=== PATIENT | female | born 1965 | race Caucasian/White ===

== ENCOUNTER → 2017-01-20 | Outpatient (CLI) | payer BC ==
--- NOTE | 2017-01-20 14:10 | CT ---
EXAMINATION TYPE: CT abdomen wo con DATE OF EXAM: 01/20/2017 1:51 PM COMPARISON: Prior CT abdomen pelvis 25 July 2015 HISTORY: Upper Abd pain with decreased appetite CT DLP: 198.5 mGycm Automated exposure control for dose reduction was used. TECHNIQUE: Helical acquisition of images was performed from the lung bases through the top of iliac crest to include entire abdomen. CONTRAST: Performed without Oral Contrast and without IV contrast. FINDINGS: LUNG BASES: No significant abnormality is appreciated. LIVER/GB: Liver shows low attenuation likely due to fatty infiltration as on prior exam, patient is p ost cholecystectomy PANCREAS: No significant abnormality is seen. SPLEEN: No significant abnormality is seen. ADRENALS: No significant abnormality is seen. KIDNEYS: Suspect findings of medullary sponge kidney bilaterally. No hydronephrosis or ureteral calcu jose j. BOWEL: Postop change, suspect patient is post appendectomy. Diverticular change seen in the colon. LYMPH NODES: No adenopathy evident OSSEOUS STRUCTURES: Degenerative disc changes are again noted at the lumbosacral junction FREE AIR: No Free Air visible ASCITES: None visible. RETROPERITONEAL ADENOPATHY: No Retroperitoneal Adenopathy visible. OTHER: Surgical clip present just deep to the umbilicus within the mesenteric fat. IMPRESSION: DIVERTICULOSIS. FATTY INFILTRATION OF THE LIVER. POSTOP CHANGES DESCRIBED. EXAM MAY BE LIMITED BY LACK OF CONTRAST. Additional findings above.
[2017-01-20 14:30] LABS: CH 28.3; CHCM 34.1; HCT 48.8 % (34.0-46.0); HGB 15.9 gm/dL (11.4-16.0); MCH 27.2 pg (25.0-35.0); MCHC 32.6 g/dL (31.0-37.0); MCV 83.5 fL (80.0-100.0); Mean Platelet Volume 7.2; RBC 5.84 m/uL (3.80-5.40); RDW 13.3 % (11.5-15.5); WBC 5.3 k/uL (3.8-10.6)
[2017-01-20 14:32] LABS: ALT 46 U/L (9-52); AST 34 U/L (14-36); Alkaline Phosphatase 104 U/L (38-126); Anion Gap 17 mmol/L; Blood Urea Nitrogen 18 mg/dL (7-17); Calcium 9.2 mg/dL (8.4-10.2); Carbon Dioxide 23 mmol/L (22-30); Chloride 102 mmol/L (98-107); Cholesterol 252 mg/dL (<200); Glucose 110 mg/dL (74-99); HDL Cholesterol 47 mg/dL (40-60); Non-African American GFR(MDRD) >60 (>60 ml/min/1.73 sqM); Potassium 4.3 mmol/L (3.5-5.1); Sodium 142 mmol/L (137-145); Total Bilirubin 0.8 mg/dL (0.2-1.3); Triglycerides 134 mg/dL (<150)
[2017-01-20 14:41] LABS: Appearance,Urine Clear (Clear); Bilirubin,Urine Negative (Negative); Glucose,Urine (UA) 4+ (Negative); Leukocyte Esterase,Urine Negative (Negative); Nitrite,Urine Negative (Negative); Protein,Urine Trace (Negative); Specific Gravity,Urine 1.037 (1.001-1.035); UA Billing (MACRO vs. MICRO) CHEM; Urobilinogen,Urine <2.0 mg/dL (<2.0)
[2017-01-20 14:43] LABS: Ketones,Urine 4+ (Negative)
[2017-01-20 18:25] LABS: Hemoglobin A1C 11.7 % (4.2-6.1)
== END | disposition home or self-care (01) ==
LOC: RADCTMAIN 11:58
PROVIDERS: ATTEND Family Medicine
DX: K57.30 Diverticulosis of large intestine without perforation or abscess without bleeding (principal); K76.0 Fatty (change of) liver, not elsewhere classified; Z98.890 Other specified postprocedural states
CPT/HCPCS: 74150; 80053; 80061; 81003; 83036; 83690; 84443; 85027

== ENCOUNTER 2017-01-23 09:41 | Observation (INO) | payer BC ==
[2017-01-23] MEDS ORDERED: LIDOCAINE 4% CREAM 5 GM TUBE TOPICAL ONE (11:10)
[2017-01-23 12:23] LABS: Basophils % (A) 0 %; CH 27.9; CHCM 33.3; Eosinophils # (A) 0.1 k/uL (0-0.7); Eosinophils % (A) 1 %; HCT 47.1 % (34.0-46.0); HDW 2.57; HGB 15.5 gm/dL (11.4-16.0); Luc # (Auto) 0.11; Luc % (Auto) 2; Lymphocytes % (A) 39 %; MCH 27.6 pg (25.0-35.0); MCHC 32.9 g/dL (31.0-37.0); MCV 83.9 fL (80.0-100.0); Mean Platelet Volume 6.4; Monocytes # (A) 0.3 k/uL (0-1.0); Monocytes % (A) 5 %; Neutrophils # (A) 2.7 k/uL (1.3-7.7); Neutrophils % (A) 53 %; RBC 5.61 m/uL (3.80-5.40); RDW 12.9 % (11.5-15.5); WBC 5.1 k/uL (3.8-10.6); WBC (Perox) 5.31
[2017-01-23] MEDS ORDERED: SODIUM CHLORIDE 0.9% 1,000 ML IV SCH (12:30)
[2017-01-23 12:31] LABS: ALT 40 U/L (9-52); AST 28 U/L (14-36); Alkaline Phosphatase 99 U/L (38-126); Anion Gap 15 mmol/L; Blood Urea Nitrogen 13 mg/dL (7-17); Calcium 9.4 mg/dL (8.4-10.2); Carbon Dioxide 22 mmol/L (22-30); Chloride 105 mmol/L (98-107); Cholesterol 254 mg/dL (<200); Glucose 179 mg/dL (74-99); HDL Cholesterol 40 mg/dL (40-60); Non-African American GFR(MDRD) >60 (>60 ml/min/1.73 sqM); Potassium 4.1 mmol/L (3.5-5.1); Sodium 142 mmol/L (137-145); Total Bilirubin 0.8 mg/dL (0.2-1.3); Total Protein 7.8 g/dL (6.3-8.2); Triglycerides 295 mg/dL (<150)
--- NOTE | 2017-01-23 12:48 | XR ---
EXAMINATION TYPE: XR abdomen 2V DATE OF EXAM: 01/23/2017 12:43 PM COMPARISON: 01/20/2017 HISTORY: Abdominal pain TECHNIQUE: One view abdominal series FINDINGS: The osseous structures are intact. The bowel gas pattern is nonspecific. Surgical clip in the right upper quadrant. Retained fecal debris throughout the colon. Arthropathy of the joints. IMPRESSION: 1. Nonspecific abdomen. Correlate for constipation
[2017-01-23] MEDS: SODIUM CHLORIDE 0.9% 1,000 ML IV SCH ×2 (12:54→22:24)
[2017-01-23 17:17] LABS: Glucose,Whole Blood 176 mg/dL (75-99)
--- NOTE | 2017-01-23 17:39 | P.GSCN ---
History of Present Illness Consult date: 01/23/17 Reason for Consult: Abdominal pain Requesting physician: Dallas Thompson History of present illness: Patient is a 51-year-old white female, referred from Dr. Thompson, with medical history significant for diabetes mellitus. Surgical history significant for appendectomy and cholecystectomy. Patient states that approximately 2 weeks ago she started experiencing abdominal bloating associated with nausea. Patient states that whenever she tried to eat something more than liquids and felt like the food wasn't getting digested but was stuck. Patient states she tried to eat some more solid foods but had a few episodes of vomiting. Patient states that she normally has 2-4 bowel movements a day after her cholecystectomy but hasn't had a bowel movement for 2 days. Patient states that when she does have a bowel movement she has to strain and stool is hard which is unusual for her. No history of fevers, chills, shortness of breath, or chest pain. Patient states that her blood sugars have been running in the 200s. Patient is concerned of possible gastroparesis. Abdominal x-ray with evidence of retained fecal debris throughout colon suggestive of constipation. CT of abdomen and pelvis from 01/20/2017 with evidence of diverticulosis. No evidence of leukocytosis. Hematocrit 47.1. Past Medical History Past Medical History: Diabetes Mellitus History of Any Multi-Drug Resistant Organisms: None Reported Past Surgical History: Appendectomy, Cholecystectomy Additional Past Surgical History / Comment(s): cyst removal Past Anesthesia/Blood Transfusion Reactions: Postoperative Nausea & Vomiting ( PONV) Past Psychological History: No Psychological Hx Reported Smoking Status: Former smoker Past Alcohol Use History: None Reported Past Drug Use History: None Reported - Past Family History Mother Family Medical History: Diabetes Mellitus, Hypertension Medications and Allergies Home Medications Medication Instructions Recorded Confirmed Type Empagliflozin/Metformin HCl 1 tab PO DAILY 01/23/17 01/23/17 History [Synjardy 12.5-1,000 mg Tablet] Allergies Allergy/AdvReac Type Severity Reaction Status Date / Time erythromycin base Allergy Rash/Hives Verified 01/23/17 11:15 Penicillins Allergy Rash/Hives Verified 01/23/17 11:15 prednisone Allergy Rash/Hives Verified 01/23/17 11:15 Sulfa (Sulfonamide Allergy Rash/Hives Verified 01/23/17 11:15 Antibiotics) Surgical - Exam Vital Signs Temp Pulse Resp BP Pulse Ox 97.1 F L 75 16 161/90 97 01/23/17 10:30 01/23/17 10:30 01/23/17 10:30 01/23/17 10:30 01/23/17 10:30 GENERAL: Pt awake and alert, well-appearing, well-nourished, and in no acute distress. EYES: Pupils equal, round, and reactive to light, sclera anicteric, conjunctiva are normal. ENT: Moist mucous membranes. LUNGS: Breath sounds clear to auscultation bilaterally. No wheezes, rales, or rhonchi. HEART: Heart S1, S2, no S3 or S4. Regular rate and rhythm. No murmurs, rubs or gallops. ABDOMEN: Soft, nontender, nondistended, normoactive bowel sounds. No guarding, no rebound. No masses or organomegaly appreciated. EXTREMITIES: Palpable peripheral pulses. No edema. No calf tenderness. NEUROLOGICAL: Pt oriented x 3. No focal deficits noted. Strength and sensation grossly intact. PSYCH: Normal mood, normal affect. Results - Labs 01/23/17 12:07 01/23/17 12:07 Abnormal Lab Results - Last 24 Hours (Table) 01/23/17 01/23/17 Range/Units 12:07 12:07 RBC 5.61 H (3.80-5.40) m/uL Hct 47.1 H (34.0-46.0) % Creatinine 0.42 L (0.52-1.04) mg/dL Glucose 179 H (74-99) mg/dL Triglycerides 295 H (<150) mg/dL Cholesterol 254 H (<200) mg/dL LDL Cholesterol, Calc 155 H (0-99) mg/dL Diabetes panel 01/23/17 Range/Units 12:07 Sodium 142 (137-145) mmol/L Potassium 4.1 (3.5-5.1) mmol/L Chloride 105 (98-107) mmol/L Carbon Dioxide 22 (22-30) mmol/L BUN 13 (7-17) mg/dL Creatinine 0.42 L (0.52-1.04) mg/dL Glucose 179 H (74-99) mg/dL Calcium 9.4 (8.4-10.2) mg/dL AST 28 (14-36) U/L ALT 40 (9-52) U/L Alkaline Phosphatase 99 (38-126) U/L Total Protein 7.8 (6.3-8.2) g/dL Albumin 4.5 (3.5-5.0) g/dL Triglycerides 295 H (<150) mg/dL HDL Cholesterol 40 (40-60) mg/dL Thyroid panel 01/23/17 Range/Units 12:07 TSH 3.400 (0.465-4.680) mIU/L Calcium panel 01/23/17 Range/Units 12:07 Calcium 9.4 (8.4-10.2) mg/dL Albumin 4.5 (3.5-5.0) g/dL Pituitary panel 01/23/17 01/23/17 Range/Units 12:07 12:07 Sodium 142 (137-145) mmol/L Potassium 4.1 (3.5-5.1) mmol/L Chloride 105 (98-107) mmol/L Carbon Dioxide 22 (22-30) mmol/L BUN 13 (7-17) mg/dL Creatinine 0.42 L (0.52-1.04) mg/dL Glucose 179 H (74-99) mg/dL Calcium 9.4 (8.4-10.2) mg/dL TSH 3.400 (0.465-4.680) mIU/L Adrenal panel 01/23/17 Range/Units 12:07 Sodium 142 (137-145) mmol/L Potassium 4.1 (3.5-5.1) mmol/L Chloride 105 (98-107) mmol/L Carbon Dioxide 22 (22-30) mmol/L BUN 13 (7-17) mg/dL Creatinine 0.42 L (0.52-1.04) mg/dL Glucose 179 H (74-99) mg/dL Calcium 9.4 (8.4-10.2) mg/dL Total Bilirubin 0.8 (0.2-1.3) mg/dL AST 28 (14-36) U/L ALT 40 (9-52) U/L Alkaline Phosphatase 99 (38-126) U/L Total Protein 7.8 (6.3-8.2) g/dL Albumin 4.5 (3.5-5.0) g/dL - Imaging Abdominal x-ray: report reviewed CT scan - abdomen: report reviewed CT scan - pelvis: report reviewed Assessment and Plan Plan: Impression: 1. Abdominal pain associated with decreased appetite and nausea suspect secondary to constipation. 2. Diverticulosis. Plan: Continue clear liquid diet. Continue IV hydration. Continue GI prophylaxis. Continue supportive treatment and pain management. Consider Fleet enema in a.m. if no bowel movement. The above impression and plan have been discussed and directed by Dr. Rivers. Carmine THAO acting as scribe for Dr. Rivers.
--- NOTE | 2017-01-23 17:40 | US ---
EXAMINATION TYPE: US abdomen complete DATE OF EXAM: 01/23/2017 3:03 PM COMPARISON: Previous study dated 12/04/2014. CLINICAL HISTORY: abdominal pain. EXAM MEASUREMENTS: Liver Length: 14.0 cm Gallbladder Wall: Surgically absent cm CBD: 0.5 cm Spleen: 9.7 cm Right Kidney: 10.2 x 4.5 x 4.7 cm Left Kidney: 10.2 x 5.1 x 4.8 cm Pancreas: Tail obscured by overlying bowel gas Liver: wnl Gallbladder: Surgically absent Evidence for sonographic Clinton's sign: No CBD: wnl Spleen: wnl Right Kidney: wnl Left Kidney: wnl Upper IVC: wnl Abd Aorta: wnl Limited views of the pancreas are normal. The liver is unremarkable. The gallbladder is been removed. The distal common hepatic duct measures 5 mm. The spleen is normal in size. Both kidneys are unremar kable. Visualized portions of aorta and IVC are normal. IMPRESSION: NORMAL ABDOMINAL ULTRASOUND.
[2017-01-23] MEDS: FAMOTIDINE 20 MG/2 ML VIAL IV SCH (20:58)
[2017-01-23 21:07] LABS: Glucose,Whole Blood 129 mg/dL (75-99)
--- NOTE | 2017-01-23 21:57 | HP ---
DATE OF ADMISSION: CHIEF COMPLAINT: A 51-year-old white female with acute abdominal pain. HISTORY OF PRESENT ILLNESS: This is a 51-year-old white female with acute abdominal pain worsening over the past few days. She was unable to have a bowel movement over the last 5 days. She has progressive vomiting with any oral intake, unable to keep any food down. She was admitted for acute abdomen to rule out any surgical pathology and to relieve any causes of bowel obstruction. She is diabetic. She has failed outpatient treatment with gastroparesis. She was on Reglan, which made her extremely fatigued. ALLERGIES include: 1. ERYTHROMYCIN. 2. PENICILLIN. 3. PREDNISONE. 4. SULFA. HOME MEDICATIONS: 1. Synjardy 12.02/1000 one daily. 2. Pepcid 20 daily. REVIEW OF SYSTEMS: Fourteen-point review of systems negative except as mentioned in the HPI. PHYSICAL EXAM: Temperature 97.1, pulse 70 to 75, respiratory rate 16 to 18, blood pressure 160s over 90s, oxygen saturation 97% on room air. PSYCHIATRIC: Fair mood and affect. NEUROLOGIC: Alert and oriented x3. CARDIOVASCULAR: S1 and S2 without any murmurs, rubs, gallops. LUNGS: Clear to auscultation. No rales, rhonchi, wheezing. Integument shows some facial rosacea and redness across her cheeks. GI: Distended. Slightly increased bowel sounds x4. Mild guarding. No rebound. : No suprapubic tenderness. No CVA tenderness. HEMATOLOGIC: Negative Homans. VASCULAR: Normal dorsalis pedis, posterior tibial and radial pulse. ASSESSMENT: 1. Acute abdominal pain. Rule out small bowel obstruction versus ileus versus gastroparesis. Surgical consultation planned at this time. 2. Type 2 diabetes mellitus. 3. Gastroesophageal reflux disease. Continue with surgical consult. Ultrasound of the abdomen and x-ray of the abdomen. CONDITION: Stable. Will continue in the next 24 to 48 hours with surgical consult.
[2017-01-24] MEDS ORDERED: HYDROmorphone 1 MG/ML 1 ML SYRINGE IVP PRN (01:27)
[2017-01-24 07:39] LABS: Glucose,Whole Blood 165 mg/dL (75-99)
[2017-01-24] MEDS ORDERED: IBUPROFEN 600 MG TAB PO PRN (07:58)
[2017-01-24] MEDS ORDERED: NA PHOS,M-B/NA PHOS,DI-BA 133 ML ENEMA RECTAL ONE (08:00)
[2017-01-24] MEDS: SODIUM CHLORIDE 0.9% 1,000 ML IV SCH (08:26)
[2017-01-24] MEDS: FAMOTIDINE 20 MG/2 ML VIAL IV SCH (08:33)
[2017-01-24 08:46] VITALS: BP 125/81; PULSE 76; RESP 18; TEMP 97.2
[2017-01-24] MEDS ORDERED: METFORMIN HCL PO SCH (09:00)
[2017-01-24] MEDS ORDERED: EMPAGLIFLOZIN PO SCH (09:00)
--- NOTE | 2017-01-24 11:59 | P.PN ---
Progress Note - Text The patient states she feels better. He has received a Fleet enema this morning. On exam her vital signs are stable. Her abdomen soft. The patient will most likely be discharged home today. She'll follow-up in the office next week. We will plan for outpatient colonoscopy.
[2017-01-24 12:47] LABS: Hemoglobin A1C 11.5 % (4.2-6.1)
[2017-01-24 15:02] VITALS: BMI 24.3
--- NOTE | 2017-04-07 08:46 | DS ---
DATE OF ADMISSION: 01/23/2017 DATE OF DISCHARGE: 01/24/2017 MEDICATION: Synjardy 12.02/1000 one tablet daily. CONDITION: Stable. PROGNOSIS: Guarded. Ambulate as tolerated. DIAGNOSES: 1. Acute gastroparesis. 2. Diabetes mellitus. 3. Chemical exposure at work, possibly causing some abdominal pain. 4. Diverticulosis. 5. Possible constipation. 6. Burning in the throat, suspect she states from chemicals at work. Will need an outpatient EGD. Medically, she was cleared for discharge by Dr. Rivers and she will follow up as an outpatient.
== END 2017-01-24 15:30 | disposition home or self-care (01) ==
LOC: 6PED 10:19
PROVIDERS: ADMIT Family Medicine; ATTEND Family Medicine
DX: E11.43 Type 2 diabetes mellitus with diabetic autonomic (poly)neuropathy (principal); K31.84 Gastroparesis; Z79.84 Long term (current) use of oral hypoglycemic drugs; K21.9 Gastro-esophageal reflux disease without esophagitis; K57.90 Diverticulosis of intestine, part unspecified, without perforation or abscess without bleeding; Z87.891 Personal history of nicotine dependence; Z88.3 Allergy status to other anti-infective agents; Z88.0 Allergy status to penicillin; Z88.2 Allergy status to sulfonamides; Z88.8 Allergy status to other drugs, medicaments and biological substances; Z90.49 Acquired absence of other specified parts of digestive tract
CPT/HCPCS: 80061; 80053; 84443; 82150; 83036; 83690; 85025; 74020; 76700; G0378 ×2; G0379; 96374; 96376

== ENCOUNTER 2017-02-04 08:25 | Day surgery (SDC) | payer BC ==
[2017-01-30 14:28] VITALS: BMI 24.6
[~2017-02-04 08:25] MED LIST: LACTATED RINGERS 1,000 ML IV SCH; LIDOCAINE 1% 20 ML VIAL (10MG/ML) FOR IV START INTRADERMA PRN
[2017-02-04] MEDS ORDERED: fentaNYL (PF) 50 MCG/ML 2 ML AMP ONE (09:00)
[2017-02-04] MEDS ORDERED: PROPOFOL 10 MG/ML 20 ML VIAL IV ONE (09:00)
[2017-02-04] MEDS ORDERED: MIDAZOLAM 2 MG/2 ML VIAL ONE (09:00)
[2017-02-04 09:01] VITALS: RESP 16; TEMP 97.8
[2017-02-04 09:03] LABS: Glucose,Whole Blood 197 mg/dL (75-99)
--- NOTE | 2017-02-04 09:11 | P.GSHP ---
History of Present Illness H&P Date: 02/04/17 Chief Complaint: GERD, screening colonoscopy This a 51-year-old female who's had recent issues with GERD. She presents today for EGD. She's also had complaints of constipation left lower quadrant pain. She presents for screening colonoscopy. - Constitutional Constitutional: Reports as per HPI Past Medical History Past Medical History: Diabetes Mellitus, Hyperlipidemia Additional Past Medical History / Comment(s): vomiting after eating, constipation, History of Any Multi-Drug Resistant Organisms: None Reported Past Surgical History: Appendectomy, Cholecystectomy Additional Past Surgical History / Comment(s): cysts removed from ovaries Past Anesthesia/Blood Transfusion Reactions: Motion Sickness, Postoperative Nausea & Vomiting (PONV) Past Psychological History: No Psychological Hx Reported Smoking Status: Former smoker Past Alcohol Use History: None Reported Additional Past Alcohol Use History / Comment(s): quit smoking 30 yrs ago, smoked for 2-3 yrs Past Drug Use History: None Reported - Past Family History Mother Family Medical History: Diabetes Mellitus, Hypertension Sister(s) Family Medical History: Deep Vein Thrombosis (DVT) Medications and Allergies Home Medications Medication Instructions Recorded Confirmed Type Empagliflozin/Metformin HCl 1 tab PO DAILY 01/23/17 01/30/17 History [Synjardy 12.5-1,000 mg Tablet] Ibuprofen [Motrin] 200 - 400 mg PO Q6HR PRN 01/30/17 01/30/17 History Reglan(Dose Unknown) 1 tab PO QID 01/30/17 01/30/17 History Allergies Allergy/AdvReac Type Severity Reaction Status Date / Time erythromycin base Allergy Rash/Hives Verified 02/04/17 08:51 gemifloxacin [From Factive] Allergy Swelling Verified 02/04/17 08:51 Penicillins Allergy Rash/Hives Verified 02/04/17 08:51 prednisone Allergy Rash/Hives Verified 02/04/17 08:51 Sulfa (Sulfonamide Allergy Rash/Hives Verified 02/04/17 08:51 Antibiotics) Surgical - Exam Vital Signs Temp Pulse Resp BP Pulse Ox 97.8 F 93 16 141/79 97 02/04/17 08:58 02/04/17 08:58 02/04/17 08:58 02/04/17 08:58 02/04/17 08:58 - General well developed, no distress - Eyes PERRL - ENT normal pinna - Respiratory normal expansion - Cardiovascular Rhythm: regular - Abdomen Abdomen: soft, non tender Results - Labs Abnormal Lab Results - Last 24 Hours (Table) 02/04/17 Range/Units 08:56 POC Glucose (mg/dL) 197 H (75-99) mg/dL Assessment and Plan Plan: GERD we'll perform EGD. We'll also perform screening colonoscopy.
--- NOTE | 2017-02-04 09:40 | P.OP ---
Date of Procedure: 02/04/17 Preoperative Diagnosis: GERD Screening colonoscopy Postoperative Diagnosis: Diverticulosis Mild antral gastritis Procedure(s) Performed: EGD Colonoscopy Anesthesia: MAC Surgeon: Brandon Rivers Pathology: other (Antrum, esophagus) Condition: stable Disposition: PACU Description of Procedure: The patient's placed on the endoscopy table in the lateral position. She received IV sedation. The gastroscope some placed oropharynx passed in the esophagus and into the stomach. The scope was then placed through the pylorus. The first and second portion of the duodenum appeared normal. Scope was then brought back the antrum and this appeared mildly inflamed and a biopsies was performed. The scope was retroflexed and the remainder of the stomach appeared normal. There is no significant hiatal hernia. The GE junction was at 40 cm. The distal esophagus appeared mildly inflamed a biopsy was performed. The proximal esophagus appeared normal and scope was then withdrawn. Next digital rectal exam was performed which revealed no abnormalities. The flexible colonoscope was then placed the patient's anus and passed throughout the entire colon. The ileocecal valve was visualized. The cecum, ascending and transverse colon appeared normal. In the descending and; was mild diverticular changes. The scope was then brought back the rectum and this appeared normal. Scope was withdrawn for patient.
[2017-02-04 09:47] LABS: Glucose,Whole Blood 178 mg/dL (75-99)
[2017-02-04 09:56] VITALS: BP 141/85; PULSE 80
== END 2017-02-04 11:07 | disposition home or self-care (01) ==
LOC: ORWHC2ENDO 08:25
PROVIDERS: ATTEND Surgery
DX: K59.00 Constipation, unspecified (principal); K21.0 Gastro-esophageal reflux disease with esophagitis; K29.50 Unspecified chronic gastritis without bleeding; E11.9 Type 2 diabetes mellitus without complications; Z87.891 Personal history of nicotine dependence; Z79.899 Other long term (current) drug therapy; Z79.84 Long term (current) use of oral hypoglycemic drugs; Z88.0 Allergy status to penicillin; Z88.2 Allergy status to sulfonamides; Z88.8 Allergy status to other drugs, medicaments and biological substances; Z83.3 Family history of diabetes mellitus
CPT/HCPCS: 88305; 88342; 45378; 43239; J2250; J3010; J2704

== ENCOUNTER → 2017-02-12 | Outpatient (CLI) | payer BC, OTHER ==
--- NOTE | 2017-02-12 15:06 | FL ---
EXAMINATION TYPE: FL UGI air w small bowel DATE OF EXAM: 02/12/2017 11:05 AM COMPARISON: NONE HISTORY: Gastroparesis TECHNIQUE: A double contrast contrast UGI study is performed with small bowel follow through. FINDINGS: Magistrate image of the abdomen were obtained. There is moderate fecal retention. The esophagus drains normally to the gastroesophageal junction. Gastroesophageal junction opens to no rmal caliber. Some mild reflux to the level of the aortic arch is noted during the examination. A few tertiary contractions are present during the exam Images through the stomach appear normal without intraluminal or extramural defects. Gastric folds ap pear unremarkable. Very minimal emptying into the normally positioned duodenal cap and sweep. Mild fold hypertrophy may be present within the second portion the duodenum. Correlate for mild duodenitis. Small bowel follow-through: Transit time to the colon is 90 minutes. There is normal mucosal fold pat tern throughout the small bowel. There is no evidence of any stricture or filling defect noted. The terminal ileum is unremarkable. Real-time observation demonstrated normal motility with pressure. IMPRESSION: 1. Mild gastroesophageal reflux. 2. Mild presbyesophagus. 3. Normal stomach without fluid retention. 4. Normal small bowel follow-through
== END | disposition home or self-care (01) ==
LOC: RADFLWHC 08:13
PROVIDERS: ATTEND Family Medicine
DX: K21.9 Gastro-esophageal reflux disease without esophagitis (principal); K22.8 Other specified diseases of esophagus
CPT/HCPCS: 74249

== ENCOUNTER 2017-11-25 14:20 | Emergency (ER) | payer BC, OTHER ==
[2017-11-25 14:55] VITALS: BP 149/88; PULSE 119; RESP 18; TEMP 98.2
[2017-11-25] MEDS ORDERED: KETOROLAC 60 MG/2 ML VIAL IM STA (15:44)
--- NOTE | 2017-11-25 15:56 | ED ---
General Adult HPI - General Chief complaint: Extremity Problem,Nontraumatic Stated complaint: Legs/Painful Time Seen by Provider: 11/25/17 15:34 Source: patient, family, RN notes reviewed Mode of arrival: ambulatory Limitations: no limitations - History of Present Illness Initial comments: 52 yo female presents to the ER with cc of pain to bilateral hips that radiates down his bilateral legs. Patient states it started about 34 days ago. Patient states it hurts in the lower buttock and it will radiate down the legs. She takes Motrin and presented for about 6-8 hours and the pain returns. She is able to walk. There's been no loss of bladder or bowel function with it. She states she's never any feeling before. She denies any history of chronic back pain. She was concerned due to the continued discomfort so she thought that she should be evaluated. There is been no nausea or vomiting. She denies any saddle anesthesia. She states the pain just shoots down the legs. No numbness or tingling. Patient denies any recent fever, chills, shortness of breath, chest pain, abdominal pain, nausea vomiting, numbness or tingling, dysuria or hematuria, constipation or diarrhea, headaches or visual changes, or any other current symptoms. - Related Data Home Medications Medication Instructions Recorded Confirmed Ibuprofen [Motrin] 200 - 800 mg PO Q6HR PRN 01/30/17 11/25/17 Previous Rx's Medication Instructions Recorded Ibuprofen [Motrin] 600 mg PO Q6HR PRN #20 tab 11/25/17 Orphenadrine [Norflex] 100 mg PO Q12H #10 tablet.er 11/25/17 Allergies Allergy/AdvReac Type Severity Reaction Status Date / Time erythromycin base Allergy Rash/Hives Verified 11/25/17 16:02 gemifloxacin [From Factive] Allergy Swelling Verified 11/25/17 16:02 Penicillins Allergy Rash/Hives Verified 11/25/17 16:02 prednisone Allergy Rash/Hives Verified 11/25/17 16:02 Sulfa (Sulfonamide Allergy Rash/Hives Verified 11/25/17 16:02 Antibiotics) Review of Systems ROS Statement: Those systems with pertinent positive or pertinent negative responses have been documented in the HPI. ROS Other: All systems not noted in ROS Statement are negative. Past Medical History Past Medical History: Diabetes Mellitus, Hyperlipidemia Additional Past Medical History / Comment(s): vomiting after eating, constipation, History of Any Multi-Drug Resistant Organisms: None Reported Past Surgical History: Appendectomy, Cholecystectomy Additional Past Surgical History / Comment(s): cysts removed from ovaries Past Anesthesia/Blood Transfusion Reactions: Motion Sickness, Postoperative Nausea & Vomiting (PONV) Past Psychological History: No Psychological Hx Reported Smoking Status: Former smoker Past Alcohol Use History: None Reported Past Drug Use History: None Reported - Past Family History Mother Family Medical History: Diabetes Mellitus, Hypertension Sister(s) Family Medical History: Deep Vein Thrombosis (DVT) General Exam Limitations: no limitations General appearance: alert, in no apparent distress ENT exam: Present: normal exam, mucous membranes moist Neck exam: Present: normal inspection. Absent: tenderness, meningismus, lymphadenopathy Respiratory exam: Present: normal lung sounds bilaterally. Absent: respiratory distress, wheezes, rales, rhonchi, stridor Cardiovascular Exam: Present: regular rate, normal rhythm, normal heart sounds. Absent: systolic murmur, diastolic murmur, rubs, gallop, clicks Extremities exam: Present: normal inspection, full ROM, normal capillary refill. Absent: tenderness, pedal edema, joint swelling, calf tenderness Back exam: Present: normal inspection, full ROM, other (Negative straight leg raise. Patient does have bilateral SI joint tenderness to palpation.). Absent : paraspinal tenderness, vertebral tenderness, rash noted Neurological exam: Present: alert, oriented X3 Psychiatric exam: Present: normal affect, normal mood Skin exam: Present: warm, dry, intact, normal color. Absent: rash Course Vital Signs 11/25/17 14:53 Temperature 98.2 F Pulse Rate 119 H Respiratory 18 Rate Blood Pressure 149/88 O2 Sat by Pulse 99 Oximetry Medical Decision Making - Medical Decision Making 51-year-old female presents with what appears to be an anxiety joint inflammation. This time patient is ALLERGIC to steroids. We did discuss that we will put her on muscle relaxers for pain and we gave her prescription for Motrin. We did discuss using exercises that she is prescribed as well and he for follow-up follow-up to orthopedic. We did discuss return parameters all questions. Patient stated that she understood and she is given plan. She'll be discharged. - Radiology Data Radiology results: report reviewed, image reviewed Disposition Clinical Impression: SI (sacroiliac) joint inflammation Disposition: HOME SELF-CARE Condition: Stable Instructions: Low Back Strain (ED), Lower Back Exercises (ED) Additional Instructions: Please use medication as discussed. Please follow up with family doctor if symptoms have not improved over the next two days. Please return to the emergency room if your symptoms increase or worsen or for any other concerns. Prescriptions: Ibuprofen [Motrin] 600 mg PO Q6HR PRN #20 tab PRN Reason: Pain Orphenadrine [Norflex] 100 mg PO Q12H #10 tablet.er Referrals: Dallas Thompson MD [Primary Care Provider] - 1-2 days Socrates Posada MD [STAFF PHYSICIAN] - 1-2 days Time of Disposition: 16:12
--- NOTE | 2017-11-25 16:03 | XR ---
EXAMINATION TYPE: XR lumbar spine 2 or 3V DATE OF EXAM: 11/25/2017 COMPARISON: NONE HISTORY: 52-year-old female with pain TECHNIQUE: 3 views FINDINGS: Mild multilevel degenerative disc disease with mild endplate spondylosis and mild disc interspace courtney rowing. There is more moderate degenerative disc height loss at L5-S1 with endplate sclerosis. Facet arthropathy lower lumbar spine. Vertebral body heights are maintained alignment is preserved. IMPRESSION: No vertebral compression collapse or malalignment. Moderate degenerative disc disease L5-S1 and mild at other levels. Facet arthropathy lower lumbar spine.
== END 2017-11-25 16:20 | disposition home or self-care (01) ==
LOC: EC 14:20
DX: M46.1 Sacroiliitis, not elsewhere classified (principal); Z87.891 Personal history of nicotine dependence; Z88.0 Allergy status to penicillin; Z88.1 Allergy status to other antibiotic agents; Z88.2 Allergy status to sulfonamides; Z88.8 Allergy status to other drugs, medicaments and biological substances
CPT/HCPCS: 72100; 99283; 96372; J1885

== ENCOUNTER 2018-01-21 10:05 | Inpatient (IN) | payer OTHER ==
[2018-01-21] MEDS ORDERED: RX INFO: IV CONTRAST WAS GIVEN 1 EACH MISC MISCELLANE PRN (10:51)
[2018-01-21] MEDS ORDERED: SODIUM CHLORIDE 0.9% 1,000 ML IV STA ×3 (10:51→12:50)
[2018-01-21] MEDS ORDERED: ONDANSETRON 4 MG/2 ML VIAL IVP STA (10:51)
[2018-01-21] MEDS ORDERED: FAMOTIDINE 20 MG/2 ML VIAL IV STA (10:53)
[2018-01-21] MEDS ORDERED: ACETAMINOPHEN IV (For NPO) 1,000 MG in EMPTY BAG 1 BAG IVPB ONE (10:53)
[2018-01-21 11:48] LABS: Basophils % (A) 0 %; Eosinophils # (A) 0.1 k/uL (0-0.7); Eosinophils % (A) 1 %; HCT 50.5 % (34.0-46.0); HGB 16.4 gm/dL (11.4-16.0); Lymphocytes # (A) 0.9 k/uL (1.0-4.8); Lymphocytes % (A) 5 %; MCH 27.5 pg (25.0-35.0); MCHC 32.5 g/dL (31.0-37.0); MCV 84.5 fL (80.0-100.0); Mean Platelet Volume 7.5; Monocytes # (A) 0.7 k/uL (0-1.0); Monocytes % (A) 3 %; Neutrophils # (A) 17.3 k/uL (1.3-7.7); Neutrophils % (A) 91 %; Platelet Count 475 k/uL (150-450); RBC 5.97 m/uL (3.80-5.40); RDW 12.6 % (11.5-15.5)
[2018-01-21 11:54] LABS: ALT 38 U/L (9-52); AST 24 U/L (14-36); Alkaline Phosphatase 163 U/L (38-126); Amylase 76 U/L (30-110); Anion Gap 27 mmol/L; Blood Urea Nitrogen 20 mg/dL (7-17); Calcium 10.9 mg/dL (8.4-10.2); Carbon Dioxide 17 mmol/L (22-30); Chloride 96 mmol/L (98-107); Lipase 264 U/L (23-300); Sodium 140 mmol/L (137-145); Total Bilirubin 0.7 mg/dL (0.2-1.3); Total Protein 8.7 g/dL (6.3-8.2)
[2018-01-21 12:09] LABS: Glucose 567 mg/dL (74-99)
[2018-01-21] MEDS ORDERED: METOCLOPRAMIDE 5 MG/ML 2 ML VIAL IVP STA (12:50)
[2018-01-21] MEDS ORDERED: INSULIN REGULAR 100 UNIT/ML VIAL SQ STA ×2 (12:50→13:17)
[2018-01-21 13:15] LABS: Glucose,Whole Blood 377 mg/dL (75-99)
--- NOTE | 2018-01-21 13:34 | CT ---
EXAMINATION TYPE: CT abdomen pelvis w con DATE OF EXAM: 01/21/2018 COMPARISON: 01/20/2017 HISTORY: 52-year-old female complains of nausea, vomiting, and diarrhea after taking Janumet for the first time. TECHNIQUE: Contiguous axial scanning of the abdomen and pelvis following administration of 100 ml Omn ipaque 300 IV contrast. Delayed images through the kidneys and coronal/sagittal reconstructions perf ormed. CT DLP: 426.6 mGycm Automated exposure control for dose reduction was used. FINDINGS: Heart normal size without pericardial effusion. Lung bases clear without pleural effusion. Very mild circumference of wall thickening of the distal esophagus. Low attenuation of the hepatic parenchyma relative to the spleen on portal venous phase. Portal venou s system is patent. No biliary ductal dilatation. Cholecystectomy clips. Adrenal glands, kidneys, spleen, and pancreas appear within normal limits. No dilated small bowel, free fluid, or free air. Some surgical material along the inferior aspect of the cecum suggest prior appendectomy. Some prominent fluid-filled small bowel loops in the lower abdomen and pelvis and some liquid stool w ithin the colon. Mild left hemicolonic diverticulosis. No pericolonic inflammatory change. Circumaortic left renal vein. Scattered nonenlarged and borderline sized mesenteric lymph nodes are present measuring up to 7 mm, f or example, and coronal image 35. Bladder urine distended. Uterus is visualized. Right ovary questionably seen. Left ovary obscured by adjacent bowel loops. No abnormal fluid collection in the pelvis or pelvic lymphadenopathy. Bones: Mild degenerative spurring at the hips. Degenerative disc disease L5-S1. IMPRESSION: 1. FLUID-FILLED SMALL BOWEL LOOPS IN THE LOWER ABDOMEN AND PELVIS AND SOME LIQUID STOOL THROUGHOUT TH E COLON. CORRELATE FOR ENTERITIS. SOME BORDERLINE SIZED MESENTERIC LYMPH NODES ARE LIKELY REACTIVE. 2. HEPATIC STEATOSIS. CORRELATE WITH LFT's, LIPID PROFILE, AND PATIENT RISK FACTORS. 3. LEFT-SIDED COLONIC DIVERTICULOSIS. NO EVIDENCE FOR ACUTE DIVERTICULITIS. 4. MILD CIRCUMFERENTIAL WALL THICKENING OF THE LOWER ESOPHAGUS. CORRELATE FOR ANY SYMPTOMS OF ESOPHAG ITIS.
--- NOTE | 2018-01-21 14:42 | ED ---
General Adult HPI - General Chief complaint: Nausea/Vomiting/Diarrhea Stated complaint: Reaction to meds/ Vomiting Time Seen by Provider: 01/21/18 10:44 Source: patient Mode of arrival: ambulatory Limitations: no limitations - History of Present Illness Initial comments: This 52-year-old white female presents with a complaint of some nausea vomiting and diarrhea. She also has had some diffuse abdominal pain worse in the lower abdomen bilaterally. She states that she's had multiple episodes of vomiting and diarrhea. Onset of symptoms as yesterday. She states that her symptoms are fairly severe. She seems to think that this is related to taking 2 medications of lisinopril and a new diabetic medication. She denies any fevers or chills. There is no blood in her stool or vomitus. She denies any other complaints or modifying factors. - Related Data Home Medications Medication Instructions Recorded Confirmed Atorvastatin [Lipitor] 40 mg PO HS 01/21/18 01/21/18 Lisinopril [Prinivil] 10 mg PO DAILY 01/21/18 01/21/18 sitaGLIPtin PHOS/metFORMIN HCL 1 tab PO DAILY 01/21/18 01/21/18 [Janumet Xr 50-500 mg Tablet] Allergies Allergy/AdvReac Type Severity Reaction Status Date / Time erythromycin base Allergy Rash/Hives Verified 01/21/18 10:50 gemifloxacin [From Factive] Allergy Swelling Verified 01/21/18 10:50 Penicillins Allergy Rash/Hives Verified 01/21/18 10:50 prednisone Allergy Rash/Hives Verified 01/21/18 10:50 Sulfa (Sulfonamide Allergy Rash/Hives Verified 01/21/18 10:50 Antibiotics) Review of Systems ROS Statement: Those systems with pertinent positive or pertinent negative responses have been documented in the HPI. ROS Other: All systems not noted in ROS Statement are negative. Past Medical History Past Medical History: Diabetes Mellitus, Hyperlipidemia Additional Past Medical History / Comment(s): vomiting after eating, constipation, History of Any Multi-Drug Resistant Organisms: None Reported Past Surgical History: Appendectomy, Cholecystectomy Additional Past Surgical History / Comment(s): cysts removed from ovaries Past Anesthesia/Blood Transfusion Reactions: Motion Sickness, Postoperative Nausea & Vomiting (PONV) Past Psychological History: No Psychological Hx Reported Smoking Status: Former smoker Past Alcohol Use History: None Reported Past Drug Use History: None Reported - Past Family History Mother Family Medical History: Diabetes Mellitus, Hypertension Sister(s) Family Medical History: Deep Vein Thrombosis (DVT) General Exam - General Exam Comments Initial Comments: GENERAL: The patient is well nourished and well hydrated. VITAL SIGNS: Heart rate, blood pressure, respiratory rate reviewed as recorded in nurse's notes. EYES: Pupils are round and reactive. Extraocular movements are intact. No conjunctival / lid redness or swelling. ENT: No external evidence of injury, swelling, or ecchymosis. Airway is patent. Throat is clear. NECK: Nontender. No swelling or evidence of injury. No subcutaneous emphysema. Trachea is midline. No thyroid mass. HEART: Regular rate and rhythm. Good peripheral pulses. LUNGS/CHEST: Breath sounds clear and equal bilaterally. No rales, rhonchi, or wheezes. No ecchymosis, subcutaneous emphysema, or tenderness. ABDOMEN: There is some mild diffuse tenderness to the abdomen worse in the bilateral lower abdomen. No palpable masses or organomegaly. No peritoneal signs. No abdominal wall swelling or ecchymosis. EXTREMITIES: No extremity tenderness. Normal muscle tone and function. No thoracolumbar tenderness. NEUROLOGIC: Sensation is grossly intact. Cranial nerve exam reveals face is symmetrical, tongue is midline, speech is clear. SKIN: No abrasions or ecchymosis is noted. No induration or masses noted. PSYCHIATRIC: Alert and oriented. Appropriate behavior and judgment. Limitations: no limitations Course Vital Signs 01/21/18 01/21/18 01/21/18 10:48 12:35 13:25 Temperature 98.7 F Pulse Rate 112 H 92 105 H Respiratory 20 20 18 Rate Blood Pressure 133/75 134/70 142/85 O2 Sat by Pulse 98 95 98 Oximetry Medical Decision Making - Medical Decision Making The patient was seen and examined. All diagnostics were reviewed. An IV is established and was hydrated. She receives some Zofran as well as some pain medications and is feeling improved on recheck. The EKG shows a sinus tachycardia at a rate of 112. There is no acute ST-T wave changes noted. The TN intervals 136, QRS duration is 74, and QTC intervals 472. The patient also had a computed tomography scan of the abdomen and pelvis which primarily shows some fluid-filled bowel likely consistent with gastroenteritis. It is felt that this would clinically correlate. The laboratory shows a significant elevation of her blood sugar of 578. Stated complaint on significantly with just fluid therapy intravenously. She also later received 12 units of subcutaneous insulin. Fluid hydration is continued. She later receives additional pain medications. The patient likely does have gastroenteritis. This felt as though she would benefit from admission to the hospital for continued treatment and blood sugar control. Case was discussed with Dr. Thompson who is agreeable. - Lab Data Result diagrams: 01/21/18 11:25 01/21/18 11:25 Lab Results 01/21/18 01/21/18 01/21/18 Range/Units 11:25 11:25 13:14 WBC 19.0 H (3.8-10.6) k/uL RBC 5.97 H (3.80-5.40) m/uL Hgb 16.4 H (11.4-16.0) gm/dL Hct 50.5 H (34.0-46.0) % MCV 84.5 (80.0-100.0) fL MCH 27.5 (25.0-35.0) pg MCHC 32.5 (31.0-37.0) g/dL RDW 12.6 (11.5-15.5) % Plt Count 475 H (150-450) k/uL Neutrophils % 91 % Lymphocytes % 5 % Monocytes % 3 % Eosinophils % 1 % Basophils % 0 % Neutrophils # 17.3 H (1.3-7.7) k/uL Lymphocytes # 0.9 L (1.0-4.8) k/uL Monocytes # 0.7 (0-1.0) k/uL Eosinophils # 0.1 (0-0.7) k/uL Basophils # 0.0 (0-0.2) k/uL Sodium 140 (137-145) mmol/L Potassium 5.0 (3.5-5.1) mmol/L Chloride 96 L (98-107) mmol/L Carbon Dioxide 17 L (22-30) mmol/L Anion Gap 27 mmol/L BUN 20 H (7-17) mg/dL Creatinine 0.60 (0.52-1.04) mg/dL Est GFR (CKD-EPI)AfAm >90 (>60 ml/min/1.73 sqM) Est GFR (CKD-EPI)NonAf >90 (>60 ml/min/1.73 sqM) Glucose 567 H* (74-99) mg/dL POC Glucose (mg/dL) 377 H (75-99) mg/dL POC Glu Records Section Supervisor ID Zaria Panda Calcium 10.9 H (8.4-10.2) mg/dL Total Bilirubin 0.7 (0.2-1.3) mg/dL AST 24 (14-36) U/L ALT 38 (9-52) U/L Alkaline Phosphatase 163 H (38-126) U/L Total Protein 8.7 H (6.3-8.2) g/dL Albumin 5.0 (3.5-5.0) g/dL Amylase 76 (30-110) U/L Lipase 264 (23-300) U/L Disposition Clinical Impression: Abdominal pain, Nausea and vomiting, Diarrhea, Dehydration, Hypertension, Leukocytosis, Hyperglycemia, Diabetes Disposition: ADMITTED IP TO THIS [facility] Condition: Fair Time of Disposition: 14:45 Decision Date: 01/21/18 Decision Time: 14:45
[2018-01-21] MEDS ORDERED: ONDANSETRON 4 MG/2 ML VIAL IVP PRN (14:46)
[2018-01-21] MEDS ORDERED: MORPHINE SULFATE/PF 10MG/10ML VL IV PRN (14:46)
[2018-01-21] MEDS ORDERED: NALOXONE 0.4 MG/ML 1 ML VIAL IV PRN (14:46)
[2018-01-21] MEDS ORDERED: HYDROcodone/APAP 5-325MG 1 EACH TAB PO PRN (14:46)
[2018-01-21 15:01] LABS: Glucose,Whole Blood 290 mg/dL (75-99)
[2018-01-21 16:10] VITALS: BMI 24.2
[2018-01-21 17:16] LABS: Glucose,Whole Blood 241 mg/dL (75-99)
[2018-01-21] MEDS: INSULN ASP PRT/INSULIN ASPART 100 UNIT/ML 10 ML VIAL SQ SCH (18:02)
[2018-01-21 18:39] LABS: Appearance,Urine Clear (Clear); Bilirubin,Urine Negative (Negative); Blood,Urine Negative (Negative); Color,Urine Light Yellow; Glucose,Urine (UA) 4+ (Negative); Leukocyte Esterase,Urine Negative (Negative); Nitrite,Urine Negative (Negative); Protein,Urine Negative (Negative); Urobilinogen,Urine <2.0 mg/dL (<2.0)
[2018-01-21 19:03] LABS: Specific Gravity,Urine 1.049 (1.001-1.035)
[2018-01-21 19:05] LABS: Ketones,Urine 2+ (Negative)
[2018-01-21] MEDS: ATENOLOL 25 MG TAB PO SCH (20:52)
[2018-01-21] MEDS: ATORVASTATIN 40 MG TAB PO SCH (20:52)
[2018-01-21 21:16] LABS: Glucose,Whole Blood 215 mg/dL (75-99)
--- NOTE | 2018-01-22 06:49 | HP ---
HISTORY AND PHYSICAL CHIEF COMPLAINT: A 52-year-old white female with nausea, vomiting, and diarrhea. HISTORY OF PRESENT ILLNESS: A 52-year-old white female who came in with nausea, vomiting, diarrhea, increased pain. Episodes of vomiting, diarrhea seems fairly severe. No blood in the stool or vomitus. Janumet is the cause of her abdominal pain and diarrhea. MEDS: 1. Lipitor 40 daily. 2. Prinivil 10 daily. 3. Janumet 5/500 b.i.d. ALLERGIES: ERYTHROMYCIN, GEMFIBROZIL, PENICILLIN, PREDNISONE, SULFA. 14 POINT REVIEW OF SYSTEMS: Negative except for as mentioned in HPI. PAST MEDICAL HISTORY: Hypertension, diabetes mellitus, dyslipidemia. PAST SURGICAL HISTORY: Appendectomy, cholecystectomy, cyst removed from ovary. SOCIAL HISTORY: Former smoker. No alcohol. No illicit drugs. PHYSICAL EXAM: Pulse 92 to 112, temp 98.7, respiratory rate 18 to 20. HEENT: Normocephalic, atraumatic. OPHTHALMOLOGIC: Pupils equal, round, react to light and accommodation. CARDIOVASCULAR: S1, S2. Lungs are clear. GI is decreased bowel sounds x4. No mass or organomegaly. HEMATOLOGY: Negative Homans. PSYCH: Fair mood and affect. Blood pressure 140s/70s. ASSESSMENT: 1. Acute gastroenteritis seen on CAT scan. Clear liquid diet will be advanced. 2. Uncontrolled diabetes mellitus. Glucose 500, some on admission. Will start her on 75/25 insulin 50 units b.i.d. for the next 24 to 48 hours. Continue with advanced diet. MMODL / IJN: [id number] /
[2018-01-22 07:21] LABS: Glucose,Whole Blood 258 mg/dL (75-99)
[2018-01-22] MEDS: ACETAMINOPHEN TAB 325 MG TAB PO PRN (08:21)
[2018-01-22] MEDS: PANTOPRAZOLE 40 MG/10 ML VIAL IV SCH (08:22)
[2018-01-22] MEDS: INSULN ASP PRT/INSULIN ASPART 100 UNIT/ML 10 ML VIAL SQ SCH (08:22)
[2018-01-22] MEDS: ATENOLOL 25 MG TAB PO SCH ×2 (08:22→21:20)
[2018-01-22] MEDS: ENOXAPARIN 40 MG/0.4 ML SYRINGE SQ SCH (08:22)
[2018-01-22] MEDS ORDERED: metFORMIN 500 MG TAB PO SCH (09:00)
[2018-01-22] MEDS ORDERED: SITAGLIPTIN PHOS PO SCH (09:00)
[2018-01-22] MEDS ORDERED: LINAGLIPTIN 5 MG TABLET PO SCH (09:00)
[2018-01-22] MEDS ORDERED: LISINOPRIL 10 MG TAB PO SCH (09:00)
[2018-01-22] MEDS ORDERED: METFORMIN HCL PO SCH (09:00)
--- NOTE | 2018-01-22 10:11 | P.GSCN ---
History of Present Illness Consult date: 01/22/18 Reason for Consult: abdominal pain History of present illness: 52-year-old female being seen for a surgical eval for abdominal pain at the request of the attending patient presented on the day of admission to the emergency room with a chief complaint of developing a sudden onset of nausea vomiting and frequent stooling with diffuse abdominal pain in the lower abdomen. Patient stated that should had several episodes of nausea vomiting. She seemed to think it was related to his to medication and new diabetic medication and lisinopril. Emergency room the blood sugar was elevated to 578. Patient was treated in the emergency room with IV fluid. Was given 12 units of subcutaneous insulin in the emergency room CAT scan of the abdomen pelvis obtained in the emergency room showed some fluid-filled bowel likely consistent with gastroenteritis. Patient states the symptoms have resolved since being admitted to the hospital. Stool was negative for C. diff. Patient was afebrile the lipase was 264 amylase 76 AST and ALT were not elevated total bili 0.7. The blood sugar this morning is down to 258 patient is indicating she feels better. Patient is known to Dr. hernandez service underwent a colonoscopy and an EGD in 2017 it showed diverticulosis, EGD mild antral gastritis no acute findings Review of Systems essentially unremarkable except as mentioned in the present illness Past Medical History Past Medical History: Diabetes Mellitus, Hyperlipidemia Additional Past Medical History / Comment(s): vomiting after eating, constipation, History of Any Multi-Drug Resistant Organisms: None Reported Past Surgical History: Appendectomy, Cholecystectomy Additional Past Surgical History / Comment(s): cysts removed from ovaries Past Anesthesia/Blood Transfusion Reactions: Motion Sickness, Postoperative Nausea & Vomiting (PONV) Past Psychological History: No Psychological Hx Reported Smoking Status: Former smoker Past Alcohol Use History: None Reported Additional Past Alcohol Use History / Comment(s): quit smoking 30 yrs ago, smoked for 2-3 yrs Past Drug Use History: None Reported - Past Family History Mother Family Medical History: Diabetes Mellitus, Hypertension Sister(s) Family Medical History: Deep Vein Thrombosis (DVT) Medications and Allergies Home Medications Medication Instructions Recorded Confirmed Type Atorvastatin [Lipitor] 40 mg PO HS 01/21/18 History Lisinopril [Prinivil] 10 mg PO DAILY 01/21/18 01/21/18 History sitaGLIPtin PHOS/metFORMIN HCL 1 tab PO DAILY 01/21/18 01/21/18 History [Janumet Xr 50-500 mg Tablet] Allergies Allergy/AdvReac Type Severity Reaction Status Date / Time erythromycin base Allergy Rash/Hives Verified 01/21/18 10:50 gemifloxacin [From Factive] Allergy Swelling Verified 01/21/18 10:50 Penicillins Allergy Rash/Hives Verified 01/21/18 10:50 prednisone Allergy Rash/Hives Verified 01/21/18 10:50 Sulfa (Sulfonamide Allergy Rash/Hives Verified 01/21/18 10:50 Antibiotics) Surgical - Exam Vital Signs Temp Pulse Resp BP Pulse Ox 98.7 F 112 H 20 133/75 98 01/21/18 10:48 01/21/18 10:48 01/21/18 10:48 01/21/18 10:48 01/21/18 10:48 GENERAL APPEARANCE: The patient is alert, oriented, in no acute distress. VITAL SIGNS: reviewed HEENT: Head is normocephalic and atraumatic. Pupils are equal and reactive. The nares are patent. Oropharynx is clear without lesions. NECK: Supple without lymphadenopathy. Traches midline. HEART: S1, S2. Regular rate and rhythm. denying chest pain LUNGS: No crackles or wheezes are heard. on room air ABDOMEN: Soft, nontender, nondistended with good bowel sounds. No peritoneal signs. No palpable organomegaly or masses. states the nausea vomiting resolving tolerating diet of clear liquids no stool EXTREMITIES: Normal skin color and turgor. No cyanosis, rash, ulceration, clubbing or edema. Radial pedal pulses are 2/4 bilaterally. NEUROLOGICAL: No focal deficits. Strength and sensation are grossly intact. Results - Labs 01/21/18 11:25 01/21/18 11:25 Abnormal Lab Results - Last 24 Hours (Table) 01/21/18 01/21/18 01/21/18 Range/Units 11:25 11:25 13:14 WBC 19.0 H (3.8-10.6) k/uL RBC 5.97 H (3.80-5.40) m/uL Hgb 16.4 H (11.4-16.0) gm/dL Hct 50.5 H (34.0-46.0) % Plt Count 475 H (150-450) k/uL Neutrophils # 17.3 H (1.3-7.7) k/uL Lymphocytes # 0.9 L (1.0-4.8) k/uL Chloride 96 L (98-107) mmol/L Carbon Dioxide 17 L (22-30) mmol/L BUN 20 H (7-17) mg/dL Glucose 567 H* (74-99) mg/dL POC Glucose (mg/dL) 377 H (75-99) mg/dL Calcium 10.9 H (8.4-10.2) mg/dL Alkaline Phosphatase 163 H (38-126) U/L Total Protein 8.7 H (6.3-8.2) g/dL Ur Specific [place] (1.001-1.035) Urine Glucose (UA) (Negative) Urine Ketones (Negative) 01/21/18 01/21/18 01/21/18 Range/Units 14:58 17:13 17:30 WBC (3.8-10.6) k/uL RBC (3.80-5.40) m/uL Hgb (11.4-16.0) gm/dL Hct (34.0-46.0) % Plt Count (150-450) k/uL Neutrophils # (1.3-7.7) k/uL Lymphocytes # (1.0-4.8) k/uL Chloride (98-107) mmol/L Carbon Dioxide (22-30) mmol/L BUN (7-17) mg/dL Glucose (74-99) mg/dL POC Glucose (mg/dL) 290 H 241 H (75-99) mg/dL Calcium (8.4-10.2) mg/dL Alkaline Phosphatase (38-126) U/L Total Protein (6.3-8.2) g/dL Ur Specific [place] 1.049 H (1.001-1.035) Urine Glucose (UA) 4+ H (Negative) Urine Ketones 2+ H (Negative) 01/21/18 01/22/18 Range/Units 21:11 07:11 WBC (3.8-10.6) k/uL RBC (3.80-5.40) m/uL Hgb (11.4-16.0) gm/dL Hct (34.0-46.0) % Plt Count (150-450) k/uL Neutrophils # (1.3-7.7) k/uL Lymphocytes # (1.0-4.8) k/uL Chloride (98-107) mmol/L Carbon Dioxide (22-30) mmol/L BUN (7-17) mg/dL Glucose (74-99) mg/dL POC Glucose (mg/dL) 215 H 258 H (75-99) mg/dL Calcium (8.4-10.2) mg/dL Alkaline Phosphatase (38-126) U/L Total Protein (6.3-8.2) g/dL Ur Specific [place] (1.001-1.035) Urine Glucose (UA) (Negative) Urine Ketones (Negative) Microbiology - Last 24 Hours (Table) 01/21/18 17:30 Urine Culture - Preliminary Urine,Clean Catch Diabetes panel 01/21/18 Range/Units 11:25 Sodium 140 (137-145) mmol/L Potassium 5.0 (3.5-5.1) mmol/L Chloride 96 L (98-107) mmol/L Carbon Dioxide 17 L (22-30) mmol/L BUN 20 H (7-17) mg/dL Creatinine 0.60 (0.52-1.04) mg/dL Glucose 567 H* (74-99) mg/dL Calcium 10.9 H (8.4-10.2) mg/dL AST 24 (14-36) U/L ALT 38 (9-52) U/L Alkaline Phosphatase 163 H (38-126) U/L Total Protein 8.7 H (6.3-8.2) g/dL Albumin 5.0 (3.5-5.0) g/dL Calcium panel 01/21/18 Range/Units 11:25 Calcium 10.9 H (8.4-10.2) mg/dL Albumin 5.0 (3.5-5.0) g/dL Pituitary panel 01/21/18 Range/Units 11:25 Sodium 140 (137-145) mmol/L Potassium 5.0 (3.5-5.1) mmol/L Chloride 96 L (98-107) mmol/L Carbon Dioxide 17 L (22-30) mmol/L BUN 20 H (7-17) mg/dL Creatinine 0.60 (0.52-1.04) mg/dL Glucose 567 H* (74-99) mg/dL Calcium 10.9 H (8.4-10.2) mg/dL Adrenal panel 01/21/18 Range/Units 11:25 Sodium 140 (137-145) mmol/L Potassium 5.0 (3.5-5.1) mmol/L Chloride 96 L (98-107) mmol/L Carbon Dioxide 17 L (22-30) mmol/L BUN 20 H (7-17) mg/dL Creatinine 0.60 (0.52-1.04) mg/dL Glucose 567 H* (74-99) mg/dL Calcium 10.9 H (8.4-10.2) mg/dL Total Bilirubin 0.7 (0.2-1.3) mg/dL AST 24 (14-36) U/L ALT 38 (9-52) U/L Alkaline Phosphatase 163 H (38-126) U/L Total Protein 8.7 H (6.3-8.2) g/dL Albumin 5.0 (3.5-5.0) g/dL Assessment and Plan Assessment: impression present on admission abdominal pain nausea vomiting suspect due to gastroenteritis present on admission leukocytosis suspect reactive present on admission elevated blood sugar hypoglycemia present on admission nausea vomiting diarrhea suspect due to gastroenteritis Colonoscopy and EGD done January 2017 showed mild atrophic gastritis and diverticulosis no acute findings Type 2 diabetes plan No evidence of an acute surgical abdomen continue with clear liquid diet advance as tolerated continue IV fluid as ordered will follow with you continue supportive treatment DVT and GI prophylaxis surgical consultation note for dr hernandez The above impression and plan of care have been discussed and directed by signing physician. Arelis Rebolledo nurse practitioner acting as scribe for signing physician.
[2018-01-22 10:50] LABS: Basophils % (A) 0 %; Eosinophils # (A) 0.2 k/uL (0-0.7); Eosinophils % (A) 3 %; HCT 38.5 % (34.0-46.0); Lymphocytes # (A) 2.4 k/uL (1.0-4.8); Lymphocytes % (A) 33 %; MCH 27.9 pg (25.0-35.0); MCHC 33.7 g/dL (31.0-37.0); Mean Platelet Volume 6.8; Monocytes # (A) 0.3 k/uL (0-1.0); Monocytes % (A) 4 %; Neutrophils # (A) 4.1 k/uL (1.3-7.7); Neutrophils % (A) 58 %; Platelet Count 384 k/uL (150-450); RBC 4.64 m/uL (3.80-5.40); RDW 12.4 % (11.5-15.5); WBC 7.1 k/uL (3.8-10.6)
[2018-01-22] MEDS: SODIUM CHLORIDE 0.9% 1,000 ML IV SCH ×2 (10:53→20:36)
[2018-01-22 11:18] LABS: Glucose,Whole Blood 273 mg/dL (75-99)
[2018-01-22 11:22] LABS: ALT 30 U/L (9-52); AST 20 U/L (14-36); Albumin 3.4 g/dL (3.5-5.0); Alkaline Phosphatase 93 U/L (38-126); Anion Gap 12 mmol/L; Blood Urea Nitrogen 13 mg/dL (7-17); Calcium 9.1 mg/dL (8.4-10.2); Carbon Dioxide 22 mmol/L (22-30); Chloride 101 mmol/L (98-107); Glucose 315 mg/dL (74-99); Potassium 3.9 mmol/L (3.5-5.1); Sodium 135 mmol/L (137-145); Total Bilirubin 0.4 mg/dL (0.2-1.3); Total Protein 5.9 g/dL (6.3-8.2)
[2018-01-22 17:14] LABS: Glucose,Whole Blood 300 mg/dL (75-99)
[2018-01-22] MEDS ORDERED: INSULN ASP PRT/INSULIN ASPART 100 UNIT/ML 10 ML VIAL SQ SCH (17:30)
[2018-01-22 17:48] LABS: Hemoglobin A1C 14.6 % (4.0-6.0)
[2018-01-22 20:44] LABS: Glucose,Whole Blood 262 mg/dL (75-99)
[2018-01-22] MEDS: ATORVASTATIN 40 MG TAB PO SCH (21:20)
--- NOTE | 2018-01-22 22:37 | PN ---
PROGRESS NOTE SUBJECTIVE: [id number]-old white female with uncontrolled diabetes mellitus, abdominal pain, gastroenteritis, improving. Diet will be advanced. CARDIOVASCULAR: S1, S2. LUNGS: Clear. GI: Soft. HEMATOLOGY: Negative Homans. ASSESSMENT: 1. Gastroenteritis. 2. Dehydration. 3. Prerenal renal failure. 4. Leukocytosis secondary to gastroenteritis. 5. Insulin-dependent diabetes mellitus. Will increase her insulin to 20 units b.i.d. and advance her diet. Possible discharge home in the morning. MMODL / IJN: [id number] /
[2018-01-23] MEDS: SODIUM CHLORIDE 0.9% 1,000 ML IV SCH ×2 (05:39→17:31)
[2018-01-23 07:30] LABS: Glucose,Whole Blood 277 mg/dL (75-99)
[2018-01-23] MEDS: INSULN ASP PRT/INSULIN ASPART 100 UNIT/ML 10 ML VIAL SQ SCH ×2 (08:49→17:31)
[2018-01-23] MEDS: PANTOPRAZOLE 40 MG/10 ML VIAL IV SCH (08:49)
[2018-01-23] MEDS: ENOXAPARIN 40 MG/0.4 ML SYRINGE SQ SCH (08:49)
[2018-01-23] MEDS: ATENOLOL 25 MG TAB PO SCH ×2 (08:49→21:02)
[2018-01-23 09:04] LABS: ALT 51 U/L (9-52); AST 31 U/L (14-36); Albumin 3.3 g/dL (3.5-5.0); Alkaline Phosphatase 100 U/L (38-126); Anion Gap 11 mmol/L; Blood Urea Nitrogen 14 mg/dL (7-17); Calcium 8.8 mg/dL (8.4-10.2); Carbon Dioxide 25 mmol/L (22-30); Chloride 102 mmol/L (98-107); Glucose 311 mg/dL (74-99); Potassium 4.2 mmol/L (3.5-5.1); Sodium 138 mmol/L (137-145); Total Bilirubin 0.3 mg/dL (0.2-1.3); Total Protein 5.8 g/dL (6.3-8.2)
[2018-01-23 12:24] LABS: Glucose,Whole Blood 222 mg/dL (75-99)
--- NOTE | 2018-01-23 14:44 | P.PN ---
Progress Note - Text Progress Note Date: 01/23/18 Patient seen and evaluated. Abdominal pain of the lower abdomen is improved. She is tolerating diet. She had prior diarrhea now resolved. No blood in stools. Blood sugars was over 550 now under 300. Diet as tolerated. No surgical intervention.
[2018-01-23 17:23] LABS: Glucose,Whole Blood 305 mg/dL (75-99)
--- NOTE | 2018-01-23 17:41 | P.PN ---
Subjective Progress Note Date: 01/23/18 The patient's a 51-year-old female initially admitted with nausea vomiting diarrhea including leukocytosis secondary to dehydration. She had abdominal pain of the bilateral lower abdomen. Abdominal pain of the lower abdomen is improved. She is tolerating diet. She had prior diarrhea now resolved. No blood in stools. Blood sugars was over 550 now under 300. Objective - Vital Signs Vital signs: Vital Signs Temp 97.2 F L 01/23/18 06:58 Pulse 68 01/23/18 06:58 Resp 14 01/23/18 06:58 BP 106/63 01/23/18 06:58 Pulse Ox 98 01/23/18 06:58 Intake & Output 01/22/18 01/23/18 01/23/18 18:59 06:59 18:59 Intake Total 390 Balance 390 Weight 54.431 kg 54.431 kg Intake: Oral 390 Other: # Voids 3 2 # Bowel Movements 0 - Exam GENERAL: Well developed and in no acute distress. HEENT: No sclera icterus. Extraocular movements grossly intact. NECK: Supple without lymphadenopathy. No JV distention. CHEST: Non-labored respirations and equal bilateral excursions. CARDIOVASCULAR: Regular rate and rhythm. Palpable 2+ radial pulses. ABDOMEN: Soft. Nondistended. No peritonitis. Mild tenderness bilateral lower abdomen. MUSCULOSKELETAL: No clubbing, cyanosis or edema. NEUROLOGIC: No focal or lateralizing signs. PSYCH: Appropriate affect. Alert and oriented to person, place and time. SKIN: Good skin turgor. Well perfused. - Labs CBC & Chem 7: 01/22/18 10:08 01/23/18 08:04 Labs: Abnormal Lab Results - Last 24 Hours (Table) 01/22/18 01/22/18 01/22/18 Range/Units 10:08 17:10 20:37 Creatinine (0.52-1.04) mg/dL Glucose (74-99) mg/dL POC Glucose (mg/dL) 300 H 262 H (75-99) mg/dL Hemoglobin A1c 14.6 H (4.0-6.0) % Total Protein (6.3-8.2) g/dL Albumin (3.5-5.0) g/dL 01/23/18 01/23/18 01/23/18 Range/Units 07:26 08:04 12:17 Creatinine 0.48 L (0.52-1.04) mg/dL Glucose 311 H (74-99) mg/dL POC Glucose (mg/dL) 277 H 222 H (75-99) mg/dL Hemoglobin A1c (4.0-6.0) % Total Protein 5.8 L (6.3-8.2) g/dL Albumin 3.3 L (3.5-5.0) g/dL Microbiology - Last 24 Hours (Table) 01/21/18 17:30 Urine Culture - Final Urine,Clean Catch Assessment and Plan (1) Poorly controlled diabetes mellitus Current Visit: Yes Status: Acute Code(s): E11.65 - TYPE 2 DIABETES MELLITUS WITH HYPERGLYCEMIA SNOMED Code(s): 665838260 (2) Hyperglycemia Current Visit: Yes Status: Acute Code(s): R73.9 - HYPERGLYCEMIA, UNSPECIFIED SNOMED Code(s): 27860454 (3) Nausea and vomiting Current Visit: Yes Status: Acute Code(s): R11.2 - NAUSEA WITH VOMITING, UNSPECIFIED SNOMED Code(s): 51197036 (4) Abdominal pain Current Visit: Yes Status: Acute Code(s): R10.9 - UNSPECIFIED ABDOMINAL PAIN SNOMED Code(s): 52370806 (5) Dehydration Current Visit: Yes Status: Acute Code(s): E86.0 - DEHYDRATION SNOMED Code( s): 65867034 Plan: 1. Diet as tolerated. 2. No surgical intervention. I'm rounding on behalf of Dr. Rivers
[2018-01-23 20:55] LABS: Glucose,Whole Blood 192 mg/dL (75-99)
[2018-01-23] MEDS: ATORVASTATIN 40 MG TAB PO SCH (21:02)
[2018-01-24] MEDS: SODIUM CHLORIDE 0.9% 1,000 ML IV SCH ×3 (02:00→21:03)
[2018-01-24 06:54] LABS: Glucose,Whole Blood 252 mg/dL (75-99)
[2018-01-24] MEDS ORDERED: MORPHINE SULF 5MG/10ML VL IV PRN (07:43)
[2018-01-24] MEDS: ENOXAPARIN 40 MG/0.4 ML SYRINGE SQ SCH (08:32)
[2018-01-24] MEDS: ATENOLOL 25 MG TAB PO SCH ×2 (08:32→21:02)
[2018-01-24] MEDS: PANTOPRAZOLE 40 MG/10 ML VIAL IV SCH (08:32)
[2018-01-24] MEDS: INSULN ASP PRT/INSULIN ASPART 100 UNIT/ML 10 ML VIAL SQ SCH ×2 (08:34→18:18)
[2018-01-24 11:14] LABS: Glucose,Whole Blood 246 mg/dL (75-99)
--- NOTE | 2018-01-24 14:23 | P.PN ---
Subjective Progress Note Date: 01/24/18 The patient's a 51-year-old female initially admitted with nausea vomiting diarrhea including leukocytosis secondary to dehydration. Her abdominal pain is resolved. She is tolerating diet. Blood sugars are under 200. Objective - Vital Signs Vital signs: Vital Signs Temp 97.0 F L 01/24/18 14:17 Pulse 79 01/24/18 14:17 Resp 16 01/24/18 14:17 BP 105/68 01/24/18 14:17 Pulse Ox 99 01/24/18 14:17 Intake & Output 01/23/18 01/24/18 01/24/18 18:59 06:59 18:59 Weight 54.431 kg Other: # Voids 3 2 3 - Exam GENERAL: Well developed and in no acute distress. HEENT: No sclera icterus. Extraocular movements grossly intact. NECK: Supple without lymphadenopathy. CHEST: Non-labored respirations and equal bilateral excursions. CARDIOVASCULAR: Regular rate and rhythm. Palpable 2+ radial pulses. ABDOMEN: Soft. Nondistended. Nontender MUSCULOSKELETAL: No clubbing, cyanosis or edema. NEUROLOGIC: No focal or lateralizing signs. PSYCH: Appropriate affect. Alert and oriented to person, place and time. SKIN: Good skin turgor. Well perfused. - Labs CBC & Chem 7: 01/22/18 10:08 01/23/18 08:04 Labs: Abnormal Lab Results - Last 24 Hours (Table) 01/23/18 01/23/18 01/24/18 Range/Units 17:19 20:50 06:48 POC Glucose (mg/dL) 305 H 192 H 252 H (75-99) mg/dL 01/24/18 Range/Units 11:12 POC Glucose (mg/dL) 246 H (75-99) mg/dL Assessment and Plan (1) Poorly controlled diabetes mellitus Current Visit: Yes Status: Acute Code(s): E11.65 - TYPE 2 DIABETES MELLITUS WITH HYPERGLYCEMIA SNOMED Code(s): 059165518 (2) Hyperglycemia Current Visit: Yes Status: Acute Code(s): R73.9 - HYPERGLYCEMIA, UNSPECIFIED SNOMED Code(s): 34671782 (3) Nausea and vomiting Current Visit: Yes Status: Acute Code(s): R11.2 - NAUSEA WITH VOMITING, UNSPECIFIED SNOMED Code(s): 87829387 (4) Abdominal pain Current Visit: Yes Status: Acute Code(s): R10.9 - UNSPECIFIED ABDOMINAL PAIN SNOMED Code(s): 21652944 (5) Dehydration Current Visit: Yes Status: Acute Code(s): E86.0 - DEHYDRATION SNOMED Code( s): 01841655 Plan: 1. Her abdominal pain is resolved. 2. Patient is clear from a surgical standpoint. 3. Will sign off and follow up as needed
[2018-01-24 17:20] LABS: Glucose,Whole Blood 229 mg/dL (75-99)
[2018-01-24 20:40] LABS: Glucose,Whole Blood 248 mg/dL (75-99)
[2018-01-24] MEDS: ATORVASTATIN 40 MG TAB PO SCH (21:03)
[2018-01-25 06:42] LABS: Glucose,Whole Blood 242 mg/dL (75-99)
[2018-01-25] MEDS: ATENOLOL 25 MG TAB PO SCH (07:48)
[2018-01-25] MEDS: ENOXAPARIN 40 MG/0.4 ML SYRINGE SQ SCH (07:49)
[2018-01-25] MEDS: INSULN ASP PRT/INSULIN ASPART 100 UNIT/ML 10 ML VIAL SQ SCH (07:49)
[2018-01-25] MEDS: PANTOPRAZOLE 40 MG/10 ML VIAL IV SCH (07:49)
[2018-01-25] MEDS: SODIUM CHLORIDE 0.9% 1,000 ML IV SCH (07:55)
[2018-01-25 08:57] VITALS: BP 118/71; PULSE 72; RESP 16; TEMP 97.8
[2018-01-25 12:00] LABS: Glucose,Whole Blood 217 mg/dL (75-99)
[2018-01-25] MEDS: ACETAMINOPHEN TAB 325 MG TAB PO PRN (14:17)
[2018-01-25] MEDS ORDERED: MORPHINE ORAL SOLN 10 MG/5 ML CUP PO PRN (14:46)
[2018-01-26] MEDS ORDERED: PANTOPRAZOLE 40 MG TABLET PO SCH (09:00)
== END 2018-01-25 16:35 | disposition home or self-care (01) | DRG 641 ==
LOC: EC 10:05 → 4MS4W 14:46
PROVIDERS: ADMIT Family Medicine; ATTEND Family Medicine
DX: E86.0 Dehydration (principal); K52.9 Noninfective gastroenteritis and colitis, unspecified; E11.65 Type 2 diabetes mellitus with hyperglycemia; E78.5 Hyperlipidemia, unspecified; I10 Essential (primary) hypertension; Z87.891 Personal history of nicotine dependence; Z90.49 Acquired absence of other specified parts of digestive tract; Z98.890 Other specified postprocedural states; Z79.899 Other long term (current) drug therapy; Z88.1 Allergy status to other antibiotic agents; Z88.0 Allergy status to penicillin; Z88.2 Allergy status to sulfonamides; Z88.8 Allergy status to other drugs, medicaments and biological substances; Z79.4 Long term (current) use of insulin; Z82.49 Family history of ischemic heart disease and other diseases of the circulatory system; Z83.3 Family history of diabetes mellitus
CPT/HCPCS: 36415; 74177; 80053; 81003; 82150; 83036; 83690; 85025; 87086; 87324; 93005; 96361; 96374; 96375; 99285

== ENCOUNTER 2018-06-02 22:41 | Emergency (ER) | payer OTHER ==
[2018-06-02 22:53] VITALS: BP 136/85; PULSE 100; RESP 18; TEMP 99.1
[2018-06-02] MEDS ORDERED: SODIUM CHLORIDE 0.9% 1,000 ML IV STA (23:07)
[2018-06-02 23:27] LABS: Basophils % (A) 1 %; Eosinophils # (A) 0.2 k/uL (0-0.7); Eosinophils % (A) 2 %; HCT 39.5 % (34.0-46.0); HGB 13.7 gm/dL (11.4-16.0); Lymphocytes # (A) 0.9 k/uL (1.0-4.8); Lymphocytes % (A) 13 %; MCH 28.1 pg (25.0-35.0); MCHC 34.6 g/dL (31.0-37.0); Mean Platelet Volume 6.8; Monocytes # (A) 0.5 k/uL (0-1.0); Monocytes % (A) 7 %; Neutrophils # (A) 4.9 k/uL (1.3-7.7); Neutrophils % (A) 76 %; Platelet Count 305 k/uL (150-450); RBC 4.87 m/uL (3.80-5.40); RDW 12.9 % (11.5-15.5); WBC 6.5 k/uL (3.8-10.6)
--- NOTE | 2018-06-02 23:35 | XR ---
EXAMINATION TYPE: XR chest 2V DATE OF EXAM: 06/02/2018 COMPARISON: 07/28/2016 HISTORY: Weakness TECHNIQUE: Frontal and lateral views of the chest are obtained. FINDINGS: Heart and mediastinum are normal. Lungs are clear. Diaphragm is normal. Bony thorax is int act. Pulmonary vascularity is normal. There are chest leads. IMPRESSION: No active cardiopulmonary disease. Normal heart. No change.
[2018-06-02 23:37] LABS: ALT 42 U/L (9-52); AST 26 U/L (14-36); Albumin 4.5 g/dL (3.5-5.0); Alkaline Phosphatase 82 U/L (38-126); Anion Gap 10 mmol/L; Blood Urea Nitrogen 12 mg/dL (7-17); Calcium 9.8 mg/dL (8.4-10.2); Carbon Dioxide 26 mmol/L (22-30); Chloride 103 mmol/L (98-107); Glucose 143 mg/dL (74-99); Magnesium 1.8 mg/dL (1.6-2.3); Potassium 4.1 mmol/L (3.5-5.1); Sodium 139 mmol/L (137-145); Total Bilirubin 0.4 mg/dL (0.2-1.3); Total Protein 7.1 g/dL (6.3-8.2)
[2018-06-02 23:38] LABS: INR 1.1 (<1.2); Prothrombin Time 10.4 sec (9.0-12.0)
--- NOTE | 2018-06-02 23:38 | ED ---
Arrhythmia/Palpitations HPI - General Chief Complaint: Arrhythmia/Palpitations Stated Complaint: fever,palpitations Time Seen by Provider: 06/02/18 22:58 Source: patient Mode of arrival: ambulatory Limitations: no limitations - History of Present Illness Initial Comments: 33 years old female comes in with a palpitation she said that time she has a twinge of chest pain no chest pain right now she said her heart rate has been belching all over she had a Holter monitor on for about 24 hours she is not short winded and there is no chest pain with deep breaths no fever no chills she is not coughing up any phlegm. Review of system is unremarkable - Related Data Home Medications Medication Instructions Recorded Confirmed Atorvastatin [Lipitor] 40 mg PO HS 01/21/18 06/02/18 Aspirin EC [Ecotrin Low Dose] 81 mg PO HS 06/02/18 06/02/18 Carvedilol [Coreg] 12.5 mg PO BID 06/02/18 06/02/18 Insulin NPH Hum/Reg Insulin Hm 27 unit SQ BID 06/02/18 06/02/18 [NovoLIN 70-30 100 UNIT/ML VIAL] Previous Rx's Medication Instructions Recorded Carvedilol 25 mg PO BID #60 tablet 06/03/18 Allergies Allergy/AdvReac Type Severity Reaction Status Date / Time erythromycin base Allergy Rash/Hives Verified 06/02/18 23:15 gemifloxacin [From Factive] Allergy Swelling Verified 06/02/18 23:15 Penicillins Allergy Rash/Hives Verified 06/02/18 23:15 prednisone Allergy Rash/Hives Verified 06/02/18 23:15 Sulfa (Sulfonamide Allergy Rash/Hives Verified 06/02/18 23:15 Antibiotics) Review of Systems ROS Statement: Those systems with pertinent positive or pertinent negative responses have been documented in the HPI. ROS Other: All systems not noted in ROS Statement are negative. Past Medical History Past Medical History: Diabetes Mellitus, Hyperlipidemia Additional Past Medical History / Comment(s): vomiting after eating, constipation, History of Any Multi-Drug Resistant Organisms: None Reported Past Surgical History: Appendectomy, Cholecystectomy Additional Past Surgical History / Comment(s): cysts removed from ovaries Past Anesthesia/Blood Transfusion Reactions: Motion Sickness, Postoperative Nausea & Vomiting (PONV) Past Psychological History: No Psychological Hx Reported Smoking Status: Former smoker Past Alcohol Use History: None Reported Past Drug Use History: None Reported - Past Family History Mother Family Medical History: Diabetes Mellitus, Hypertension Sister(s) Family Medical History: Deep Vein Thrombosis (DVT) General Exam - General Exam Comments Initial Comments: General: The patient is awake and alert, in no distress, and does not appear acutely ill. Skin: Skin is warm and dry and no rashes or lesions are noted. Eye: Pupils are equal, round and reactive to light, extra-ocular movements are intact; there is normal conjunctiva bilaterally. Ears, nose, mouth and throat: There are moist mucous membranes and no oral lesions. Neck: The neck is supple, there is no tenderness or JVD. Cardiovascular: There is a regular rate and rhythm. No murmur, rub or gallop is appreciated. Respiratory: To auscultation bilateral, no wheezing no rhonchi no distress respiratory larson noticed Gastrointestinal: Soft, non-distended, non-tender abdomen without masses or organomegaly noted. There is no rebound or guarding present. Bowel sounds are unremarkable. Back: There is no tenderness to palpation in the midline. There is no obvious deformity. Musculoskeletal: Normal ROM, no tenderness, There is no pedal edema. There is no calf tenderness or swelling. No cords were appreciated. Neurological: CN II-XII intact, Cranial nerves III through XII are intact. There are no obvious motor or sensory deficits. Coordination appears grossly intact. Speech is normal. Psychiatric: Cooperative, appropriate mood & affect, normal judgment. Limitations: no limitations Course Vital Signs 06/02/18 22:51 Temperature 99.1 F Pulse Rate 100 Respiratory 18 Rate Blood Pressure 136/85 O2 Sat by Pulse 97 Oximetry Upon reassessment noticed CBC, CMP, troponin, EKG are unremarkable during her stay in the ED with monitor her heart rate ranged from 90-100. She is on carvedilol 12.5 mg twice daily I plan to increase the dose to 25 mg twice daily she wants to see Dr. Zarate EKG Findings - EKG Comments: EKG Findings:: EKG is a sinus tachycardia ventricular rate is 1 or 3 NJ interval is 126 QRS duration is 88 QT/QTC 336/440 review of this EKG does not reveal any ST elevation or ST depression Medical Decision Making - Lab Data Result diagrams: 06/02/18 22:58 06/02/18 22:58 Lab Results 06/02/18 06/02/1806/02/18 Range/Units 22:58 22:58 22:58 WBC 6.5 (3.8-10.6) k/uL RBC 4.87 (3.80-5.40) m/uL Hgb 13.7 (11.4-16.0) gm/dL Hct 39.5 (34.0-46.0) % MCV 81.0 (80.0-100.0) fL MCH 28.1 (25.0-35.0) pg MCHC 34.6 (31.0-37.0) g/dL RDW 12.9 (11.5-15.5) % Plt Count 305 (150-450) k/uL Neutrophils % 76 % Lymphocytes % 13 % Monocytes % 7 % Eosinophils % 2 % Basophils % 1 % Neutrophils # 4.9 (1.3-7.7) k/uL Lymphocytes # 0.9 L (1.0-4.8) k/uL Monocytes # 0.5 (0-1.0) k/uL Eosinophils # 0.2 (0-0.7) k/uL Basophils # 0.0 (0-0.2) k/uL PT (9.0-12.0) sec INR (<1.2) APTT (22.0-30.0) sec Sodium 139 (137-145) mmol/L Potassium 4.1 (3.5-5.1) mmol/L Chloride 103 (98-107) mmol/L Carbon Dioxide 26 (22-30) mmol/L Anion Gap 10 mmol/L BUN 12 (7-17) mg/dL Creatinine 0.50 L (0.52-1.04) mg/dL Est GFR (CKD-EPI)AfAm >90 (>60 ml/min/1.73 sqM) Est GFR (CKD-EPI)NonAf >90 (>60 ml/min/1.73 sqM) Glucose 143 H (74-99) mg/dL Calcium 9.8 (8.4-10.2) mg/dL Magnesium 1.8 (1.6-2.3) mg/dL Total Bilirubin 0.4 (0.2-1.3) mg/dL AST 26 (14-36) U/L ALT 42 (9-52) U/L Alkaline Phosphatase 82 (38-126) U/L Total Creatine Kinase 69 (30-135) U/L CK-MB (CK-2) 0.3 (0.0-2.4) ng/mL CK-MB (CK-2) Rel Index 0.4 Troponin I <0.012 (0.000-0.034) ng/mL Total Protein 7.1 (6.3-8.2) g/dL Albumin 4.5 (3.5-5.0) g/dL TSH 2.850 (0.465-4.680) mIU/L 06/02/18 Range/Units 22:58 WBC (3.8-10.6) k/uL RBC (3.80-5.40) m/uL Hgb (11.4-16.0) gm/dL Hct (34.0-46.0) % MCV (80.0-100.0) fL MCH (25.0-35.0) pg MCHC (31.0-37.0) g/dL RDW (11.5-15.5) % Plt Count (150-450) k/uL Neutrophils % % Lymphocytes % % Monocytes % % Eosinophils % % Basophils % % Neutrophils # (1.3-7.7) k/uL Lymphocytes # (1.0-4.8) k/uL Monocytes # (0-1.0) k/uL Eosinophils # (0-0.7) k/uL Basophils # (0-0.2) k/uL PT 10.4 (9.0-12.0) sec INR 1.1 (<1.2) APTT 22.0 (22.0-30.0) sec Sodium (137-145) mmol/L Potassium (3.5-5.1) mmol/L Chloride (98-107) mmol/L Carbon Dioxide (22-30) mmol/L Anion Gap mmol/L BUN (7-17) mg/dL Creatinine (0.52-1.04) mg/dL Est GFR (CKD-EPI)AfAm (>60 ml/min/1.73 sqM) Est GFR (CKD-EPI)NonAf (>60 ml/min/1.73 sqM) Glucose (74-99) mg/dL Calcium (8.4-10.2) mg/dL Magnesium (1.6-2.3) mg/dL Total Bilirubin (0.2-1.3) mg/dL AST (14-36) U/L ALT (9-52) U/L Alkaline Phosphatase (38-126) U/L Total Creatine Kinase (30-135) U/L CK-MB (CK-2) (0.0-2.4) ng/mL CK-MB (CK-2) Rel Index Troponin I (0.000-0.034) ng/mL Total Protein (6.3-8.2) g/dL Albumin (3.5-5.0) g/dL TSH (0.465-4.680) mIU/L Disposition Clinical Impression: Palpitation Disposition: HOME SELF-CARE Condition: Good Instructions: Palpitations (ED) Prescriptions: Carvedilol 25 mg PO BID #60 tablet Is patient prescribed a controlled substance at d/c from ED?: No Referrals: [facility] MD [Primary Care Provider] - 1-2 days Flaco Figueroa MD [STAFF PHYSICIAN] - 1-2 days
[2018-06-02 23:56] LABS: Creatine Kinase 69 U/L (30-135)
[2018-06-03 00:09] LABS: Creatine Kinase MB 0.3 ng/mL (0.0-2.4); Troponin I <0.012 ng/mL (0.000-0.034)
== END 2018-06-03 01:41 | disposition home or self-care (01) ==
LOC: EC 22:41
DX: R00.2 Palpitations (principal); E11.9 Type 2 diabetes mellitus without complications; E78.5 Hyperlipidemia, unspecified; Z90.49 Acquired absence of other specified parts of digestive tract; Z98.890 Other specified postprocedural states; Z87.891 Personal history of nicotine dependence; Z79.4 Long term (current) use of insulin; Z79.82 Long term (current) use of aspirin; Z79.899 Other long term (current) drug therapy; Z88.0 Allergy status to penicillin; Z88.1 Allergy status to other antibiotic agents; Z88.2 Allergy status to sulfonamides; Z88.8 Allergy status to other drugs, medicaments and biological substances
CPT/HCPCS: 36415; 71046; 80053; 82550; 82553; 83735; 84443; 84484; 85025; 85610; 85730; 93005; 96360; 96361; 99285

== ENCOUNTER → 2018-12-10 | Outpatient (CLI) | payer OTHER ==
--- NOTE | 2018-12-10 12:21 | XR ---
EXAMINATION TYPE: XR cervical spine comp DATE OF EXAM: 12/10/2018 TECHNIQUE: Frontal, lateral, oblique, swimmers, and open mouth view of the cervical spine are obtaine d. HISTORY: M54.2 Trauma neck pain COMPARISON: None FINDINGS: The cervical spine is visualized in its entirety from C1 thru the top of T1 level, it is s atisfactory in alignment without evidence of acute fracture or dislocation. There is straightening o f usual cervical lordosis. Mild degenerative disc disease is seen at C5-C6 The pre-vertebral soft tis mg appears within normal limits. The C1-C2 articulation is within normal limits on the open mouth v iew. The oblique images are within normal limits. IMPRESSION: No acute fracture or malalignment is seen in the cervical spine.
== END ==
LOC: RADXRMAIN 11:31
PROVIDERS: ATTEND Family Medicine
DX: M54.2 Cervicalgia (principal); T14.90XA Injury, unspecified, initial encounter
CPT/HCPCS: 72050

== ENCOUNTER 2019-02-05 16:14 | Inpatient (IN) | payer OTHER ==
[2019-02-05] MEDS ORDERED: diphenhydrAMINE 50 MG/ML 1 ML VIAL IVP STA ×2 (16:40→18:51)
[2019-02-05] MEDS ORDERED: FAMOTIDINE 20 MG/2 ML VIAL IV STA (16:40)
[2019-02-05] MEDS ORDERED: EPINEPHrine 1 MG/ML 1 ML AMP SQ STA (16:41)
--- NOTE | 2019-02-05 16:51 | ED ---
Allergic Reaction HPI - General Source: patient, RN notes reviewed, old records reviewed Mode of arrival: ambulatory Limitations: no limitations <Shirley Arora - Last Filed: 02/05/19 19:49> <Juan Loredo - Last Filed: 02/05/19 21:47> - General Chief complaint: Allergic Reaction Stated complaint: Allergic reaction Time Seen by Provider: 02/05/19 16:32 - History of Present Illness Initial Comments: Patient's 53-year-old female presents emergency department today with concerns for ALLERGIC reaction. Patient states that she will like her tongue and lips were swelling. Patient states that she ate pesto fossa today at [employer]. Symptoms started 30 minutes after eating. Patient states she's wasn't feeling well and complains of tingling around her tongue and lips. Poor she had an episode of diarrhea after eating this. Patient denies any difficulty breathing or chest pain. (Shirley Arora) - Related Data Home Medications Medication Instructions Recorded Confirmed Atorvastatin [Lipitor] 40 mg PO HS 01/21/18 06/02/18 Aspirin EC [Ecotrin Low Dose] 81 mg PO HS 06/02/18 06/02/18 Carvedilol [Coreg] 12.5 mg PO BID 06/02/18 06/02/18 Insulin NPH Hum/Reg Insulin Hm 27 unit SQ BID 06/02/18 06/02/18 [NovoLIN 70-30 100 UNIT/ML VIAL] Previous Rx's Medication Instructions Recorded Carvedilol 25 mg PO BID #60 tablet 06/03/18 EPINEPHrine (Auto Inject) [Epipen] 0.3 mg IM ONCE PRN #1 pen 02/05/19 Famotidine [Pepcid] 20 mg PO BID #10 tablet 02/05/19 diphenhydrAMINE [Benadryl] 25 mg PO BID PRN #20 capsule 02/05/19 Allergies Allergy/AdvReac Type Severity Reaction Status Date / Time erythromycin base Allergy Rash/Hives Verified 02/05/19 16:19 gemifloxacin [From Factive] Allergy Swelling Verified 02/05/19 16:19 Penicillins Allergy Rash/Hives Verified 02/05/19 16:19 prednisone Allergy Rash/Hives Verified 02/05/19 16:19 Sulfa (Sulfonamide Allergy Rash/Hives Verified 02/05/19 16:19 Antibiotics) Review of Systems ROS Other: All systems not noted in ROS Statement are negative. <Yaneth Aroraily - Last Filed: 02/05/19 19:49> ROS Other: All systems not noted in ROS Statement are negative. <FacundoJuan - Last Filed: 02/05/19 21:47> ROS Statement: Those systems with pertinent positive or pertinent negative responses have been documented in the HPI. Past Medical History Past Medical History: Diabetes Mellitus, Hyperlipidemia Additional Past Medical History / Comment(s): vomiting after eating, constipation, History of Any Multi-Drug Resistant Organisms: None Reported Past Surgical History: Appendectomy, Cholecystectomy Additional Past Surgical History / Comment(s): cysts removed from ovaries Past Anesthesia/Blood Transfusion Reactions: Motion Sickness, Postoperative Nausea & Vomiting (PONV) Past Psychological History: No Psychological Hx Reported Smoking Status: Former smoker Past Alcohol Use History: None Reported Past Drug Use History: None Reported - Past Family History Mother Family Medical History: Diabetes Mellitus, Hypertension Sister(s) Family Medical History: Deep Vein Thrombosis (DVT) <Shirley Arora - Last Filed: 02/05/19 19:49> General Exam Limitations: no limitations General appearance: alert, in no apparent distress Head exam: Present: atraumatic, normocephalic, normal inspection Eye exam: Present: normal appearance, PERRL, EOMI. Absent: scleral icterus, conjunctival injection, periorbital swelling ENT exam: Present: normal exam, mucous membranes moist, other (lip swelling minimal ) Neck exam: Present: normal inspection. Absent: tenderness, meningismus, lymphadenopathy Respiratory exam: Present: normal lung sounds bilaterally. Absent: respiratory distress, wheezes, rales, rhonchi, stridor Cardiovascular Exam: Present: regular rate, normal rhythm, normal heart sounds. Absent: systolic murmur, diastolic murmur, rubs, gallop, clicks GI/Abdominal exam: Present: soft, normal bowel sounds. Absent: distended, tenderness, guarding, rebound, rigid Extremities exam: Present: normal inspection, full ROM, normal capillary refill. Absent: tenderness, pedal edema, joint swelling, calf tenderness Back exam: Present: normal inspection Neurological exam: Present: alert, oriented X3, CN II-XII intact Psychiatric exam: Present: normal affect, normal mood Skin exam: Present: warm, dry, intact, normal color. Absent: rash <Shirley Arora - Last Filed: 02/05/19 19:49> - General Exam Comments Initial Comments: 53-year-old female. Alert and oriented. No distress. (Shirley Arora) Course <Shirley Arora - Last Filed: 02/05/19 19:49> Vital Signs 02/05/19 02/05/19 02/05/19 16:15 16:44 16:58 Temperature 98.6 F Pulse Rate 108 H 103 H 103 H Respiratory 22 20 18 Rate Blood Pressure 171/78 170/104 141/87 O2 Sat by Pulse 94 L 98 97 Oximetry 02/05/19 02/05/19 02/05/19 17:18 17:52 18:45 Temperature Pulse Rate 90 96 97 Respiratory 18 18 18 Rate Blood Pressure 135/91 121/81 161/99 O2 Sat by Pulse 97 98 99 Oximetry 02/05/19 02/05/19 02/05/19 19:02 19:15 20:30 Temperature Pulse Rate 113 H 109 H 105 H Respiratory 20 20 22 Rate Blood Pressure 142/102 144/88 152/99 O2 Sat by Pulse 99 98 98 Oximetry 02/05/19 21:17 Temperature Pulse Rate 107 H Respiratory 20 Rate Blood Pressure 124/79 O2 Sat by Pulse 96 Oximetry - Reevaluation(s) Reevaluation #1: 02/05/19 19:29 Patient was reevaluated upon discharge after receiving 0.3 mg of epinephrine, Benadryl Pepcid. On reevaluation at discharge she stated that she is now having jaw pain and pain radiating in her back. At this time will do some further workup including cardiac enzymes and EKG at this time for her new chest pain and shoulder and back pain. 02/05/19 19:30 (Shirley Arora) Medical Decision Making - Radiology Data Radiology results: report reviewed <Shirley Arora - Last Filed: 02/05/19 19:49> - Lab Data Result diagrams: 02/05/19 19:54 02/05/19 19:54 <Juan Loredo - Last Filed: 02/05/19 21:47> - Medical Decision Making 53-year-old female presents range from today with complaints of ALLERGIC reaction likely to pass toe sauce. She states she is ALLERGIC to steroids. She did have some minimal lip and tongue swelling. Lungs are clear to auscultation. Shesignificant hives. She also complained of an episode of diarrhea prior to arrival. At this time she is given 0.3 mg of subcu epinephrine. She was given Benadryl and Pepcid. After evaluation for 2 hours she was feeling well. On discharge Patient stated that she started to have some chest pain, continuing complaint of lip tingling and swelling. Patient does appear to be quite anxious. At this time she states that she's also having some jaw and bilateral shoulder pain. We'll start the Patient on 1 mg of Ativan order a GI cocktail. She complains of burning sensation in her throat and chest. Lab work and EKG and chest x-ray ordered. Final disposition will be completed by Dr. Loredo 8 PM. (Shirley Arora) Medical decision making; this is a 53-year-old female who thinks she may have a reaction to past dose sauce from that time restaurant. Patient reports she started having numbness tingling and swelling to her tongue lips and hands. She became anxious tonight have any wheezing or palpitations or shortness of breath. Patient's never had a reaction quite like this before. She has been on the past 4 months been on Coreg. Which is now than beta ann. The patient reports she has ALLERGIES to steroids. While in emergency room the patient received subcu epi, Benadryl and Pepcid. Patient is feeling better she is being prepared for discharge when she started feeling slightly worse. Patient will continue to observe. Patient's labs show white count 12 hemoglobin 14 hematocrit 45 with an INR 1.0. Potassium is 4.3 with a BUN 16 creatinine 0.41 and GFR greater than 90. Glucose 208. The patient give herself an injection 1 emergency room. Food was offered she declined at this time. AST ALT mildly elevated. Troponin less than 0.012 The patient be admitted to observation because of her ALLERGIC reaction to an unknown source. We did discuss angioedema. I discussed the case with Cinthya Amaral rehabilitation counselor for [facility]. Patient be admitted to [facility]. She will be continued on IV Benadryl, Pepcid and subcu epi as needed. Patient reports she hasn't ALLERGY to Solu-Medrol Medrol. Vital signs are stable at this time. Swelling minimal (Juan Loredo) - Lab Data Lab Results 02/05/19 02/05/19 02/05/19 Range/Units 19:54 19:54 19:54 WBC 12.9 H (3.8-10.6) k/uL RBC 5.39 (3.80-5.40) m/uL Hgb 14.7 (11.4-16.0) gm/dL Hct 45.6 (34.0-46.0) % MCV 84.5 (80.0-100.0) fL MCH 27.3 (25.0-35.0) pg MCHC 32.4 (31.0-37.0) g/dL RDW 12.5 (11.5-15.5) % Plt Count 357 (150-450) k/uL Neutrophils % 82 % Lymphocytes % 13 % Monocytes % 2 % Eosinophils % 2 % Basophils % 0 % Neutrophils # 10.6 H (1.3-7.7) k/uL Lymphocytes # 1.7 (1.0-4.8) k/uL Monocytes # 0.3 (0-1.0) k/uL Eosinophils # 0.2 (0-0.7) k/uL Basophils # 0.0 (0-0.2) k/uL PT 10.7 (9.0-12.0) sec INR 1.0 (<1.2) APTT 22.1 (22.0-30.0) sec Sodium 141 (137-145) mmol/L Potassium 4.3 (3.5-5.1) mmol/L Chloride 106 (98-107) mmol/L Carbon Dioxide 23 (22-30) mmol/L Anion Gap 12 mmol/L BUN 16 (7-17) mg/dL Creatinine 0.41 L (0.52-1.04) mg/dL Est GFR (CKD-EPI)AfAm >90 (>60 ml/min/1.73 sqM) Est GFR (CKD-EPI)NonAf >90 (>60 ml/min/1.73 sqM) Glucose 208 H (74-99) mg/dL POC Glucose (mg/dL) (75-99) mg/dL POC Glu Forgeman Helper ID Calcium 9.7 (8.4-10.2) mg/dL Magnesium 1.9 (1.6-2.3) mg/dL Total Bilirubin 0.5 (0.2-1.3) mg/dL AST 40 H (14-36) U/L ALT 70 H (9-52) U/L Alkaline Phosphatase 125 (38-126) U/L Troponin I (0.000-0.034) ng/mL Total Protein 7.2 (6.3-8.2) g/dL Albumin 4.4 (3.5-5.0) g/dL 02/05/19 02/05/19 Range/Units 19:54 20:01 WBC (3.8-10.6) k/uL RBC (3.80-5.40) m/uL Hgb (11.4-16.0) gm/dL Hct (34.0-46.0) % MCV (80.0-100.0) fL MCH (25.0-35.0) pg MCHC (31.0-37.0) g/dL RDW (11.5-15.5) % Plt Count (150-450) k/uL Neutrophils % % Lymphocytes % % Monocytes % % Eosinophils % % Basophils % % Neutrophils # (1.3-7.7) k/uL Lymphocytes # (1.0-4.8) k/uL Monocytes # (0-1.0) k/uL Eosinophils # (0-0.7) k/uL Basophils # (0-0.2) k/uL PT (9.0-12.0) sec INR (<1.2) APTT (22.0-30.0) sec Sodium (137-145) mmol/L Potassium (3.5-5.1) mmol/L Chloride (98-107) mmol/L Carbon Dioxide (22-30) mmol/L Anion Gap mmol/L BUN (7-17) mg/dL Creatinine (0.52-1.04) mg/dL Est GFR (CKD-EPI)AfAm (>60 ml/min/1.73 sqM) Est GFR (CKD-EPI)NonAf (>60 ml/min/1.73 sqM) Glucose (74-99) mg/dL POC Glucose (mg/dL) 198 H (75-99) mg/dL POC Glu Forgeman Helper ID Hans, Aaron Calcium (8.4-10.2) mg/dL Magnesium (1.6-2.3) mg/dL Total Bilirubin (0.2-1.3) mg/dL AST (14-36) U/L ALT (9-52) U/L Alkaline Phosphatase (38-126) U/L Troponin I <0.012 (0.000-0.034) ng/mL Total Protein (6.3-8.2) g/dL Albumin (3.5-5.0) g/dL 02/05/19 19:50 EKG performed at 1944 shows sinus tachycardia, cannot rule out anterior infarct. Ventricular rate of 113 beats were minute. NV interval is 120 ms. QRS duration 72 ms. QT QTc is 336/460 ms. (Shirley Arora) Disposition Is patient prescribed a controlled substance at d/c from ED?: No Time of Disposition: 18:29 <Shirley Arora - Last Filed: 02/05/19 19:49> <Juan Loredo - Last Filed: 02/05/19 21:47> Clinical Impression: Allergic reaction Disposition: ADMITTED IP TO THIS HOSP Condition: Good Instructions (If sedation given, give patient instructions): Food Allergy (ED), Anaphylaxis (ED) Additional Instructions: Patient to take Benadryl every 6 hours. Take the Pepcid as prescribed. Avoid any further foods with pine nuts. Return to emergency department if any alarming signs or symptoms occur. Prescriptions: diphenhydrAMINE [Benadryl] 25 mg PO BID PRN #20 capsule PRN Reason: Itching EPINEPHrine (Auto Inject) [Epipen] 0.3 mg IM ONCE PRN #1 pen PRN Reason: Anaphylaxis Famotidine [Pepcid] 20 mg PO BID #10 tablet Referrals: [facility] MD [Primary Care Provider] - 1-2 days
[2019-02-05] MEDS ORDERED: LORazepam 2 MG/ML INJ IV STA (19:30)
[2019-02-05] MEDS ORDERED: MAG HYDROX/AL HYDROX/SIMETH 30 ML, HYOSCYAMINE ELIXIR 10 ML, CIMETIDINE HCL 300 MG PO STA ×3 (19:31)
[2019-02-05 20:03] LABS: Glucose,Whole Blood 198 mg/dL (75-99)
[2019-02-05 20:10] LABS: Basophils % (A) 0 %; Eosinophils # (A) 0.2 k/uL (0-0.7); Eosinophils % (A) 2 %; HCT 45.6 % (34.0-46.0); HGB 14.7 gm/dL (11.4-16.0); Lymphocytes # (A) 1.7 k/uL (1.0-4.8); Lymphocytes % (A) 13 %; MCH 27.3 pg (25.0-35.0); MCHC 32.4 g/dL (31.0-37.0); MCV 84.5 fL (80.0-100.0); Mean Platelet Volume 6.8; Monocytes # (A) 0.3 k/uL (0-1.0); Monocytes % (A) 2 %; Neutrophils # (A) 10.6 k/uL (1.3-7.7); Neutrophils % (A) 82 %; Platelet Count 357 k/uL (150-450); RBC 5.39 m/uL (3.80-5.40); RDW 12.5 % (11.5-15.5); WBC 12.9 k/uL (3.8-10.6)
[2019-02-05 20:15] LABS: ALT 70 U/L (9-52); AST 40 U/L (14-36); Albumin 4.4 g/dL (3.5-5.0); Alkaline Phosphatase 125 U/L (38-126); Anion Gap 12 mmol/L; Blood Urea Nitrogen 16 mg/dL (7-17); Calcium 9.7 mg/dL (8.4-10.2); Carbon Dioxide 23 mmol/L (22-30); Chloride 106 mmol/L (98-107); Glucose 208 mg/dL (74-99); Magnesium 1.9 mg/dL (1.6-2.3); Potassium 4.3 mmol/L (3.5-5.1); Sodium 141 mmol/L (137-145); Total Bilirubin 0.5 mg/dL (0.2-1.3); Total Protein 7.2 g/dL (6.3-8.2)
[2019-02-05 20:18] LABS: Partial Thromboplastin Time 22.1 sec (22.0-30.0); Prothrombin Time 10.7 sec (9.0-12.0)
--- NOTE | 2019-02-05 21:18 | XR ---
EXAMINATION TYPE: XR chest 2V DATE OF EXAM: 02/05/2019 COMPARISON: 06/02/2018 HISTORY: Chest pain TECHNIQUE: Frontal and lateral views of the chest are obtained. FINDINGS: Heart and mediastinum are normal. Lungs are clear. Diaphragm is normal. Bony thorax appear s normal. IMPRESSION: Normal chest. No change.
[2019-02-05] MEDS ORDERED: NALOXONE 0.4 MG/ML 1 ML VIAL IV PRN (21:47)
[2019-02-05] MEDS ORDERED: ACETAMINOPHEN TAB 325 MG TAB PO PRN (21:47)
[2019-02-05] MEDS ORDERED: diphenhydrAMINE 50 MG CAP PO SCH (22:00)
[2019-02-05] MEDS ORDERED: SODIUM CHLORIDE 0.9% 500 ML 500 ML IV ONE (22:15)
[2019-02-05] MEDS: SODIUM CHLORIDE 0.9% 1,000 ML IV SCH (22:16)
[2019-02-05 23:48] VITALS: BMI 26.6
[2019-02-06] MEDS ORDERED: ONDANSETRON 4 MG/2 ML VIAL IVP PRN (00:45)
[2019-02-06] MEDS ORDERED: diphenhydrAMINE 25 MG CAP PO SCH (00:45)
[2019-02-06] MEDS: diphenhydrAMINE 25 MG CAP PO PRN ×3 (00:53→11:13)
[2019-02-06 06:17] LABS: Glucose,Whole Blood 131 mg/dL (75-99)
[2019-02-06] MEDS: FAMOTIDINE 20 MG TAB PO SCH ×2 (08:38→21:31)
[2019-02-06] MEDS ORDERED: INSULN ASP PRT/INSULIN ASPART 100 UNIT/ML 10 ML VIAL SQ SCH (09:00)
[2019-02-06] MEDS: SODIUM CHLORIDE 0.9% 1,000 ML IV SCH (11:13)
[2019-02-06 11:47] LABS: Glucose,Whole Blood 105 mg/dL (75-99)
[2019-02-06] MEDS: INSULIN ASPART (NovoLOG) 100 UNIT/ML VIAL SQ SCH ×3 (13:07→21:31)
[2019-02-06] MEDS: methylPREDNISolone SOD SUCCI 125 MG/2 ML VIAL IV SCH ×2 (13:08→18:29)
--- NOTE | 2019-02-06 15:45 | HP ---
HISTORY AND PHYSICAL Christin Hunter is a 53-year-old female who presented to the ED at [facility] with swelling in her tongue, difficulty speaking and some swelling of her lips. She had been at [employer], had some pesto. Subsequently started to have some tingling around her tongue and lips. She had an episode of diarrhea after eating that as well. She went to a grocery store, was unable to stay there because of shortness of breath. Came to the ER and was admitted for further evaluation. She is doing somewhat better at this time with less swelling of her tongue. She denied any fever, chills, or rigors. Denied any episodes in the past. She is not on an MIGUEL inhibitor. PAST MEDICAL HISTORY: Negative for asthma or COPD. She is a previous smoker. Her past medical history is positive for diabetes mellitus, insulin requiring. History of obstructive sleep apnea for which she is on CPAP. PAST FAMILY MEDICAL HISTORY: Positive for diabetes mellitus and hypertension in her mother. Sister had a history of deep vein thrombosis. SOCIAL HISTORY: Patient does not drink alcohol excessively. She is an ex smoker. MEDICATIONS: Prior to admission were insulin, Coreg, Lipitor, aspirin, Benadryl, and Pepcid. ALLERGIC: To ERYTHROMYCIN, , PENICILLINS, PREDNISONE, it is not clear whether this is a true allergy and SULFONAMIDE ANTIBIOTICS. REVIEW OF SYSTEMS: Positive for history of itching for approximately 6 months. PHYSICAL EXAMINATION: Respiratory rate is 20, pulse rate of 118, temperature 98.4, blood pressure 100/63, O2 saturation on room air is 95%. HEENT reveals pupils that are equal. No jugular venous distention. There is erythema in her face. Her tongue is normal size at this time. Chest is clear. Cardiovascular system reveals an S1, S2. Abdomen is soft. There is no pedal edema. LABS: Reveal a white count of 12.9, hemoglobin of 14.7 with 10.6 thousand neutrophils and 0.2 thousand eosinophiles. Glucose was 208, AST 40, ALT 70, albumin 4.4, sodium 141, potassium 4.3, chloride 106, bicarb 23, BUN 16, creatinine 0.41. IMPRESSION: At this time: 1. Angioedema. 2. Allergic reaction possibly to food. 3. History of tachycardia. 4. Obstructive sleep apnea. At this point in time, would keep her on Benadryl, Pepcid, EpiPen if needed, and start IV Solu-Medrol. Keep her on DVT prophylaxis. Check an IgE level as well as an allergy profile. Keep her on sliding scale insulin, along with scheduled insulin as well. She was counseled regarding her condition and this approach and has a fair understanding of recommendations. YOSELYN / BERENICE: [id number] /
[2019-02-06 16:57] LABS: Glucose,Whole Blood 216 mg/dL (75-99)
[2019-02-06] MEDS: INSULN ASP PRT/INSULIN ASPART 100 UNIT/ML 10 ML VIAL SQ SCH (17:40)
[2019-02-06 18:53] LABS: Glucose,Whole Blood 282 mg/dL (75-99)
[2019-02-06 20:54] LABS: Glucose,Whole Blood 248 mg/dL (75-99)
[2019-02-06] MEDS: HEPARIN SODIUM,PORCINE 5,000 UNIT/ML 1 ML VIAL SQ SCH (21:31)
[2019-02-07] MEDS: SODIUM CHLORIDE 0.9% 1,000 ML IV SCH ×3 (00:31→21:12)
[2019-02-07] MEDS: methylPREDNISolone SOD SUCCI 125 MG/2 ML VIAL IV SCH ×4 (00:31→17:26)
[2019-02-07] MEDS: diphenhydrAMINE 25 MG CAP PO PRN ×3 (06:16→18:57)
[2019-02-07 06:37] LABS: Glucose,Whole Blood 197 mg/dL (75-99)
[2019-02-07] MEDS: INSULIN ASPART (NovoLOG) 100 UNIT/ML VIAL SQ SCH ×4 (06:47→21:11)
[2019-02-07] MEDS: INSULN ASP PRT/INSULIN ASPART 100 UNIT/ML 10 ML VIAL SQ SCH ×2 (07:12→17:26)
[2019-02-07] MEDS: HEPARIN SODIUM,PORCINE 5,000 UNIT/ML 1 ML VIAL SQ SCH ×2 (08:09→21:03)
[2019-02-07] MEDS: FAMOTIDINE 20 MG TAB PO SCH ×2 (08:09→21:03)
--- NOTE | 2019-02-07 09:53 | PN ---
PROGRESS NOTE DATE OF SERVICE: 02/07/2019. She is doing somewhat better. She has less dyspnea. Her voice is back in the normal range. She continues to have itching and rash. PHYSICAL EXAMINATION: Her blood pressure is 132/63, respiratory rate of 20, pulse rate 82, temperature 98 degrees Fahrenheit, O2 SAT on room air is 95%. HEENT reveals no new changes. Chest is clear. Cardiovascular system with an S1, S2. Abdomen is soft. There is no edema. IMPRESSION: 1. Angioedema. 2. Allergic reaction. 3. Diabetes mellitus. 4. History of tachycardia. Keep her on GI and DVT prophylaxis. Continue IV Solu-Medrol, Pepcid and Benadryl. Increase her activity level. Switch her possibly to Medrol tomorrow, oral. She apparently had an allergic reaction to PREDNISONE PILLS. MMODL / IJN: [id number] /
--- NOTE | 2019-02-07 11:22 | CONS ---
CONSULTATION CHIEF COMPLAINT: To address the beta-ann use. Christin Hunter is a 53-year-old lady with history of insulin-requiring diabetes, hypertension, and dyslipidemia who was admitted to hospital having had an episode of angioedema. It came on suddenly. It was associated with swelling of her tongue, face and throat. She had been treated with Benadryl and at the time of my evaluation, she appears normal. Patient is on Coreg in the outpatient setting and Dr. Jalen Armstrong who admitted her wanted us to address this issue. Patient does not need beta blockers for coronary artery disease, cardiomyopathy, or congestive heart failure. I am going to stop it at this time. PAST MEDICAL HISTORY: Significant for hypertension, diabetes, dyslipidemia. MEDICATIONS: Include insulin, Coreg, Lipitor, aspirin, Benadryl, and Pepcid. SOCIAL HISTORY: Negative for smoking, EtOH abuse, or drug abuse. Past medical history is also significant for obstructive sleep apnea and patient is on CPAP. ALLERGY: ERYTHROMYCIN, PENICILLIN, PREDNISONE, and SULFA ANTIBIOTICS. REVIEW OF SYSTEMS: HEENT is as described above. CARDIAC: As described above. RESPIRATORY: Negative. GI: Negative. : Negative. ALLERGY/IMMUNOLOGY: Negative. SKIN: Negative. MUSCULOSKELETAL: Negative. DERM: Negative. CONSTITUTIONAL: Negative. ONCOLOGICAL: Negative. HEMATOLOGICAL: Significant for allergic reaction. Rest of the system review is not relevant. PHYSICAL EXAM: Patient is comfortable at rest. Vital signs are stable. There is no jugular venous distention. Carotid upstroke is normal. There is no bruit. Chest exam reveals good air entry bilaterally. Heart exam reveals first and second heart sounds. No gallop. No murmur. No rub. Abdomen is soft, nontender. Exam of extremities did not reveal any edema. Peripheral pulses are felt. WOOD HE[employer] FLAP RUBBER exam did not reveal focal neurological deficits. EKG shows sinus tachycardia with nonspecific ST-T wave changes. LABS: Show a hemoglobin of 14.7. ASSESSMENT: 1. Acute allergic reaction. The exact precipitating agent is unclear. 2. History of hypertension. 3. History of dyslipidemia. 4. Insulin-requiring diabetes. PLAN: I am going to stop the beta ann as the beta ann may blunt the clinical manifestation of her anaphylactic reaction, and we are not quite sure what she is reacting to, so we will stop the Coreg at this time. She does not require any cardiac workup. Will see her back in the office once she is discharged home, if necessary. Thank you for allowing us to participate in this pleasant lady. MMODL / IJN: [id number] /
[2019-02-07 11:48] LABS: Glucose,Whole Blood 213 mg/dL (75-99)
[2019-02-07 12:28] LABS: Codfish IgE <0.10 kU/L; Egg White IgE <0.10 kU/L
[2019-02-07 15:05] LABS: Clam IgE <0.10 kU/L; Peanut IgE <0.10 kU/L; Scallop IgE <0.10 kU/L; Shrimp IgE <0.10 kU/L; Soybean IgE <0.10 kU/L; Walnut IgE (Food) <0.10 kU/L
[2019-02-07 17:00] LABS: Glucose,Whole Blood 292 mg/dL (75-99)
[2019-02-07 21:09] LABS: Glucose,Whole Blood 293 mg/dL (75-99)
[2019-02-08] MEDS: methylPREDNISolone SOD SUCCI 125 MG/2 ML VIAL IV SCH ×2 (00:02→07:22)
[2019-02-08] MEDS: diphenhydrAMINE 25 MG CAP PO PRN ×2 (00:07→18:07)
[2019-02-08 06:34] LABS: Glucose,Whole Blood 265 mg/dL (75-99)
[2019-02-08] MEDS: INSULIN ASPART (NovoLOG) 100 UNIT/ML VIAL SQ SCH ×6 (07:23→21:23)
[2019-02-08] MEDS: INSULN ASP PRT/INSULIN ASPART 100 UNIT/ML 10 ML VIAL SQ SCH ×2 (07:23→18:00)
--- NOTE | 2019-02-08 07:50 | ECHOF ---
Referral Reason:sob MEASUREMENTS -------- HEIGHT: 149.9 cm WEIGHT: 60.8 kg BP: 132/3 RVIDd: 2.6 cm (< 3.3) IVSd: 0.8 cm (0.6 - 1.1) LVIDd: 4.4 cm (3.9 - 5.3) LVPWd: 0.9 cm (0.6 - 1.1) IVSs: 1.3 cm LVIDs: 3.1 cm LVPWs: 1.4 cm LA Diam: 3.1 cm (2.7 - 3.8) LAESV Index (A-L): 22.19 ml/m Ao Diam: 2.7 cm (2.0 - 3.7) AV Cusp: 1.8 cm (1.5 - 2.6) MV EXCURSION: 13.970 mm (> 18.000) MV EF SLOPE: 85 mm/s (70 - 150) EPSS: 0.4 cm MV E Preston: 0.94 m/s MV DecT: 234 ms MV A Preston: 1.03 m/s MV E/A Ratio: 0.92 RAP: 5.00 mmHg RVSP: 16.89 mmHg FINDINGS -------- Sinus rhythm. This was a technically good study. The left ventricular size is normal. Left ventricular wall thickness is normal. Overall left vent ricular systolic function is normal with, an EF between 60 - 65 %. The right ventricle is normal in size. Normal LA size by volume 22+/-6 ml/m2. The right atrium is normal in size. The aortic valve is trileaflet and appears structurally normal. The mitral valve leaflets are mildly thickened. Mild mitral annular calcification present. There is trace mitral regurgitation. Mild tricuspid regurgitation present. Right ventricular systolic pressure is normal at < 35 mmHg. Trace/mild (physiologic) pulmonic regurgitation. The aortic root size is normal. Normal inferior vena cava with normal inspiratory collapse consistent with estimated right atrial pre ssure of 5 mmHg. There is no pericardial effusion. CONCLUSIONS -------- 1. Sinus rhythm. 2. This was a technically good study. 3. The left ventricular size is normal. 4. Left ventricular wall thickness is normal. 5. Overall left ventricular systolic function is normal with, an EF between 60 - 65 %. 6. The right ventricle is normal in size. 7. Normal LA size by volume 22+/-6 ml/m2. 8. The right atrium is normal in size. 9. The aortic valve is trileaflet and appears structurally normal. 10. The mitral valve leaflets are mildly thickened. 11. Mild mitral annular calcification present. 12. There is trace mitral regurgitation. 13. Mild tricuspid regurgitation present. 14. Right ventricular systolic pressure is normal at < 35 mmHg. 15. Trace/mild (physiologic) pulmonic regurgitation. 16. The aortic root size is normal. 17. Normal inferior vena cava with normal inspiratory collapse consistent with estimated right atrial pressure of 5 mmHg. 18. There is no pericardial effusion. GLASS INSTALLER TECHNICIAN: Mariposa Mauricio RDCS
[2019-02-08] MEDS: FAMOTIDINE 20 MG TAB PO SCH ×2 (09:54→19:42)
[2019-02-08] MEDS: HEPARIN SODIUM,PORCINE 5,000 UNIT/ML 1 ML VIAL SQ SCH ×2 (09:54→19:42)
--- NOTE | 2019-02-08 11:30 | P.PN ---
Subjective Progress Note Date: 02/08/19 This is a 53-year-old female admitted with anaphylactic reaction, angioedema, swelling of face, tongue, throat, hands-etiology unclear, and multiple other medical issues. Evaluated by cardiology, Coreg discontinued secondary to its potential to blunt the anaphylactic reaction manifestation. No further cardiac workup recommended. Maintained on Benadryl, steroids. Hyperglycemic, blood sugars in the 200s. Reports last night after dinner, consuming potatoes, green beans and beef; she again developed facial flushing, edema with mild tongue involvement. Received additional Benadryl. Denies lightheadedness dizziness or focal deficits. Denies chest pain, palpitations or increasing shortness of breath. Telemetry sinus rhythm. Ambulating in room, without difficulty. Patient has fine rash on upper and lower extremities, states is present couple weeks prior to event. Objective - Vital Signs Vital signs: Vital Signs Temp 98 F 02/08/19 08:00 Pulse 68 02/08/19 08:00 Resp 18 02/08/19 08:00 BP 146/73 02/08/19 08:00 Pulse Ox 96 02/08/19 08:00 Intake & Output 02/07/19 02/08/19 02/08/19 18:59 06:59 18:59 Intake Total 600 480 480 Balance 600 480 480 Weight 62.1 kg Intake: Oral 600 480 480 Other: Voiding Method Toilet # Voids 0 1 # Bowel Movements 0 - Exam PHYSICAL EXAM: VITAL SIGNS: As above GENERAL: Sitting up in bed, no acute distress HEENT: Conjunctivae normal. eyes normal. Oral mucosa moist. No edema. NECK: No JVD. No thyroid enlargement. No LNs CARDIOVASCULAR: S1, S2 muffled. No murmur RESPIRATION: Breath sounds diminished in the bases. No rhonchi or crackles. No bronchial breathing. ABDOMEN: Soft, nontender . No guarding. no masses palpable. Bowel sounds heard. LEGS: No edema. no swelling PSYCHIATRY: Alert and oriented -3, mood and affect normal. NERVOUS SYSTEM: Cranial N 2-12 grossly normal. Moves all 4 limbs. Diffuse weakness No focal deficits. No sensory deficit. No signs of cerebellar dysfuc ntion. Skin: no ulcer, mild fine rashes on the left forearm, bilateral lower legs Joints: No active swelling. No inflammation. Lymphatic system. No LN neck axilla or groin. - Labs CBC & Chem 7: 02/05/19 19:54 02/05/19 19:54 Labs: Abnormal Lab Results - Last 24 Hours (Table) 02/06/19 02/06/19 02/07/19 Range/Units 14:55 14:55 11:35 POC Glucose (mg/dL) 213 H (75-99) mg/dL IgE 316.00 H 339.00 H (0.00-114.00) IU/mL 02/07/19 02/07/19 02/08/19 Range/Units 16:58 21:08 06:33 POC Glucose (mg/dL) 292 H 293 H 265 H (75-99) mg/dL IgE (0.00-114.00) IU/mL Assessment and Plan Assessment: -Acute ALLERGIC reaction, anaphylactic, with angioedema, etiology unclear -Dyslipidemia -Hypertension -History of tachycardia -Diabetes mellitus with steroid-induced hyperglycemia -Remote history of nicotine dependence Plan: Continue on current medication regime ,monitoring and symptomatic treatment. Patient advised to maintain a food diary and follow-up outpatient for ALLERGY testing. Continue on Benadryl, steroids,. Convert to Medrol tomorrow. Pre-meal insulin with parameters added to med regime. Increase ambulation as tolerated. Discharge planning in progress for tomorrow. The impression and plan of care has been dictated as directed. : I performed a history and examination of this patient, discussed the same with the dictator. I agree with the dictator's note ,documented as a scribe. Any additional findings or plans will be noted.
[2019-02-08 12:02] LABS: Glucose,Whole Blood 232 mg/dL (75-99)
[2019-02-08] MEDS: SODIUM CHLORIDE 0.9% 1,000 ML IV SCH (13:11)
[2019-02-08 13:26] LABS: Alt. alternata IgE Class CLASS 0; Alternaria alternata IgE <0.35 kU/L (<0.35); Asperg. fumagatus IgE <0.35 kU/L (<0.35); Asperg. fumagatus IgE Class CLASS 0; Bermuda Grass IgE <0.35 kU/L (<0.35); Birch(Com.Silvr) IgE <0.35 kU/L (<0.35); Birch(Com.Silvr) IgE Class CLASS 0; Cat Epith & Dander IgE <0.35 kU/L (<0.35); Cat Epith & Dander IgE Class CLASS 0; Clad herbarum IgE <0.35 kU/L (<0.35); Cockroach IgE <0.35 kU/L (<0.35); Cottonwood IgE <0.35 kU/L (<0.35); Dermato. Pteronyssinus IgE <0.35 kU/L (<0.35); Dermato. farinae IgE <0.35 kU/L (<0.35); Dermato. farinae IgE Class CLASS 0; Dog Dander IgE <0.35 kU/L (<0.35); Elm IgE <0.35 kU/L (<0.35); Maple (Box Elder) IgE <0.35 kU/L (<0.35); Maple (Box Elder) IgE Class CLASS 0; Mountain Cedar IgE <0.35 kU/L (<0.35); Mountain Cedar IgE Class CLASS 0; Mouse Urine IgE Class CLASS 0; Nettle IgE <0.35 kU/L (<0.35); Nettle IgE Class CLASS 0; Oak IgE <0.35 kU/L (<0.35); Penicillium notatum IgE Class CLASS 0; Rough Marshelder IgE <0.35 kU/L (<0.35); Rough Marshelder IgE Class CLASS 0; Timothy Grass IgE <0.35 kU/L (<0.35); White Ash IgE Class CLASS 0
--- NOTE | 2019-02-08 15:19 | P.PN ---
Subjective Progress Note Date: 02/08/19 This is a 53-year-old female with history of diabetes, hypertension, hyperlipidemia who was admitted to the hospital after experiencing angioedema which came on suddenly. She had been on Coreg which was discontinued by Dr. Wells yesterday. She was given Benadryl and epinephrine in the emergency room. Yesterday afternoon she did have an episode where her face became extremely flushed and swollen, today she is overall back to her normal. Echocardiogram with Doppler study was performed which revealed an ejection fraction of 60-65%. Blood pressure 122/70 with a heart rate in the 60s, 97% on room air. Objective - Vital Signs Vital signs: Vital Signs Temp 98.2 F 02/08/19 12:00 Pulse 63 02/08/19 12:00 Resp 18 02/08/19 12:00 BP 122/73 02/08/19 12:00 Pulse Ox 97 02/08/19 12:00 Intake & Output 02/07/19 02/08/19 02/08/19 18:59 06:59 18:59 Intake Total 600 480 480 Balance 600 480 480 Weight 62.1 kg Intake: Oral 600 480 480 Other: Voiding Method Toilet # Voids 0 1 # Bowel Movements 0 - Exam PHYSICAL EXAMINATION: GENERAL: 53-year-old female in no acute distress at the time of my examination HEENT: Head is atraumatic, normocephalic. Pupils equal, round. Sclera anicteric. Conjunctiva are clear. Mucous membranes of the mouth are moist. Neck is supple. There is no elevated jugular venous pressure.] bruit is heard. HEART EXAMINATION: Heart S1, S2 normal. No murmur or gallop heard. CHEST EXAMINATION: Lungs are clear to auscultation and precussion. No chest wall tenderness is noted on palpation or with deep breathing. ABDOMEN: Soft, nontender. Bowel sounds are heard. No organomegaly noted. EXTREMITIES: 2+ peripheral pulses with no evidence of peripheral edema and no calf tenderness noted. NEUROLOGIC patient is awake, alert and oriented ?-3. . - Labs CBC & Chem 7: 02/05/19 19:54 02/05/19 19:54 Labs: Abnormal Lab Results - Last 24 Hours (Table) 02/06/19 02/07/19 02/07/19 Range/Units 14:55 16:58 21:08 POC Glucose (mg/dL) 292 H 293 H (75-99) mg/dL IgE 316.0 H (<114.0) IU/mL 02/08/19 02/08/19 Range/Units 06:33 11:43 POC Glucose (mg/dL) 265 H 232 H (75-99) mg/dL IgE (<114.0) IU/mL Assessment and Plan Plan: Assessment and plan #1 acute ALLERGIC reaction, precipitating agent unclear. #2 hypertension #3 hyperlipidemia #4 diabetes Plan From cardiology's perspective, we will follow this patient along with you now on an as-needed basis only, we'll make the patient a follow-up appointment in the office post discharge. DNP note has been reviewed, I agree with a documented findings and plan of care. Patient was seen and examined.
[2019-02-08 16:25] LABS: Glucose,Whole Blood 263 mg/dL (75-99)
[2019-02-08] MEDS: methylPREDNISolone SOD SUCCI 40 MG/ML 1 ML VIAL IV SCH ×2 (18:00→23:17)
[2019-02-08 21:16] LABS: Glucose,Whole Blood 226 mg/dL (75-99)
[2019-02-09] MEDS: SODIUM CHLORIDE 0.9% 1,000 ML IV SCH ×3 (01:07→22:52)
[2019-02-09 06:17] LABS: Glucose,Whole Blood 230 mg/dL (75-99)
[2019-02-09 07:19] LABS: Anion Gap 5 mmol/L; Blood Urea Nitrogen 19 mg/dL (7-17); Calcium 8.7 mg/dL (8.4-10.2); Carbon Dioxide 27 mmol/L (22-30); Chloride 107 mmol/L (98-107); Glucose 233 mg/dL (74-99); Potassium 4.6 mmol/L (3.5-5.1); Sodium 139 mmol/L (137-145)
[2019-02-09] MEDS: INSULIN ASPART (NovoLOG) 100 UNIT/ML VIAL SQ SCH ×7 (07:33→21:42)
[2019-02-09] MEDS: INSULN ASP PRT/INSULIN ASPART 100 UNIT/ML 10 ML VIAL SQ SCH ×2 (07:34→17:23)
[2019-02-09 07:38] LABS: Basophils % (A) 0 %; Eosinophils % (A) 0 %; HCT 34.9 % (34.0-46.0); Lymphocytes # (A) 1.2 k/uL (1.0-4.8); Lymphocytes % (A) 12 %; MCH 28.5 pg (25.0-35.0); MCHC 33.3 g/dL (31.0-37.0); MCV 85.7 fL (80.0-100.0); Mean Platelet Volume 7.3; Monocytes # (A) 0.3 k/uL (0-1.0); Monocytes % (A) 3 %; Neutrophils # (A) 8.5 k/uL (1.3-7.7); Neutrophils % (A) 83 %; Platelet Count 355 k/uL (150-450); RBC 4.07 m/uL (3.80-5.40); RDW 13.4 % (11.5-15.5); WBC 10.2 k/uL (3.8-10.6)
[2019-02-09 07:46] LABS: HGB 11.6 gm/dL (11.4-16.0)
[2019-02-09] MEDS: FAMOTIDINE 20 MG TAB PO SCH ×2 (08:34→20:39)
[2019-02-09] MEDS: HEPARIN SODIUM,PORCINE 5,000 UNIT/ML 1 ML VIAL SQ SCH ×2 (08:34→20:39)
[2019-02-09] MEDS: methylPREDNISolone SOD SUCCI 40 MG/ML 1 ML VIAL IV SCH ×2 (08:34→17:22)
[2019-02-09 11:53] LABS: Glucose,Whole Blood 252 mg/dL (75-99)
[2019-02-09 15:54] LABS: Glucose,Whole Blood 304 mg/dL (75-99)
[2019-02-09 16:44] LABS: Glucose,Whole Blood 274 mg/dL (75-99)
--- NOTE | 2019-02-09 17:52 | P.PN ---
Subjective Progress Note Date: 02/09/19 This is a 53-year-old female admitted with anaphylactic reaction, angioedema, swelling of face, tongue, throat, hands-etiology unclear, and multiple other medical issues. Evaluated by cardiology, Coreg discontinued secondary to its potential to blunt the anaphylactic reaction manifestation. No further cardiac workup recommended. Maintained on Benadryl, steroids. Hyperglycemic, blood sugars in the 200s. Reports last night after dinner, consuming potatoes, green beans and beef; she again developed facial flushing, edema with mild tongue involvement. Received additional Benadryl. Denies lightheadedness dizziness or focal deficits. Denies chest pain, palpitations or increasing shortness of breath. Telemetry sinus rhythm. Ambulating in room, without difficulty. Patient has fine rash on upper and lower extremities, states is present couple weeks prior to event. 02/09/2019 continues to have tingling of tongue when eating of various foods. IgE elevated. Echo revealed normal EF, 60-65%. Does not have CPAP machine at bedside, no family available to bring it. Heart rates 50s and 60s, systolic blood pressures in the 120s. Ambulating without difficulty. Tolerating exertion well. Denies chest pain, palpitations or increasing shortness of breath. Denies lightheadedness dizziness or focal deficits. Objective - Vital Signs Vital signs: Vital Signs Temp 97.7 F 02/09/19 16:00 Pulse 55 L 02/09/19 16:00 Resp 20 02/09/19 16:00 BP 170/81 02/09/19 16:00 Pulse Ox 98 02/09/19 16:00 Intake & Output 02/08/19 02/09/19 02/09/19 18:59 06:59 18:59 Intake Total 1170 1680 240 Balance 1170 1680 240 Weight 63.9 kg Intake: IV 450 Sodium Chloride 0.9% 1, 450 000 ml @ 80 mls/hr IV . [id number] FANNY Rx#:[id number] Intake, IV Titration 880 Amount Sodium Chloride 0.9% 1, 880 000 ml @ 80 mls/hr IV . [id number] FANNY Rx#:[id number] Oral 720 800 240 Other: Voiding Method Toilet Toilet # Voids 2 3 2 - Exam PHYSICAL EXAM: VITAL SIGNS: As above GENERAL: Sitting up in chair, no acute distress HEENT: Conjunctivae normal. eyes normal. Oral mucosa moist. No edema. NECK: No JVD. No thyroid enlargement. No LNs CARDIOVASCULAR: S1, S2 muffled. No murmur RESPIRATION: Breath sounds diminished in the bases. No rhonchi or crackles. No bronchial breathing. ABDOMEN: Soft, nontender . No guarding. no masses palpable. Bowel sounds heard. LEGS: No edema. no swelling PSYCHIATRY: Alert and oriented -3, mood and affect normal. NERVOUS SYSTEM: Cranial N 2-12 grossly normal. Moves all 4 limbs. No focal deficits. Skin: no ulcer, mild fine rashes on the left forearm, bilateral lower legs Joints: No active swelling. No inflammation. Lymphatic system. No LN neck axilla or groin. - Labs CBC & Chem 7: 02/09/19 06:28 02/09/19 06:28 Labs: Abnormal Lab Results - Last 24 Hours (Table) 02/08/19 02/09/19 02/09/19 Range/Units 21:15 06:15 06:28 Neutrophils # 8.5 H (1.3-7.7) k/uL BUN (7-17) mg/dL Glucose (74-99) mg/dL POC Glucose (mg/dL) 226 H 230 H (75-99) mg/dL 02/09/19 02/09/19 02/09/19 Range/Units 06:28 11:52 15:52 Neutrophils # (1.3-7.7) k/uL BUN 19 H (7-17) mg/dL Glucose 233 H (74-99) mg/dL POC Glucose (mg/dL) 252 H 304 H (75-99) mg/dL 02/09/19 Range/Units 16:42 Neutrophils # (1.3-7.7) k/uL BUN (7-17) mg/dL Glucose (74-99) mg/dL POC Glucose (mg/dL) 274 H (75-99) mg/dL Assessment and Plan Assessment: -Acute ALLERGIC reaction, anaphylactic, with angioedema, etiology unclear -Dyslipidemia -Hypertension -History of tachycardia -Diabetes mellitus with steroid-induced hyperglycemia -Remote history of nicotine dependence Plan: Continue on current medication regime ,monitoring and symptomatic treatment. Corporate Security Officer, Dr. Guy consulted. Steroids being tapered down-patient has an ALLERGY to prednisone. CPAP/BiPAP ordered. Patient advised to continue maintaining a food diary. Convert to Medrol tomorrow. Discharge planning in progress for tomorrow. The impression and plan of care has been dictated as directed. : I performed a history and examination of this patient, discussed the same with the dictator. I agree with the dictator's note ,documented as a scribe. Any additional findings or plans will be noted.
[2019-02-09 21:04] LABS: Glucose,Whole Blood 327 mg/dL (75-99)
[2019-02-09] MEDS: INSULIN DETEMIR (LEVEMIR) 100 UNIT/ML SYR SQ SCH (21:43)
[2019-02-10 02:25] LABS: Glucose,Whole Blood 243 mg/dL (75-99)
[2019-02-10 03:43] LABS: Hemoglobin A1C 8.6 % (4.0-6.0)
[2019-02-10] MEDS ORDERED: methylPREDNISolone SOD SUCCI 40 MG/ML 1 ML VIAL IV SCH (06:00)
[2019-02-10 07:43] LABS: Glucose,Whole Blood 146 mg/dL (75-99)
[2019-02-10] MEDS: INSULIN ASPART (NovoLOG) 100 UNIT/ML VIAL SQ SCH ×7 (07:48→20:53)
[2019-02-10] MEDS: INSULN ASP PRT/INSULIN ASPART 100 UNIT/ML 10 ML VIAL SQ SCH ×2 (07:51→17:45)
[2019-02-10] MEDS: FAMOTIDINE 20 MG TAB PO SCH ×2 (08:51→20:55)
[2019-02-10] MEDS: HEPARIN SODIUM,PORCINE 5,000 UNIT/ML 1 ML VIAL SQ SCH ×2 (08:51→20:55)
[2019-02-10 12:23] LABS: Glucose,Whole Blood 246 mg/dL (75-99)
[2019-02-10 17:03] LABS: Glucose,Whole Blood 211 mg/dL (75-99)
--- NOTE | 2019-02-10 18:11 | P.DS ---
Providers Date of admission: 02/07/19 07:57 Expected date of discharge: 02/10/19 Attending physician: Dallas Thompson Consults: 02/06/19 11:51 Consult Physician Routine Consulting Provider: Lalita Ray Consult Reason/Comments: Patient on Coreg, does not know why, no cardiac hx. Do you want consulting provider notified?: Yes 02/09/19 15:26 Consult Physician Stat Consulting Provider: Nicolás Guy Consult Reason/Comments: Patient having allergic reaction from an uknown origin. Do you want consulting provider notified?: Yes Primary care physician: [facility] Course: Final Diagnoses: -Acute ALLERGIC reaction, anaphylactic, with angioedema, etiology unclear, further testing outpatient [facility] [employer] -Dyslipidemia -Hypertension -History of tachycardia -Diabetes mellitus with steroid-induced hyperglycemia -Remote history of nicotine dependence Hospital course:This is a 53-year-old female admitted with anaphylactic reaction, angioedema, swelling of face, tongue, throat, hands-etiology unclear, and multiple other medical issues. Evaluated by cardiology, Coreg discontinued secondary to its potential to blunt the anaphylactic reaction manifestation. No further cardiac workup recommended. Maintained on Benadryl, steroids. Hyperglycemic, blood sugars in the 200s. Reports last night after dinner, consuming potatoes, green beans and beef; she again developed facial flushing, edema with mild tongue involvement. Received additional Benadryl. Denies lightheadedness dizziness or focal deficits. Denies chest pain, palpitations or increasing shortness of breath. Telemetry sinus rhythm. Ambulating in room, without difficulty. Patient has fine rash on upper and lower extremities, states is present couple weeks prior to event. 02/09/2019 continues to have tingling of tongue when eating of various foods. IgE elevated. Echo revealed normal EF, 60-65%. Does not have CPAP machine at bedside, no family available to bring it. Heart rates 50s and 60s, systolic blood pressures in the 120s. Ambulating without difficulty. Tolerating exertion well. Denies chest pain, palpitations or increasing shortness of breath. Denies lightheadedness dizziness or focal deficits. 02/10/[address] Guy ,dog and cat food cook. Recommendations noted. Consumed dinner last night and this morning with No further tingling of tongue, no further swelling of face,throat or extremities with eating. No chest pressure. No shortness of breath .Significant clinical improvement. Patient has been cleared by all consults for discharge. Patient is being discharged home in a stable condition with guarded prognosis. EXAM: GENERAL: Alert and oriented 3, no acute distress HEENT: Conjunctivae normal. eyes normal. Oral mucosa moist. No edema. NECK: No JVD. No thyroid enlargement. No LNs CARDIOVASCULAR: S1, S2 muffled. No murmur RESPIRATION: Breath sounds diminished in the bases. No wheezing, No rhonchi or crackles. No bronchial breathing. ABDOMEN: Soft, nontender . No guarding. no masses palpable. Bowel sounds heard. LEGS: No edema. no swelling PSYCHIATRY: Alert and oriented -3, mood and affect normal. NERVOUS SYSTEM: No focal deficits. The impression and plan of care has been dictated as directed. : I performed a history and examination of this patient, discussed the same with the dictator. I agree with the dictator's note ,documented as a scribe. Any additional findings or plans will be noted. Time taken: 35 minutes Patient Condition at Discharge: Stable Plan - Discharge Summary Discharge Rx Participant: Yes New Discharge Prescriptions: New Famotidine [Pepcid] 20 mg PO BID #10 tablet EPINEPHrine (Auto Inject) [Epipen] 0.3 mg IM ONCE PRN #1 pen PRN Reason: Anaphylaxis diphenhydrAMINE [Benadryl] 25 mg PO BID PRN #20 capsule PRN Reason: Itching Cetirizine HCl [Zyrtec] 10 mg PO HS #30 tab methylPREDNISolone [Medrol Dose Pack] 4 mg PO DIRECTED #1 pack Continue Atorvastatin [Lipitor] 40 mg PO HS Aspirin EC [Ecotrin Low Dose] 81 mg PO HS Insuln Asp Prt/Insulin Aspart [NovoLOG MIX 70-30 VIAL] 30 unit SQ BID Discharge Medication List Atorvastatin [Lipitor] 40 mg PO HS 01/21/18 [History] Aspirin EC [Ecotrin Low Dose] 81 mg PO HS 06/02/18 [History] EPINEPHrine (Auto Inject) [Epipen] 0.3 mg IM ONCE PRN #1 pen 02/05/19 [Rx] Famotidine [Pepcid] 20 mg PO BID #10 tablet 02/05/19 [Rx] Insuln Asp Prt/Insulin Aspart [NovoLOG MIX 70-30 VIAL] 30 unit SQ BID 02/05/19 [History] diphenhydrAMINE [Benadryl] 25 mg PO BID PRN #20 capsule 02/05/19 [Rx] Cetirizine HCl [Zyrtec] 10 mg PO HS #30 tab 02/10/19 [Rx] methylPREDNISolone [Medrol Dose Pack] 4 mg PO DIRECTED #1 pack 02/10/19 [Rx] Follow up Appointment(s)/Referral(s): Dallas Thompson MD [Primary Care Provider] - 02/14/19 2:00 pm (Thursday) Nicolás Guy MD [STAFF PHYSICIAN] - 1 Week Patient Instructions/Handouts: Food Allergy (ED), Anaphylaxis (ED) Activity/Diet/Wound Care/Special Instructions: Patient to take Benadryl every 6 hours. Take the Pepcid as prescribed. Avoid any further foods with pine nuts. Return to emergency department if any alarming signs or symptoms occur. Medrol Dosepak and EPI pens manual RX given.
--- NOTE | 2019-02-10 18:56 | CONS ---
CONSULTATION This patient was eating at a restaurant a couple of days ago, and 20 minutes later she developed swollen face and swollen tongue and felt like her throat was closing. She went to the emergency room. She was treated with epinephrine IV and she feels better now. There is no swelling. But her IgE for food, pollen, mold and dust were all negative, but IgE is higher, so it means she has something that caused an allergic reaction. So I advised her to take Zyrtec every day and see me in my office for skin testing and consultation. MMODL / IJN: [id number] /
[2019-02-10 20:39] LABS: Glucose,Whole Blood 199 mg/dL (75-99)
[2019-02-10] MEDS: INSULIN DETEMIR (LEVEMIR) 100 UNIT/ML SYR SQ SCH (20:52)
[2019-02-10] MEDS: SODIUM CHLORIDE 0.9% 1,000 ML IV SCH (20:56)
[2019-02-11 06:23] LABS: Glucose,Whole Blood 74 mg/dL (75-99)
[2019-02-11] MEDS: INSULIN ASPART (NovoLOG) 100 UNIT/ML VIAL SQ SCH ×2 (06:40→08:29)
[2019-02-11] MEDS: INSULN ASP PRT/INSULIN ASPART 100 UNIT/ML 10 ML VIAL SQ SCH (06:58)
[2019-02-11] MEDS: SODIUM CHLORIDE 0.9% 1,000 ML IV SCH (08:30)
[2019-02-11] MEDS: HEPARIN SODIUM,PORCINE 5,000 UNIT/ML 1 ML VIAL SQ SCH (08:30)
[2019-02-11] MEDS: FAMOTIDINE 20 MG TAB PO SCH (08:51)
[2019-02-11] MEDS ORDERED: methylPREDNISolone 4 MG TAB TAPER PO SCH (09:00)
[2019-02-11 09:08] VITALS: BP 115/70; PULSE 85; RESP 16; TEMP 97.9
--- NOTE | 2019-02-11 17:13 | P.DS ---
Providers Date of admission: 02/07/19 07:57 Expected date of discharge: 02/11/19 Attending physician: Dallas Thompson Consults: 02/06/19 11:51 Consult Physician Routine Consulting Provider: Lalita Ray Consult Reason/Comments: Patient on Coreg, does not know why, no cardiac hx. Do you want consulting provider notified?: Yes 02/09/19 15:26 Consult Physician Stat Consulting Provider: Nicolás Guy Consult Reason/Comments: Patient having allergic reaction from an uknown origin. 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 -Remote history of nicotine dependence Hospital course:This is a 53-year-old female admitted with anaphylactic reaction, angioedema, swelling of face, tongue, throat, hands-etiology unclear, and multiple other medical issues. Evaluated by cardiology, Coreg discontinued secondary to its potential to blunt the anaphylactic reaction manifestation. No further cardiac workup recommended. Maintained on Benadryl, steroids. Hyper glycemic, blood sugars in the 200s. Reports last night after dinner, consuming potatoes, green beans and beef; she again developed facial flushing, edema with mild tongue involvement. Received additional Benadryl. Denies lightheadedness dizziness or focal deficits. Denies chest pain, palpitations or increasing shortness of breath. Telemetry sinus rhythm. Ambulating in room, without difficulty. Patient has fine rash on upper and lower extremities, states is present couple weeks prior to event. 02/09/2019 continues to have tingling of tongue when eating of various foods. IgE elevated. Echo revealed normal EF, 60-65%. Does not have CPAP machine at bedside, no family available to bring it. Heart rates 50s and 60s, systolic blood pressures in the 120s. Ambulating without difficulty. Tolerating exertion well. Denies chest pain, palpitations or increasing shortness of breath. Denies lightheadedness dizziness or focal deficits. 02/10/[address] 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 Recommendations noted. Consumed dinner last night and this morning with No further tingling of tongue, no further swelling of face,throat or extremities with eating. No chest pressure. No shortness of breath .Significant clinical improvement. Patient has been cleared by all consults for discharge. Patient is being discharged home in a stable condition with guarded prognosis. 02/11/19 No overnight events. Vital signs stable. Patient is being discharged home in a stable condition with guarded prognosis. EXAM: GENERAL: Alert and oriented 3, no acute distress CARDIOVASCULAR: S1, S2 muffled. No murmur RESPIRATION: Breath sounds diminished in the bases. No wheezing, No rhonchi or crackles. No bronchial breathing. ABDOMEN: Soft, nontender . No guarding. no masses palpable. Bowel sounds heard. NERVOUS SYSTEM: No focal deficits. The impression and plan of care has been dictated as directed. : I performed a history and examination of this patient, discussed the same with the dictator. I agree with the dictator's note ,documented as a scribe. Any additional findings or plans will be noted. Time taken: 35 minutes Patient Condition at Discharge: Stable Patient Condition at Discharge: Stable Plan - Discharge Summary Discharge Rx Participant: Yes New Discharge Prescriptions: New Famotidine [Pepcid] 20 mg PO BID #10 tablet EPINEPHrine (Auto Inject) [Epipen] 0.3 mg IM ONCE PRN #1 pen PRN Reason: Anaphylaxis diphenhydrAMINE [Benadryl] 25 mg PO BID PRN #20 capsule PRN Reason: Itching Cetirizine HCl [Zyrtec] 10 mg PO HS #30 tab methylPREDNISolone [Medrol Dose Pack] 4 mg PO DIRECTED #1 pack Continue Atorvastatin [Lipitor] 40 mg PO HS Aspirin EC [Ecotrin Low Dose] 81 mg PO HS Insuln Asp Prt/Insulin Aspart [NovoLOG MIX 70-30 VIAL] 30 unit SQ BID Discharge Medication List Atorvastatin [Lipitor] 40 mg PO HS 01/21/18 [History] Aspirin EC [Ecotrin Low Dose] 81 mg PO HS 06/02/18 [History] EPINEPHrine (Auto Inject) [Epipen] 0.3 mg IM ONCE PRN #1 pen 02/05/19 [Rx] Famotidine [Pepcid] 20 mg PO BID #10 tablet 02/05/19 [Rx] Insuln Asp Prt/Insulin Aspart [NovoLOG MIX 70-30 VIAL] 30 unit SQ BID 02/05/19 [History] diphenhydrAMINE [Benadryl] 25 mg PO BID PRN #20 capsule 02/05/19 [Rx] Cetirizine HCl [Zyrtec] 10 mg PO HS #30 tab 02/10/19 [Rx] methylPREDNISolone [Medrol Dose Pack] 4 mg PO DIRECTED #1 pack 02/10/19 [Rx] Follow up Appointment(s)/Referral(s): Dallas Thompson MD [Primary Care Provider] - 02/14/19 2:00 pm (Thursday) Nicolás Guy MD [STAFF PHYSICIAN] - 1 Week Patient Instructions/Handouts: Food Allergy (ED), Anaphylaxis (ED) Activity/Diet/Wound Care/Special Instructions: Patient to take Benadryl every 6 hours. Take the Pepcid as prescribed. Avoid any further foods with pine nuts. Return to emergency department if any alarming signs or symptoms occur. Medrol Dosepak and EPI pens manual RX given. Hemoglobin 8.7, further adjustments suspected diabetic med dosing outpatient with PCP, once patient is off Medrol Dosepak. Diet: Consistent carb Accu-Cheks before meals and at bedtime Activity: Limited until follow up
== END 2019-02-11 10:42 | disposition home or self-care (01) | DRG 916 ==
LOC: EC 16:14 → 3SCARD 21:51 → OBSVTOIN 02-07 07:57 → 6PED 02-09 23:00
PROVIDERS: ADMIT Family Medicine; ATTEND Family Medicine
DX: T78.3XXA Angioneurotic edema, initial encounter (principal); E78.5 Hyperlipidemia, unspecified; E11.65 Type 2 diabetes mellitus with hyperglycemia; T38.0X5A Adverse effect of glucocorticoids and synthetic analogues, initial encounter; Y92.230 Patient room in hospital as the place of occurrence of the external cause; G47.33 Obstructive sleep apnea (adult) (pediatric); I10 Essential (primary) hypertension; R00.0 Tachycardia, unspecified; Z88.8 Allergy status to other drugs, medicaments and biological substances; Z88.1 Allergy status to other antibiotic agents; Z88.0 Allergy status to penicillin; Z88.2 Allergy status to sulfonamides; Z99.89 Dependence on other enabling machines and devices; Z87.891 Personal history of nicotine dependence; Z79.4 Long term (current) use of insulin; Z79.82 Long term (current) use of aspirin; Z79.899 Other long term (current) drug therapy; Z82.49 Family history of ischemic heart disease and other diseases of the circulatory system; Z83.3 Family history of diabetes mellitus
CPT/HCPCS: 36415; 71046; 80048; 80053; 82785; 83036; 83735; 84484; 85025; 85610; 85730; 86003; 87324; 93005; 93306; 94660; 96372; 96374; 96375; 96376; 99285

== ENCOUNTER 2020-11-06 16:02 | Inpatient (IN) | payer OTHER ==
[2020-11-06] MEDS ORDERED: VANCOMYCIN IV PER PHARMACY 1 EACH MISC MISCELLANE PRN (20:30)
[2020-11-06 22:03] LABS: Glucose,Whole Blood 276 mg/dL (75-99)
[2020-11-06] MEDS: INSULIN ASPART (NovoLOG) 100 UNIT/ML VIAL SQ SCH (22:21)
[2020-11-06] MEDS: ACETAMINOPHEN TAB 325 MG TAB PO PRN (22:49)
[2020-11-06] MEDS ORDERED: VANCOMYCIN 1,250 MG in SODIUM CHLORIDE 0.9% 250 ML IVPB SCH (23:45)
[2020-11-07 01:19] LABS: African American GFR (CKD) >90 (>60 ml/min/1.73 sqM); Anion Gap 6 mmol/L; Blood Urea Nitrogen 20 mg/dL (7-17); Calcium 9.2 mg/dL (8.4-10.2); Carbon Dioxide 27 mmol/L (22-30); Chloride 100 mmol/L (98-107); Glucose 268 mg/dL (74-99); Non-African American GFR(CKD) >90 (>60 ml/min/1.73 sqM); Potassium 3.6 mmol/L (3.5-5.1); Sodium 133 mmol/L (137-145)
[2020-11-07] MEDS: SODIUM CHLORIDE 0.9% 1,000 ML IV SCH ×2 (01:21→14:10)
[2020-11-07 07:00] LABS: Glucose,Whole Blood 257 mg/dL (75-99)
[2020-11-07] MEDS: INSULN ASP PRT/INSULIN ASPART 100 UNIT/ML 10 ML VIAL SQ SCH ×2 (07:42→21:36)
[2020-11-07] MEDS: INSULIN ASPART (NovoLOG) 100 UNIT/ML VIAL SQ SCH ×4 (07:43→21:36)
[2020-11-07] MEDS: ACETAMINOPHEN TAB 325 MG TAB PO PRN (07:52)
[2020-11-07 09:11] LABS: Basophils % (A) 1 %; Eosinophils # (A) 0.3 k/uL (0-0.7); Eosinophils % (A) 3 %; HCT 39.7 % (34.0-46.0); HGB 12.9 gm/dL (11.4-16.0); Lymphocytes # (A) 2.4 k/uL (1.0-4.8); Lymphocytes % (A) 25 %; MCH 27.4 pg (25.0-35.0); MCHC 32.5 g/dL (31.0-37.0); MCV 84.3 fL (80.0-100.0); Mean Platelet Volume 6.9; Monocytes # (A) 0.5 k/uL (0-1.0); Monocytes % (A) 5 %; Neutrophils # (A) 6.1 k/uL (1.3-7.7); Neutrophils % (A) 64 %; Platelet Count 340 k/uL (150-450); RBC 4.72 m/uL (3.80-5.40); RDW 13.1 % (11.5-15.5); WBC 9.4 k/uL (3.8-10.6)
[2020-11-07] MEDS ORDERED: ONDANSETRON 4 MG/2 ML VIAL IVP PRN (09:32)
[2020-11-07 11:38] LABS: Glucose,Whole Blood 270 mg/dL (75-99)
--- NOTE | 2020-11-07 11:44 | P.GSCN ---
History of Present Illness Consult date: 11/07/20 History of present illness: CHIEF COMPLAINT: Left axilla abscess HISTORY OF PRESENT ILLNESS: This is a 55-year-old female with a known history of diabetes and hyperlipidemia. Patient was a direct admit from Dr. Thompson's office for left axilla abscess. Patient has had this abscess for about 3 weeks. She was taking Cipro outpatient. She was using warm compresses. She reports that her PCP did edgardo the abscess in the left axilla in the office. At one point it had been draining good and now it is no longer draining. Since then she has had increase in swelling in the abscess of the left axilla with redness and increasing pain. She is also now having increase swelling and firmness in the left axilla crease. She reports feeling nauseated. Denies any vomiting. Denies any fever or chills or sweats. She's been started on vancomycin. There is also an infectious disease consults. Blood sugars have been elevated with this infection. PAST MEDICAL HISTORY: See list. PAST SURGICAL HISTORY: See list. MEDICATIONS: See list. ALLERGIES: See list. SOCIAL HISTORY: No illicit drug use. REVIEW OF SYSTEMS: CONSTITUTIONAL: Denies fever or chills. HEENT: Denies blurred vision, vision changes, or eye pain. Denies hemoptysis CARDIOVASCULAR: Denies chest pain or pressure. RESPIRATORY: No shortness of breath. GASTROINTESTINAL: See HPI for pertinent findings HEMATOLOGIC: Denies bleeding disorders. GENITOURINARY: Denies any blood in urine or increased urinary frequency. SKIN: Denies pruitis. Denies rash. PHYSICAL EXAM: VITAL SIGNS: Reviewed GENERAL: Well-developed in no acute distress. HEENT: No sclera icterus. Extraocular movements grossly intact. Moist buccal mucosa. Head is atraumatic, normocephalic. No nasal drainage. ABDOMEN: Soft. Nontender nondistended NEUROLOGIC: Alert and oriented. Cranial nerves II through XII grossly intact. EXTREMITIES: Left axilla abscess about 2 cm in size. Laceration is healed shut. No evidence of drainage. Tender with palpation and erythema noted. Along the armpit crease there is increase in swelling and firmness about 5 cm in size. No drainage. She has mild erythema but is starting to wrap around the back of the arm. LABORATORY DATA: WBC 9.4 hemoglobin 12.9 IMAGING: ASSESSMENT: 1. Left axilla abscess and cellulitis failed outpatient treatment. Patient is status post bedside incision and drainage with Dr. Rivers. 2. Diabetes mellitus type 2 PLAN: -Continue IV antibiotics -Agree with ID consult -Continue supportive care -Further recommendations forthcoming her surgeon Thank you for this consultation Physician Stacker note has been reviewed by physician. Signing provider agrees with the documented findings, assessment, and plan of care. Past Medical History Past Medical History: Diabetes Mellitus, Hyperlipidemia Additional Past Medical History / Comment(s): vomiting after eating, constipa tion, History of Any Multi-Drug Resistant Organisms: None Reported Past Surgical History: Appendectomy, Cholecystectomy Additional Past Surgical History / Comment(s): cysts removed from ovaries Past Anesthesia/Blood Transfusion Reactions: Motion Sickness, Postoperative Nausea & Vomiting (PONV) Past Psychological History: No Psychological Hx Reported Smoking Status: Never smoker Past Alcohol Use History: None Reported Additional Past Alcohol Use History / Comment(s): quit smoking 30 yrs ago, smok ed for 2-3 yrs Past Drug Use History: None Reported - Past Family History Sister(s) Family Medical History: Deep Vein Thrombosis (DVT) Medications and Allergies Home Medications Medication Instructions Recorded Confirmed Type Insuln Asp Prt/Insulin Aspart 35 unit SQ BID 02/05/19 11/06/20 History [NovoLOG MIX 70-30 VIAL] Acetaminophen [Tylenol] 500 mg PO DAILY PRN 11/06/20 11/06/20 History Allergies Allergy/AdvReac Type Severity Reaction Status Date / Time erythromycin base Allergy Rash/Hives Verified 11/06/20 21:00 gemifloxacin [From Factive] Allergy Swelling Verified 11/06/20 21:00 Penicillins Allergy Rash/Hives Verified 11/06/20 21:00 prednisone Allergy Rash/Hives Verified 11/06/20 21:00 Sulfa (Sulfonamide Allergy Rash/Hives Verified 11/06/20 21:00 Antibiotics) pine nuts AdvReac Anaphylaxis Uncoded 11/06/20 21:00 Surgical - Exam Vital Signs Temp Pulse Resp BP Pulse Ox 98.5 F 127 H 16 145/91 95 11/06/20 19:30 11/06/20 19:30 11/06/20 19:30 11/06/20 19:30 11/06/20 19:30 Results - Labs 11/07/20 08:14 11/07/20 00:46 Abnormal Lab Results - Last 24 Hours (Table) 11/06/20 11/07/20 11/07/20 Range/Units 22:02 00:46 06:56 Sodium 133 L (137-145) mmol/L BUN 20 H (7-17) mg/dL Glucose 268 H (74-99) mg/dL POC Glucose (mg/dL) 276 H 257 H (75-99) mg/dL Diabetes panel 11/07/20 Range/Units 00:46 Sodium 133 L (137-145) mmol/L Potassium 3.6 (3.5-5.1) mmol/L Chloride 100 (98-107) mmol/L Carbon Dioxide 27 (22-30) mmol/L BUN 20 H (7-17) mg/dL Creatinine 0.53 (0.52-1.04) mg/dL Glucose 268 H (74-99) mg/dL Calcium 9.2 (8.4-10.2) mg/dL Calcium panel 11/07/20 Range/Units 00:46 Calcium 9.2 (8.4-10.2) mg/dL Pituitary panel 11/07/20 Range/Units 00:46 Sodium 133 L (137-145) mmol/L Potassium 3.6 (3.5-5.1) mmol/L Chloride 100 (98-107) mmol/L Carbon Dioxide 27 (22-30) mmol/L BUN 20 H (7-17) mg/dL Creatinine 0.53 (0.52-1.04) mg/dL Glucose 268 H (74-99) mg/dL Calcium 9.2 (8.4-10.2) mg/dL Adrenal panel 11/07/20 Range/Units 00:46 Sodium 133 L (137-145) mmol/L Potassium 3.6 (3.5-5.1) mmol/L Chloride 100 (98-107) mmol/L Carbon Dioxide 27 (22-30) mmol/L BUN 20 H (7-17) mg/dL Creatinine 0.53 (0.52-1.04) mg/dL Glucose 268 H (74-99) mg/dL Calcium 9.2 (8.4-10.2) mg/dL
[2020-11-07] MEDS: traMADol 50 MG TAB PO PRN ×2 (14:10→17:30)
[2020-11-07] MEDS ORDERED: HYDROmorphone 0.5 MG/0.5 ML SYRINGE IVP PRN (14:13)
[2020-11-07 16:32] LABS: Glucose,Whole Blood 193 mg/dL (75-99)
--- NOTE | 2020-11-07 17:04 | CONS ---
CONSULTATION This is a 55-year-old white female with known history of diabetes and dyslipidemia who was admitted with a left axilla mass, failing outpatient treatment with Cipro and Augmentin and Keflex that has worsened over the past 3 weeks. She has and severe pain and drainage from this area. Discussed the case with Dr. Simmons, Infectious Disease, who recommended I admit her. She was started on IV vancomycin. Her sugars have been very high with treatment into the 300s; normally in the 100s. PAST MEDICAL HISTORY: Diabetes mellitus. SURGICAL HISTORY: See old chart. MEDICATIONS: See list. NovoLog 75/25, 35 units twice a day. SOCIAL HISTORY: Does not smoke, drink alcohol or do drugs. REVIEW OF SYSTEMS: Fourteen-point review of systems negative except for mentioned above. Severe pain and swelling in the left axilla for about 3-4 weeks. PHYSICAL EXAMINATION: VITAL SIGNS: Stable. Afebrile. CARDIOVASCULAR: S1, S2. LUNGS: Clear. GI: Soft. HEMATOLOGY: Negative Homans. INTEGUMENT: Left axilla with multiple red excoriated abrasions with hard firm nodules throughout the axilla. HEENT: Normocephalic, atraumatic. PSYCH: Fair mood and affect. Pain level 10/10. ASSESSMENT: Diabetic left axilla abscess, cellulitis with outpatient treatment. She had incision and drainage by Dr. Rivers at bedside. Continue IV antibiotics. Infectious Disease. Continue with vancomycin. Prognosis guarded. MMODL / IJN: [id number] /
[2020-11-07] MEDS: VANCOMYCIN 1,250 MG in SODIUM CHLORIDE 0.9% 250 ML IVPB SCH (17:21)
[2020-11-07 20:44] LABS: Glucose,Whole Blood 200 mg/dL (75-99)
--- NOTE | 2020-11-07 23:59 | CONS ---
CONSULTATION DATE OF SERVICE: 11/07/2020. REASON FOR CONSULTATION: Left axillary abscess. HISTORY OF PRESENT ILLNESS: The patient is 55 -year-old female, past medical history significant for diabetes mellitus, started having a pimple to the left axillary area about 3 weeks ago that has significantly became bigger in size. The patient mentioned she has been evaluated in the outpatient setting by her PCP. The patient did have a drainage of this abscess in the office. The patient has been treated with oral Cipro. However, the patient did not have any improvement. The patient complaining of increasing pain, swelling, redness to the left axillary area. Patient described the pain to be throbbing, intensity almost 10 out of 10 and no radiation. The patient did have some drainage initially but now that has subsequently stopped. Did have some chills, but denies high-grade fever. With these symptoms, the patient was admitted to the hospital. On presentation to the hospital, the patient was afebrile. She did have a normal white count. The patient did have bedside drainage of this abscess this afternoon. She has been treated with vancomycin. Infectious disease was consulted for further management of antibiotic therapy. REVIEW OF SYSTEMS: Positive points have been mentioned in HPI. Rest of systems negative. PAST MEDICAL HISTORY: Diabetes mellitus, hyperlipidemia. PAST SURGICAL HISTORY: Appendectomy, cholecystectomy. SOCIAL HISTORY: No smoking, drinking or drug use. FAMILY HISTORY: Sister with history of DVT. ALLERGIES: To PENICILLIN and ERYTHROMYCIN, SULFA. MEDICATIONS: Include the patient is on Tylenol, Tenormin, Dilaudid, NovoLog, Zofran, Ultram and vancomycin; pharmacy to dose. PHYSICAL EXAMINATION: On examination, blood pressure 108/70 with a pulse of 85, temperature 97.9. She is 97% on room air. General description: The patient is a middle-aged female lying in bed in no distress. No tachypnea or accessory muscles of respiration use. HEENT: Examination shows no pallor or scleral icterus. Oral mucous membranes dry. No pharyngeal erythema or thrush. NECK: Trachea central. No thyromegaly. LUNGS: Unlabored breathing. Clear to auscultation anteriorly. No wheeze or crackles. HEART S1, S2. Regular rate and rhythm. ABDOMEN: Soft, no tenderness. No guarding. No rigidity. EXTREMITIES: No edema of the feet. Examination of the left axillary area did have area of swelling and redness. Wound is currently packed. No significant drainage. NEUROLOGICAL: Patient is awake, alert, oriented times three. Mood and affect normal. LABS: Hemoglobin is 12.8, white count 9.4. Cultures currently pending. DIAGNOSTIC IMPRESSION/PLAN: 1. Patient with left axillary abscess status post bedside drainage in this patient who has failed outpatient drainage and failed oral Cipro therapy. Concern for possible with MRSA. 2. Patient who did have a MULTIPLE ANTIBIOTIC ALLERGY that will limit the number of antibiotics safe to use. PLAN: 1. Vancomycin pharmacy to dose, target of 15. 2. We will follow on clinical condition and culture to further adjust medication if needed. Thank you for this consultation. We will follow this patient along with you. MMODL / IJN: [id number] /
[2020-11-08] MEDS: VANCOMYCIN 1,250 MG in SODIUM CHLORIDE 0.9% 250 ML IVPB SCH ×2 (05:54→17:04)
[2020-11-08 06:33] LABS: Basophils # (A) 0.1 k/uL (0-0.2); Basophils % (A) 1 %; Eosinophils # (A) 0.2 k/uL (0-0.7); Eosinophils % (A) 3 %; HCT 35.8 % (34.0-46.0); Lymphocytes # (A) 2.5 k/uL (1.0-4.8); Lymphocytes % (A) 27 %; MCH 28.1 pg (25.0-35.0); MCHC 33.4 g/dL (31.0-37.0); Mean Platelet Volume 6.7; Monocytes # (A) 0.5 k/uL (0-1.0); Monocytes % (A) 5 %; Neutrophils # (A) 5.9 k/uL (1.3-7.7); Neutrophils % (A) 64 %; Platelet Count 300 k/uL (150-450); RBC 4.26 m/uL (3.80-5.40); RDW 12.9 % (11.5-15.5); WBC 9.3 k/uL (3.8-10.6)
[2020-11-08 07:26] LABS: Glucose,Whole Blood 204 mg/dL (75-99)
[2020-11-08] MEDS: INSULIN ASPART (NovoLOG) 100 UNIT/ML VIAL SQ SCH ×4 (07:42→21:53)
[2020-11-08] MEDS: traMADol 50 MG TAB PO PRN ×2 (07:43→21:51)
[2020-11-08] MEDS: INSULN ASP PRT/INSULIN ASPART 100 UNIT/ML 10 ML VIAL SQ SCH ×2 (07:49→21:54)
[2020-11-08 10:23] LABS: African American GFR (CKD) 118.1 (60.0-200.0); Albumin 3.5 g/dL (3.80-4.90); Albumin/Globulin Ratio 1.94 (1.60-3.17); Anion Gap 8.5 mmol/L (4.00-12.00); Calcium 8.6 mg/dL (8.7-10.3); Carbon Dioxide 25.5 mmol/L (21.6-31.8); Globulin 1.8 g/dL (1.6-3.3); Non-African American GFR(CKD) 101.9 (60.0-200.0); Potassium 4.2 mmol/L (3.5-5.5); Total Bilirubin 0.2 mg/dL (0.2-1.2); Total Protein 5.3 g/dL (6.2-8.2)
[2020-11-08 11:13] LABS: Glucose,Whole Blood 155 mg/dL (75-99)
--- NOTE | 2020-11-08 11:36 | P.PN ---
Subjective Progress Note Date: 11/08/20 CHIEF COMPLAINT: Left axilla abscess HISTORY OF PRESENT ILLNESS: Patient is status post bedside incision and drainage with Dr. Rivers yesterday of a left axilla abscess. Patient is still complaining of pain in the left axilla. She denies any nausea or vomiting. Afebrile. WBC 9.3 hemoglobin 12.0 PHYSICAL EXAM: VITAL SIGNS: Reviewed. GENERAL: Well-developed in no acute distress. HEENT: No sclera icterus. Extraocular movements grossly intact. Moist buccal mucosa. Head is atraumatic, normocephalic. ABDOMEN: Soft. Nondistended. Nontender. NEUROLOGIC: Alert and oriented. Cranial nerves II through XII grossly intact. Extremities: Left axilla area the swelling and firmness along the crease has decreased. In the inner axilla above the incision site is firm and hard and tender. There has been decreased erythema to the area. The dressing is saturated with blood that is partially dried. No significant drainage noted from the actual incision ASSESSMENT: 1. Left axilla abscess and cellulitis. Patient is status post bedside incision and drainage with Dr. Rivers. 2. Diabetes mellitus type 2 PLAN: -Continue IV antibiotics -Continue supportive care Physician Supervisor Reinforced Steel Placing note has been reviewed by physician. Signing provider agrees with the documented findings, assessment, and plan of care. Objective - Vital Signs Vital signs: Vital Signs Temp 97.9 F 11/08/20 08:00 Pulse 83 11/08/20 08:00 Resp 18 11/08/20 08:00 BP 108/73 11/08/20 08:00 Pulse Ox 94 L 11/08/20 08:00 Intake & Output 11/07/20 11/08/20 11/08/20 18:59 06:59 18:59 Intake Total 650 Balance 650 Intake: IV 650 Sodium Chloride 0.9% 1, 400 000 ml @ 50 mls/hr IV . Q20H FANNY Rx#:[id number] Vancomycin 1,250 mg In 250 Sodium Chloride 0.9% 250 ml @ 125 mls/hr IVPB Q12H FANNY Rx#:[id number] Other: # Voids 3 - Labs CBC & Chem 7: 11/08/20 05:41 11/08/20 05:41 Labs: Abnormal Lab Results - Last 24 Hours (Table) 0111/07/20 11/07/20 Range/Units 11:36 16:31 20:42 BUN/Creatinine Ratio (12.00-20.00) Ratio Glucose (70-110) mg/dL POC Glucose (mg/dL) 270 H 193 H 200 H (75-99) mg/dL Calcium (8.7-10.3) mg/dL Total Protein (6.2-8.2) g/dL Albumin (3.80-4.90) g/dL 11/08/20 11/08/20 11/08/20 Range/Units 05:41 07:14 11:11 BUN/Creatinine Ratio 25.00 H (12.00-20.00) Ratio Glucose 226 H (70-110) mg/dL POC Glucose (mg/dL) 204 H 155 H (75-99) mg/dL Calcium 8.6 L (8.7-10.3) mg/dL Total Protein 5.3 L (6.2-8.2) g/dL Albumin 3.50 L (3.80-4.90) g/dL Microbiology - Last 24 Hours (Table) 11/07/20 14:45 Gram Stain - Preliminary Axilla - Left Wound Culture - Preliminary 11/07/20 14:45 Anaerobic Culture - Preliminary Axilla - Left
[2020-11-08] MEDS: SODIUM CHLORIDE 0.9% 1,000 ML IV SCH (12:08)
--- NOTE | 2020-11-08 14:23 | PN ---
PROGRESS NOTE She remains on vancomycin. She had I and D of her left axilla. She may need another I and D to the left axilla. She has anterior swelling between her axilla and her chest muscles, large swelling with fluctuance on it. She remains on vancomycin. Cultures are pending. White count is normal. Sugars in the mid 100s to 200s. Calcium is low at 8.6. Total protein is low. Cultures of left axilla are preliminary. Await for culture reports. Possibly another I and D of the left axilla. CARDIOVASCULAR: S1, S2. LUNGS: Are clear. HEMATOLOGY: Negative Homans. No growth for 24 hours with aerobic cultures. Please see further orders. Discussed case with Dr. Rivers who will possibly do another I and D on the patient. Prognosis extremely guarded. MMODL / IJN: [id number] /
[2020-11-08 17:04] LABS: Glucose,Whole Blood 140 mg/dL (75-99)
[2020-11-08] MEDS: ACETAMINOPHEN TAB 325 MG TAB PO PRN (17:21)
[2020-11-08 21:06] LABS: Glucose,Whole Blood 232 mg/dL (75-99)
--- NOTE | 2020-11-08 22:33 | PN ---
PROGRESS NOTE DATE OF SERVICE: 11/08/2020 REASON FOR FOLLOWUP: Left axillary abscess. INTERVAL HISTORY: The patient is currently afebrile. The patient is breathing comfortably. Still complains of significant pain in the left axillary area. No chest pain or shortness of breath or cough. No abdominal pain or diarrhea. PHYSICAL EXAMINATION: Blood pressure pulse of 80, temperature 97.6. She is 94% on room air. General description is a middle-aged female up in the bed in no distress. LUNGS: Unlabored breathing. Clear to auscultation anteriorly. Left axillary area swelling and redness slightly decreased. No drainage. ABDOMEN: Soft. No tenderness. LABS: Hemoglobin is 12, white count 9.3, BUN of 15, creatinine 0.6. DIAGNOSTIC IMPRESSION AND PLAN: Patient with left axillary abscess, status post drainage. Waiting for the cultures to finalize. Continue vancomycin. Monitor clinical course closely. MMODL / IJN: [id number] /
[2020-11-09] MEDS: traMADol 50 MG TAB PO PRN ×2 (02:45→21:00)
[2020-11-09] MEDS ORDERED: VANCOMYCIN TROUGH DUE 1 EACH MISC MISCELLANE ONE (05:00)
[2020-11-09 06:20] LABS: Basophils # (A) 0.1 k/uL (0-0.2); Basophils % (A) 1 %; Eosinophils # (A) 0.4 k/uL (0-0.7); Eosinophils % (A) 5 %; HCT 35.6 % (34.0-46.0); HGB 11.9 gm/dL (11.4-16.0); Lymphocytes # (A) 2.7 k/uL (1.0-4.8); Lymphocytes % (A) 35 %; MCH 28.2 pg (25.0-35.0); MCHC 33.5 g/dL (31.0-37.0); MCV 84.2 fL (80.0-100.0); Mean Platelet Volume 6.7; Monocytes # (A) 0.4 k/uL (0-1.0); Monocytes % (A) 5 %; Neutrophils # (A) 4.1 k/uL (1.3-7.7); Neutrophils % (A) 53 %; Platelet Count 310 k/uL (150-450); RBC 4.23 m/uL (3.80-5.40); WBC 7.7 k/uL (3.8-10.6)
[2020-11-09 06:40] LABS: Glucose,Whole Blood 92 mg/dL (75-99)
[2020-11-09] MEDS: INSULIN ASPART (NovoLOG) 100 UNIT/ML VIAL SQ SCH ×4 (07:10→21:00)
[2020-11-09] MEDS: VANCOMYCIN 1,250 MG in SODIUM CHLORIDE 0.9% 250 ML IVPB SCH ×3 (07:15→23:59)
[2020-11-09] MEDS: INSULN ASP PRT/INSULIN ASPART 100 UNIT/ML 10 ML VIAL SQ SCH ×2 (07:17→20:59)
[2020-11-09] MEDS: ACETAMINOPHEN TAB 325 MG TAB PO PRN ×2 (07:27→15:57)
[2020-11-09] MEDS: SODIUM CHLORIDE 0.9% 1,000 ML IV SCH (07:49)
[2020-11-09 09:51] LABS: African American GFR (CKD) 118.1 (60.0-200.0); Albumin 3.6 g/dL (3.80-4.90); Anion Gap 4.5 mmol/L (4.00-12.00); Calcium 8.7 mg/dL (8.7-10.3); Carbon Dioxide 28.5 mmol/L (21.6-31.8); Globulin 1.8 g/dL (1.6-3.3); Non-African American GFR(CKD) 101.9 (60.0-200.0); Potassium 3.9 mmol/L (3.5-5.5); Total Bilirubin 0.2 mg/dL (0.3-1.2); Total Protein 5.4 g/dL (6.2-8.2)
[2020-11-09 11:28] LABS: Glucose,Whole Blood 189 mg/dL (75-99)
--- NOTE | 2020-11-09 11:43 | P.PN ---
Subjective Progress Note Date: 11/09/20 CHIEF COMPLAINT: Left axilla abscess HISTORY OF PRESENT ILLNESS: Patient is status post bedside incision and drainage of a left axilla abscess on 11/07/2020. Patient is reporting some improvement in her left axilla pain. There is no drainage from the abscess. The area is softer. Erythema has resolved. She denies any nausea or vomiting. Afebrile. WBC 7.7 left axilla culture pending PHYSICAL EXAM: VITAL SIGNS: Reviewed. GENERAL: Well-developed in no acute distress. HEENT: No sclera icterus. Extraocular movements grossly intact. Moist buccal mucosa. Head is atraumatic, normocephalic. ABDOMEN: Soft. Nondistended. Nontender. NEUROLOGIC: Alert and oriented. Cranial nerves II through XII grossly intact. Extremities: Left axilla abscess improving. Erythema now resolved. There is some firmness near the incision site. However this is decreased from yesterday. No drainage. There is some tenderness with palpation. ASSESSMENT: 1. Left axilla abscess and cellulitis. Patient is status post bedside incision and drainage with Dr. Rivers. 2. Diabetes mellitus type 2 PLAN: -Continue antibiotics per infectious disease recommendations -Continue supportive care -No further surgical intervention recommended -Patient can be discharge from surgical standpoint when cleared by infectious disease and attending physician -Patient to follow up with Dr. Rivers in 1 week Physician Lead Former note has been reviewed by physician. Signing provider agrees with the documented findings, assessment, and plan of care. Objective - Vital Signs Vital signs: Vital Signs Temp 98.0 F 11/09/20 08:00 Pulse 80 11/09/20 08:00 Resp 20 11/09/20 08:00 BP 91/61 11/09/20 08:00 Pulse Ox 92 L 11/09/20 08:00 Intake & Output 11/08/20 11/09/20 11/09/20 18:59 06:59 18:59 Intake Total 250 Balance 250 Intake: IV 250 Vancomycin 1,250 mg In 250 Sodium Chloride 0.9% 250 ml @ 125 mls/hr IVPB Q12H FANNY Rx#:[id number] Other: # Voids 3 4 4 - Labs CBC & Chem 7: 11/09/20 05:35 11/09/20 05:35 Labs: Abnormal Lab Results - Last 24 Hours (Table) 11/08/20 11/08/20 11/08/20 Range/Units 05:41 17:03 21:05 BUN/Creatinine Ratio (12.00-20.00) Ratio POC Glucose (mg/dL) 140 H 232 H (75-99) mg/dL Total Bilirubin (0.3-1.2) mg/dL C-Reactive Protein 5.3 H (0.0-0.8) mg/dL Total Protein (6.2-8.2) g/dL Albumin (3.80-4.90) g/dL 11/09/20 11/09/20 Range/Units 05:35 11:21 BUN/Creatinine Ratio 25.00 H (12.00-20.00) Ratio POC Glucose (mg/dL) 189 H (75-99) mg/dL Total Bilirubin 0.2 L (0.3-1.2) mg/dL C-Reactive Protein (0.0-0.8) mg/dL Total Protein 5.4 L (6.2-8.2) g/dL Albumin 3.60 L (3.80-4.90) g/dL Microbiology - Last 24 Hours (Table) 11/07/20 14:45 Gram Stain - Final Axilla - Left Wound Culture - Final
[2020-11-09] MEDS ORDERED: RX INFO: IV CONTRAST WAS GIVEN 1 EACH MISC MISCELLANE PRN (14:15)
[2020-11-09 16:56] LABS: Glucose,Whole Blood 342 mg/dL (75-99)
--- NOTE | 2020-11-09 17:17 | CT ---
EXAMINATION TYPE: CT chest w con DATE OF EXAM: 11/09/2020 COMPARISON: None available. HISTORY: Hypoxia. Left axilla abscess x [address] DLP: 311.8 mGycm Automated exposure control for dose reduction was used. CONTRAST: CT scan of the chest is performed with IV Contrast, patient injected with 100 mL of Isovue 300. FINDINGS: LUNGS: The lungs are grossly clear, there is no concerning parenchymal mass or nodule identified. T here is no pleural effusion or pneumothorax seen. The tracheobronchial tree is patent. MEDIASTINUM: There are no greater than 1 cm hilar or mediastinal lymph nodes. No pericardial effusi on is seen. There is moderate coronary atherosclerotic disease. OTHER: 6.4 x 2.7 cm fat stranding with enhancement within the left axillary soft tissues. No definit e soft tissue gas is seen. There are bilateral scattered few small to borderline prominent axillary l ymph nodes, likely reactive. Hepatic steatosis noted. IMPRESSION: 6.4 cm left axillary soft tissue enhancement, consistent with phlegmon/early abscess. Otherwise no acute cardiopulmonary abnormality.
[2020-11-09 20:30] LABS: Glucose,Whole Blood 255 mg/dL (75-99)
--- NOTE | 2020-11-09 22:37 | PN ---
PROGRESS NOTE DATE OF SERVICE: 11/09/2020 REASON FOR FOLLOWUP: Left axillary abscess and cellulitis. INTERVAL HISTORY: The patient is currently afebrile. She has been complaining of pain to the left axillary area and induration. The patient denies having any chest pain, shortness of breath or cough. No abdominal pain or diarrhea. PHYSICAL EXAMINATION: Blood pressure 119/70 with a pulse of 88, temperature 98.2. She is 97% on room air. General description is a middle-aged female up in the chair in no distress. RESPIRATORY SYSTEM: Unlabored breathing. Clear to auscultation anteriorly. HEART: S1, S2. Regular rate and rhythm. ABDOMEN: Soft. No tenderness. Left axillary area did have an area of induration. No drainage. LABS: Culture has been negative so far. DIAGNOSTIC IMPRESSION AND PLAN: Patient with left axillary area abscess, status post bedside drainage. Still has area of induration. Repeat CT scan has been ordered. Patient to continue vancomycin. Will discuss further with Surgery. Continue supportive care. MMODL / IJN: [id number] /
[2020-11-10] MEDS: SODIUM CHLORIDE 0.9% 1,000 ML IV SCH ×2 (03:52→22:40)
[2020-11-10] MEDS ORDERED: VANCOMYCIN TROUGH DUE 1 EACH MISC MISCELLANE ONE (06:00)
[2020-11-10 06:26] LABS: Basophils # (A) 0.1 k/uL (0-0.2); Basophils % (A) 1 %; Eosinophils # (A) 0.3 k/uL (0-0.7); Eosinophils % (A) 5 %; HCT 34.6 % (34.0-46.0); HGB 11.9 gm/dL (11.4-16.0); Lymphocytes # (A) 2.3 k/uL (1.0-4.8); Lymphocytes % (A) 30 %; MCH 28.4 pg (25.0-35.0); MCHC 34.3 g/dL (31.0-37.0); MCV 82.7 fL (80.0-100.0); Mean Platelet Volume 6.5; Monocytes # (A) 0.4 k/uL (0-1.0); Monocytes % (A) 5 %; Neutrophils # (A) 4.3 k/uL (1.3-7.7); Neutrophils % (A) 57 %; Platelet Count 277 k/uL (150-450); RBC 4.18 m/uL (3.80-5.40); RDW 12.9 % (11.5-15.5); WBC 7.5 k/uL (3.8-10.6)
[2020-11-10 06:52] LABS: Glucose,Whole Blood 101 mg/dL (75-99)
[2020-11-10] MEDS: INSULN ASP PRT/INSULIN ASPART 100 UNIT/ML 10 ML VIAL SQ SCH ×2 (08:08→20:26)
[2020-11-10] MEDS: VANCOMYCIN 1,250 MG in SODIUM CHLORIDE 0.9% 250 ML IVPB SCH ×3 (08:09→21:58)
[2020-11-10] MEDS: INSULIN ASPART (NovoLOG) 100 UNIT/ML VIAL SQ SCH ×4 (08:10→20:26)
[2020-11-10] MEDS: ACETAMINOPHEN TAB 325 MG TAB PO PRN (08:12)
[2020-11-10 10:24] LABS: African American GFR (CKD) 112.3 (60.0-200.0); Albumin 3.7 g/dL (3.80-4.90); Albumin/Globulin Ratio 2.06 (1.60-3.17); Anion Gap 9.9 mmol/L (4.00-12.00); BUN/Creat Ratio 21.43 Ratio (12.00-20.00); Calcium 8.9 mg/dL (8.7-10.3); Carbon Dioxide 28.1 mmol/L (21.6-31.8); Globulin 1.8 g/dL (1.6-3.3); Non-African American GFR(CKD) 96.9 (60.0-200.0); Potassium 3.9 mmol/L (3.5-5.5); Total Bilirubin 0.2 mg/dL (0.3-1.2); Total Protein 5.5 g/dL (6.2-8.2)
[2020-11-10 11:35] LABS: Glucose,Whole Blood 240 mg/dL (75-99)
--- NOTE | 2020-11-10 12:40 | PN ---
PROGRESS NOTE Left axillary area induration continues to be worsened. She has a large swelling over the anterior between the axilla and the right chest wall for which surgery has recommended to have an incision and drainage. Blood pressure is 119/70, pulse is 70s, temp 98, O2 92-97. Lungs are clear. Heart S1, S2. Abdomen is soft. ASSESSMENT: 1. Left axillary area induration. 2. Left area abscess status post drainage to an area of induration. CT scan has been ordered. Continue vancomycin until current treatments resolved and possible another incision and drainage done. CT scan of the chest and thorax is ordered. MMODL / IJN: [id number] /
--- NOTE | 2020-11-10 13:25 | P.PN ---
Subjective Progress Note Date: 11/10/20 CHIEF COMPLAINT: Abscess HISTORY OF PRESENT ILLNESS: The patient is a 55-year-old female admitted for left axillary abscess. She reports two abscess drainage: one in the office with her PCP and during her hospitalization. She reports in the office, moderate pus was drained but minimal while in the hospital. She still reports soreness of the left arm pit. Her blood sugars have gotten down to 90s per her report. She has not had a mammogram. ROS: No fevers or chills. No shortness of breath. No nausea or vomiting. PHYSICAL EXAM: VITAL SIGNS: Reviewed CONSTITUTIONAL: Well developed and in no acute distress. EYES: Conjuctivae without sclera icterus. Extraocular movements grossly intact. HEAD, EARS, NOSE, THROAT: Moist buccal mucosa. Head is atraumatic, normocephalic. Hears conversational speech. No nasal drainage. NECK: Supple. No thyroidomegaly. RESPIRATORY: Non-labored respirations and equal bilateral excursions. CARDIOVASCULAR: Palpable 2+ radial pulses. Regular rate. Regular rhythm. ABDOMEN: Protuberant. No peritonitis. MUSCULOSKELETAL: No gross deformity of the lower extremities noted. No clubbing. No cyanosis. SKIN: Good skin turgor. Well perfused. Left axillary abscess NEUROLOGIC: Cranial nerves II through XII grossly intact. No focal or lateralizing signs. PSYCH: Appropriate affect. Alert and oriented to person, place and time. CLINICAL LABS: White blood cell count normal at 7.5. STUDIES: CT chest independently reviewed demonstrating over 4 cm subcutaneous left axillary abscess. A separate nodule identified along the right inferior breast. This is my independent interpretation. MICROBIOLOGY: No definitive organism growth from axillary abscess ASSESSMENT: 1. Left axillary abscess PLAN: 1. Continue IV antibiotics 2. Start warm compress as she still has pain 3. Recommend mammogram for new finding of right breast nodule found on CT scan. Objective - Vital Signs Vital signs: Vital Signs Temp 98.1 F 11/10/20 08:00 Pulse 79 11/10/20 08:00 Resp 18 11/10/20 08:00 BP 123/74 11/10/20 08:00 Pulse Ox 94 L 11/10/20 08:00 Intake & Output 11/09/20 11/10/20 11/10/20 18:59 06:59 18:59 Intake Total 200 Balance 200 Intake: Oral 200 Other: # Voids 2 1 - Labs CBC & Chem 7: 11/10/20 06:05 11/10/20 06:05 Labs: Abnormal Lab Results - Last 24 Hours (Table) 11/09/20 11/09/20 11/09/20 Range/Units 11:21 16:54 20:28 BUN/Creatinine Ratio (12.00-20.00) Ratio POC Glucose (mg/dL) 189 H 342 H 255 H (75-99) mg/dL Total Bilirubin (0.3-1.2) mg/dL Total Protein (6.2-8.2) g/dL Albumin (3.80-4.90) g/dL 11/10/20 11/10/20 Range/Units 06:05 06:51 BUN/Creatinine Ratio 21.43 H (12.00-20.00) Ratio POC Glucose (mg/dL) 101 H (75-99) mg/dL Total Bilirubin 0.2 L (0.3-1.2) mg/dL Total Protein 5.5 L (6.2-8.2) g/dL Albumin 3.70 L (3.80-4.90) g/dL Microbiology - Last 24 Hours (Table) 11/07/20 14:45 Anaerobic Culture - Preliminary Axilla - Left 11/07/20 14:45 Gram Stain - Final Axilla - Left Wound Culture - Final Assessment and Plan (1) Abscess of left axilla Current Visit: Yes Status: Acute Code(s): L02.412 - CUTANEOUS ABSCESS OF LEFT AXILLA SNOMED Code(s): 51624646 (2) Breast mass, right Current Visit: Yes Status: Acute Code(s): N63.10 - UNSPECIFIED LUMP IN THE RIGHT BREAST, UNSPECIFIED QUADRANT SNOMED Code(s): 49714660
[2020-11-10 16:35] LABS: Glucose,Whole Blood 253 mg/dL (75-99)
--- NOTE | 2020-11-10 16:46 | PN ---
PROGRESS NOTE DATE OF SERVICE: 11/10/2020 REASON FOR FOLLOWUP: Left axillary abscess. INTERVAL HISTORY: The patient is currently afebrile. Patient is feeling slightly better. Overall pain and discomfort to left axillary area has slightly decreased. Denies having any chest pain. No shortness of breath or cough. No abdominal pain or diarrhea. PHYSICAL EXAMINATION: Blood pressure 147/85 with a pulse of 75. Temperature is 97.9. She is 99% on room air. General description is a middle-aged female lying in bed in no distress. Respiratory system: Unlabored breathing. Clear to auscultation. HEART: S1, S2. Regular rate and rhythm. Abdomen soft, no tenderness. Left axillary area did have area of induration. No significant redness or drainage. LABS: Hemoglobin 11.2, white count 7.5. BUN of 15, creatinine 0.7. DIAGNOSTIC IMPRESSION AND PLAN: Patient with left axillary area abscess and cellulitis. Seems to have shown some clinical improvement with IV vancomycin. Surgery recommended no further drainage. Continue with heat compression and we will reevaluate tomorrow. Discussed with the admitting physician. MMODL / IJN: [id number] /
[2020-11-10 20:17] LABS: Glucose,Whole Blood 248 mg/dL (75-99)
[2020-11-10] MEDS: traMADol 50 MG TAB PO PRN (21:58)
[2020-11-11] MEDS: ACETAMINOPHEN TAB 325 MG TAB PO PRN ×2 (04:39→20:01)
[2020-11-11 07:30] LABS: Glucose,Whole Blood 207 mg/dL (75-99)
[2020-11-11] MEDS: INSULIN ASPART (NovoLOG) 100 UNIT/ML VIAL SQ SCH ×4 (07:59→20:00)
[2020-11-11] MEDS: INSULN ASP PRT/INSULIN ASPART 100 UNIT/ML 10 ML VIAL SQ SCH ×2 (07:59→20:00)
[2020-11-11] MEDS: VANCOMYCIN 1,250 MG in SODIUM CHLORIDE 0.9% 250 ML IVPB SCH ×3 (08:00→23:23)
[2020-11-11 09:34] LABS: African American GFR (CKD) 118.1 (60.0-200.0); Non-African American GFR(CKD) 101.9 (60.0-200.0)
[2020-11-11] MEDS ORDERED: SODIUM CHLORIDE 0.9% 1,000 ML IV ONE (11:10)
--- NOTE | 2020-11-11 11:10 | P.PN ---
Subjective Progress Note Date: 11/11/20 CHIEF COMPLAINT: Abscess HISTORY OF PRESENT ILLNESS: The patient is a 55-year-old female admitted for left axillary abscess. She reports new headaches. Yesterday, she was started on warm compresses that is helping with her pain. ROS: No fevers or chills. No shortness of breath. No nausea or vomiting. PHYSICAL EXAM: VITAL SIGNS: Reviewed CONSTITUTIONAL: Well developed and in no acute distress. EYES: Conjuctivae without sclera icterus. Extraocular movements grossly intact. HEAD, EARS, NOSE, THROAT: Moist buccal mucosa. Head is atraumatic, normocephalic. Hears conversational speech. No nasal drainage. Wash cloth on forehead RESPIRATORY: Non-labored respirations and equal bilateral excursions. CARDIOVASCULAR: Palpable 2+ radial pulses. Regular rate. Regular rhythm. ABDOMEN: Protuberant. No peritonitis. MUSCULOSKELETAL: No gross deformity of the lower extremities noted. No clu bbing. No cyanosis. SKIN: Good skin turgor. Well perfused. Left axillary abscess with fullness over 5-cm. No active drainage NEUROLOGIC: Cranial nerves II through XII grossly intact. No focal or la teralizing signs. PSYCH: Appropriate affect. Alert and oriented to person, place and time. CLINICAL LABS: Blood sugars elevated 204 to 258. MICROBIOLOGY: FINAL cultures without growth. ASSESSMENT: 1. Left axillary abscess 2. Right breast lump per CT Chest 3. Headache PLAN: 1. For headache, imitrex, IV fluids, excedrin described. 2. Continue warm compress for spontaneous drainage. Objective - Vital Signs Vital signs: Vital Signs Temp 98.0 F 11/11/20 07:41 Pulse 70 11/11/20 07:41 Resp 18 11/11/20 07:41 BP 105/68 11/11/20 07:41 Pulse Ox 95 11/11/20 07:41 Intake & Output 11/10/20 11/11/20 11/11/20 18:59 06:59 18:59 Intake Total 540 Balance 540 Intake: Oral 540 Other: # Voids 3 3 - Labs CBC & Chem 7: 11/10/20 06:05 11/11/20 05:29 Labs: Abnormal Lab Results - Last 24 Hours (Table) 11/10/20 11/10/20 11/10/20 Range/Units 11:33 16:34 20:16 POC Glucose (mg/dL) 240 H 253 H 248 H (75-99) mg/dL 11/11/20 Range/Units 07:29 POC Glucose (mg/dL) 207 H (75-99) mg/dL Microbiology - Last 24 Hours (Table) 11/07/20 14:45 Anaerobic Culture - Final Axilla - Left Assessment and Plan (1) Abscess of left axilla Current Visit: Yes Status: Acute Code(s): L02.412 - CUTANEOUS ABSCESS OF LEFT AXILLA SNOMED Code(s): 53393370 (2) Breast mass, right Current Visit: Yes Status: Acute Code(s): N63.10 - UNSPECIFIED LUMP IN THE RIGHT BREAST, UNSPECIFIED QUADRANT SNOMED Code(s): 53826704 (3) Headache Current Visit: Yes Status: Acute Code(s): R51.9 - HEADACHE, UNSPECIFIED SNOMED Code(s): 12073421 (4) Diabetes type 2, uncontrolled Current Visit: Yes Status: Acute Code(s): E11.65 - TYPE 2 DIABETES MELLITUS WITH HYPERGLYCEMIA SNOMED Code(s): 205610735
[2020-11-11] MEDS ORDERED: SUMAtriptan succinate 6 MG/0.5 ML VIAL SQ STA (11:16)
[2020-11-11 11:26] LABS: Glucose,Whole Blood 196 mg/dL (75-99)
[2020-11-11] MEDS: ASPIRIN-ACET-CAFF 250-250-65MG 1 EACH TAB PO SCH ×2 (12:01→17:26)
--- NOTE | 2020-11-11 15:54 | PN ---
PROGRESS NOTE 55-year-old white female. Sugars in the mid 200s. Her left axilla appears to be improving every day with vancomycin. No further surgery per surgery. Temp 97, blood pressure 118 over 70s, pulse 70s to 80s, O2 95 to 96% on room air. Respiratory rate 16 to 18. CARDIOVASCULAR: S1, S2. LUNGS clear. GI soft. EXTREMITIES: Left axilla is more red, focal areas with less fluctuance. ASSESSMENT: Abscess, left axilla continue to remain on IV vancomycin. Await for Infectious Disease recommendations. No further surgery will be done. She recently had a CT scan of her chest, which showed left axillary soft tissue enhancement consistent with phlegmon and early abscess. Otherwise, the patient will be discharged home in next 24 to 48 hours with outpatient antibiotics. Cleared by surgery and Dr. Currie. MMODL / IJN: [id number] /
[2020-11-11 16:42] LABS: Glucose,Whole Blood 269 mg/dL (75-99)
[2020-11-11 19:55] LABS: Glucose,Whole Blood 327 mg/dL (75-99)
[2020-11-11] MEDS: SODIUM CHLORIDE 0.9% 1,000 ML IV SCH (20:00)
--- NOTE | 2020-11-11 21:37 | PN ---
PROGRESS NOTE DATE OF SERVICE: 11/11/2020 REASON FOR FOLLOWUP: Left axillary area abscess. INTERVAL HISTORY: The patient is currently afebrile. The patient is breathing comfortably. Overall pain and discomfort to the left axillary area has decreased. No chest pain or cough. No abdominal pain. No diarrhea. PHYSICAL EXAMINATION: Blood pressure 127/77 with a pulse of 71, temperature 98.2. She is 96% on room air. General description is a middle-aged female up in the bed in no distress. Respiratory system: Unlabored breathing. Clear to auscultation anteriorly. Heart S1, S2. Regular rate and rhythm. Abdomen: Soft, no tenderness. Left axillary area still has area of induration, some bruising, but no drainage. LABS: No new labs have been obtained today. DIAGNOSTIC IMPRESSION AND PLAN: Patient with left axillary area abscess with attempted drainage. Repeat CT did show significant collection. Will be reviewed with radiologist and discussed further with surgery tomorrow. Continue the vancomycin at this point and monitor clinical course closely. The area of induration should be marked so we can see if the area is regressing or not. MMODL / IJN: [id number] /
[2020-11-12] MEDS ORDERED: VANCOMYCIN TROUGH DUE 1 EACH MISC MISCELLANE ONE (06:00)
[2020-11-12] MEDS ORDERED: VANCOMYCIN IV PER PHARMACY 1 EACH MISC MISCELLANE PRN (06:50)
[2020-11-12 07:03] LABS: Glucose,Whole Blood 173 mg/dL (75-99)
[2020-11-12] MEDS: INSULN ASP PRT/INSULIN ASPART 100 UNIT/ML 10 ML VIAL SQ SCH ×2 (07:37→20:48)
[2020-11-12] MEDS: INSULIN ASPART (NovoLOG) 100 UNIT/ML VIAL SQ SCH ×4 (07:38→20:38)
[2020-11-12] MEDS: ACETAMINOPHEN TAB 325 MG TAB PO PRN (07:46)
[2020-11-12 09:27] LABS: African American GFR (CKD) 118.1 (60.0-200.0); Non-African American GFR(CKD) 101.9 (60.0-200.0)
[2020-11-12] MEDS: SODIUM CHLORIDE 0.9% 1,000 ML IV SCH (11:54)
[2020-11-12] MEDS ORDERED: AZITHROMYCIN 500 MG TAB PO SCH (12:30)
[2020-11-12 12:33] LABS: Glucose,Whole Blood 221 mg/dL (75-99)
[2020-11-12] MEDS ORDERED: rifAMPin 300 MG CAP PO SCH (12:45)
--- NOTE | 2020-11-12 12:53 | P.PN ---
Subjective Progress Note Date: 11/12/20 CHIEF COMPLAINT: Left axilla abscess HISTORY OF PRESENT ILLNESS: Patient is status post bedside incision and drainage of a left axilla abscess on 11/07/2020. Patient complains of pain in her left axilla area. Continues to have no drainage. Patient has bruising along the left axilla. Afebrile. Glucose 221 culture result negative PHYSICAL EXAM: VITAL SIGNS: Reviewed. GENERAL: Well-developed in no acute distress. HEENT: No sclera icterus. Extraocular movements grossly intact. Moist buccal mucosa. Head is atraumatic, normocephalic. ABDOMEN: Soft. Nondistended. Nontender. NEUROLOGIC: Alert and oriented. Cranial nerves II through XII grossly intact. Extremities: Left axilla abscess improving. Erythema now resolved. There is some firmness near the incision site. No drainage. There is bruising along the incision site ASSESSMENT: 1. Left axilla abscess and cellulitis. Patient is status post bedside incision and drainage with Dr. Rivers. 2. Right breast nodule per CT 3. Diabetes mellitus type 2 PLAN: -Continue antibiotics per infectious disease recommendations -Continue supportive care -Continue warm compresses to area -Recommend mammogram for new finding of right breast nodule found on CT scan. -No further surgical intervention recommended Physician Pharmacy Technician Assistant note has been reviewed by physician. Signing provider agrees with the documented findings, assessment, and plan of care. Objective - Vital Signs Vital signs: Vital Signs Temp 98.4 F 11/12/20 07:39 Pulse 79 11/12/20 07:39 Resp 20 11/12/20 07:39 BP 139/81 11/12/20 07:39 Pulse Ox 95 11/12/20 07:39 Intake & Output 11/11/20 11/12/20 11/12/20 18:59 06:59 18:59 Other: # Voids 2 1 1 - Labs CBC & Chem 7: 11/10/20 06:05 11/12/20 05:27 Labs: Abnormal Lab Results - Last 24 Hours (Table) 11/11/20 11/11/20 11/12/20 Range/Units 16:41 19:54 05:27 POC Glucose (mg/dL) 269 H 327 H (75-99) mg/dL Vancomycin Trough 49.8 H* ug/mL 11/12/20 11/12/20 Range/Units 07:01 12:31 POC Glucose (mg/dL) 173 H 221 H (75-99) mg/dL Vancomycin Trough ug/mL Microbiology - Last 24 Hours (Table) 11/07/20 14:45 Anaerobic Culture - Final Axilla - Left
--- NOTE | 2020-11-12 14:38 | PN ---
PROGRESS NOTE DATE OF SERVICE: 11/12/2020 REASON FOR FOLLOWUP: Left axillary abscess and cellulitis. INTERVAL HISTORY: The patient is currently afebrile. Patient is feeling slightly better. The patient denies having any chest pain or shortness of breath or cough. Pain and discomfort slightly decreased. No nausea, no vomiting. No abdominal pain, no diarrhea. PHYSICAL EXAMINATION: Her blood pressure is 139/81 with a pulse of 79, temperature 98.4. She is 95% on room air. General description is a middle-aged female lying in bed in no distress. RESPIRATORY SYSTEM: Unlabored breathing, clear to auscultation. HEART: S1, S2. Regular rate and rhythm. ABDOMEN: Soft, no tenderness. Left axillary area did have areas of induration which has not extended. No drainage was noticed. LABS: Creatinine 0.6. Vancomycin trough 49.8. Culture has been negative. DIAGNOSTIC IMPRESSION AND PLAN: Patient with left axillary area abscess and cellulitis, failing response to the vancomycin. Cultures were negative for MRSA . We will discontinue vancomycin. Start the patient on Rocephin and rifampin to cover for atypical pathogen and monitor clinical course closely. MMODL / IJN: [id number] /
[2020-11-12] MEDS: rifAMPin 300 MG CAP PO SCH ×2 (14:50→21:27)
--- NOTE | 2020-11-12 17:19 | PN ---
PROGRESS NOTE This patient was seen by Dr. Currie today and Surgery. Left axillary abscess cellulitis. CT scan is positive for a 6.5 cm abscess. The vancomycin has working. She has had decreased swelling over the last few days. She is 95% on room air. CT scan of the chest was normal. Blood pressure 130s over low 80s, 139/81, pulse 70s, temperature 98.4. She is female in no acute distress. Lungs are clear. Heart: S1, S2. Abdomen is soft. Left axilla shows 2 areas of induration. This has not extended since yesterday. She remains on vancomycin. ASSESSMENT: Left axillary abscess, cellulitis. Vancomycin working. The patient was switched on Rocephin and rifampin to cover atypical pathogens. Surgery saw the patient today, who recommends Infectious Disease and warm compresses. Some kind of a breast nodule found on the CT scan. Maybe will need to be followed up as an outpatient. Please see further orders. MMODL / IJN: [id number] /
[2020-11-12 17:27] LABS: Glucose,Whole Blood 222 mg/dL (75-99)
[2020-11-12 20:17] LABS: Glucose,Whole Blood 234 mg/dL (75-99)
[2020-11-13] MEDS: ACETAMINOPHEN TAB 325 MG TAB PO PRN ×2 (01:52→10:31)
[2020-11-13 06:02] LABS: African American GFR (CKD) >90 (>60 ml/min/1.73 sqM); Non-African American GFR(CKD) >90 (>60 ml/min/1.73 sqM)
[2020-11-13 06:41] LABS: Glucose,Whole Blood 98 mg/dL (75-99)
[2020-11-13] MEDS: INSULIN ASPART (NovoLOG) 100 UNIT/ML VIAL SQ SCH ×4 (07:48→20:36)
[2020-11-13] MEDS: rifAMPin 300 MG CAP PO SCH (09:56)
[2020-11-13] MEDS: INSULN ASP PRT/INSULIN ASPART 100 UNIT/ML 10 ML VIAL SQ SCH ×2 (09:57→20:37)
--- NOTE | 2020-11-13 11:36 | P.PN ---
Subjective Progress Note Date: 11/13/20 CHIEF COMPLAINT: Left axilla abscess HISTORY OF PRESENT ILLNESS: Patient is status post bedside incision and drainage of a left axilla abscess on 11/07/2020. Patient complains of pain in her left axilla area, but has noticed some improvement. Antibiotics were adjusted per ID service. Afebrile. culture result no growth PHYSICAL EXAM: VITAL SIGNS: Reviewed. GENERAL: Well-developed in no acute distress. HEENT: No sclera icterus. Extraocular movements grossly intact. Moist buccal mucosa. Head is atraumatic, normocephalic. ABDOMEN: Soft. Nondistended. Nontender. NEUROLOGIC: Alert and oriented. Cranial nerves II through XII grossly intact. Extremities: Left axilla abscess improving. Erythema now resolved. There is some firmness near the incision site. No drainage. There is bruising along the incision site that is decreasing ASSESSMENT: 1. Left axilla abscess and cellulitis. Patient is status post bedside incision and drainage with Dr. Rivers. 2. Right breast nodule per CT 3. Diabetes mellitus type 2 PLAN: -Continue antibiotics per infectious disease recommendations -Continue supportive care -Continue warm compresses to area -Recommend mammogram for new finding of right breast nodule found on CT scan. -No further surgical intervention recommended Physician Traffic Administrator note has been reviewed by physician. Signing provider agrees with the documented findings, assessment, and plan of care. Objective - Vital Signs Vital signs: Vital Signs Temp 97.7 F 11/13/20 08:05 Pulse 73 11/13/20 08:05 Resp 20 11/13/20 08:05 BP 123/75 11/13/20 08:05 Pulse Ox 96 11/13/20 08:05 Intake & Output 11/12/20 11/13/20 11/13/20 18:59 06:59 18:59 Intake Total 540 Balance 540 Intake: Oral 540 Other: Voiding Method Toilet # Voids 1 1 1 # Bowel Movements 1 1 - Labs CBC & Chem 7: 11/10/20 06:05 11/13/20 05:27 Labs: Abnormal Lab Results - Last 24 Hours (Table) 11/12/20 11/12/20 11/12/20 Range/Units 12:31 17:26 20:13 POC Glucose (mg/dL) 221 H 222 H 234 H (75-99) mg/dL
[2020-11-13 12:50] LABS: Glucose,Whole Blood 231 mg/dL (75-99)
--- NOTE | 2020-11-13 14:06 | P.PN ---
Subjective Progress Note Date: 11/13/20 HISTORY OF PRESENT ILLNESS This is a 55-year-old female patient being treated for left axillary abscess and cellulitis. Patient is currently on vancomycin and rifampin. Rifampin will be switched to azathioprine Colleen. She is status post I&D. No significant growth on culture. Patient denies having any chest pain or shortness of breath, no cough. Pain to the left axilla is decreased slightly. No nausea or vomiting. Patient has been afebrile, heart rate 64, blood pressure 121/74, pulse ox 95% on room air. Creatinine 0.55. PHYSICAL EXAMINATION Gen: This is a 55-year-old female. Patient is resting in bed appears to be comfortable and in no acute distress. HEENT: Head is atraumatic, normocephalic. Pupils equal, round. Sclerae is anicteric. NECK: Supple. No JVD. No lymphadenopathy. LUNGS: Clear to auscultation. No wheezes or rhonchi. No intercostal retractions. HEART: Regular rate and rhythm. No murmur. ABDOMEN: Soft. Bowel sounds are present. No masses. No tenderness. EXTREMITIES: No pedal edema. No calf tenderness. Left axillary area with areas of induration. No drainage. NEUROLOGICAL: Patient is awake, alert and oriented x3. ASSESSMENT Left axillary abscess and cellulitis PLAN Continue ceftriaxone 2 g IV piggyback daily Discontinue rifampin Add azithromycin 500 mg daily The above dictated assessment and findings were discussed with Dr. Currie. The impression and plan of care have been directed as dictated. Michell Davison nurse practitioner acting as scribe for Dr. Currie. Objective - Vital Signs Vital signs: Vital Signs Temp 97.9 F 11/13/20 12:08 Pulse 64 11/13/20 12:08 Resp 18 11/13/20 12:08 BP 121/74 11/13/20 12:08 Pulse Ox 95 11/13/20 12:08 Intake & Output 11/12/20 11/13/20 11/13/20 18:59 06:59 18:59 Intake Total 540 Balance 540 Intake: Oral 540 Other: Voiding Method Toilet # Voids 1 1 1 # Bowel Movements 1 1 - Labs CBC & Chem 7: 11/10/20 06:05 11/13/20 05:27 Labs: Abnormal Lab Results - Last 24 Hours (Table) 11/12/20 11/12/20 11/13/20 Range/Units 17:26 20:13 12:49 POC Glucose (mg/dL) 222 H 234 H 231 H (75-99) mg/dL
[2020-11-13] MEDS: AZITHROMYCIN 500 MG TAB PO SCH (15:05)
--- NOTE | 2020-11-13 15:05 | PN ---
PROGRESS NOTE A 55-year-old white female who has abscess in her left arm. Dr. Currie continues to see her, possibly he has her on new antibiotics. She has been concerned about a right breast nodule per CT scan, diabetes mellitus type 2. Infectious Disease recommendations. LUNGS: Clear. CARDIOVASCULAR: S1, S2. She has decreased swelling and redness along her left axilla. Will wait for Infectious Disease and consultations for home antibiotics when this is done. MMODL / IJN: [id number] /
[2020-11-13 18:06] LABS: Glucose,Whole Blood 221 mg/dL (75-99)
[2020-11-13 20:15] LABS: Glucose,Whole Blood 311 mg/dL (75-99)
[2020-11-13] MEDS: SODIUM CHLORIDE 0.9% 1,000 ML IV SCH (20:33)
[2020-11-14] MEDS: ACETAMINOPHEN TAB 325 MG TAB PO PRN (03:56)
[2020-11-14 07:33] LABS: Glucose,Whole Blood 144 mg/dL (75-99)
[2020-11-14] MEDS: INSULIN ASPART (NovoLOG) 100 UNIT/ML VIAL SQ SCH ×2 (07:48→13:00)
[2020-11-14] MEDS: INSULN ASP PRT/INSULIN ASPART 100 UNIT/ML 10 ML VIAL SQ SCH (07:53)
[2020-11-14] MEDS: AZITHROMYCIN 500 MG TAB PO SCH (08:51)
[2020-11-14 08:52] VITALS: RESP 20
--- NOTE | 2020-11-14 10:47 | P.PN ---
Subjective Progress Note Date: 11/14/20 CHIEF COMPLAINT: Left axilla abscess HISTORY OF PRESENT ILLNESS: Patient is status post bedside incision and drainage of a left axilla abscess on 11/07/2020. Patient is reporting improvement in her left axilla pain. There is decrease in swelling. Antibiotics were adjusted per ID service. Afebrile. culture result no growth PHYSICAL EXAM: VITAL SIGNS: Reviewed. GENERAL: Well-developed in no acute distress. HEENT: No sclera icterus. Extraocular movements grossly intact. Moist buccal mucosa. Head is atraumatic, normocephalic. ABDOMEN: Soft. Nondistended. Nontender. NEUROLOGIC: Alert and oriented. Cranial nerves II through XII grossly intact. Extremities: Left axilla abscess improving. Erythema now resolved. No drainage. Swelling and firmness decreasing in size ASSESSMENT: 1. Left axilla abscess and cellulitis. Patient is status post bedside incision and drainage with Dr. Rivers. 2. Right breast nodule per CT 3. Diabetes mellitus type 2 PLAN: -Continue antibiotics per infectious disease recommendations -Continue supportive care -Continue warm compresses to area -Recommend mammogram for new finding of right breast nodule found on CT scan. -No further surgical intervention recommended Physician Production Solderer note has been reviewed by physician. Signing provider agrees with the documented findings, assessment, and plan of care. Objective - Vital Signs Vital signs: Vital Signs Temp 98.0 F 11/14/20 08:27 Pulse 75 11/14/20 08:27 Resp 20 11/14/20 08:27 BP 120/71 11/14/20 08:27 Pulse Ox 96 11/14/20 08:27 Intake & Output 11/13/20 11/14/20 11/14/20 18:59 06:59 18:59 Intake Total 480 1750 Balance 480 1750 Intake: IV 1000 Sodium Chloride 0.9% 1, 1000 000 ml @ 50 mls/hr IV . Q20H FANNY Rx#:[id number] Oral 480 750 Other: Voiding Method Toilet # Voids 2 2 # Bowel Movements 1 - Labs CBC & Chem 7: 11/10/20 06:05 11/13/20 05:27 Labs: Abnormal Lab Results - Last 24 Hours (Table) 11/13/20 11/13/20 11/13/20 Range/Units 12:49 18:05 20:13 POC Glucose (mg/dL) 231 H 221 H 311 H (75-99) mg/dL 11/14/20 Range/Units 07:31 POC Glucose (mg/dL) 144 H (75-99) mg/dL
--- NOTE | 2020-11-14 10:47 | P.PN ---
Subjective Progress Note Date: 11/14/20 HISTORY OF PRESENT ILLNESS This is a 55-year-old female patient being treated for left axillary abscess and cellulitis. Patient is currently on vancomycin and a azithromycin. She is status post I&D. No significant growth on culture. Patient denies having any chest pain or shortness of breath, no cough. Pain to the left axilla is decreased. No nausea or vomiting. Patient states that she has been trying to move her left arm and has increased range of motion. She has some mild tenderness in the middle area only. Surgery does not plan for any additional intervention. Patient has been afebrile, heart rate 75, blood pressure 120/71, pulse ox 96% on room air. PHYSICAL EXAMINATION Gen: This is a 55-year-old female. Patient is resting in bed appears to be comfortable and in no acute distress. HEENT: Head is atraumatic, normocephalic. Pupils equal, round. Sclerae is anicteric. NECK: Supple. No JVD. No lymphadenopathy. LUNGS: Clear to auscultation. No wheezes or rhonchi. No intercostal retractions. HEART: Regular rate and rhythm. No murmur. ABDOMEN: Soft. Bowel sounds are present. No masses. No tenderness. EXTREMITIES: No pedal edema. No calf tenderness. Left axillary area with areas of induration. No drainage. NEUROLOGICAL: Patient is awake, alert and oriented x3. ASSESSMENT Left axillary abscess and cellulitis PLAN Continue ceftriaxone 2 g IV piggyback daily and azithromycin 500 mg daily Patient will continue Ceftin and a azithromycin as an outpatient for 10 more days. Prescription has been sent to her pharmacy. The above dictated assessment and findings were discussed with Dr. Currie. The impression and plan of care have been directed as dictated. Michell Davison nurse practitioner acting as scribe for Dr. Currie. Objective - Vital Signs Vital signs: Vital Signs Temp 98.0 F 11/14/20 08:27 Pulse 75 11/14/20 08:27 Resp 20 11/14/20 08:27 BP 120/71 11/14/20 08:27 Pulse Ox 96 11/14/20 08:27 Intake & Output 11/13/20 11/14/20 11/14/20 18:59 06:59 18:59 Intake Total 480 1750 Balance 480 1750 Intake: IV 1000 Sodium Chloride 0.9% 1, 1000 000 ml @ 50 mls/hr IV . Q20H [facility] Rx#:[id number] Oral 480 750 Other: Voiding Method Toilet # Voids 2 2 # Bowel Movements 1 - Labs CBC & Chem 7: 11/10/20 06:05 11/13/20 05:27 Labs: Abnormal Lab Results - Last 24 Hours (Table) 11/13/20 11/13/20 11/13/20 Range/Units 12:49 18:05 20:13 POC Glucose (mg/dL) 231 H 221 H 311 H (75-99) mg/dL 11/14/20 Range/Units 07:31 POC Glucose (mg/dL) 144 H (75-99) mg/dL
[2020-11-14 12:16] VITALS: PULSE 67; TEMP 97.8
[2020-11-14 12:18] LABS: Glucose,Whole Blood 221 mg/dL (75-99)
[2020-11-14 14:04] VITALS: BMI 27.6
[2020-11-14 18:15] VITALS: BP 150/80
--- NOTE | 2020-11-20 07:41 | CDI ---
Documentation Clarification Form Date: 11/20/2020 07:30:00 AM From: Indira Mota Phone: If you have a question about this query, please contact Suzanne Gaston, Public Area Supervisor at [phone] between 8am and 5pm. Admit Date: 11/09/2020 07:38:00 AM Patient Name: Christin Hunter Visit Number: [id number] Discharge Date: 11/14/2020 03:30:00 PM ATTENTION: The Clinical Documentation Specialists (CDI) and [facility] Coding Staff appreciate your assistance in clarifying documentation. Please respond to the clarification below the line at the bottom and electronically sign. The CDI & [facility] Coding staff will review the response and follow-up if needed. Please note: Queries are made part of the Legal Health Record. If you have any questions, please contact the author of this message via ITS. Dr. Dallas Thompson Your patient has the documented diagnosis of left axilla abscess and cellulitis failed outpatient treatment and patient also has diabetes with hyperglycemia in your notes throughout the chart. A relationship between diagnoses cannot be assumed unless documented as such by the attending physician. In order to capture the severity of condition; please document the relationship, if any, between these diagnoses. History/Risk Factors: left axillary abscess and cellulitis DM type II Treatment: Vancomycin Please clarify and document if any relationship (due to, caused by, secondary to) exists between cellulitis/abscess and DM II. Cellulitis and abscess linked to DM Cellulitis and abscess not linked to DM Other explanation of clinical findings (please specify) Unable to determine (no explanation for clinical findings) MTDD
--- NOTE | 2020-11-22 13:37 | CDI ---
Documentation Clarification Form Date: 11/20/2020 07:30:00 AM From: Indira Mota Phone: If you have a question about this query, please contact Suzanne Gaston, Animal Pathology Teacher at [phone] between 8am and 5pm. Admit Date: 11/09/2020 07:38:00 AM Patient Name: Christin Hunter Visit Number: [id number] Discharge Date: 11/14/2020 03:30:00 PM ATTENTION: The Clinical Documentation Specialists (CDI) and [facility] Coding Staff appreciate your assistance in clarifying documentation. Please respond to the clarification below the line at the bottom and electronically sign. The CDI & [facility] Coding staff will review the response and follow-up if needed. Please note: Queries are made part of the Legal Health Record. If you have any questions, please contact the author of this message via ITS. Dr. Dallas Thompson Your patient has the documented diagnosis of left axilla abscess and cellulitis failed outpatient treatment and patient also has diabetes with hyperglycemia in your notes throughout the chart. A relationship between diagnoses cannot be assumed unless documented as such by the attending physician. In order to capture the severity of condition; please document the relationship, if any, between these diagnoses. History/Risk Factors: left axillary abscess and cellulitis DM type II Treatment: Vancomycin Please clarify and document if any relationship (due to, caused by, secondary to) exists between cellulitis/abscess and DM II. Cellulitis and abscess linked to DM Cellulitis and abscess not linked to DM Other explanation of clinical findings (please specify) Unable to determine (no explanation for clinical findings) MTDD
--- NOTE | 2020-11-26 11:03 | CDI ---
Documentation Clarification Form Date: 11/20/2020 07:30:00 AM From: Indira Mota Phone: If you have a question about this query, please contact Suzanne Gaston, Shift Superintendent [employer] at [phone] between 8am and 5pm. Admit Date: 11/09/2020 07:38:00 AM Patient Name: Christin Hunter Visit Number: [id number] Discharge Date: 11/14/2020 03:30:00 PM ATTENTION: The Clinical Documentation Specialists (CDI) and [facility] Coding Staff appreciate your assistance in clarifying documentation. Please respond to the clarification below the line at the bottom and electronically sign. The CDI & [facility] Coding staff will review the response and follow-up if needed. Please note: Queries are made part of the Legal Health Record. If you have any questions, please contact the author of this message via ITS. Dr. Dallas Thompson Your patient has the documented diagnosis of left axilla abscess and cellulitis failed outpatient treatment and patient also has diabetes with hyperglycemia in your notes throughout the chart. A relationship between diagnoses cannot be assumed unless documented as such by the attending physician. In order to capture the severity of condition; please document the relationship, if any, between these diagnoses. History/Risk Factors: left axillary abscess and cellulitis DM type II Treatment: Vancomycin Please clarify and document if any relationship (due to, caused by, secondary to) exists between cellulitis/abscess and DM II. Cellulitis and abscess linked to DM Cellulitis and abscess not linked to DM Other explanation of clinical findings (please specify) Unable to determine (no explanation for clinical findings) MTDD
--- NOTE | 2020-11-26 18:05 | PN ---
PROGRESS NOTE Cellulitis and abscess related to diabetes mellitus. MMODL / IJN: [id number] /
== END 2020-11-14 15:30 | disposition home or self-care (01) | DRG 638 ==
LOC: 4SSUR 19:18 → OBSVTOIN 11-09 07:38 → 6PED 11-12 10:31
PROVIDERS: ADMIT Family Medicine; ATTEND Family Medicine
PROC: 0X950ZX Drainage of Left Axilla, Open Approach, Diagnostic (ICD-10-PCS; principal; 2020-11-07)
DX: E11.628 Type 2 diabetes mellitus with other skin complications (principal); L03.112 Cellulitis of left axilla; L02.412 Cutaneous abscess of left axilla; N63.10 Unspecified lump in the right breast, unspecified quadrant; E78.5 Hyperlipidemia, unspecified; E11.65 Type 2 diabetes mellitus with hyperglycemia; Z79.4 Long term (current) use of insulin; Z88.1 Allergy status to other antibiotic agents; Z88.0 Allergy status to penicillin; Z88.2 Allergy status to sulfonamides; Z88.8 Allergy status to other drugs, medicaments and biological substances; K59.00 Constipation, unspecified; R51.9 Headache, unspecified; Z90.49 Acquired absence of other specified parts of digestive tract; Z83.2 Family history of diseases of the blood and blood-forming organs and certain disorders involving the immune mechanism; Z91.018 Allergy to other foods
CPT/HCPCS: 71260; 80048; 80053; 80202; 82565; 83605; 85025; 86140; 87070; 87075; 87205

== ENCOUNTER 2021-01-22 17:07 | Emergency (ER) | payer OTHER ==
--- NOTE | 2021-01-22 20:33 | XR ---
EXAMINATION TYPE: XR chest 2V DATE OF EXAM: 01/22/2021 COMPARISON: NONE HISTORY: Short of breath TECHNIQUE: 2 views FINDINGS: Heart and mediastinum are normal. Lungs are clear. Diaphragm is normal. Bony thorax is norm al. IMPRESSION: Normal chest. No change.
[2021-01-22] MEDS ORDERED: ACETAMINOPHEN TAB 500 MG TAB PO STA (21:40)
--- NOTE | 2021-01-22 21:40 | ED ---
General Adult HPI - General Chief complaint: Upper Respiratory Infection Stated complaint: Body aches/chills Time Seen by Provider: 01/22/21 20:59 Source: patient, RN notes reviewed Mode of arrival: ambulatory Limitations: no limitations - History of Present Illness Initial comments: Patient is a pleasant 5-year-old female presenting to the emergency Department with complaints of chills and myalgias. Onset of symptoms was 3 days ago. Patient feels achy all over, especially in her legs. Patient has chills and myalgias. Decreased appetite. No loss of taste or smell. No cough or dyspnea. Patient does not believe that she has had fever. Patient did take Tylenol, last around 3:00. - Related Data Home Medications Medication Instructions Recorded Confirmed Insuln Asp Prt/Insulin Aspart 35 unit SQ BID 02/05/19 01/22/21 [NovoLOG MIX 70-30 VIAL] Acetaminophen [Tylenol] 500 - 1,000 mg PO Q8H PRN 11/06/20 01/22/21 EPINEPHrine (Auto Inject) [Epipen] 0.3 mg IM ONCE PRN 01/22/21 01/22/21 Propranolol [Inderal] 20 mg PO BID 01/22/21 01/22/21 Repaglinide [Prandin] 1 mg PO AC-TID 01/22/21 01/22/21 Allergies Allergy/AdvReac Type Severity Reaction Status Date / Time erythromycin base Allergy Rash/Hives Verified 01/22/21 21:35 gemifloxacin [From Factive] Allergy Swelling Verified 01/22/21 21:35 Penicillins Allergy Rash/Hives Verified 01/22/21 21:35 prednisone Allergy Rash/Hives Verified 01/22/21 21:35 Sulfa (Sulfonamide Allergy Rash/Hives Verified 01/22/21 21:35 Antibiotics) pine nuts AdvReac Anaphylaxis Uncoded 11/06/20 21:00 Review of Systems ROS Statement: Those systems with pertinent positive or pertinent negative responses have been documented in the HPI. ROS Other: All systems not noted in ROS Statement are negative. Constitutional: Denies: fever Eyes: Denies: eye pain ENT: Denies: ear pain Respiratory: Denies: cough, dyspnea Cardiovascular: Denies: chest pain Endocrine: Reports: fatigue Gastrointestinal: Denies: abdominal pain Genitourinary: Denies: dysuria Musculoskeletal: Reports: as per HPI. Denies: back pain Skin: Denies: rash Neurological: Denies: confusion Past Medical History Past Medical History: Diabetes Mellitus, Hyperlipidemia, Hypertension Additional Past Medical History / Comment(s): vomiting after eating, constipation, History of Any Multi-Drug Resistant Organisms: None Reported Past Surgical History: Appendectomy, Cholecystectomy Additional Past Surgical History / Comment(s): cysts removed from ovaries Past Anesthesia/Blood Transfusion Reactions: Motion Sickness, Postoperative Nausea & Vomiting (PONV) Past Psychological History: No Psychological Hx Reported Smoking Status: Never smoker Past Alcohol Use History: None Reported Past Drug Use History: None Reported - Past Family History Sister(s) Family Medical History: Deep Vein Thrombosis (DVT) General Exam Limitations: no limitations General appearance: alert, in no apparent distress Head exam: Present: normocephalic Eye exam: Present: normal appearance Neck exam: Present: normal inspection Respiratory exam: Present: normal lung sounds bilaterally Cardiovascular Exam: Present: regular rate, normal rhythm GI/Abdominal exam: Present: soft. Absent: tenderness Extremities exam: Present: normal inspection. 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 Patient will see for this and be followed observation prior to discharge. - Lab Data Lab Results 01/22/21 Range/Units 20:16 Coronavirus (PCR) Detected A (Not Detectd) Disposition Clinical Impression: Coronavirus infection Disposition: HOME SELF-CARE Condition: Stable Instructions (If sedation given, give patient instructions): Upper Respiratory Infection (ED), Fever in Adults (ED) Additional Instructions: [id number] Tylenol as needed. Vejo-vwy-llidmfb vitamin C, vitamin D, and zinc daily. Return for difficulty breathing, not tolerating fluids, worsening symptoms or other concerns. Is patient prescribed a controlled substance at d/c from ED?: No Referrals: Dallas Thompson MD [Primary Care Provider] - 1-2 days Time of Disposition: 21:39
[2021-01-22] MEDS ORDERED: BAMLANIVIMAB (EUA) 700 MG, ETESEVIMAB (EUA) 1,400 MG in SODIUM CHLORIDE 0.9% 50 ML IVPB ONE (23:00)
[2021-01-23 02:11] VITALS: TEMP 98.6
[2021-01-23 02:13] VITALS: BP 106/65; PULSE 85; RESP 17
== END 2021-01-23 01:53 | disposition home or self-care (01) ==
LOC: EC 17:07
DX: U07.1 COVID-19 (principal); E11.9 Type 2 diabetes mellitus without complications; E78.5 Hyperlipidemia, unspecified; I10 Essential (primary) hypertension; Z79.4 Long term (current) use of insulin; Z79.899 Other long term (current) drug therapy; Z88.1 Allergy status to other antibiotic agents; Z88.0 Allergy status to penicillin; Z88.2 Allergy status to sulfonamides; Z88.8 Allergy status to other drugs, medicaments and biological substances; Z91.010 Allergy to peanuts
CPT/HCPCS: 71046; 87635; 96365; 99283

== ENCOUNTER 2021-01-26 21:54 | Emergency (ER) | payer OTHER ==
[2021-01-26] MEDS ORDERED: SODIUM CHLORIDE 0.9% 1,000 ML IV ONE (22:37)
[2021-01-26] MEDS ORDERED: ONDANSETRON 4 MG/2 ML VIAL IVP STA (22:37)
--- NOTE | 2021-01-26 23:10 | ED ---
Nausea/Vomiting/Diarrhea HPI - General Chief complaint: Nausea/Vomiting/Diarrhea Stated complaint: COVID+,NVD Time Seen by Provider: 01/26/21 22:12 Source: patient Mode of arrival: ambulatory Limitations: no limitations - History of Present Illness Initial comments: This patient is a 55-year-old woman who presents to be evaluated for vomiting and diarrhea. The patient states this is been going on for couple of days and she feels she is getting dehydrated. Prior to this she was having fevers, headaches, myalgias and was seen here Thursday. She is found to test positive for strong virus. The patient was treated at that time bamlanivimab. Patient denies chest pain, dyspnea, palpitations. Mild cough is present. MD complaint: nausea, vomiting, diarrhea -: days(s) Description of Vomiting: watery Description of Diarrhea: water Associated Abdominal Pain: No Radiation: none Consistency: constant Improves with: none Worsens with: none Associated Symptoms: cough - Related Data Home Medications Medication Instructions Recorded Confirmed Insuln Asp Prt/Insulin Aspart 35 unit SQ BID 02/05/19 01/22/21 [NovoLOG MIX 70-30 VIAL] Acetaminophen [Tylenol] 500 - 1,000 mg PO Q8H PRN 11/06/20 01/22/21 EPINEPHrine (Auto Inject) [Epipen] 0.3 mg IM ONCE PRN 01/22/21 01/22/21 Propranolol [Inderal] 20 mg PO BID 01/22/21 01/22/21 Repaglinide [Prandin] 1 mg PO AC-TID 01/22/21 01/22/21 Previous Rx's Medication Instructions Recorded Ondansetron Odt [Zofran ODT] 4 mg PO Q8HR PRN #10 tab 01/27/21 Allergies Allergy/AdvReac Type Severity Reaction Status Date / Time erythromycin base Allergy Rash/Hives Verified 01/26/21 22:02 gemifloxacin [From Factive] Allergy Swelling Verified 01/26/21 22:02 Penicillins Allergy Rash/Hives Verified 01/26/21 22:02 prednisone Allergy Rash/Hives Verified 01/26/21 22:02 Sulfa (Sulfonamide Allergy Rash/Hives Verified 01/26/21 22:02 Antibiotics) pine nuts AdvReac Anaphylaxis Uncoded 01/26/21 22:02 Review of Systems ROS Statement: Those systems with pertinent positive or pertinent negative responses have been documented in the HPI. ROS Other: All systems not noted in ROS Statement are negative. Constitutional: Reports: fever, chills. Denies: weakness Respiratory: Reports: cough. Denies: dyspnea, wheezes, hemoptysis Cardiovascular: Denies: chest pain, palpitations, orthopnea, edema Gastrointestinal: Reports: nausea, vomiting, diarrhea. Denies: abdominal pain, hematemesis, melena, hematochezia Genitourinary: Denies: dysuria, frequency, hematuria Musculoskeletal: Reports: myalgia. Denies: back pain Skin: Denies: rash Neurological: Reports: headache. Denies: weakness, numbness Past Medical History Past Medical History: Diabetes Mellitus, Hyperlipidemia, Hypertension Additional Past Medical History / Comment(s): vomiting after eating, constipation, History of Any Multi-Drug Resistant Organisms: None Reported Past Surgical History: Appendectomy, Cholecystectomy Additional Past Surgical History / Comment(s): cysts removed from ovaries Past Anesthesia/Blood Transfusion Reactions: Motion Sickness, Postoperative Nausea & Vomiting (PONV) Past Psychological History: No Psychological Hx Reported Smoking Status: Never smoker Past Alcohol Use History: None Reported Past Drug Use History: None Reported - Past Family History Sister(s) Family Medical History: Deep Vein Thrombosis (DVT) General Exam Limitations: no limitations General appearance: alert, in no apparent distress Head exam: Present: atraumatic, normocephalic Eye exam: Present: normal appearance. Absent: scleral icterus, conjunctival injection ENT exam: Present: mucous membranes dry Neck exam: Present: normal inspection, full ROM Respiratory exam: Present: normal lung sounds bilaterally. Absent: respiratory distress, wheezes, rales, rhonchi, stridor Cardiovascular Exam: Present: regular rate, normal rhythm, normal heart sounds. Absent: systolic murmur, diastolic murmur, rubs, gallop GI/Abdominal exam: Present: soft. Absent: distended, tenderness, guarding, rebound, rigid, mass Extremities exam: Present: normal inspection, normal capillary refill. Absent: pedal edema, calf tenderness Back exam: Present: normal inspection Neurological exam: Present: alert Skin exam: Present: warm, dry, intact, normal color. Absent: rash Course Vital Signs 01/26/21 01/26/21 01/27/21 22:02 23:22 00:06 Temperature 98.6 F 97.7 F Pulse Rate 76 68 86 Respiratory 20 18 18 Rate Blood Pressure 159/84 143/99 163/93 O2 Sat by Pulse 98 96 99 Oximetry Medical Decision Making - Lab Data Result diagrams: 01/26/21 23:02 01/26/21 23:02 Lab Results 01/26/21 01/26/21 01/26/21 Range/Units 23:02 23:02 23:02 WBC 7.1 (3.8-10.6) k/uL RBC 5.41 H (3.80-5.40) m/uL Hgb 15.6 (11.4-16.0) gm/dL Hct 44.0 (34.0-46.0) % MCV 81.2 (80.0-100.0) fL MCH 28.8 (25.0-35.0) pg MCHC 35.4 (31.0-37.0) g/dL RDW 12.9 (11.5-15.5) % Plt Count 267 (150-450) k/uL MPV 7.0 Neutrophils % 70 % Lymphocytes % 24 % Monocytes % 4 % Eosinophils % 1 % Basophils % 0 % Neutrophils # 5.0 (1.3-7.7) k/uL Lymphocytes # 1.7 (1.0-4.8) k/uL Monocytes # 0.3 (0-1.0) k/uL Eosinophils # 0.1 (0-0.7) k/uL Basophils # 0.0 (0-0.2) k/uL Sodium 134 L (137-145) mmol/L Potassium 4.2 (3.5-5.1) mmol/L Chloride 98 (98-107) mmol/L Carbon Dioxide 26 (22-30) mmol/L Anion Gap 10 mmol/L BUN 20 H (7-17) mg/dL Creatinine 0.44 L (0.52-1.04) mg/dL Est GFR (CKD-EPI)AfAm >90 (>60 ml/min/1.73 sqM) Est GFR (CKD-EPI)NonAf >90 (>60 ml/min/1.73 sqM) Glucose 289 H (74-99) mg/dL Calcium 9.4 (8.4-10.2) mg/dL Total Bilirubin 0.4 (0.2-1.3) mg/dL AST 24 (14-36) U/L ALT 33 (4-34) U/L Alkaline Phosphatase 98 (38-126) U/L Total Protein 8.0 (6.3-8.2) g/dL Albumin 4.6 (3.5-5.0) g/dL Urine Color Yellow Urine Appearance Clear (Clear) Urine pH 6.0 (5.0-8.0) Ur Specific Margie 1.042 H (1.001-1.035) Urine Protein 1+ H (Negative) Urine Glucose (UA) 4+ H (Negative) Urine Ketones Negative (Negative) Urine Blood Negative (Negative) Urine Nitrite Negative (Negative) Urine Bilirubin Negative (Negative) Urine Urobilinogen <2.0 (<2.0) mg/dL Ur Leukocyte Esterase Negative (Negative) Urine RBC 1 (0-5) /hpf Urine WBC 2 (0-5) /hpf Ur Squamous Epith Cells 1 (0-4) /hpf Urine Mucus Rare H (None) /hpf Disposition Clinical Impression: Nausea and vomiting, Poorly controlled diabetes mellitus Disposition: HOME SELF-CARE Condition: Good Instructions (If sedation given, give patient instructions): Acute Nausea and Vomiting (ED), Acute Diarrhea (ED) Prescriptions: Ondansetron Odt [Zofran ODT] 4 mg PO Q8HR PRN #10 tab PRN Reason: Nausea Is patient prescribed a controlled substance at d/c from ED?: No Referrals: Dallas Thompson MD [Primary Care Provider] - 1-2 days
[2021-01-26 23:22] LABS: Basophils % (A) 0 %; Eosinophils # (A) 0.1 k/uL (0-0.7); Eosinophils % (A) 1 %; HGB 15.6 gm/dL (11.4-16.0); Lymphocytes # (A) 1.7 k/uL (1.0-4.8); Lymphocytes % (A) 24 %; MCH 28.8 pg (25.0-35.0); MCHC 35.4 g/dL (31.0-37.0); MCV 81.2 fL (80.0-100.0); Monocytes # (A) 0.3 k/uL (0-1.0); Monocytes % (A) 4 %; Neutrophils % (A) 70 %; Platelet Count 267 k/uL (150-450); RBC 5.41 m/uL (3.80-5.40); RDW 12.9 % (11.5-15.5); WBC 7.1 k/uL (3.8-10.6)
[2021-01-26 23:23] VITALS: RESP 18
[2021-01-26 23:23] LABS: Appearance,Urine Clear (Clear); Bilirubin,Urine Negative (Negative); Blood,Urine Negative (Negative); Color,Urine Yellow; Glucose,Urine (UA) 4+ (Negative); Ketones,Urine Negative (Negative); Leukocyte Esterase,Urine Negative (Negative); Mucus,Urine Rare /hpf; Nitrite,Urine Negative (Negative); Protein,Urine 1+ (Negative); RBC,Urine 1 /hpf (0-5); Specific Gravity,Urine 1.042 (1.001-1.035); Squamous Epithelial Cell,Urine 1 /hpf (0-4); Urobilinogen,Urine <2.0 mg/dL (<2.0); WBC,Urine 2 /hpf (0-5)
[2021-01-26 23:58] LABS: ALT 33 U/L (4-34); AST 24 U/L (14-36); African American GFR (CKD) >90 (>60 ml/min/1.73 sqM); Albumin 4.6 g/dL (3.5-5.0); Alkaline Phosphatase 98 U/L (38-126); Anion Gap 10 mmol/L; Blood Urea Nitrogen 20 mg/dL (7-17); Calcium 9.4 mg/dL (8.4-10.2); Carbon Dioxide 26 mmol/L (22-30); Chloride 98 mmol/L (98-107); Glucose 289 mg/dL (74-99); Non-African American GFR(CKD) >90 (>60 ml/min/1.73 sqM); Potassium 4.2 mmol/L (3.5-5.1); Sodium 134 mmol/L (137-145); Total Bilirubin 0.4 mg/dL (0.2-1.3)
[2021-01-27] MEDS ORDERED: SODIUM CHLORIDE 0.9% 1,000 ML IV ONE (00:06)
[2021-01-27] MEDS ORDERED: INSULIN REGULAR 100 UNIT/ML VIAL SQ STA (00:20)
[2021-01-27] MEDS ORDERED: ACETAMINOPHEN TAB 325 MG TAB PO STA (00:20)
[2021-01-27 00:55] LABS: Glucose,Whole Blood 272 mg/dL (75-99)
[2021-01-27 01:45] VITALS: BP 150/91; PULSE 66; TEMP 98.2
== END 2021-01-27 01:30 | disposition home or self-care (01) ==
LOC: EC 21:54
DX: E11.65 Type 2 diabetes mellitus with hyperglycemia (principal); R11.10 Vomiting, unspecified; R05 Cough; I10 Essential (primary) hypertension; Z79.4 Long term (current) use of insulin; Z79.899 Other long term (current) drug therapy; Z88.0 Allergy status to penicillin; Z88.1 Allergy status to other antibiotic agents; Z88.2 Allergy status to sulfonamides; Z88.8 Allergy status to other drugs, medicaments and biological substances; Z91.048 Other nonmedicinal substance allergy status; Z90.49 Acquired absence of other specified parts of digestive tract
CPT/HCPCS: 36415 ×2; 80053; 85025; 81001; 99284; 96374; 96361 ×2; J2405

== ENCOUNTER → 2021-05-16 | Outpatient (CLI) | payer OTHER ==
--- NOTE | 2021-05-16 08:12 | US ---
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 RUQ pain EXAM MEASUREMENTS: Liver Length: 14.4 cm CBD: 0.7 cm Spleen: 9.6 cm Right Kidney: 10.0 x 5.1 x 5.2 cm Left Kidney: 10.7 x 5.3 x 5.3 cm Pancreas: visualized portions wnl, limited by overlying midline bowel gas Liver: increased attenuation, decreased visualization of vessels suggestive of fatty infiltrate Gallbladder: surgically absent Evidence for sonographic Clinton's sign: no CBD: visualized portions wnl, limited by overlying bowel gas Spleen: visualized portions wnl, limited by overlying bowel gas Right Kidney: wnl Left Kidney: wnl Upper IVC: wnl Abd Aorta: prox and mid portion wnl, distal obscured by overlying midline bowel gas The liver is heterogeneous and echogenic. The visualized portions of the intrahepatic portion of the IVC and proximal abdominal aorta are within normal limits. The visualized portions of the pancreas are homogenous. The visualized portions of the spleen is unremarkable. Kidneys are symmetric and fr ee of hydronephrosis. No renal lesions are seen. IMPRESSION: 1. Echogenic liver with poor penetration is nonspecific but most commonly seen with hepatic steatosis . Please correlate clinically. 2. The gallbladder is surgically absent.
== END | disposition home or self-care (01) ==
LOC: RADUSWWP 06:58
PROVIDERS: ATTEND Family Medicine
DX: K80.20 Calculus of gallbladder without cholecystitis without obstruction (principal)
CPT/HCPCS: 76700

== ENCOUNTER → 2021-06-05 | Outpatient (CLI) | payer OTHER ==
--- NOTE | 2021-06-05 15:37 | XR ---
EXAMINATION TYPE: XR chest 2V DATE OF EXAM: 06/05/2021 COMPARISON: 01/22/2021 INDICATION: Cough TECHNIQUE: Frontal and lateral views of the chest are obtained. FINDINGS: The heart size is normal. The pulmonary vasculature is normal. The lungs are clear. IMPRESSION: 1. No acute pulmonary process.
== END | disposition home or self-care (01) ==
LOC: RADXRMAIN 11:24
PROVIDERS: ATTEND Family Medicine
DX: R05 Cough (principal)
CPT/HCPCS: 71046

== ENCOUNTER → 2021-07-24 | Outpatient (CLI) | payer OTHER ==
--- NOTE | 2021-07-24 08:13 | US ---
EXAMINATION TYPE: US abdomen complete DATE OF EXAM: 07/24/2021 COMPARISON: 05/16/2021 CLINICAL HISTORY: R19.0 ABD DISTENSION. EXAM MEASUREMENTS: Liver Length: 14.9 cm Gallbladder Wall: Surgically absent cm CBD: 0.8 cm Spleen: 9.8 cm Right Kidney: 10.0x5.3x5.6 cm Left Kidney: 10.9x5.3x5.5 cm Pancreas: wnl Liver: Increased attenuation, decreased visualization of vessels suggestive of fatty infiltrate Gallbladder: Surgically absent CBD: wnl Spleen: wnl Right Kidney: wnl Left Kidney: wnl Upper IVC: wnl Abd Aorta: wnl The liver is homogenous. The intrahepatic portion of the IVC and proximal abdominal aorta are within normal limits. Common bile duct is unremarkable. The visualized portions of the pancreas are homog enous. The spleen is unremarkable. Kidneys are symmetric and free of hydronephrosis. No renal lesi ons are seen. IMPRESSION: No Significant abnormality seen.
== END | disposition home or self-care (01) ==
LOC: RADUSWWP 07:03
PROVIDERS: ATTEND Family Medicine
DX: R14.0 Abdominal distension (gaseous) (principal)
CPT/HCPCS: 76700

== ENCOUNTER → 2021-08-28 | Outpatient (CLI) | payer OTHER ==
--- NOTE | 2021-08-28 16:21 | XR ---
EXAMINATION TYPE: XR chest 2V DATE OF EXAM: 08/28/2021 COMPARISON: 06/05/2021 HISTORY: 56-year-old female with cough TECHNIQUE: Frontal and lateral views FINDINGS: The cardiomediastinal silhouette, aorta, and pulmonary vasculature are within normal limits. Lungs an d pleural spaces are clear. IMPRESSION: No acute cardiopulmonary process.
== END | disposition home or self-care (01) ==
LOC: RADXRMAIN 15:24
PROVIDERS: ATTEND Family Medicine
DX: R05.9 Cough, unspecified (principal)
CPT/HCPCS: 71046

== ENCOUNTER 2021-11-24 10:40 | Emergency (ER) | payer OTHER ==
[2021-11-24] MEDS ORDERED: ONDANSETRON 4 MG/2 ML VIAL IVP STA (11:16)
[2021-11-24] MEDS ORDERED: ORPHENADRINE 30 MG/ML 2 ML VIAL IVP STA (11:16)
[2021-11-24] MEDS ORDERED: SODIUM CHLORIDE 0.9% 2,000 ML IV STA (11:16)
[2021-11-24] MEDS ORDERED: KETOROLAC 15 MG/ML 1 ML VIAL IVP STA (11:16)
[2021-11-24 11:51] LABS: Basophils % (A) 1 %; Eosinophils # (A) 0.1 k/uL (0-0.7); Eosinophils % (A) 1 %; HCT 47.3 % (34.0-46.0); HGB 15.6 gm/dL (11.4-16.0); Lymphocytes # (A) 0.5 k/uL (1.0-4.8); Lymphocytes % (A) 7 %; MCH 28.4 pg (25.0-35.0); MCHC 32.9 g/dL (31.0-37.0); MCV 86.4 fL (80.0-100.0); Mean Platelet Volume 7.2; Monocytes # (A) 0.3 k/uL (0-1.0); Monocytes % (A) 4 %; Neutrophils # (A) 6.3 k/uL (1.3-7.7); Neutrophils % (A) 87 %; Platelet Count 281 k/uL (150-450); RBC 5.48 m/uL (3.80-5.40); RDW 13.2 % (11.5-15.5); WBC 7.2 k/uL (3.8-10.6)
[2021-11-24 11:59] LABS: ALT 66 U/L (4-34); AST 65 U/L (14-36); African American GFR (CKD) >90 (>60 ml/min/1.73 sqM); Albumin 4.8 g/dL (3.5-5.0); Alkaline Phosphatase 134 U/L (38-126); Amylase 53 U/L (30-110); Anion Gap 12 mmol/L; Blood Urea Nitrogen 14 mg/dL (7-17); Calcium 9.6 mg/dL (8.4-10.2); Carbon Dioxide 24 mmol/L (22-30); Chloride 100 mmol/L (98-107); Glucose 340 mg/dL (74-99); Lipase 66 U/L (23-300); Non-African American GFR(CKD) >90 (>60 ml/min/1.73 sqM); Potassium 4.2 mmol/L (3.5-5.1); Sodium 136 mmol/L (137-145); Total Bilirubin 0.6 mg/dL (0.2-1.3); Total Protein 8.4 g/dL (6.3-8.2)
[2021-11-24 12:37] VITALS: RESP 20
[2021-11-24 12:46] LABS: Glucose,Whole Blood 257 mg/dL (75-99)
[2021-11-24] MEDS ORDERED: INSULIN REGULAR 100 UNIT/ML VIAL (IV) IV ONE (12:47)
[2021-11-24] MEDS ORDERED: SODIUM CHLORIDE 0.9% 50 ML IVPB ONE (13:00)
[2021-11-24] MEDS ORDERED: SOTROVIMAB (EUA) 500 MG in SODIUM CHLORIDE 0.9% 100 ML IVPB ONE (13:00)
--- NOTE | 2021-11-24 13:25 | ED ---
General Adult HPI - General Chief complaint: Extremity Problem,Nontraumatic Stated complaint: Bilateral Leg Pain Time Seen by Provider: 11/24/21 11:04 Source: patient, RN notes reviewed Mode of arrival: ambulatory Limitations: no limitations - History of Present Illness Initial comments: 56-year-old female presents emergency from chief complaints of hyperglycemia, body aches. Patient was sent over from urgent care for concerns of her hyperglycemia. Patient's blood sugar was elevated in 300s. She states that she's having body aches all over especially of her legs. Concerned she may be dehydrated. Patient's had some diarrhea, nausea, decreased oral intake. Patient also went of cough and headache. Patient states that she was negative: At urgent care. She states that tonight herself any recent insulin. - Related Data Home Medications Medication Instructions Recorded Confirmed Insuln Asp Prt/Insulin Aspart 35 unit SQ BID 02/05/19 11/24/21 [NovoLOG MIX 70-30 VIAL] Acetaminophen [Tylenol] 500 - 1,000 mg PO Q8H PRN 11/06/20 11/24/21 EPINEPHrine (Auto Inject) [Epipen] 0.3 mg IM ONCE PRN 01/22/21 11/24/21 Repaglinide [Prandin] 1 mg PO DIRECTED 01/22/21 11/24/21 Losartan Potassium [Cozaar] 25 mg PO DAILY 11/24/21 11/24/21 Metoclopramide [Reglan] 5 mg PO AC-TID PRN 11/24/21 11/24/21 glipiZIDE [Glucotrol] 10 mg PO BID 11/24/21 11/24/21 Allergies Allergy/AdvReac Type Severity Reaction Status Date / Time erythromycin base Allergy Rash/Hives Verified 11/24/21 11:55 gemifloxacin [From Factive] Allergy Anaphylaxis Verified 11/24/21 11:55 Penicillins Allergy Rash/Hives Verified 11/24/21 11:55 prednisone Allergy Rash/Hives Verified 11/24/21 11:55 Sulfa (Sulfonamide Allergy Rash/Hives Verified 11/24/21 11:55 Antibiotics) pine nuts AdvReac Anaphylaxis Uncoded 11/24/21 11:01 Review of Systems ROS Statement: Those systems with pertinent positive or pertinent negative responses have been documented in the HPI. ROS Other: All systems not noted in ROS Statement are negative. Past Medical History Past Medical History: Diabetes Mellitus, Hyperlipidemia, Hypertension Additional Past Medical History / Comment(s): vomiting after eating, constipation, History of Any Multi-Drug Resistant Organisms: None Reported Past Surgical History: Appendectomy, Cholecystectomy Additional Past Surgical History / Comment(s): cysts removed from ovaries Past Anesthesia/Blood Transfusion Reactions: Motion Sickness, Postoperative Nausea & Vomiting (PONV) Past Psychological History: No Psychological Hx Reported Smoking Status: Never smoker Past Alcohol Use History: None Reported Past Drug Use History: None Reported - Past Family History Sister(s) Family Medical History: Deep Vein Thrombosis (DVT) General Exam Limitations: no limitations General appearance: alert, in no apparent distress Head exam: Present: atraumatic, normocephalic, normal inspection Eye exam: Present: normal appearance, PERRL, EOMI. Absent: scleral icterus, conjunctival injection, periorbital swelling ENT exam: Present: normal exam, normal oropharynx, mucous membranes moist Neck exam: Present: normal inspection, full ROM. Absent: tenderness, meningismus, lymphadenopathy Respiratory exam: Present: normal lung sounds bilaterally. Absent: respiratory distress, wheezes, rales, rhonchi, stridor Cardiovascular Exam: Present: normal rhythm, tachycardia, normal heart sounds. Absent: systolic murmur, diastolic murmur, rubs, gallop, clicks GI/Abdominal exam: Present: soft, normal bowel sounds. Absent: distended, tenderness, guarding, rebound, rigid Course Vital Signs 11/24/21 11/24/21 11:00 12:10 Temperature 99 F 98.7 F Pulse Rate 121 H 109 H Respiratory 18 20 Rate Blood Pressure 120/71 137/77 O2 Sat by Pulse 97 95 Oximetry Medical Decision Making - Medical Decision Making Patient is positive for: 19. Patient did have mild hyperglycemia in which she was well hydrated, given insulin. Blood sugars improved. Patient states she does feel greatly improved does not have a significant anion gap patient is not acidotic. Patient will be discharged after monoclonal antibodies return parameters were discussed. - Lab Data Result diagrams: 11/24/21 11:44 11/24/21 11:44 Lab Results 11/24/21 11/24/21 11/24/21 Range/Units 11:44 11:44 11:44 WBC 7.2 (3.8-10.6) k/uL RBC 5.48 H (3.80-5.40) m/uL Hgb 15.6 (11.4-16.0) gm/dL Hct 47.3 H (34.0-46.0) % MCV 86.4 (80.0-100.0) fL MCH 28.4 (25.0-35.0) pg MCHC 32.9 (31.0-37.0) g/dL RDW 13.2 (11.5-15.5) % Plt Count 281 (150-450) k/uL MPV 7.2 Neutrophils % 87 % Lymphocytes % 7 % Monocytes % 4 % Eosinophils % 1 % Basophils % 1 % Neutrophils # 6.3 (1.3-7.7) k/uL Lymphocytes # 0.5 L (1.0-4.8) k/uL Monocytes # 0.3 (0-1.0) k/uL Eosinophils # 0.1 (0-0.7) k/uL Basophils # 0.0 (0-0.2) k/uL Sodium 136 L (137-145) mmol/L Potassium 4.2 (3.5-5.1) mmol/L Chloride 100 (98-107) mmol/L Carbon Dioxide 24 (22-30) mmol/L Anion Gap 12 mmol/L BUN 14 (7-17) mg/dL Creatinine 0.60 (0.52-1.04) mg/dL Est GFR (CKD-EPI)AfAm >90 (>60 ml/min/1.73 sqM) Est GFR (CKD-EPI)NonAf >90 (>60 ml/min/1.73 sqM) Glucose 340 H (74-99) mg/dL POC Glucose (mg/dL) (75-99) mg/dL POC Glu Field Hauler ID Plasma Lactic Acid Jameel 1.7 (0.7-2.0) mmol/L Calcium 9.6 (8.4-10.2) mg/dL Total Bilirubin 0.6 (0.2-1.3) mg/dL AST 65 H (14-36) U/L ALT 66 H (4-34) U/L Alkaline Phosphatase 134 H (38-126) U/L Total Protein 8.4 H (6.3-8.2) g/dL Albumin 4.8 (3.5-5.0) g/dL Amylase 53 (30-110) U/L Lipase 66 (23-300) U/L Acetone, Qual Positive (Negative) Coronavirus (PCR) (Not Detectd) 11/24/21 11/24/21 Range/Units 11:44 12:44 WBC (3.8-10.6) k/uL RBC (3.80-5.40) m/uL Hgb (11.4-16.0) gm/dL Hct (34.0-46.0) % MCV (80.0-100.0) fL MCH (25.0-35.0) pg MCHC (31.0-37.0) g/dL RDW (11.5-15.5) % Plt Count (150-450) k/uL MPV Neutrophils % % Lymphocytes % % Monocytes % % Eosinophils % % Basophils % % Neutrophils # (1.3-7.7) k/uL Lymphocytes # (1.0-4.8) k/uL Monocytes # (0-1.0) k/uL Eosinophils # (0-0.7) k/uL Basophils # (0-0.2) k/uL Sodium (137-145) mmol/L Potassium (3.5-5.1) mmol/L Chloride (98-107) mmol/L Carbon Dioxide (22-30) mmol/L Anion Gap mmol/L BUN (7-17) mg/dL Creatinine (0.52-1.04) mg/dL Est GFR (CKD-EPI)AfAm (>60 ml/min/1.73 sqM) Est GFR (CKD-EPI)NonAf (>60 ml/min/1.73 sqM) Glucose (74-99) mg/dL POC Glucose (mg/dL) 257 H (75-99) mg/dL POC Glu Field Hauler ID Rayo Garcia Plasma Lactic Acid Jameel (0.7-2.0) mmol/L Calcium (8.4-10.2) mg/dL Total Bilirubin (0.2-1.3) mg/dL AST (14-36) U/L ALT (4-34) U/L Alkaline Phosphatase (38-126) U/L Total Protein (6.3-8.2) g/dL Albumin (3.5-5.0) g/dL Amylase (30-110) U/L Lipase (23-300) U/L Acetone, Qual (Negative) Coronavirus (PCR) Detected A (Not Detectd) Disposition Clinical Impression: Hyperglycemia, Diabetes, COVID-19 Disposition: HOME SELF-CARE Condition: Stable Instructions (If sedation given, give patient instructions): Coronavirus Disease 2019 (COVID-19) Additional Instructions: Please return to the Emergency Department if symptoms worsen or any other concerns. Is patient prescribed a controlled substance at d/c from ED?: No Referrals: Dallas Thompson MD [Primary Care Provider] - 1-2 days Time of Disposition: 13:24
[2021-11-24 15:20] VITALS: BP 107/72; PULSE 96; TEMP 98.6
== END 2021-11-24 15:16 | disposition home or self-care (01) ==
LOC: EC 10:40
DX: U07.1 COVID-19 (principal); E11.65 Type 2 diabetes mellitus with hyperglycemia; E78.5 Hyperlipidemia, unspecified; I10 Essential (primary) hypertension; Z79.4 Long term (current) use of insulin; Z88.0 Allergy status to penicillin; Z88.2 Allergy status to sulfonamides; Z88.1 Allergy status to other antibiotic agents; Z90.49 Acquired absence of other specified parts of digestive tract
CPT/HCPCS: 99284; 96374; 96375 ×2; 96361 ×2; 80053; 82150; 82009; 83605; 83690; 85025; 87635; J2360; J2405; J1885; Q0247

== ENCOUNTER 2022-04-02 11:59 | Observation (INO) | payer OTHER ==
[2022-04-02] MEDS ORDERED: ASPIRIN 81 MG PO STA (12:16)
[2022-04-02 12:39] LABS: Basophils # (A) 0.1 k/uL (0-0.2); Basophils % (A) 1 %; Eosinophils # (A) 0.1 k/uL (0-0.7); Eosinophils % (A) 3 %; HCT 41.7 % (34.0-46.0); Lymphocytes # (A) 1.1 k/uL (1.0-4.8); Lymphocytes % (A) 20 %; MCH 28.8 pg (25.0-35.0); MCHC 33.5 g/dL (31.0-37.0); Mean Platelet Volume 7.3; Monocytes # (A) 0.3 k/uL (0-1.0); Monocytes % (A) 6 %; Neutrophils # (A) 3.8 k/uL (1.3-7.7); Neutrophils % (A) 69 %; Platelet Count 316 k/uL (150-450); RBC 4.84 m/uL (3.80-5.40); WBC 5.5 k/uL (3.8-10.6)
[2022-04-02 13:02] LABS: ALT 48 U/L (4-34); AST 56 U/L (14-36); African American GFR (CKD) >90 (>60 ml/min/1.73 sqM); Albumin 4.2 g/dL (3.5-5.0); Alkaline Phosphatase 113 U/L (38-126); Anion Gap 11 mmol/L; Blood Urea Nitrogen 13 mg/dL (7-17); Calcium 9.1 mg/dL (8.4-10.2); Carbon Dioxide 23 mmol/L (22-30); Chloride 100 mmol/L (98-107); Glucose 400 mg/dL (74-99); Lipase 111 U/L (23-300); Magnesium 1.8 mg/dL (1.6-2.3); Non-African American GFR(CKD) >90 (>60 ml/min/1.73 sqM); Potassium 4.2 mmol/L (3.5-5.1); Sodium 134 mmol/L (137-145); Total Bilirubin 0.3 mg/dL (0.2-1.3); Total Protein 6.8 g/dL (6.3-8.2)
--- NOTE | 2022-04-02 13:04 | XR ---
EXAMINATION TYPE: XR chest 2V DATE OF EXAM: 04/02/2022 HISTORY: Shortness of breath. COMPARISON: 08/28/2021 TECHNIQUE: Single view of the chest is submitted. FINDINGS: Demonstrated are scattered senescent parenchymal change. There is no evidence for focal infiltrate. The heart is stable. Hilar and mediastinal structures are within normal limits. Degenerative changes are seen of the dorsal spine. IMPRESSION: 1. Chronic changes without evidence for acute pulmonary disease.
[2022-04-02 13:23] LABS: Prothrombin Time 10.5 sec (9.0-12.0)
[2022-04-02 13:25] LABS: Partial Thromboplastin Time 21.2 sec (22.0-30.0)
[2022-04-02] MEDS ORDERED: NITROGLYCERIN SL TABS 0.4 MG TAB SUBLINGUAL PRN (14:57)
--- NOTE | 2022-04-02 14:57 | ED ---
Chest Pain HPI - General Chief Complaint: Chest Pain Stated Complaint: chest, jaw & back pain Time Seen by Provider: 04/02/22 12:06 Source: patient, RN notes reviewed Mode of arrival: ambulatory Limitations: no limitations - History of Present Illness Initial Comments: 56-year-old female presents emergency Department chief complaint of chest pain. Patient states started just prior arrival. She states she has upper chest pain jaw, shoulder pain. Patient has no prior cardiac disease. Patient states that she just doesn't feel well. Patient has a lightning like swelling no shortness of breath. - Related Data Home Medications Medication Instructions Recorded Confirmed Insuln Asp Prt/Insulin Aspart 40 unit SQ BID 02/05/19 04/02/22 [NovoLOG MIX 70-30 VIAL] Allergies Allergy/AdvReac Type Severity Reaction Status Date / Time erythromycin base Allergy Rash/Hives Verified 04/02/22 13:57 gemifloxacin [From Factive] Allergy Anaphylaxis Verified 04/02/22 13:57 Penicillins Allergy Rash/Hives Verified 04/02/22 13:57 prednisone Allergy Rash/Hives Verified 04/02/22 13:57 Sulfa (Sulfonamide Allergy Rash/Hives Verified 04/02/22 13:57 Antibiotics) pine nuts AdvReac Anaphylaxis Uncoded 04/02/22 12:02 Review of Systems ROS Statement: Those systems with pertinent positive or pertinent negative responses have been documented in the HPI. ROS Other: All systems not noted in ROS Statement are negative. Past Medical History Past Medical History: Diabetes Mellitus, Hyperlipidemia, Hypertension Additional Past Medical History / Comment(s): vomiting after eating, constipation, History of Any Multi-Drug Resistant Organisms: None Reported Past Surgical History: Appendectomy, Cholecystectomy Additional Past Surgical History / Comment(s): cysts removed from ovaries Past Anesthesia/Blood Transfusion Reactions: Motion Sickness, Postoperative Nausea & Vomiting (PONV) Past Psychological History: No Psychological Hx Reported Smoking Status: Never smoker Past Alcohol Use History: None Reported Past Drug Use History: None Reported - Past Family History Sister(s) Family Medical History: Deep Vein Thrombosis (DVT) General Exam Limitations: no limitations General appearance: alert, in no apparent distress Head exam: Present: atraumatic, normocephalic, normal inspection Eye exam: Present: normal appearance, PERRL, EOMI. Absent: scleral icterus, conjunctival injection, periorbital swelling ENT exam: Present: normal exam, normal oropharynx, mucous membranes moist Neck exam: Present: normal inspection, full ROM. Absent: tenderness, meningismus, lymphadenopathy Respiratory exam: Present: normal lung sounds bilaterally. Absent: respiratory distress, wheezes, rales, rhonchi, stridor Cardiovascular Exam: Present: normal rhythm, tachycardia, normal heart sounds. Absent: systolic murmur, diastolic murmur, rubs, gallop, clicks Course Vital Signs 04/02/22 04/02/22 12:00 12:15 Temperature 98.1 F Pulse Rate 111 H 110 H Respiratory 22 20 Rate Blood Pressure 151/83 161/87 O2 Sat by Pulse 96 97 Oximetry Chest Pain MDM - MDM Patient's troponin is negative patient does have moderate hyperglycemia. Patiently admitted for cardiac rule out. Patient we treated for hyperglycemia with sliding scale. Case discussed with Dr. Vallecillo Disposition Clinical Impression: Hyperglycemia, Chest pain Disposition: ADMITTED IP TO THIS HOSP Condition: Fair Referrals: Dallas Thompson MD [Primary Care Provider] - 1-2 days Time of Disposition: 14:56
[2022-04-02 17:23] LABS: Glucose,Whole Blood 294 mg/dL (75-99)
[2022-04-02] MEDS: INSULIN ASPART (NovoLOG) 100 UNIT/ML VIAL SQ SCH ×2 (17:59→20:42)
[2022-04-02 20:13] LABS: Glucose,Whole Blood 591 mg/dL (75-99)
[2022-04-02 20:14] LABS: Glucose,Whole Blood 465 mg/dL (75-99)
[2022-04-02] MEDS ORDERED: hydrALAZINE HCL 20 MG/ML 1 ML VIAL IVP PRN (21:08)
[2022-04-02] MEDS ORDERED: atenoloL 25 MG TAB PO SCH (21:15)
--- NOTE | 2022-04-02 21:47 | HP ---
HISTORY AND PHYSICAL This 56-year-old white female came in with chest pain in the upper jaw. No prior cardiac disease. Does not feel well. Has a leg swelling. No shortness of breath. Home medicines are NovoLog 70/30 four units b.i.d. ALLERGIES: Please see list. Fourteen-point review of systems otherwise negative. PAST MEDICAL HISTORY: Diabetes mellitus, hypertension, dyslipidemia, possible GERD versus gastroparesis. SURGERIES: Appendectomy, cholecystectomy. FAMILY HISTORY: Sister with DVT. PHYSICAL EXAMINATION: Pulse is 110 to 115, temperature 98.1, blood pressure 150s to 160s over 60s to 80s, respiratory rate 20 to 25. Lungs clear. Cardiovascular S1, S2. Tachycardic. GI soft. Hematology negative Homans. ASSESSMENT: 1. Uncontrolled diabetes mellitus. 2. Atypical chest pain, possibly stress-induced. Negative for myocardial infarction. Will order echo. Will order a D-dimer. If D-dimer is high, will do a CT scan of the chest. Please see further orders. Prognosis guarded. 3. Anxiety due to social concerns, recent court case over guardianship of her grandkids that is stressing her out, possibly causing tachycardia and severe anxiety. Please see further orders. MMODL / IJN: [id number] /
[2022-04-02] MEDS: INSULN ASP PRT/INSULIN ASPART 100 UNIT/ML 10 ML VIAL SQ SCH (22:15)
[2022-04-03 05:55] VITALS: TEMP 98.3
[2022-04-03 07:06] LABS: Glucose,Whole Blood 306 mg/dL (75-99)
[2022-04-03] MEDS: INSULIN ASPART (NovoLOG) 100 UNIT/ML VIAL SQ SCH ×2 (07:17→12:33)
[2022-04-03] MEDS: INSULN ASP PRT/INSULIN ASPART 100 UNIT/ML 10 ML VIAL SQ SCH (07:17)
[2022-04-03 07:57] VITALS: BP 111/71; PULSE 76; RESP 18
[2022-04-03] MEDS ORDERED: ASPIRIN 325 MG TAB PO SCH (09:00)
[2022-04-03] MEDS ORDERED: ASPIRIN 81 MG PO SCH (09:00)
--- NOTE | 2022-04-03 10:05 | CA ---
Transthoracic Echo Report Name: Christin Hunter Age: 56 Gender: F : 1965 Exam Date: 04/03/2022 09:18 Exam Location: [facility] Ht (in): 51 Wt (lb): 138 Ordering Physician: Tawanna Streeter Attending/Referring Phys: [id number], Syl [employer] Supply Technician Rajni Slater RDCS Procedure CPT: Indications: LV function Cardiac Hx: No cardiac hx. Technical Quality: Fair Contrast 1: Total Dose (mL): Contrast 2: Total Dose (mL): MEASUREMENTS (Male / Female) Normal Values 2D ECHO LV Diastolic Diameter PLAX 3.7 cm 4.2 - 5.9 / 3.9 - 5.3 cm LV Systolic Diameter PLAX 1.4 cm IVS Diastolic Thickness 1.1 cm 0.6 - 1.0 / 0.6 - 0.9 cm LVPW Diastolic Thickness 1.1 cm 0.6 - 1.0 / 0.6 - 0.9 cm LV Relative Wall Thickness 0.6 RV Internal Dim ED PLAX 2.2 cm LA Volume 15.9 cm??? 18 - 58 / 22 - 52 cm??? M-MODE Aortic Root Diameter MM 2.4 cm LA Systolic Diameter MM 2.3 cm LA Ao Ratio MM 1.0 MV E Point Septal Separation 0.9 cm AV Cusp Separation MM 1.7 cm DOPPLER AV Peak Velocity 98.2 cm/s AV Peak Gradient 3.9 mmHg MV Area PHT 3.8 cm??? MR Peak Velocity 72.3 cm/s MR Peak Gradient 2.1 mmHg Mitral E Point Velocity 65.6 cm/s Mitral A Point Velocity 82.6 cm/s Mitral E to A Ratio 0.8 MV Deceleration Time 202.0 ms MV E' Velocity 3.9 cm/s Mitral E to MV E' Ratio 16.8 TR Peak Velocity 70.6 cm/s TR Peak Gradient 2.0 mmHg FINDINGS Left Ventricle Mildly increased septal wall thickness. Mildly increased posterior wall thickness. Left ventricular ejection fraction is about 55% Right Ventricle The right ventricle is normal in size and function. Right Atrium The right atrium is normal in size. Left Atrium The left atrium is normal in size. Mitral Valve Structurally normal mitral valve without significant stenosis or prolapse. There is trace mitral regurgitation. Aortic Valve Structurally normal aortic valve without significant sclerosis or stenosis. There is no aortic regurgitation. Tricuspid Valve Structurally normal tricuspid valve without significant stenosis. Pulmonary artery systolic pressure is normal. Trace tricuspid regurgitation. Pulmonic Valve Structurally normal pulmonic valve without significant stenosis. There is no pulmonic regurgitation. Pericardium Normal pericardium without effusion. Aorta Normal aortic root dimension. CONCLUSIONS #1. Normal left ventricular size and function. Mild concentric left ventricular hypertrophy. #2. Normal valvular function Previewed by: Dr. Heidi Miranda MD (Electronically Signed) Final Date: 03 April 2022 10:04
[2022-04-03 10:26] LABS: Appearance,Urine Clear (Clear); Bilirubin,Urine Negative (Negative); Blood,Urine Negative (Negative); Color,Urine Light Yellow; Glucose,Urine (UA) 4+ (Negative); Ketones,Urine Negative (Negative); Leukocyte Esterase,Urine Negative (Negative); Nitrite,Urine Negative (Negative); Protein,Urine Negative (Negative); Specific Gravity,Urine 1.041 (1.001-1.035); Urobilinogen,Urine <2.0 mg/dL (<2.0)
[2022-04-03 11:00] LABS: HDL Cholesterol 30.5 mg/dL (40.00-60.00)
[2022-04-03 11:12] LABS: Chol/HDL Ratio 8.26 Ratio
--- NOTE | 2022-04-03 11:25 | P.CRDCN ---
History of Present Illness History of present illness: HISTORY OF PRESENT ILLNESS: This is a 56-year-old female with a past medical history significant for diabetes. 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 We have been asked to see the patient in consultation for chest pain. Patient examined at the bedside. Patient states that yesterday she was at the dentist with her grandkids when she began to have chest pain. She states the pain was in the middle of her chest and radiated to both sides of her jaw and in between her shoulder blades. She denied having any shortness of breath. No nausea or vomiting. She states the pain lasted for approximately 20 minutes. She went outside and states she tried to take some deep breaths. And relax and the pain went away. She denies any further chest pain since that incident. 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 * EKG reveals sinus tachycardia with no signs of acute ischemia * Chest xray chronic changes without evidence for acute pulmonary disease * Laboratory data: W BC 5.5. Hemoglobin 14.0. Platelet count 316. D-dimer 0.49. Sodium 134. Potassium 4.2. BUN 13. Creatinine 0.55. Blood sugar 465. Troponin negative 3 * Current home cardiac medications include none * Most recent echocardiogram obtained in 2019 revealed ejection fraction 60-65%, trace MR, mild TR REVIEW OF SYSTEMS: At the time of my exam: CONSTITUTIONAL: Denies fever or chills. HEENT: Denies blurred vision, vision changes, or eye pain. Denies hemoptysis CARDIOVASCULAR: Denies chest pain. Denies orthopnea. Denies PND. Denies palpitations RESPIRATORY: Denies shortness of breath. GASTROINTESTINAL: Denies abdominal pain. Denies nausea or vomiting. HEMATOLOGIC: Denies bleeding disorders. GENITOURINARY: Denies any blood in urine. SKIN: Denies pruitis. Denies rash. PHYSICAL EXAM: VITAL SIGNS: Reviewed. GENERAL: Well-developed in no acute distress. HEENT: Head is normocephalic. Pupils are equal, round. Sclerae anicteric. Mucous membranes of the mouth are moist. Neck supple. No JVD or thyromegaly LUNGS: Respirations even and unlabored. Lungs essentially clear to auscultation bilaterally. HEART: Regular rate and rhythm. S1 and S2 heard. ABDOMEN: Soft. Nondistended. Nontender. EXTREMITIES: Normal range of motion. No clubbing or cyanosis. Peripheral pulses intact. No lower extremity edema NEUROLOGIC: Awake and alert. Oriented x 3. ASSESSMENT: Chest pain Diabetes, uncontrolled Hyperlipidemia PLAN: An acute coronary event has been ruled out Begin Lipitor 40 mg at night and lisinopril 2.5 mg daily Recommend tighter blood sugar control as patient's blood sugars were in the 400s on admission Obtain 2-D echo to assess cardiac structure and function Patient to undergo stress echo Cardizem today. If negative, the patient may be discharged home today from a cardiac perspective Nurse practitioner note has been reviewed by physician. Signing provider agrees with the documented findings, assessment, and plan of care. Past Medical History Past Medical History: Diabetes Mellitus, Hyperlipidemia, Hypertension Additional Past Medical History / Comment(s): vomiting after eating, constipat ion, History of Any Multi-Drug Resistant Organisms: None Reported Past Surgical History: Appendectomy, Cholecystectomy Additional Past Surgical History / Comment(s): cysts removed from ovaries Past Anesthesia/Blood Transfusion Reactions: Motion Sickness, Postoperative Nausea & Vomiting (PONV) Past Psychological History: No Psychological Hx Reported Smoking Status: Never smoker Past Alcohol Use History: None Reported Additional Past Alcohol Use History / Comment(s): quit smoking 30 yrs ago, smoke d for 2-3 yrs Past Drug Use History: None Reported - Past Family History Sister(s) Family Medical History: Deep Vein Thrombosis (DVT) Medications and Allergies Home Medications Medication Instructions Recorded Confirmed Type Insuln Asp Prt/Insulin Aspart 40 unit SQ BID 02/05/19 04/02/22 History [NovoLOG MIX 70-30 VIAL] Allergies Allergy/AdvReac Type Severity Reaction Status Date / Time erythromycin base Allergy Rash/Hives Verified 04/02/22 13:57 gemifloxacin [From Factive] Allergy Anaphylaxis Verified 04/02/22 13:57 Penicillins Allergy Rash/Hives Verified 04/02/22 13:57 prednisone Allergy Rash/Hives Verified 04/02/22 13:57 Sulfa (Sulfonamide Allergy Rash/Hives Verified 04/02/22 13:57 Antibiotics) pine nuts AdvReac Anaphylaxis Uncoded 04/02/22 12:02 Physical Exam Vitals: Vital Signs Temp Pulse Pulse Pulse Resp BP BP 04/03/22 07:00 98.3 F 76 18 111/71 04/03/22 02:00 98.3 F 69 16 114/74 04/02/22 19:27 98.6 F 97 16 115/74 04/02/22 18:28 97.7 F 98 16 04/02/22 15:59 89 18 159/79 04/02/22 12:15 110 H 20 161/87 04/02/22 12:00 98.1 F 111 H 22 151/83 BP Pulse Ox 04/03/22 07:00 96 04/03/22 02:00 98 04/02/22 19:27 96 04/02/22 18:28 130/77 97 04/02/22 15:59 97 04/02/22 12:15 97 04/02/22 12:00 96 Intake and Output 04/02/22 04/03/22 04/03/22 22:59 06:59 14:59 Other: Voiding Method Toilet Toilet Toilet # Voids 0 1 Weight 62.596 kg Results 04/02/22 12:18 04/02/22 12:18 Cardiac Enzymes 04/02/22 04/02/22 04/02/22 Range/Units 12:18 12:18 15:34 AST 56 H (14-36) U/L Troponin I <0.012 <0.012 (0.000-0.034) ng/mL 04/02/22 Range/Units 18:24 AST (14-36) U/L Troponin I <0.012 (0.000-0.034) ng/mL Coagulation 04/02/22 Range/Units 12:18 PT 10.5 (9.0-12.0) sec APTT 21.2 L (22.0-30.0) sec CBC 04/02/22 Range/Units 12:18 WBC 5.5 (3.8-10.6) k/uL RBC 4.84 (3.80-5.40) m/uL Hgb 14.0 (11.4-16.0) gm/dL Hct 41.7 (34.0-46.0) % Plt Count 316 (150-450) k/uL Comprehensive Metabolic Panel 04/02/22 Range/Units 12:18 Sodium 134 L (137-145) mmol/L Potassium 4.2 (3.5-5.1) mmol/L Chloride 100 (98-107) mmol/L Carbon Dioxide 23 (22-30) mmol/L BUN 13 (7-17) mg/dL Creatinine 0.55 (0.52-1.04) mg/dL Glucose 400 H (74-99) mg/dL Calcium 9.1 (8.4-10.2) mg/dL AST 56 H (14-36) U/L ALT 48 H (4-34) U/L Alkaline Phosphatase 113 (38-126) U/L Total Protein 6.8 (6.3-8.2) g/dL Albumin 4.2 (3.5-5.0) g/dL Current Medications Generic Name Dose Route Start Last Admin Trade Name Freq PRN Reason Stop Dose Admin Aspirin 325 mg 04/03/22 09:00 04/03/22 07:17 Aspirin 325 Mg Tab PO 325 mg DAILY FANNY Administration Atenolol 25 mg 04/02/22 21:15 04/02/22 22:14 Atenolol 25 Mg Tab PO 25 mg BID FANNY Administration Hydralazine HCl 10 mg 04/02/22 21:08 Hydralazine Hcl 20 Mg/Ml 1 Ml Vial IVP Q6HR PRN Blood Pressure - High Insulin Aspart 0 unit 04/02/22 17:30 04/03/22 07:17 Insulin Aspart (Novolog) 100 Unit/Ml Vial SQ 5 unit ACHS FANNY Administration Protocol Insulin Aspart 40 unit 04/02/22 21:15 04/03/22 07:17 Insuln Asp Prt/Insulin Aspart 100 Unit/Ml 10 Ml Vial SQ 40 unit BID FANNY Administration Nitroglycerin 0.4 mg 04/02/22 14:57 Nitroglycerin Sl Tabs 0.4 Mg Tab SUBLINGUAL Q5M PRN Chest Pain Intake and Output 04/02/22 04/03/22 04/03/22 22:59 06:59 14:59 Other: Voiding Method Toilet Toilet Toilet # Voids 0 1 Weight 62.596 kg 04/02/22 12:18 04/02/22 12:18
[2022-04-03 12:29] LABS: Glucose,Whole Blood 176 mg/dL (75-99)
[2022-04-03] MEDS ORDERED: ATORVASTATIN 40 MG TAB PO SCH (21:00)
[2022-04-04] MEDS ORDERED: ASPIRIN 81 MG PO SCH (09:00)
--- NOTE | 2022-04-04 09:14 | CA ---
Stress Echo Report Christin Hunter Age: 56 Gender: F : 1965 Exam Date: 04/03/2022 11:32 Exam Location: [facility] Ht (in): 59 Wt (lb): 138 Ordering Physician: Tawanna Streeter Referring Physician: [id number] Heel Room Supervisor: KASSIE Technologist Procedure CPT: Indication: CP ICD-9 Codes: Rhythm: Patient History: Chest Pain, Jaw Pain, Hypertension and Diabetes Cardiac Medications: Medications in past 24 hours: Contrast: Lumason Stress Results Protocol: Gonzalo Total dose(mL): 5 Exercise Duration (min:sec): Max ST Depression (mm): Angina Score: Weston Score: METS: 10.5 Resting HR: 90 Resting BP: 110 / 69 Peak HR: 144 Peak BP: 198 / 80 Max Predicted HR: 163 88 % Max Predicted HR Target HR: 139 Double Product: 70192 Stress Summary: BP Response: Reason for Termination: Reached target heart rate or work-load Cardiac Symptoms: Test terminated after reaching target heart rate (85% max predicted) ECG Analysis Resting ECG: Sinus rhythm with a normal MS interval and QRS duration Stress ECG: Sinus rhythm and sinus tachycardia without any ischemic changes Arrhythmia: Echo Analysis Resting Echo: Normal wall motion and thickening Peak Echo Analysis: Augmentation of wall motion and thickening in all the segments MEASUREMENTS (Male/Female) Normal Values CONCLUSIONS #1. Negative stress test. #2. Negative stress echo Dr. Heidi Miranda MD (Electronically Signed) Final Date: 04 April 2022 09:13
== END 2022-04-03 13:52 | disposition home or self-care (01) ==
LOC: EC 11:59 → 6NMEDSUR 14:54
PROVIDERS: ADMIT Family Medicine; ATTEND Family Medicine
DX: R07.89 Other chest pain (principal); E11.65 Type 2 diabetes mellitus with hyperglycemia; F41.9 Anxiety disorder, unspecified; R79.89 Other specified abnormal findings of blood chemistry; I10 Essential (primary) hypertension; R00.0 Tachycardia, unspecified; E78.5 Hyperlipidemia, unspecified; K59.00 Constipation, unspecified; Z63.79 Other stressful life events affecting family and household; Z79.4 Long term (current) use of insulin; Z88.0 Allergy status to penicillin; Z88.1 Allergy status to other antibiotic agents; Z88.2 Allergy status to sulfonamides; Z88.8 Allergy status to other drugs, medicaments and biological substances; Z91.018 Allergy to other foods; Z90.49 Acquired absence of other specified parts of digestive tract; Z87.891 Personal history of nicotine dependence; Z98.890 Other specified postprocedural states; Z82.49 Family history of ischemic heart disease and other diseases of the circulatory system
CPT/HCPCS: 99285; 36415; 93005; 93306; 93351; 85379; 80061; 80053; 83690; 83735; 84484; 85025; 85610; 85730; 81003; 83721; 71046; G0378 ×2; Q9950

== ENCOUNTER → 2022-05-27 | Outpatient (CLI) | payer OTHER ==
[2022-05-28 10:44] LABS: APTT 34 Sec(s) (<43); Dilute Russell Viper Venom 36 Sec(s) (<44)
== END | disposition home or self-care (01) ==
LOC: LABWHC1 12:21
PROVIDERS: ATTEND Family Medicine
DX: Z79.899 Other long term (current) drug therapy (principal)
CPT/HCPCS: 36415; 85613; 85730

== ENCOUNTER 2022-07-20 06:38 | Emergency (ER) | payer OTHER ==
[2022-07-20] MEDS ORDERED: LIDOCAINE 1% INJ 10MG/ML (20 ML MDV) SQ ONE (07:35)
[2022-07-20] MEDS ORDERED: CLINDAMYCIN 150 MG CAP PO STA (07:51)
--- NOTE | 2022-07-20 07:56 | ED ---
General Adult HPI - General Chief complaint: Neck Pain/Injury Stated complaint: neck pain Time Seen by Provider: 07/20/22 07:00 Source: patient, RN notes reviewed, old records reviewed Mode of arrival: ambulatory Limitations: no limitations - History of Present Illness Initial comments: This is a 57-year-old female who comes into the emergency department complaining that she has an abscess occipital region of her scalp right above the neck. Patient states on Thursday she got doxycycline but it didn't help and Thursday she got a prescription for Keflex but the abscess seems to be getting worse it's more painful. Patient doesn't have any fevers or chills. Patient denies any neck stiffness. Patient states there are no other abscesses that she knows of. Patient denies any history of MRSA. - Related Data Home Medications Medication Instructions Recorded Confirmed Insuln Asp Prt/Insulin Aspart 40 unit SQ BID 02/05/19 04/02/22 [NovoLOG MIX 70-30 VIAL] Previous Rx's Medication Instructions Recorded clindamycin HCL 300 mg PO QID #40 capsule 07/20/22 Allergies Allergy/AdvReac Type Severity Reaction Status Date / Time erythromycin base Allergy Rash/Hives Verified 07/20/22 06:44 gemifloxacin [From Factive] Allergy Anaphylaxis Verified 07/20/22 06:44 Penicillins Allergy Rash/Hives Verified 07/20/22 06:44 prednisone Allergy Rash/Hives Verified 07/20/22 06:44 Sulfa (Sulfonamide Allergy Rash/Hives Verified 07/20/22 06:44 Antibiotics) pine nuts AdvReac Anaphylaxis Uncoded 07/20/22 06:44 Review of Systems ROS Statement: Those systems with pertinent positive or pertinent negative responses have been documented in the HPI. ROS Other: All systems not noted in ROS Statement are negative. Past Medical History Past Medical History: Diabetes Mellitus, Hyperlipidemia, Hypertension Additional Past Medical History / Comment(s): vomiting after eating, constipation, History of Any Multi-Drug Resistant Organisms: None Reported Past Surgical History: Appendectomy, Cholecystectomy Additional Past Surgical History / Comment(s): cysts removed from ovaries Past Anesthesia/Blood Transfusion Reactions: Motion Sickness, Postoperative Nausea & Vomiting (PONV) Past Psychological History: No Psychological Hx Reported Smoking Status: Never smoker Past Alcohol Use History: None Reported Past Drug Use History: None Reported - Past Family History Sister(s) Family Medical History: Deep Vein Thrombosis (DVT) General Exam - General Exam Comments Initial Comments: GENERAL Patient is well-developed and well-nourished. Patient is in mild distress. EYES Patient's pupils are equal and round. Extraocular motion is intact ENT Patient has a fluctuant abscess at the base of the skull in the scalp area in the lower occipital region it is confined to region of about 3 cm in diameter SKIN Unremarkable NEURO The patient is alert and oriented 3 PYSCH Patient has normal interpersonal interactions. MUSCULOSKELETAL All 4 times and full range of motion Limitations: no limitations Course Vital Signs 07/20/22 06:41 Temperature 98.2 F Pulse Rate 118 H Respiratory 20 Rate Blood Pressure 134/98 O2 Sat by Pulse 98 Oximetry Procedures - Incision & Drainage Consent Obtained: verbal consent Site: scalp Anesthetic Used: lidocaine 1% I&D Cleaning Method: Betadine Scalpel Used: #15 I&D Drainage Obtained: Pus, Blood Culture Obtained?: Yes Complications: pain, bleeding Patient Tolerated Procedure: well Disposition Clinical Impression: Scalp abscess Disposition: HOME SELF-CARE Condition: Good Instructions (If sedation given, give patient instructions): Abscess Incision and Drainage (ED), Abscess (ED) Additional Instructions: Patient should take clindamycin as directed and take Keflex. Patient should return to emergency department if symptoms are worsening. Patient should take Tylenol Motrin for pain. Prescriptions: clindamycin HCL 300 mg PO QID #40 capsule Is patient prescribed a controlled substance at d/c from ED?: No Referrals: Dallas Thompson MD [Primary Care Provider] - 1-2 days Time of Disposition: 07:54
[2022-07-20 08:28] VITALS: BP 158/89; PULSE 72; RESP 18; TEMP 98.8
== END 2022-07-20 08:28 | disposition home or self-care (01) ==
LOC: EC 06:38
DX: L02.811 Cutaneous abscess of head [any part, except face] (principal); I10 Essential (primary) hypertension; E11.9 Type 2 diabetes mellitus without complications; Z79.4 Long term (current) use of insulin; Z88.0 Allergy status to penicillin; Z88.2 Allergy status to sulfonamides; Z88.1 Allergy status to other antibiotic agents; Z91.018 Allergy to other foods
CPT/HCPCS: 87070; 87205; 87077; 87186; 10060; 99283; J2001

== ENCOUNTER 2022-09-20 13:01 | Inpatient (IN) | payer OTHER ==
[2022-09-20 14:43] LABS: Glucose,Whole Blood 306 mg/dL (70-110)
[2022-09-20] MEDS ORDERED: SODIUM CHLORIDE 0.9% 1,000 ML IV STA ×2 (15:19)
--- NOTE | 2022-09-20 15:19 | ED ---
URI HPI - General Chief Complaint: Upper Respiratory Infection Stated Complaint: bodyaches, chills/fever Time Seen by Provider: 09/20/22 14:24 Source: patient, RN notes reviewed Mode of arrival: ambulatory Limitations: no limitations - History of Present Illness Initial Comments: 57-year-old female who states she was exposed to influenza type A recently who presents with complaints of fevers chills sweats cough with chest tightness she states she feels tired and can't stay awake she has a frontal headache. No overt dysuria or hematuria but she states she's been having urinary frequency and believes she may have a UTI. She also is diabetic and feels thirsty all time. No other complaints or modifying factors MD Complaint: fever, cough, other - Related Data Home Medications Medication Instructions Recorded Confirmed Insulin NPL/Insulin Lispro 40 unit SQ BID 09/20/22 09/20/22 [humaLOG MIX 75-25 VIAL] Allergies Allergy/AdvReac Type Severity Reaction Status Date / Time erythromycin base Allergy Rash/Hives Verified 09/20/22 16:11 gemifloxacin [From Factive] Allergy Anaphylaxis Verified 09/20/22 16:11 Penicillins Allergy Rash/Hives Verified 09/20/22 16:11 prednisone Allergy Rash/Hives Verified 09/20/22 16:11 Sulfa (Sulfonamide Allergy Rash/Hives Verified 09/20/22 16:11 Antibiotics) pine nuts AdvReac Anaphylaxis Uncoded 09/20/22 13:23 Review of Systems ROS Statement: Those systems with pertinent positive or pertinent negative responses have been documented in the HPI. ROS Other: All systems not noted in ROS Statement are negative. Past Medical History Past Medical History: Diabetes Mellitus, Hyperlipidemia, Hypertension Additional Past Medical History / Comment(s): vomiting after eating, constipation, History of Any Multi-Drug Resistant Organisms: None Reported Past Surgical History: Appendectomy, Cholecystectomy Additional Past Surgical History / Comment(s): cysts removed from ovaries Past Anesthesia/Blood Transfusion Reactions: Motion Sickness, Postoperative Nausea & Vomiting (PONV) Past Psychological History: No Psychological Hx Reported Smoking Status: Never smoker Past Alcohol Use History: None Reported Past Drug Use History: None Reported - Past Family History Sister(s) Family Medical History: Deep Vein Thrombosis (DVT) General Exam - General Exam Comments Initial Comments: This is a well-developed well-nourished awake alert oriented 4 female Limitations: no limitations ENT exam: Present: mucous membranes dry Course Vital Signs 09/20/22 09/20/22 09/20/22 13:21 14:36 16:11 Temperature 99.5 F 100.5 F H Pulse Rate 117 H 117 H 112 H Respiratory 22 18 20 Rate Blood Pressure 138/74 135/78 149/100 O2 Sat by Pulse 97 97 98 Oximetry Medical Decision Making - Medical Decision Making The patient persists in being nauseated so feels weak clinical evidence of de hydration evidence of UTI on lab work. She has hyperglycemia. I did discuss this with her she will be admitted for IV hydration also antibiotics antinausea medication. I did discuss case with Dr. Hutton. - Lab Data Result diagrams: 09/20/22 16:10 09/20/22 16:10 Lab Results 09/20/22 09/20/22 09/20/22 Range/Units 13:24 13:24 14:41 WBC (3.8-10.6) k/uL RBC (3.80-5.40) m/uL Hgb (11.4-16.0) gm/dL Hct (34.0-46.0) % MCV (80.0-100.0) fL MCH (25.0-35.0) pg MCHC (31.0-37.0) g/dL RDW (11.5-15.5) % Plt Count (150-450) k/uL MPV Neutrophils % % Lymphocytes % % Monocytes % % Eosinophils % % Basophils % % Neutrophils # (1.3-7.7) k/uL Lymphocytes # (1.0-4.8) k/uL Monocytes # (0-1.0) k/uL Eosinophils # (0-0.7) k/uL Basophils # (0-0.2) k/uL Sodium (137-145) mmol/L Potassium (3.5-5.1) mmol/L Chloride (98-107) mmol/L Carbon Dioxide (22-30) mmol/L Anion Gap mmol/L BUN (7-17) mg/dL Creatinine (0.52-1.04) mg/dL Est GFR (CKD-EPI)AfAm (>60 ml/min/1.73 sqM) Est GFR (CKD-EPI)NonAf (>60 ml/min/1.73 sqM) Glucose (74-99) mg/dL POC Glucose (mg/dL) 306 H (70-110) mg/dL POC Glu Security Support Analyst ID Bereket Jenkins Plasma Lactic Acid Jameel (0.7-2.0) mmol/L Calcium (8.4-10.2) mg/dL Magnesium (1.6-2.3) mg/dL Total Bilirubin (0.2-1.3) mg/dL AST (14-36) U/L ALT (4-34) U/L Alkaline Phosphatase (38-126) U/L Creatine Kinase (30-135) U/L Troponin I (0.000-0.034) ng/mL Total Protein (6.3-8.2) g/dL Albumin (3.5-5.0) g/dL Urine Color Urine Appearance (Clear) Urine pH (5.0-8.0) Ur Specific [place] (1.001-1.035) Urine Protein (Negative) Urine Glucose (UA) (Negative) Urine Ketones (Negative) Urine Blood (Negative) Urine Nitrite (Negative) Urine Bilirubin (Negative) Urine Urobilinogen (<2.0) mg/dL Ur Leukocyte Esterase (Negative) Urine RBC (0-5) /hpf Urine WBC (0-5) /hpf Urine WBC Clumps (None) /hpf Ur Squamous Epith Cells (0-4) /hpf Urine Bacteria (None) /hpf Urine Mucus (None) /hpf Urine Yeast (Budding) (None) /hpf Coronavirus (PCR) Not Detected (Not Detectd) Influenza Type A RNA Not Detected (Not Detectd) Influenza Type B (PCR) Not Detected (Not Detectd) 09/20/22 09/20/22 09/20/22 Range/Units 16:10 16:10 16:10 WBC 4.8 (3.8-10.6) k/uL RBC 5.01 (3.80-5.40) m/uL Hgb 14.4 (11.4-16.0) gm/dL Hct 42.0 (34.0-46.0) % MCV 83.7 (80.0-100.0) fL MCH 28.7 (25.0-35.0) pg MCHC 34.3 (31.0-37.0) g/dL RDW 12.2 (11.5-15.5) % Plt Count 233 (150-450) k/uL MPV 7.5 Neutrophils % 81 % Lymphocytes % 9 % Monocytes % 6 % Eosinophils % 1 % Basophils % 2 % Neutrophils # 3.9 (1.3-7.7) k/uL Lymphocytes # 0.4 L (1.0-4.8) k/uL Monocytes # 0.3 (0-1.0) k/uL Eosinophils # 0.1 (0-0.7) k/uL Basophils # 0.1 (0-0.2) k/uL Sodium 133 L (137-145) mmol/L Potassium 4.5 (3.5-5.1) mmol/L Chloride 97 L (98-107) mmol/L Carbon Dioxide 26 (22-30) mmol/L Anion Gap 10 mmol/L BUN 14 (7-17) mg/dL Creatinine 0.55 (0.52-1.04) mg/dL Est GFR (CKD-EPI)AfAm >90 (>60 ml/min/1.73 sqM) Est GFR (CKD-EPI)NonAf >90 (>60 ml/min/1.73 sqM) Glucose 293 H (74-99) mg/dL POC Glucose (mg/dL) (70-110) mg/dL POC Glu Security Support Analyst ID Plasma Lactic Acid Jameel (0.7-2.0) mmol/L Calcium 8.9 (8.4-10.2) mg/dL Magnesium 1.8 (1.6-2.3) mg/dL Total Bilirubin 0.5 (0.2-1.3) mg/dL AST 47 H (14-36) U/L ALT 53 H (4-34) U/L Alkaline Phosphatase 121 (38-126) U/L Creatine Kinase 62 (30-135) U/L Troponin I (0.000-0.034) ng/mL Total Protein 6.9 (6.3-8.2) g/dL Albumin 4.3 (3.5-5.0) g/dL Urine Color Light Yellow Urine Appearance Cloudy H (Clear) Urine pH 5.5 (5.0-8.0) Ur Specific [place] 1.041 H (1.001-1.035) Urine Protein Trace H (Negative) Urine Glucose (UA) 4+ H (Negative) Urine Ketones 2+ H (Negative) Urine Blood Negative (Negative) Urine Nitrite Negative (Negative) Urine Bilirubin Negative (Negative) Urine Urobilinogen <2.0 (<2.0) mg/dL Ur Leukocyte Esterase Large H (Negative) Urine RBC 16 H (0-5) /hpf Urine WBC 119 H (0-5) /hpf Urine WBC Clumps Many H (None) /hpf Ur Squamous Epith Cells 1 (0-4) /hpf Urine Bacteria Occasional H (None) /hpf Urine Mucus Rare H (None) /hpf Urine Yeast (Budding) Rare H (None) /hpf Coronavirus (PCR) (Not Detectd) Influenza Type A RNA (Not Detectd) Influenza Type B (PCR) (Not Detectd) 09/20/22 09/20/22 Range/Units 16:10 16:10 WBC (3.8-10.6) k/uL RBC (3.80-5.40) m/uL Hgb (11.4-16.0) gm/dL Hct (34.0-46.0) % MCV (80.0-100.0) fL MCH (25.0-35.0) pg MCHC (31.0-37.0) g/dL RDW (11.5-15.5) % Plt Count (150-450) k/uL MPV Neutrophils % % Lymphocytes % % Monocytes % % Eosinophils % % Basophils % % Neutrophils # (1.3-7.7) k/uL Lymphocytes # (1.0-4.8) k/uL Monocytes # (0-1.0) k/uL Eosinophils # (0-0.7) k/uL Basophils # (0-0.2) k/uL Sodium (137-145) mmol/L Potassium (3.5-5.1) mmol/L Chloride (98-107) mmol/L Carbon Dioxide (22-30) mmol/L Anion Gap mmol/L BUN (7-17) mg/dL Creatinine (0.52-1.04) mg/dL Est GFR (CKD-EPI)AfAm (>60 ml/min/1.73 sqM) Est GFR (CKD-EPI)NonAf (>60 ml/min/1.73 sqM) Glucose (74-99) mg/dL POC Glucose (mg/dL) (70-110) mg/dL POC Glu Security Support Analyst ID Plasma Lactic Acid Jameel 1.0 (0.7-2.0) mmol/L Calcium (8.4-10.2) mg/dL Magnesium (1.6-2.3) mg/dL Total Bilirubin (0.2-1.3) mg/dL AST (14-36) U/L ALT (4-34) U/L Alkaline Phosphatase (38-126) U/L Creatine Kinase (30-135) U/L Troponin I <0.012 (0.000-0.034) ng/mL Total Protein (6.3-8.2) g/dL Albumin (3.5-5.0) g/dL Urine Color Urine Appearance (Clear) Urine pH (5.0-8.0) Ur Specific [place] (1.001-1.035) Urine Protein (Negative) Urine Glucose (UA) (Negative) Urine Ketones (Negative) Urine Blood (Negative) Urine Nitrite (Negative) Urine Bilirubin (Negative) Urine Urobilinogen (<2.0) mg/dL Ur Leukocyte Esterase (Negative) Urine RBC (0-5) /hpf Urine WBC (0-5) /hpf Urine WBC Clumps (None) /hpf Ur Squamous Epith Cells (0-4) /hpf Urine Bacteria (None) /hpf Urine Mucus (None) /hpf Urine Yeast (Budding) (None) /hpf Coronavirus (PCR) (Not Detectd) Influenza Type A RNA (Not Detectd) Influenza Type B (PCR) (Not Detectd) - EKG Data -: EKG Interpreted by Me EKG shows normal: sinus rhythm EKG Comments: I did review the EKG sinus tachycardia rate 120. Interval 126 QRS duration 85 QT since QTC 295/366 st-t wave changes - Radiology Data Radiology results: image reviewed (Did review the x-ray no acute findings) Disposition Clinical Impression: Urinary tract infection, Febrile illness, acute, Dehydration, Nausea, Weakness Disposition: ADMITTED IP TO THIS [facility] Condition: Fair Referrals: Dallas Thompson MD [Primary Care Provider] - 1-2 days Decision Date: 09/20/22 Decision Time: 17:05
[2022-09-20 16:27] LABS: Basophils # (A) 0.1 k/uL (0-0.2); Basophils % (A) 2 %; Eosinophils # (A) 0.1 k/uL (0-0.7); Eosinophils % (A) 1 %; HGB 14.4 gm/dL (11.4-16.0); Lymphocytes # (A) 0.4 k/uL (1.0-4.8); Lymphocytes % (A) 9 %; MCH 28.7 pg (25.0-35.0); MCHC 34.3 g/dL (31.0-37.0); MCV 83.7 fL (80.0-100.0); Mean Platelet Volume 7.5; Monocytes # (A) 0.3 k/uL (0-1.0); Monocytes % (A) 6 %; Neutrophils # (A) 3.9 k/uL (1.3-7.7); Neutrophils % (A) 81 %; Platelet Count 233 k/uL (150-450); RBC 5.01 m/uL (3.80-5.40); RDW 12.2 % (11.5-15.5); WBC 4.8 k/uL (3.8-10.6)
[2022-09-20 16:43] LABS: ALT 53 U/L (4-34); AST 47 U/L (14-36); African American GFR (CKD) >90 (>60 ml/min/1.73 sqM); Albumin 4.3 g/dL (3.5-5.0); Alkaline Phosphatase 121 U/L (38-126); Anion Gap 10 mmol/L; Appearance,Urine Cloudy (Clear); Bacteria,Urine Occasional /hpf; Bilirubin,Urine Negative (Negative); Blood Urea Nitrogen 14 mg/dL (7-17); Blood,Urine Negative (Negative); Budding Yeast,Urine Rare /hpf; Calcium 8.9 mg/dL (8.4-10.2); Carbon Dioxide 26 mmol/L (22-30); Chloride 97 mmol/L (98-107); Color,Urine Light Yellow; Creatine Kinase 62 U/L (30-135); Glucose 293 mg/dL (74-99); Glucose,Urine (UA) 4+ (Negative); Leukocyte Esterase,Urine Large (Negative); Magnesium 1.8 mg/dL (1.6-2.3); Mucus,Urine Rare /hpf; Nitrite,Urine Negative (Negative); Non-African American GFR(CKD) >90 (>60 ml/min/1.73 sqM); PH, Urine 5.5 (5.0-8.0); Potassium 4.5 mmol/L (3.5-5.1); Protein,Urine Trace (Negative); RBC,Urine 16 /hpf (0-5); Sodium 133 mmol/L (137-145); Specific Gravity,Urine 1.041 (1.001-1.035); Squamous Epithelial Cell,Urine 1 /hpf (0-4); Total Bilirubin 0.5 mg/dL (0.2-1.3); Total Protein 6.9 g/dL (6.3-8.2); Urobilinogen,Urine <2.0 mg/dL (<2.0); WBC,Urine 119 /hpf (0-5)
[2022-09-20 16:48] LABS: Ketones,Urine 2+ (Negative)
--- NOTE | 2022-09-20 17:00 | XR ---
EXAMINATION TYPE: XR chest 2V DATE OF EXAM: 09/20/2022 COMPARISON: 04/02/2022 HISTORY: Chest pain. Fever TECHNIQUE: FINDINGS: Heart and mediastinum are normal. Lungs are clear. Diaphragm is normal. Bony thorax is inta ct. IMPRESSION: Normal chest. No change.
[2022-09-20] MEDS ORDERED: CIPROFLOXACIN HCL 250 MG TAB PO STA (17:01)
[2022-09-20] MEDS ORDERED: ONDANSETRON 4 MG/2 ML VIAL IVP STA (17:01)
[2022-09-20] MEDS ORDERED: ACETAMINOPHEN TAB 325 MG TAB PO STA (17:18)
[2022-09-20] MEDS ORDERED: NALOXONE 0.4 MG/ML 1 ML VIAL IV PRN (17:36)
[2022-09-20] MEDS ORDERED: ONDANSETRON 4 MG/2 ML VIAL IVP PRN (17:36)
[2022-09-20] MEDS ORDERED: KETOROLAC 15 MG/ML 1 ML VIAL IVP PRN (17:36)
--- NOTE | 2022-09-20 17:36 | ED ---
Medical Decision Making - Lab Data Result diagrams: 09/20/22 16:10 09/20/22 16:10 Lab Results 09/20/22 09/20/22 09/20/22 Range/Units 13:24 13:24 14:41 WBC (3.8-10.6) k/uL RBC (3.80-5.40) m/uL Hgb (11.4-16.0) gm/dL Hct (34.0-46.0) % MCV (80.0-100.0) fL MCH (25.0-35.0) pg MCHC (31.0-37.0) g/dL RDW (11.5-15.5) % Plt Count (150-450) k/uL MPV Neutrophils % % Lymphocytes % % Monocytes % % Eosinophils % % Basophils % % Neutrophils # (1.3-7.7) k/uL Lymphocytes # (1.0-4.8) k/uL Monocytes # (0-1.0) k/uL Eosinophils # (0-0.7) k/uL Basophils # (0-0.2) k/uL Sodium (137-145) mmol/L Potassium (3.5-5.1) mmol/L Chloride (98-107) mmol/L Carbon Dioxide (22-30) mmol/L Anion Gap mmol/L BUN (7-17) mg/dL Creatinine (0.52-1.04) mg/dL Est GFR (CKD-EPI)AfAm (>60 ml/min/1.73 sqM) Est GFR (CKD-EPI)NonAf (>60 ml/min/1.73 sqM) Glucose (74-99) mg/dL POC Glucose (mg/dL) 306 H (70-110) mg/dL POC Glu Circular Saw Operator ID Bereket Jenkins Plasma Lactic Acid Jameel (0.7-2.0) mmol/L Calcium (8.4-10.2) mg/dL Magnesium (1.6-2.3) mg/dL Total Bilirubin (0.2-1.3) mg/dL AST (14-36) U/L ALT (4-34) U/L Alkaline Phosphatase (38-126) U/L Creatine Kinase (30-135) U/L Troponin I (0.000-0.034) ng/mL Total Protein (6.3-8.2) g/dL Albumin (3.5-5.0) g/dL Urine Color Urine Appearance (Clear) Urine pH (5.0-8.0) Ur Specific [place] (1.001-1.035) Urine Protein (Negative) Urine Glucose (UA) (Negative) Urine Ketones (Negative) Urine Blood (Negative) Urine Nitrite (Negative) Urine Bilirubin (Negative) Urine Urobilinogen (<2.0) mg/dL Ur Leukocyte Esterase (Negative) Urine RBC (0-5) /hpf Urine WBC (0-5) /hpf Urine WBC Clumps (None) /hpf Ur Squamous Epith Cells (0-4) /hpf Urine Bacteria (None) /hpf Urine Mucus (None) /hpf Urine Yeast (Budding) (None) /hpf Coronavirus (PCR) Not Detected (Not Detectd) Influenza Type A RNA Not Detected (Not Detectd) Influenza Type B (PCR) Not Detected (Not Detectd) 09/20/22 09/20/22 09/20/22 Range/Units 16:10 16:10 16:10 WBC 4.8 (3.8-10.6) k/uL RBC 5.01 (3.80-5.40) m/uL Hgb 14.4 (11.4-16.0) gm/dL Hct 42.0 (34.0-46.0) % MCV 83.7 (80.0-100.0) fL MCH 28.7 (25.0-35.0) pg MCHC 34.3 (31.0-37.0) g/dL RDW 12.2 (11.5-15.5) % Plt Count 233 (150-450) k/uL MPV 7.5 Neutrophils % 81 % Lymphocytes % 9 % Monocytes % 6 % Eosinophils % 1 % Basophils % 2 % Neutrophils # 3.9 (1.3-7.7) k/uL Lymphocytes # 0.4 L (1.0-4.8) k/uL Monocytes # 0.3 (0-1.0) k/uL Eosinophils # 0.1 (0-0.7) k/uL Basophils # 0.1 (0-0.2) k/uL Sodium 133 L (137-145) mmol/L Potassium 4.5 (3.5-5.1) mmol/L Chloride 97 L (98-107) mmol/L Carbon Dioxide 26 (22-30) mmol/L Anion Gap 10 mmol/L BUN 14 (7-17) mg/dL Creatinine 0.55 (0.52-1.04) mg/dL Est GFR (CKD-EPI)AfAm >90 (>60 ml/min/1.73 sqM) Est GFR (CKD-EPI)NonAf >90 (>60 ml/min/1.73 sqM) Glucose 293 H (74-99) mg/dL POC Glucose (mg/dL) (70-110) mg/dL POC Glu Circular Saw Operator ID Plasma Lactic Acid Jameel (0.7-2.0) mmol/L Calcium 8.9 (8.4-10.2) mg/dL Magnesium 1.8 (1.6-2.3) mg/dL Total Bilirubin 0.5 (0.2-1.3) mg/dL AST 47 H (14-36) U/L ALT 53 H (4-34) U/L Alkaline Phosphatase 121 (38-126) U/L Creatine Kinase 62 (30-135) U/L Troponin I (0.000-0.034) ng/mL Total Protein 6.9 (6.3-8.2) g/dL Albumin 4.3 (3.5-5.0) g/dL Urine Color Light Yellow Urine Appearance Cloudy H (Clear) Urine pH 5.5 (5.0-8.0) Ur Specific [place] 1.041 H (1.001-1.035) Urine Protein Trace H (Negative) Urine Glucose (UA) 4+ H (Negative) Urine Ketones 2+ H (Negative) Urine Blood Negative (Negative) Urine Nitrite Negative (Negative) Urine Bilirubin Negative (Negative) Urine Urobilinogen <2.0 (<2.0) mg/dL Ur Leukocyte Esterase Large H (Negative) Urine RBC 16 H (0-5) /hpf Urine WBC 119 H (0-5) /hpf Urine WBC Clumps Many H (None) /hpf Ur Squamous Epith Cells 1 (0-4) /hpf Urine Bacteria Occasional H (None) /hpf Urine Mucus Rare H (None) /hpf Urine Yeast (Budding) Rare H (None) /hpf Coronavirus (PCR) (Not Detectd) Influenza Type A RNA (Not Detectd) Influenza Type B (PCR) (Not Detectd) 09/20/22 09/20/22 Range/Units 16:10 16:10 WBC (3.8-10.6) k/uL RBC (3.80-5.40) m/uL Hgb (11.4-16.0) gm/dL Hct (34.0-46.0) % MCV (80.0-100.0) fL MCH (25.0-35.0) pg MCHC (31.0-37.0) g/dL RDW (11.5-15.5) % Plt Count (150-450) k/uL MPV Neutrophils % % Lymphocytes % % Monocytes % % Eosinophils % % Basophils % % Neutrophils # (1.3-7.7) k/uL Lymphocytes # (1.0-4.8) k/uL Monocytes # (0-1.0) k/uL Eosinophils # (0-0.7) k/uL Basophils # (0-0.2) k/uL Sodium (137-145) mmol/L Potassium (3.5-5.1) mmol/L Chloride (98-107) mmol/L Carbon Dioxide (22-30) mmol/L Anion Gap mmol/L BUN (7-17) mg/dL Creatinine (0.52-1.04) mg/dL Est GFR (CKD-EPI)AfAm (>60 ml/min/1.73 sqM) Est GFR (CKD-EPI)NonAf (>60 ml/min/1.73 sqM) Glucose (74-99) mg/dL POC Glucose (mg/dL) (70-110) mg/dL POC Glu Circular Saw Operator ID Plasma Lactic Acid Jameel 1.0 (0.7-2.0) mmol/L Calcium (8.4-10.2) mg/dL Magnesium (1.6-2.3) mg/dL Total Bilirubin (0.2-1.3) mg/dL AST (14-36) U/L ALT (4-34) U/L Alkaline Phosphatase (38-126) U/L Creatine Kinase (30-135) U/L Troponin I <0.012 (0.000-0.034) ng/mL Total Protein (6.3-8.2) g/dL Albumin (3.5-5.0) g/dL Urine Color Urine Appearance (Clear) Urine pH (5.0-8.0) Ur Specific [place] (1.001-1.035) Urine Protein (Negative) Urine Glucose (UA) (Negative) Urine Ketones (Negative) Urine Blood (Negative) Urine Nitrite (Negative) Urine Bilirubin (Negative) Urine Urobilinogen (<2.0) mg/dL Ur Leukocyte Esterase (Negative) Urine RBC (0-5) /hpf Urine WBC (0-5) /hpf Urine WBC Clumps (None) /hpf Ur Squamous Epith Cells (0-4) /hpf Urine Bacteria (None) /hpf Urine Mucus (None) /hpf Urine Yeast (Budding) (None) /hpf Coronavirus (PCR) (Not Detectd) Influenza Type A RNA (Not Detectd) Influenza Type B (PCR) (Not Detectd) Disposition Clinical Impression: Urinary tract infection, Febrile illness, acute, Dehydration, Nausea, Weakness, Diabetes Disposition: ADMITTED IP TO THIS [facility] Condition: Fair Referrals: Dallas Thompson MD [Primary Care Provider] - 1-2 days
[2022-09-20] MEDS ORDERED: DEXTROSE 50% SYRINGE 50 ML IVP PRN ×2 (18:42)
[2022-09-20] MEDS: ENOXAPARIN 40 MG/0.4 ML SYRINGE SQ SCH (20:05)
[2022-09-20 20:06] LABS: Glucose,Whole Blood 214 mg/dL (70-110)
[2022-09-20] MEDS: INSULIN ASPART (NovoLOG) 100 UNIT/ML VIAL SQ SCH (20:40)
[2022-09-20] MEDS: SODIUM CHLORIDE 0.9% 1,000 ML IV SCH (21:29)
[2022-09-20 21:39] LABS: Glucose,Whole Blood 273 mg/dL (70-110)
[2022-09-20] MEDS: INSULN ASP PRT/INSULIN ASPART 100 UNIT/ML 10 ML VIAL SQ SCH (21:40)
[2022-09-20 22:19] LABS: Glucose,Whole Blood 274 mg/dL (70-110)
[2022-09-21] MEDS: ACETAMINOPHEN TAB 325 MG TAB PO PRN ×4 (01:48→23:38)
[2022-09-21] MEDS: SODIUM CHLORIDE 0.9% 1,000 ML IV SCH ×4 (01:49→23:38)
[2022-09-21 07:14] LABS: Glucose,Whole Blood 188 mg/dL (70-110)
[2022-09-21] MEDS: INSULIN ASPART (NovoLOG) 100 UNIT/ML VIAL SQ SCH ×3 (07:42→18:08)
[2022-09-21 08:46] LABS: Glucose,Whole Blood 220 mg/dL (70-110)
[2022-09-21] MEDS: INSULN ASP PRT/INSULIN ASPART 100 UNIT/ML 10 ML VIAL SQ SCH ×2 (08:51→21:04)
[2022-09-21] MEDS: ENOXAPARIN 40 MG/0.4 ML SYRINGE SQ SCH (08:51)
[2022-09-21] MEDS ORDERED: LEVOFLOXACIN 500 MG TAB PO SCH (09:00)
[2022-09-21] MEDS ORDERED: CIPROFLOXACIN HCL 250 MG TAB PO SCH (09:45)
[2022-09-21 12:56] LABS: Glucose,Whole Blood 129 mg/dL (70-110)
[2022-09-21 17:52] LABS: Glucose,Whole Blood 303 mg/dL (70-110)
[2022-09-21 20:36] LABS: Glucose,Whole Blood 307 mg/dL (70-110)
--- NOTE | 2022-09-21 20:48 | P.HPIM ---
History of Present Illness H&P Date: 09/21/22 Chief Complaint: Fever chills cough I'm rounding for Dr. Dallas Thompson. This is a pleasant 57-year-old patient who follows Dr. Dallas Thompson. Patient has been taking care of for 3 Children that live with her. 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 3 days ago patient was at [facility] with her grandchild went emergent surgery. The day prior to that patient's other grandchild the day before was diagnosed with influenza A. When she was at [facility] she started developing some fever and chills headaches. Progressed to have body aches and chills.had a temperature 101.3. I do 102.3. Very slight headache. No neck rigidity. No muscle ache. No diarrhea. No skin rash. Denies any insect bite. Patient did test negative for COVID influenza RSV. Decreased appetite. Denies any respiratory abdominal symptoms. No diarrhea Review of systems: GEN.: Fever and chills EYES: None HEENT: None NECK: None RESPIRATORY: None CARDIOVASCULAR: None GASTROINTESTINAL: None GENITOURINARY: None MUSCULOSKELETAL: None LYMPHATICS: None HEMATOLOGICAL: None PSYCHIATRY: None NEUROLOGICAL: None. Past medical history to include: Diabetes mellitus type 2 on insulin Social history: Patient is taking care of 3 grandchildren at home. 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 No smoking or alcohol. Physical examination: VITAL SIGNS: 100.5, 117, 18, 135/ 78, 97% room air GENERAL: BMI 28.3, laying in bed awake a bit tired. EYES: Pupils equal. Conjunctiva normal. HEENT: External appearance of nose and ears normal, oral cavity grossly normal. NECK: JVD not raised; masses not palpable. HEART: First and second heart sounds are normal; no edema. LUNGS: Respiratory rate normal; clear to auscultation. ABDOMEN: Soft, nontender, liver spleen not palpable, no masses palpable. PSYCH: Alert and oriented x3; mood and affect tiredl. MUSCULOSKELETAL:No Clubbing/cyanosis;muscles-grossly intact NEUROLOGICAL: Cranial nerves grossly intact; no facial asymmetry, power and sensation grossly intact. LYMPHATICS: No lymph nodes palpable in the axilla and neck INVESTIGATIONS, reviewed in the clinical context: White count 4.8 hemoglobin 14.4 platelets 233 potassium 4.5 BUN 14 creatinine was 0.55 blood glucose 293 AST 47 ALT 53 UA positive for leukoesterase WBC bacteria negative for nitrite EKG tracing personally reviewed by me-sinus tachycardia Chest x-ray film personally reviewed by me-clear COVID 19/influenza type A/diabetes/RSV: Not detected Assessment plan: -Patient had a fever for 3 days. Body ache, tired, some headache. No diarrhea. No respiratory, no GI symptoms. No skin rash. No insect bite.. Normal white count with decreased lymphocytes. Suspect viral infection. In addition to UTI -Acute UTI with cystitis Ciprofloxacin -Diabetes mellitus type 2, chronically on insulin Resume home dose of insulin. Follow Accu-Cheks. -Clinical dehydration IV fluids Ciprofloxacin. Patient is ALLERGIC to multiple medications. Resume insulin. Follow Accu-Cheks. Care was discussed with the patient. Consult ID. DVT prophylaxis Past Medical History Past Medical History: Diabetes Mellitus, Hyperlipidemia, Hypertension Additional Past Medical History / Comment(s): vomiting after eating, constipation, History of Any Multi-Drug Resistant Organisms: None Reported Past Surgical History: Appendectomy, Cholecystectomy Additional Past Surgical History / Comment(s): cysts removed from ovaries Past Anesthesia/Blood Transfusion Reactions: Motion Sickness, Postoperative Nausea & Vomiting (PONV) Past Psychological History: No Psychological Hx Reported Smoking Status: Never smoker Past Alcohol Use History: None Reported Additional Past Alcohol Use History / Comment(s): quit smoking 30 yrs ago, smoked for 2-3 yrs Past Drug Use History: None Reported - Past Family History Sister(s) Family Medical History: Deep Vein Thrombosis (DVT) Medications and Allergies Home Medications Medication Instructions Recorded Confirmed Type Insulin NPL/Insulin Lispro 40 unit SQ BID 09/20/22 09/20/22 History [humaLOG MIX 75-25 VIAL] Allergies Allergy/AdvReac Type Severity Reaction Status Date / Time erythromycin base Allergy Rash/Hives Verified 09/20/22 16:11 gemifloxacin [From Factive] Allergy Anaphylaxis Verified 09/20/22 16:11 Penicillins Allergy Rash/Hives Verified 09/20/22 16:11 prednisone Allergy Rash/Hives Verified 09/20/22 16:11 Sulfa (Sulfonamide Allergy Rash/Hives Verified 09/20/22 16:11 Antibiotics) pine nuts AdvReac Anaphylaxis Uncoded 09/20/22 13:23 Physical Exam Vitals: Vital Signs Temp Pulse Pulse Resp BP BP Pulse Ox 09/21/22 08:05 98.7 F 95 18 129/77 96 09/21/22 07:24 98.8 F 93 18 123/65 93 L 09/21/22 07:04 98.3 F 92 18 123/69 95 09/21/22 06:00 98.8 F 18 09/21/22 05:05 84 16 100/56 95 09/21/22 03:04 98.4 F 96 20 110/62 93 L 09/20/22 23:31 98.9 F 100 17 115/73 95 09/20/22 22:04 102 H 17 129/72 94 L 09/20/22 21:20 101 H 14 118/59 96 09/20/22 19:34 99.3 F 98 18 113/62 95 09/20/22 17:37 110 H 20 146/72 97 09/20/22 16:11 112 H 20 149/100 98 09/20/22 14:36 100.5 F H 117 H 18 135/78 97 09/20/22 13:21 99.5 F 117 H 22 138/74 97 Intake and Output 09/20/22 09/21/22 09/21/22 22:59 06:59 14:59 Other: # Voids 0 Weight 63.503 kg Results CBC & Chem 7: 09/20/22 16:10 09/20/22 16:10 Labs: Abnormal Lab Results - Last 24 Hours (Table) 09/20/22 09/20/22 09/20/22 Range/Units 14:41 16:10 16:10 Lymphocytes # 0.4 L (1.0-4.8) k/uL Sodium (137-145) mmol/L Chloride (98-107) mmol/L Glucose (74-99) mg/dL POC Glucose (mg/dL) 306 H (70-110) mg/dL AST (14-36) U/L ALT (4-34) U/L Urine Appearance Cloudy H (Clear) Ur Specific [place] 1.041 H (1.001-1.035) Urine Protein Trace H (Negative) Urine Glucose (UA) 4+ H (Negative) Urine Ketones 2+ H (Negative) Ur Leukocyte Esterase Large H (Negative) Urine RBC 16 H (0-5) /hpf Urine WBC 119 H (0-5) /hpf Urine WBC Clumps Many H (None) /hpf Urine Bacteria Occasional H (None) /hpf Urine Mucus Rare H (None) /hpf Urine Yeast (Budding) Rare H (None) /hpf 09/20/22 09/20/22 09/20/22 Range/Units 16:10 20:04 21:37 Lymphocytes # (1.0-4.8) k/uL Sodium 133 L (137-145) mmol/L Chloride 97 L (98-107) mmol/L Glucose 293 H (74-99) mg/dL POC Glucose (mg/dL) 214 H 273 H (70-110) mg/dL AST 47 H (14-36) U/L ALT 53 H (4-34) U/L Urine Appearance (Clear) Ur Specific [place] (1.001-1.035) Urine Protein (Negative) Urine Glucose (UA) (Negative) Urine Ketones (Negative) Ur Leukocyte Esterase (Negative) Urine RBC (0-5) /hpf Urine WBC (0-5) /hpf Urine WBC Clumps (None) /hpf Urine Bacteria (None) /hpf Urine Mucus (None) /hpf Urine Yeast (Budding) (None) /hpf 09/20/22 09/21/22 09/21/22 Range/Units 22:17 07:12 08:45 Lymphocytes # (1.0-4.8) k/uL Sodium (137-145) mmol/L Chloride (98-107) mmol/L Glucose (74-99) mg/dL POC Glucose (mg/dL) 274 H 188 H 220 H (70-110) mg/dL AST (14-36) U/L ALT (4-34) U/L Urine Appearance (Clear) Ur Specific [place] (1.001-1.035) Urine Protein (Negative) Urine Glucose (UA) (Negative) Urine Ketones (Negative) Ur Leukocyte Esterase (Negative) Urine RBC (0-5) /hpf Urine WBC (0-5) /hpf Urine WBC Clumps (None) /hpf Urine Bacteria (None) /hpf Urine Mucus (None) /hpf Urine Yeast (Budding) (None) /hpf Microbiology - Last 24 Hours (Table) 09/20/22 16:10 Urine Culture - Preliminary Urine,Voided Thrombosis Risk Factor Assmnt - Choose All That Apply Any of the Below Risk Factors Present?: Yes Each Factor Represents 1 point: Age 41-60 years Other Risk Factors: No Other congenital or acquired thrombophilia - If yes, enter type in comment: No Thrombosis Risk Factor Assessment Total Risk Factor Score: 1 Thrombosis Risk Factor Assessment Level: Low Risk
[2022-09-21] MEDS: CIPROFLOXACIN HCL 500 MG TAB PO SCH (21:04)
[2022-09-22 06:22] LABS: Glucose,Whole Blood 201 mg/dL (70-110)
[2022-09-22] MEDS: INSULN ASP PRT/INSULIN ASPART 100 UNIT/ML 10 ML VIAL SQ SCH ×2 (06:34→20:55)
[2022-09-22] MEDS: INSULIN ASPART (NovoLOG) 100 UNIT/ML VIAL SQ SCH ×3 (06:34→18:25)
[2022-09-22] MEDS: ENOXAPARIN 40 MG/0.4 ML SYRINGE SQ SCH (08:25)
[2022-09-22] MEDS: CIPROFLOXACIN HCL 500 MG TAB PO SCH ×2 (08:25→19:55)
[2022-09-22] MEDS: SODIUM CHLORIDE 0.9% 1,000 ML IV SCH ×2 (08:26→18:27)
[2022-09-22 12:30] LABS: Glucose,Whole Blood 265 mg/dL (70-110)
[2022-09-22 17:50] LABS: Glucose,Whole Blood 264 mg/dL (70-110)
[2022-09-22] MEDS: ACETAMINOPHEN TAB 325 MG TAB PO PRN (18:29)
[2022-09-22 20:21] LABS: Glucose,Whole Blood 258 mg/dL (70-110)
--- NOTE | 2022-09-22 22:58 | P.CONS ---
History of Present Illness - Reason for Consult Consult date: 09/22/22 - History of Present Illness Patient is a 57-year-old female with multiple comorbidities presented to the hospital for evaluation of fever chills and headache patient was complaining of generalized weakness and no energy and not aware of her surroundings patient denies having any chest pain has been complaining of shortness of breath and did have some occasional cough nausea but no vomiting no abdominal pain or diarrhea did have some burning of urine but no suprapubic or flank pain patient on presentation to the hospital have fever 100.5 F patient did have normal white count kidney function has been normal there was also mild elevated did have a positive UA with large leukocyte esterase with 19 WBC influ melly RSV and COVID testing was negative urine culture showing group B strep patient is being treated with oral Cipro as the patient do have multiple patient with multiple antibiotic allergies that would limit the number of antibiotics safe to use infectious disease was consulted regarding her fever and further antibiotic therapy last night Past Medical History Past Medical History: Diabetes Mellitus, Hyperlipidemia, Hypertension Additional Past Medical History / Comment(s): vomiting after eating, constipation, History of Any Multi-Drug Resistant Organisms: None Reported Past Surgical History: Appendectomy, Cholecystectomy Additional Past Surgical History / Comment(s): cysts removed from ovaries Past Anesthesia/Blood Transfusion Reactions: Motion Sickness, Postoperative Nausea & Vomiting (PONV) Past Psychological History: No Psychological Hx Reported Smoking Status: Never smoker Past Alcohol Use History: None Reported Additional Past Alcohol Use History / Comment(s): quit smoking 30 yrs ago, smoked for 2-3 yrs Past Drug Use History: None Reported - Past Family History Sister(s) Family Medical History: Deep Vein Thrombosis (DVT) Medications and Allergies Home Medications Medication Instructions Recorded Confirmed Type Insulin NPL/Insulin Lispro 40 unit SQ BID 09/20/22 09/20/22 History [humaLOG MIX 75-25 VIAL] Allergies Allergy/AdvReac Type Severity Reaction Status Date / Time erythromycin base Allergy Rash/Hives Verified 09/20/22 16:11 gemifloxacin [From Factive] Allergy Anaphylaxis Verified 09/20/22 16:11 Penicillins Allergy Rash/Hives Verified 09/20/22 16:11 prednisone Allergy Rash/Hives Verified 09/20/22 16:11 Sulfa (Sulfonamide Allergy Rash/Hives Verified 09/20/22 16:11 Antibiotics) pine nuts AdvReac Anaphylaxis Uncoded 09/20/22 13:23 Physical Exam Vitals: Vital Signs Temp Pulse Resp BP BP Pulse Ox 09/22/22 08:25 17 09/22/22 07:00 98.2 F 88 17 126/77 95 09/21/22 19:50 98.7 F 94 18 112/72 93 L 09/21/22 15:00 98.7 F 93 17 103/63 96 Intake and Output 09/21/22 09/22/22 09/22/22 22:59 06:59 14:59 Other: Voiding Method Toilet # Voids 2 2 Results CBC & Chem 7: 09/20/22 16:10 09/20/22 16:10 Labs: Abnormal Lab Results - Last 24 Hours (Table) 09/21/22 09/21/22 09/21/22 Range/Units 12:55 17:51 20:34 POC Glucose (mg/dL) 129 H 303 H 307 H (70-110) mg/dL 09/22/22 Range/Units 06:19 POC Glucose (mg/dL) 201 H (70-110) mg/dL Microbiology - Last 24 Hours (Table) 09/20/22 16:10 Urine Culture - Final Urine,Voided Strep agalactiae - (group b) Assessment and Plan Plan: 1patient presented hospital with fever and not feeling well did have some urinary symptom positive UA concerning for symptomatic urine tract infection with urine currently showing group B strep likely the infected pathogen. 2patient with multiple antibiotic allergies that would limit the number of antibiotics safe to use. 3patient to continue the Cipro in view of clinical response and to finish 5 to 7-day course of therapy if the patient continues to improve We will follow on clinical condition and cultures to further adjust medication if needed Thank you for this consultation will follow this patient along with you Time with Patient: Greater than 30
[2022-09-22] MEDS ORDERED: FLUCONAZOLE 150 MG TAB PO STA (23:49)
[2022-09-23] MEDS: methylPREDNISolone SOD SUCCI 40 MG/ML 1 ML VIAL IV SCH ×4 (00:58→23:52)
[2022-09-23] MEDS: SODIUM CHLORIDE 0.9% 1,000 ML IV SCH ×4 (01:00→21:18)
--- NOTE | 2022-09-23 01:59 | PN ---
PROGRESS NOTE SUBJECTIVE: A 57-year-old white female who came in. She has a strep infection in her urine that came back on a culture, but she is mainly here for cough, congestion, shortness of breath. She is not breathing fairly well. She has congested cough most of the day, but her headaches are improved from when she came in. She remains on her home insulin, oral Cipro, Lovenox subcu. OBJECTIVE: LUNGS: Show scattered wheeze and rhonchi x4, congestive cough. CARDIOVASCULAR: S1, S2. She has had 97 room air. VITAL SIGNS: Blood pressure is 150s over 70s, temperature 98.4, pulse is 80s to 90s, respiratory rate 16 to 18. ASSESSMENT AND PLAN: UTI, rule out pyelonephritis with asthma exacerbation with possible tracheobronchitis versus pneumonia, treat with antibiotics per Dr. Currie's recommendation. IV steroids updraft treatments. PROGNOSIS: Guarded. MMODL / MAXIMEN: [id number] /
[2022-09-23] MEDS: ACETAMINOPHEN TAB 325 MG TAB PO PRN (02:19)
[2022-09-23 07:32] LABS: Glucose,Whole Blood 325 mg/dL (70-110)
[2022-09-23] MEDS: ENOXAPARIN 40 MG/0.4 ML SYRINGE SQ SCH (08:44)
[2022-09-23] MEDS: CIPROFLOXACIN HCL 500 MG TAB PO SCH ×2 (08:45→21:17)
[2022-09-23] MEDS: INSULN ASP PRT/INSULIN ASPART 100 UNIT/ML 10 ML VIAL SQ SCH ×2 (08:46→21:22)
[2022-09-23] MEDS: INSULIN ASPART (NovoLOG) 100 UNIT/ML VIAL SQ SCH ×3 (08:46→17:48)
[2022-09-23 09:09] LABS: Basophils # (A) 0 X 10*3/uL (0.00-0.10); Basophils % (A) 0 %; Eosinophils # (A) 0 X 10*3/uL (0.04-0.35); Eosinophils % (A) 0 %; HCT 43.1 % (37.2-46.3); HGB 14.3 g/dL (12.0-15.0); Immature Grans, Automated 0.7 %; Lymphocytes # (A) 0.58 X 10*3/uL (0.90-5.00); Lymphocytes % (A) 19.4 %; MCH 27.9 pg (27.0-32.0); MCHC 33.2 g/dL (32.0-37.0); MCV 84.2 fL (80.0-97.0); Mean Platelet Volume 9.3 fL (9.5-12.2); Monocytes # (A) 0.09 X 10*3/uL (0.20-1.00); NRBC Per 100 WBC 0 /100 WBCS (0.0-0.0); Neutrophils % (A) 76.9 %; Platelet Count 249 X 10*3/uL (140-440); RBC 5.12 X 10*6/uL (4.10-5.20); RDW 12.3 % (11.5-14.5); WBC 2.99 X 10*3/uL (4.50-10.00)
[2022-09-23 09:21] LABS: ALT 54 U/L (8-44); AST 34 U/L (13-35); African American GFR (CKD) 110.7 (60.0-200.0); Albumin 4.1 g/dL (3.8-4.9); Albumin/Globulin Ratio 1.58 (1.60-3.17); Alkaline Phosphatase 113 U/L (41-126); Blood Urea Nitrogen 10.5 mg/dL (9.0-27.0); Calcium 9.1 mg/dL (8.7-10.3); Carbon Dioxide 25.7 mmol/L (20.0-27.5); Chloride 100 mmol/L (96-109); Globulin 2.6 g/dL (1.6-3.3); Glucose 367 mg/dL (70-110); Non-African American GFR(CKD) 95.5 (60.0-200.0); Potassium 4.2 mmol/L (3.5-5.5); Sodium 136 mmol/L (135-145); Total Bilirubin <0.15 mg/dL (0.30-1.20); Total Protein 6.7 g/dL (6.2-8.2)
--- NOTE | 2022-09-23 09:28 | CT ---
EXAMINATION TYPE: CT chest wo con DATE OF EXAM: 09/23/2022 COMPARISON: Prior chest CT November 09, 2020. Most recent chest x-ray September 16, 2022 HISTORY: Cough. CT DLP: 421 mGycm. Automated Exposure Control for Dose Reduction was Utilized. TECHNIQUE: CT scan of the thorax is performed without IV contrast. FINDINGS: LUNGS: Single focus of groundglass opacity anterior inferior left upper lobe measuring near 1.2 cm ax ial image 25. Right lung remains clear. There is no pleural effusion or pneumothorax seen bilaterall y. The tracheobronchial tree is patent. MEDIASTINUM: Lack of IV contrast is noted to limit evaluation for mediastinal and especially hilar ad enopathy. There are no definitive greater than 1 cm mediastinal lymph nodes. No cardiomegaly or per icardial effusion is seen. Coronary artery calcification in the LAD distribution is redemonstrated. OTHER: Liver remains diffusely low dense consistent with diffuse fatty infiltration. Cholecystectomy clips are identified. Slight scoliotic curvature or positioning of the thoracic spine noted. IMPRESSION: Small 1.2 cm focus of groundglass opacity anterior inferior left upper lobe could reflect developing pneumonic infiltrate.
[2022-09-23 12:29] LABS: Glucose,Whole Blood 397 mg/dL (70-110)
[2022-09-23 17:33] LABS: Glucose,Whole Blood 376 mg/dL (70-110)
[2022-09-23 20:02] LABS: Glucose,Whole Blood 383 mg/dL (70-110)
--- NOTE | 2022-09-24 01:13 | PN ---
PROGRESS NOTE She is admitted with probable pneumonia and a strep UTI. Temperature 98.2, pulse 77, respiratory rate 18 to 20, blood pressure 133/81, O2 of 96% on room air. She had a CT scan of her lungs, which is pending. Treated for UTI, asthma, COPD exacerbation, bronchitis. RSV and flu were negative. She has ground-glass opacity anterior, inferior, and left upper lobe, developing pneumonia infiltrate, which we are treating her with broad-spectrum antibiotics. Prognosis is guarded. Please see further orders. MMODL / IJN: [id number] /
[2022-09-24 05:55] LABS: Glucose,Whole Blood 291 mg/dL (70-110)
[2022-09-24] MEDS: INSULIN ASPART (NovoLOG) 100 UNIT/ML VIAL SQ SCH ×3 (08:41→18:46)
[2022-09-24] MEDS: ENOXAPARIN 40 MG/0.4 ML SYRINGE SQ SCH (08:41)
[2022-09-24] MEDS: INSULN ASP PRT/INSULIN ASPART 100 UNIT/ML 10 ML VIAL SQ SCH ×2 (08:42→21:16)
[2022-09-24] MEDS: SODIUM CHLORIDE 0.9% 1,000 ML IV SCH ×3 (08:42→21:19)
[2022-09-24] MEDS: CIPROFLOXACIN HCL 500 MG TAB PO SCH (08:42)
[2022-09-24] MEDS: methylPREDNISolone SOD SUCCI 40 MG/ML 1 ML VIAL IV SCH ×3 (08:43→23:04)
[2022-09-24 12:09] LABS: Glucose,Whole Blood 397 mg/dL (70-110)
[2022-09-24] MEDS: LEVOFLOXACIN 500 MG TAB PO SCH (13:14)
[2022-09-24 13:53] LABS: Basophils % (A) 0 %; Eosinophils % (A) 0 %; HCT 42.9 % (34.0-46.0); Lymphocytes # (A) 0.8 k/uL (1.0-4.8); Lymphocytes % (A) 12 %; MCH 28.8 pg (25.0-35.0); MCHC 32.7 g/dL (31.0-37.0); Mean Platelet Volume 7.7; Monocytes # (A) 0.3 k/uL (0-1.0); Monocytes % (A) 4 %; Neutrophils # (A) 5.7 k/uL (1.3-7.7); Neutrophils % (A) 83 %; Platelet Count 270 k/uL (150-450); RBC 4.87 m/uL (3.80-5.40); RDW 12.5 % (11.5-15.5); WBC 6.9 k/uL (3.8-10.6)
[2022-09-24 14:04] LABS: ALT 46 U/L (4-34); AST 35 U/L (14-36); African American GFR (CKD) >90 (>60 ml/min/1.73 sqM); Albumin/Globulin Ratio 1.4; Alkaline Phosphatase 104 U/L (38-126); Anion Gap 12 mmol/L; Blood Urea Nitrogen 19 mg/dL (7-17); Calcium 8.9 mg/dL (8.4-10.2); Carbon Dioxide 20 mmol/L (22-30); Chloride 101 mmol/L (98-107); Globulin 2.8 g/dL; Glucose 432 mg/dL (74-99); Non-African American GFR(CKD) >90 (>60 ml/min/1.73 sqM); Potassium 4.7 mmol/L (3.5-5.1); Sodium 133 mmol/L (137-145); Total Bilirubin 0.3 mg/dL (0.2-1.3); Total Protein 6.8 g/dL (6.3-8.2)
[2022-09-24 18:14] LABS: Glucose,Whole Blood 296 mg/dL (70-110)
[2022-09-24 20:15] LABS: Glucose,Whole Blood 382 mg/dL (70-110)
[2022-09-24] MEDS: IPRATROPIUM-ALBUTEROL 3 ML NEB INHALATION SCH (20:31)
[2022-09-24] MEDS: TRIAMCINOLONE 0.1% CREAM 80 GM TUBE TOPICAL SCH (21:17)
[2022-09-25] MEDS: BENZONATATE 100 MG CAP PO PRN ×2 (02:37→13:33)
[2022-09-25] MEDS: SODIUM CHLORIDE 0.9% 1,000 ML IV SCH ×3 (05:25→21:00)
[2022-09-25 06:25] LABS: Glucose,Whole Blood 374 mg/dL (70-110)
[2022-09-25] MEDS: INSULIN ASPART (NovoLOG) 100 UNIT/ML VIAL SQ SCH ×3 (06:46→18:08)
[2022-09-25] MEDS: IPRATROPIUM-ALBUTEROL 3 ML NEB INHALATION SCH ×4 (07:49→20:15)
[2022-09-25] MEDS: TRIAMCINOLONE 0.1% CREAM 80 GM TUBE TOPICAL SCH ×2 (09:25→21:03)
[2022-09-25] MEDS: methylPREDNISolone SOD SUCCI 40 MG/ML 1 ML VIAL IV SCH ×2 (09:26→15:51)
[2022-09-25] MEDS: INSULN ASP PRT/INSULIN ASPART 100 UNIT/ML 10 ML VIAL SQ SCH ×2 (09:26→21:00)
[2022-09-25] MEDS: ENOXAPARIN 40 MG/0.4 ML SYRINGE SQ SCH (09:26)
[2022-09-25 12:25] LABS: Glucose,Whole Blood 406 mg/dL (70-110)
[2022-09-25] MEDS: ACETAMINOPHEN TAB 325 MG TAB PO PRN (13:33)
[2022-09-25] MEDS: LEVOFLOXACIN 500 MG TAB PO SCH (13:34)
[2022-09-25 14:10] VITALS: BMI 28.3
[2022-09-25] MEDS ORDERED: INSULIN ASPART (NovoLOG) 100 UNIT/ML VIAL SQ ONE (14:46)
[2022-09-25 14:47] LABS: Glucose,Whole Blood 450 mg/dL (70-110)
[2022-09-25 17:33] LABS: Glucose,Whole Blood 344 mg/dL (70-110)
[2022-09-25 20:23] LABS: Glucose,Whole Blood 379 mg/dL (70-110)
[2022-09-26] MEDS: methylPREDNISolone SOD SUCCI 40 MG/ML 1 ML VIAL IV SCH ×3 (01:07→15:43)
[2022-09-26] MEDS: BENZONATATE 100 MG CAP PO PRN ×3 (01:51→20:53)
[2022-09-26] MEDS: SODIUM CHLORIDE 0.9% 1,000 ML IV SCH ×3 (06:03→20:55)
[2022-09-26 06:32] LABS: Glucose,Whole Blood 286 mg/dL (70-110)
[2022-09-26] MEDS: INSULIN ASPART (NovoLOG) 100 UNIT/ML VIAL SQ SCH ×3 (06:34→17:47)
--- NOTE | 2022-09-26 08:24 | PN ---
PROGRESS NOTE SUBJECTIVE: A 57-year-old white female with UTI, pneumonia, asthma exacerbation, continues to cough and have severe wheezing despite steroids. Dr. Currie saw her and put her on Levaquin for urine Streptococcus agalactiae type B and pneumonia. OBJECTIVE: LUNGS: Scattered wheeze and rhonchi. Congested cough. Responding a little bit to Tessalon Perles, steroids, updrafts. CARDIOVASCULAR: S1, S2. HEMATOLOGY: Negative Homans. PSYCH: Fair mood and affect. VITAL SIGNS: O2 of 98% to 95% on room air. Blood pressure is 130/70, temp 98, pulse 88. PLAN: Continue current treatment. Possible discharge home. Pending Dr. Currie's recommendations, but most likely will send home in the next day or 2. MMODL / IJN: [id number] /
[2022-09-26] MEDS: IPRATROPIUM-ALBUTEROL 3 ML NEB INHALATION SCH ×4 (08:41→20:20)
[2022-09-26 09:35] LABS: Glucose,Whole Blood 352 mg/dL (70-110)
[2022-09-26] MEDS: ENOXAPARIN 40 MG/0.4 ML SYRINGE SQ SCH (10:00)
[2022-09-26] MEDS: INSULN ASP PRT/INSULIN ASPART 100 UNIT/ML 10 ML VIAL SQ SCH ×2 (10:07→22:40)
[2022-09-26] MEDS: TRIAMCINOLONE 0.1% CREAM 80 GM TUBE TOPICAL SCH ×2 (11:40→20:54)
--- NOTE | 2022-09-26 12:11 | CDI ---
Documentation Clarification Form Date: 09/26/2022 12:10:03 PM From: Cinthya Qureshi CCS, CCDS Admit Date: 09/24/2022 10:23:00 AM Patient Name: Christin Hunter Visit Number: [id number] Discharge Date: ATTENTION: The Clinical Documentation Specialists (CDI) and [facility] Coding Staff appreciate your assistance in clarifying documentation. Please respond to the clarification below the line at the bottom and electronically sign. The CDI & [facility] Coding staff will review the response and follow-up if needed. Please note: Queries are made part of the Legal Health Record. If you have any questions, please contact the author of this message via ITS. Dr. Dallas Thompson: Asthma is documented in the 09/22 Attending Progress Note as Asthma Exacerbation with possible Tracheobronchitis vs Pneumonia. Documented in the 09/23 Attending Progress Note as Asthma, COPD Exacerbation and Bronchitis. Documented in the 09/25 Attending Progress Note as Asthma Exacerbation with cough and wheezing despite steroids. Additional clarification regarding the type of Asthma and COPD is requested. History/risk factors per the 09/21 H/P: IDDM II, Antibiotic allergies. Clinical Indicators: Presented to the ED on 09/20 with Upper Respiratory Infection signs/symptoms: chills, fever, sweats, cough with chest tightness, tiredness and headache and was recently exposed to Influenza A. Admit to Observation Status with Dehydration and a UTI. Admit to Inpatient Status on 09/25 with UTI, Pneumonia, and Asthma Exacerbation with continued cough & severe wheezing despite steroids. 09/20 VS: T 99.5, 100.5; P 117, R 22, BP 138/74, PO 97 RA, BMI: 28.3. 09/20 LAB: Lymphocytes 0.4; Na 133, Chloride 97, Glucose 293, AST 47, ALT 53. 09/20 UA: Cloudy, Specific [place] 1.041, Trace Protein, 4+ Glucose, 2+ Ketones, Large Esterase, RBC 16, WBC 119 09/20 Urine Culture (Final): Strep agalactiae gr B 09/20: COVID & Influenza A/B: Negative. 09/20 CXR: wnl 09/21 RSV: Negative 09/23 CT Chest: Small 1.2 cm focus of groundglass opacity anterior inferior left upper lobe could be developing pneumonic infiltrate. Treatment 09/20: Hypoglycemia Protocol. IV Na Chl 1,000 mls @ 999 mls/hr q1H, IV Na Chl 1,000 mls @ 75 mls/hr q13H, po Cipro 750 mg x1, IV Zofran 4 mg x1, po Tylenol 650 mg q6/prn, IV Toradol 15 mg q6H, IV Na Chl 1,000 mls @ 130 mls/hr q7H, IV Dextrose 25 ml prn, Insulin sq BID. 09/24: po Levaquin 500 mg q24H, po Tessalon Perles 200 mg TID/prn, INH uoneb 3 mg QID, Topical Kenalog BID. Please clarify the type and severity of Asthma and COPD, if known: [ ] Extrinsic asthma [ ] with exacerbation [ ] without exacerbation [ ] Intrinsic asthma [ ] with exacerbation [ ] without exacerbation [ ] Mild intermittent asthma [ ] with exacerbation [ ] without exacerbation [ ] Mild persistent asthma [ ] with exacerbation [ ] without exacerbation [ ] Moderate persistent asthma [ ] with exacerbation [ ] without exacerbation [ ] Severe persistent asthma [ ] with exacerbation [ ] without exacerbation [ ] COPD with exacerbation [ ] COPD without exacerbation [ ] Other, please specify ____ [ ] Unable to determine (Template Last Revised: December 2020) MTDD
[2022-09-26 12:31] LABS: Glucose,Whole Blood 318 mg/dL (70-110)
[2022-09-26] MEDS: LEVOFLOXACIN 500 MG TAB PO SCH (13:01)
[2022-09-26] MEDS: ACETAMINOPHEN TAB 325 MG TAB PO PRN (13:01)
--- NOTE | 2022-09-26 16:58 | P.PN ---
Subjective Progress Note Date: 09/23/22 Principal diagnosis: Urinary tract infection Patient is a 57-year-old female with multiple comorbidities presenting to the hospital with fever and chills decreased energy did have a positive UA with urine culture positive for group B strep, patient did have multiple ALL ERGIES. On today's evaluation that is 09/23/2022, the patient remains to be afebrile, patient still complaining of a dry irritating cough no chest pain no nausea no vomiting no abdominal pain or diarrhea Objective - Vital Signs Vital signs: Vital Signs Temp 98.3 F 09/23/22 19:26 Pulse 85 09/23/22 19:26 Resp 16 09/23/22 19:26 BP 125/72 09/23/22 19:26 Pulse Ox 94 L 09/23/22 19:26 FiO2 Intake & Output 09/23/22 09/23/22 09/24/22 06:59 18:59 06:59 Intake Total 840 Balance 840 Intake: Oral 840 Other: Voiding Method Toilet # Voids 2 2 - Exam GENERAL DESCRIPTION: Middle-aged female lying in bed in no distress RESPIRATORY SYSTEM: Unlabored breathing , course breath sounds bilaterally with occasional wheeze HEART: S1 S2 regular rate and rhythm , ABDOMEN: Soft , no tenderness EXTREMITIES: No edema feet - Labs CBC & Chem 7: 09/24/22 13:17 09/24/22 13:17 Labs: Abnormal Lab Results - Last 24 Hours (Table) 09/23/22 09/23/22 09/23/22 Range/Units 05:56 05:56 07:31 WBC 2.99 L (4.50-10.00) X 10*3/uL MPV 9.3 L (9.5-12.2) fL Lymphocytes # 0.58 L (0.90-5.00) X 10*3/uL Monocytes # 0.09 L (0.20-1.00) X 10*3/uL Eosinophils # 0 L (0.04-0.35) X 10*3/uL Glucose 367 H (70-110) mg/dL POC Glucose (mg/dL) 325 H (70-110) mg/dL Total Bilirubin <0.15 L (0.30-1.20) mg/dL ALT 54 H (8-44) U/L Albumin/Globulin Ratio 1.58 L (1.60-3.17) g/dL 09/23/22 09/23/22 09/23/22 Range/Units 12:27 17:32 20:00 WBC (4.50-10.00) X 10*3/uL MPV (9.5-12.2) fL Lymphocytes # (0.90-5.00) X 10*3/uL Monocytes # (0.20-1.00) X 10*3/uL Eosinophils # (0.04-0.35) X 10*3/uL Glucose (70-110) mg/dL POC Glucose (mg/dL) 397 H 376 H 383 H (70-110) mg/dL Total Bilirubin (0.30-1.20) mg/dL ALT (8-44) U/L Albumin/Globulin Ratio (1.60-3.17) g/dL Assessment and Plan (1) Febrile illness, acute Current Visit: Yes Status: Acute Code(s): R50.9 - FEVER, UNSPECIFIED SNOMED Code(s): 372526399 (2) Urinary tract infection Current Visit: Yes Status: Acute Code(s): N39.0 - URINARY TRACT INFECTION, SITE NOT SPECIFIED SNOMED Code(s): 89575153 Plan: 1patient presented hospital with fever and not feeling well did have some urinary symptom positive UA concerning for symptomatic urine tract infection with urine currently showing group B strep likely the infected pathogen. 2patient with multiple antibiotic allergies that would limit the number of antibiotics safe to use. 3patient did have a predominantly respiratory symptom CT of the chest that shows a groundglass opacity left upper lobe concerning for possible pneumonia, Rocephin has been added we will obtain CRP, pro-calcitonin and try to obtain a sputum Time with Patient: Less than 30
--- NOTE | 2022-09-26 17:00 | P.PN ---
Subjective Progress Note Date: 09/25/22 Principal diagnosis: Urinary tract infection Patient is a 57-year-old female with multiple comorbidities presenting to the hospital with fever and chills decreased energy did have a positive UA with urine culture positive for group B strep, patient did have multiple ALL ERGIES. On today's evaluation that is 09/25/2022, the patient continues to be afebrile, patient continued to be complaining of a dry irritating cough no chest pain no nausea no vomiting no abdominal pain or diarrhea Objective - Vital Signs Vital signs: Vital Signs Temp 97.9 F 09/25/22 14:00 Pulse 96 09/25/22 15:42 Resp 18 09/25/22 14:00 BP 108/77 09/25/22 14:00 Pulse Ox 95 09/25/22 14:00 FiO2 Intake & Output 09/24/22 09/25/22 09/25/22 18:59 06:59 18:59 Intake Total 480 360 Balance 480 360 Weight 63.503 kg Intake: Oral 480 360 Other: Voiding Method Toilet # Voids 1 2 0 - Exam GENERAL DESCRIPTION: Middle-aged female lying in bed in no distress RESPIRATORY SYSTEM: Unlabored breathing , course breath sounds bilaterally with occasional wheeze HEART: S1 S2 regular rate and rhythm , ABDOMEN: Soft , no tenderness EXTREMITIES: No edema feet - Labs CBC & Chem 7: 09/24/22 13:17 09/24/22 13:17 Labs: Abnormal Lab Results - Last 24 Hours (Table) 09/24/22 09/24/22 09/25/22 Range/Units 18:10 20:12 06:16 POC Glucose (mg/dL) 296 H 382 H 374 H (70-110) mg/dL 09/25/22 09/25/22 Range/Units 12:24 14:44 POC Glucose (mg/dL) 406 H 450 H (70-110) mg/dL Assessment and Plan (1) Febrile illness, acute Current Visit: Yes Status: Acute Code(s): R50.9 - FEVER, UNSPECIFIED SNOMED Code(s): 397983705 (2) Nausea Current Visit: Yes Status: Acute Code(s): R11.0 - NAUSEA SNOMED Code(s): 023317054 Plan: 1patient presented hospital with fever and not feeling well did have some urinary symptom positive UA concerning for symptomatic urine tract infection with urine currently showing group B strep likely the infected pathogen. 2patient with multiple antibiotic allergies that would limit the number of antibiotics safe to use. 3patient did have a predominantly respiratory symptom CT of the chest that shows a groundglass opacity left upper lobe concerning for possible pneumonia, Rocephin has been added however the patient did not have elevated pro calcitonin and possible viral, continue with the Rocephin for her UTI and discontinue Cipro Time with Patient: Less than 30
--- NOTE | 2022-09-26 17:01 | P.PN ---
Subjective Progress Note Date: 09/26/22 Principal diagnosis: Urinary tract infection Patient is a 57-year-old female with multiple comorbidities presenting to the hospital with fever and chills decreased energy did have a positive UA with urine culture positive for group B strep, patient did have multiple ALL ERGIES. On today's evaluation that is 09/26/2022, the patient remains to be afebrile, patient still complaining of dry irritating cough with a deep breath however did not bring up any sputum and no nausea no vomiting no abdominal pain or diarrhea Objective - Vital Signs Vital signs: Vital Signs Temp 97.9 F 09/26/22 07:40 Pulse 80 09/26/22 08:53 Resp 18 09/26/22 07:40 BP 160/79 09/26/22 07:40 Pulse Ox 98 09/26/22 07:40 FiO2 Intake & Output 09/25/22 09/26/22 09/26/22 18:59 06:59 18:59 Intake Total 360 240 Balance 360 240 Weight 63.503 kg Intake: Oral 360 240 Other: Voiding Method Toilet # Voids 0 2 - Exam GENERAL DESCRIPTION: Middle-aged female lying in bed in no distress RESPIRATORY SYSTEM: Unlabored breathing , course breath sounds bilaterally with occasional wheeze HEART: S1 S2 regular rate and rhythm , ABDOMEN: Soft , no tenderness EXTREMITIES: No edema feet - Labs CBC & Chem 7: 09/24/22 13:17 09/24/22 13:17 Labs: Abnormal Lab Results - Last 24 Hours (Table) 09/25/22 09/25/22 09/25/22 Range/Units 12:24 14:44 17:23 POC Glucose (mg/dL) 406 H 450 H 344 H (70-110) mg/dL 09/25/22 09/26/22 09/26/22 Range/Units 20:09 06:30 09:34 POC Glucose (mg/dL) 379 H 286 H 352 H (70-110) mg/dL Assessment and Plan (1) Febrile illness, acute Current Visit: Yes Status: Acute Code(s): R50.9 - FEVER, UNSPECIFIED SNOMED Code(s): 701286300 (2) Urinary tract infection Current Visit: Yes Status: Acute Code(s): N39.0 - URINARY TRACT INFECTION, SITE NOT SPECIFIED SNOMED Code(s): 20435456 Plan: 1patient presented hospital with fever and not feeling well did have some urinary symptom positive UA concerning for symptomatic urine tract infection with urine currently showing group B strep likely the infected pathogen. 2patient with multiple antibiotic allergies that would limit the number of antibiotics safe to use. 3patient did have a predominantly respiratory symptom CT of the chest that shows a groundglass opacity left upper lobe concerning for possible pneumonia, however the patient did not have elevated pro calcitonin and possible viral, the patient will continue with the Rocephin for her UTI and monitor clinical course closely Time with Patient: Less than 30
--- NOTE | 2022-09-26 17:04 | P.PN ---
Subjective Progress Note Date: 09/24/22 Principal diagnosis: Urinary tract infection Patient is a 57-year-old female with multiple comorbidities presenting to the hospital with fever and chills decreased energy did have a positive UA with urine culture positive for group B strep, patient did have multiple ALL ERGIES. On today's evaluation that is 09/24/2022, the patient denies any fever or chills, patient is complaining mostly of dry irritating cough no chest pain no nausea no vomiting no abdominal pain or diarrhea Objective - Vital Signs Vital signs: Vital Signs Temp 97.3 F L 09/24/22 13:53 Pulse 87 09/24/22 13:53 Resp 20 09/24/22 13:53 BP 144/70 09/24/22 13:53 Pulse Ox 94 L 09/24/22 13:53 FiO2 Intake & Output 09/24/22 13:59 Intake Total 360 Balance 360 Weight 63.503 kg Intake: Oral 360 Other: Voiding Method # Voids 0 - Exam GENERAL DESCRIPTION: Middle-aged female lying in bed in no distress RESPIRATORY SYSTEM: Unlabored breathing , course breath sounds bilaterally with occasional wheeze HEART: S1 S2 regular rate and rhythm , ABDOMEN: Soft , no tenderness EXTREMITIES: No edema feet - Labs CBC & Chem 7: 09/24/22 13:17 09/24/22 13:17 Labs: Abnormal Lab Results - Last 24 Hours (Table) 09/25/22 09/25/22 09/26/22 Range/Units 17:23 20:09 06:30 POC Glucose (mg/dL) 344 H 379 H 286 H (70-110) mg/dL 09/26/22 09/26/22 Range/Units 09:34 12:30 POC Glucose (mg/dL) 352 H 318 H (70-110) mg/dL Assessment and Plan (1) Febrile illness, acute Current Visit: Yes Status: Acute Code(s): R50.9 - FEVER, UNSPECIFIED SNOMED Code(s): 532785947 (2) Urinary tract infection Current Visit: Yes Status: Acute Code(s): N39.0 - URINARY TRACT INFECTION, SITE NOT SPECIFIED SNOMED Code(s): 73681164 Plan: 1patient presented hospital with fever and not feeling well did have some urinary symptom positive UA concerning for symptomatic urine tract infection w ith urine currently showing group B strep likely the infected pathogen. 2patient with multiple antibiotic allergies that would limit the number of antibiotics safe to use. 3patient did have a predominantly respiratory symptom CT of the chest that shows a groundglass opacity left upper lobe concerning for possible pneumonia, Rocephin has been added we will currently waiting for pro-calcitonin and try to obtain a sputum and monitor clinical course closely
[2022-09-26 17:17] LABS: Glucose,Whole Blood 305 mg/dL (70-110)
[2022-09-26] MEDS: guaiFENesin-DM 100-10MG/5ML 10 ML CUP PO PRN (18:40)
[2022-09-26 22:20] LABS: Glucose,Whole Blood 411 mg/dL (70-110)
[2022-09-27] MEDS: methylPREDNISolone SOD SUCCI 40 MG/ML 1 ML VIAL IV SCH ×3 (01:11→17:15)
--- NOTE | 2022-09-27 05:48 | PN ---
PROGRESS NOTE SUBJECTIVE: A 57-year-old white female, Christin Hunter being treated for pneumonia, UTI, asthma, COPD exacerbation, congestive cough with wheezing is slowly improving. She will be able to discharge either later today or tomorrow. OBJECTIVE: VITAL SIGNS: She is 94 on room air, temp 97.3, and blood pressure 144/70. CARDIOVASCULAR: S1, S2. LUNGS: Rales, rhonchi, wheezes x4. Cheeks are red. GI: Soft. HEMATOLOGY: Negative for Homans. Sugars in the mid 300s. She has Strep agalactiae group B in the urine. Remains on Rocephin and Levaquin. Wait for Dr. Currie's recommendations and discharge antibiotics but insulin-dependent diabetes mellitus. Continue current treatments. For asthma COPD, continue steroids, increase ambulation, Kenalog cream. Triamcinolone cream for the leg. She has a rash in her left leg. PROGNOSIS: Guarded. MMODL / IJN: [id number] /
[2022-09-27] MEDS: SODIUM CHLORIDE 0.9% 1,000 ML IV SCH ×3 (06:04→21:56)
[2022-09-27 06:08] LABS: Glucose,Whole Blood 287 mg/dL (70-110)
[2022-09-27] MEDS: INSULIN ASPART (NovoLOG) 100 UNIT/ML VIAL SQ SCH ×3 (06:12→18:15)
[2022-09-27] MEDS: IPRATROPIUM-ALBUTEROL 3 ML NEB INHALATION SCH ×4 (08:23→21:34)
[2022-09-27] MEDS: ENOXAPARIN 40 MG/0.4 ML SYRINGE SQ SCH (09:08)
[2022-09-27] MEDS: guaiFENesin-DM 100-10MG/5ML 10 ML CUP PO PRN (09:09)
[2022-09-27] MEDS: INSULN ASP PRT/INSULIN ASPART 100 UNIT/ML 10 ML VIAL SQ SCH ×2 (09:09→21:56)
[2022-09-27] MEDS: TRIAMCINOLONE 0.1% CREAM 80 GM TUBE TOPICAL SCH ×2 (09:10→21:57)
[2022-09-27 12:27] LABS: Glucose,Whole Blood 354 mg/dL (70-110)
[2022-09-27 17:34] LABS: Glucose,Whole Blood 457 mg/dL (70-110)
[2022-09-27 21:13] LABS: Glucose,Whole Blood 370 mg/dL (70-110)
[2022-09-27] MEDS: guaiFENesin 600 MG TABLET.ER PO SCH (22:36)
--- NOTE | 2022-09-28 00:01 | PN ---
PROGRESS NOTE SUBJECTIVE: She remains on Rocephin, Solu-Medrol. Accu-Chek protocols. Her sugar went over 500, so we are going to stop her IV Solu-Medrol, may be switch to oral prednisone for a few days. Possibly go home tomorrow. Sugars are in the 300-400s. Urine is negative for Legionella. OBJECTIVE: CARDIOVASCULAR: S1, S2. LUNGS: Scattered rhonchi and wheeze. HEMATOLOGIC: Negative for Homans. PSYCH: Fair mood and affect, congested cough. PLAN: Will have Mucinex cough syrup with codeine. Possible discharge home. Ambulate. Please see further orders. MMODL / IJN: [id number] /
[2022-09-28] MEDS: SODIUM CHLORIDE 0.9% 1,000 ML IV SCH ×3 (02:16→20:13)
[2022-09-28 06:42] LABS: Glucose,Whole Blood 240 mg/dL (70-110)
[2022-09-28] MEDS: INSULIN ASPART (NovoLOG) 100 UNIT/ML VIAL SQ SCH ×3 (06:48→18:09)
[2022-09-28] MEDS: IPRATROPIUM-ALBUTEROL 3 ML NEB INHALATION SCH ×4 (08:30→19:21)
[2022-09-28] MEDS: ENOXAPARIN 40 MG/0.4 ML SYRINGE SQ SCH (08:45)
[2022-09-28] MEDS: INSULN ASP PRT/INSULIN ASPART 100 UNIT/ML 10 ML VIAL SQ SCH ×2 (08:45→20:14)
[2022-09-28] MEDS: guaiFENesin 600 MG TABLET.ER PO SCH ×2 (08:46→20:14)
[2022-09-28] MEDS: TRIAMCINOLONE 0.1% CREAM 80 GM TUBE TOPICAL SCH ×2 (09:33→20:14)
[2022-09-28] MEDS: guaiFENesin-DM 100-10MG/5ML 10 ML CUP PO PRN (09:34)
[2022-09-28] MEDS: BENZONATATE 100 MG CAP PO PRN (09:34)
[2022-09-28 12:29] LABS: Glucose,Whole Blood 241 mg/dL (70-110)
[2022-09-28 17:09] LABS: Glucose,Whole Blood 327 mg/dL (70-110)
[2022-09-28 19:55] LABS: Glucose,Whole Blood 381 mg/dL (70-110)
[2022-09-28] MEDS: ACETAMINOPHEN TAB 325 MG TAB PO PRN (20:13)
--- NOTE | 2022-09-28 23:55 | P.PN ---
Subjective Progress Note Date: 09/27/22 Principal diagnosis: Urinary tract infection Patient is a 57-year-old female with multiple comorbidities presenting to the hospital with fever and chills decreased energy did have a positive UA with urine culture positive for group B strep, patient did have multiple ALL ERGIES. On today's evaluation that is 09/27/2022, the patient remains to be afebrile, patient is feeling slightly better today, cough has decreased in intensity not bringing up any sputum no nausea no vomiting no abdominal pain or diarrhea Objective - Vital Signs Vital signs: Vital Signs Temp 97.7 F 09/27/22 07:40 Pulse 78 09/27/22 12:23 Resp 16 09/27/22 08:00 BP 150/83 09/27/22 07:40 Pulse Ox 95 09/27/22 07:40 FiO2 Intake & Output 09/26/22 09/27/22 09/27/22 18:59 06:59 18:59 Intake Total 358 1050 300 Balance 358 1050 300 Intake: Intake, IV Titration 1050 Amount Sodium Chloride 0.9% 1, 1000 000 ml @ 130 mls/hr IV . Q7H42M [facility] Rx#:[id number] cefTRIAXone 1 gm In 50 Sodium Chloride 0.9% 50 ml @ 100 mls/hr IVPB Q12H [facility] Rx#:[id number] Oral 358 300 Other: Voiding Method Toilet Toilet # Voids 2 1 - Exam GENERAL DESCRIPTION: Middle-aged female lying in bed in no distress RESPIRATORY SYSTEM: Unlabored breathing , course breath sounds bilaterally with occasional wheeze HEART: S1 S2 regular rate and rhythm , ABDOMEN: Soft , no tenderness EXTREMITIES: No edema feet - Labs CBC & Chem 7: 09/24/22 13:17 09/24/22 13:17 Labs: Abnormal Lab Results - Last 24 Hours (Table) 09/26/22 09/26/22 09/27/22 Range/Units 17:16 22:18 06:06 POC Glucose (mg/dL) 305 H 411 H 287 H (70-110) mg/dL 09/27/22 Range/Units 12:26 POC Glucose (mg/dL) 354 H (70-110) mg/dL Assessment and Plan (1) Febrile illness, acute Current Visit: Yes Status: Acute Code(s): R50.9 - FEVER, UNSPECIFIED SNOMED Code(s): 894737809 (2) Urinary tract infection Current Visit: Yes Status: Acute Code(s): N39.0 - URINARY TRACT INFECTION, SITE NOT SPECIFIED SNOMED Code(s): 03603284 Plan: 1patient presented hospital with fever and not feeling well did have some urinary symptom positive UA concerning for symptomatic urine tract infection with urine currently showing group B strep likely the infected pathogen. 2patient with multiple antibiotic allergies that would limit the number of antibiotics safe to use. 3patient did have a predominantly respiratory symptom CT of the chest that shows a groundglass opacity left upper lobe concerning for possible pneumonia, however the patient did have a normal pro-calcitonin, patient to continue with Rocephin to cover for UTI and monitor clinical course closely Time with Patient: Less than 30
--- NOTE | 2022-09-28 23:56 | P.PN ---
Subjective Progress Note Date: 09/28/22 Principal diagnosis: Urinary tract infection Patient is a 57-year-old female with multiple comorbidities presenting to the hospital with fever and chills decreased energy did have a positive UA with urine culture positive for group B strep, patient did have multiple ALL ERGIES. On today's evaluation that is 09/28/2022, the patient denies any fever or any chills, patient is breathing slightly comfortably the patient cough is decreased intensity and remains to be dry in nature no nausea no vomiting no abdominal pain or diarrhea Objective - Vital Signs Vital signs: Vital Signs Temp 98.1 F 09/28/22 15:09 Pulse 80 09/28/22 19:43 Resp 16 09/28/22 15:09 BP 149/80 09/28/22 15:09 Pulse Ox 94 L 09/28/22 15:09 FiO2 Intake & Output 09/28/22 09/28/22 09/29/22 06:59 18:59 06:59 Intake Total 50 680 Balance 50 680 Intake: Intake, IV Titration 50 Amount cefTRIAXone 1 gm In 50 Sodium Chloride 0.9% 50 ml @ 100 mls/hr IVPB Q12H [facility] Rx#:[id number] Oral 680 Other: Voiding Method Toilet Toilet # Voids 2 - Exam GENERAL DESCRIPTION: Middle-aged female lying in bed in no distress RESPIRATORY SYSTEM: Unlabored breathing , decreased intensity of breath sounds no wheeze HEART: S1 S2 regular rate and rhythm , ABDOMEN: Soft , no tenderness EXTREMITIES: No edema feet - Labs CBC & Chem 7: 09/24/22 13:17 09/24/22 13:17 Labs: Abnormal Lab Results - Last 24 Hours (Table) 09/28/22 09/28/22 09/28/22 Range/Units 06:41 12:27 17:08 POC Glucose (mg/dL) 240 H 241 H 327 H (70-110) mg/dL 09/28/22 Range/Units 19:54 POC Glucose (mg/dL) 381 H (70-110) mg/dL Assessment and Plan (1) Febrile illness, acute Current Visit: Yes Status: Acute Code(s): R50.9 - FEVER, UNSPECIFIED SNOMED Code(s): 198459753 (2) Urinary tract infection Current Visit: Yes Status: Acute Code(s): N39.0 - URINARY TRACT INFECTION, SITE NOT SPECIFIED SNOMED Code(s): 42193901 Plan: 1patient presented hospital with fever and not feeling well did have some urinary symptom positive UA concerning for symptomatic urine tract infection with urine currently showing group B strep likely the infected pathogen. 2patient with multiple antibiotic allergies that would limit the number of antibiotics safe to use. 3patient did have a predominantly respiratory symptom CT of the chest that shows a groundglass opacity left upper lobe concerning for possible pneumonia, however the patient did have a normal pro-calcitonin, patient to continue with Rocephin and finish therapy short course of oral Ceftin
--- NOTE | 2022-09-29 00:29 | PN ---
PROGRESS NOTE ADDENDUM: Intrinsic asthma with exacerbation. MMODL / IJN: [id number] /
[2022-09-29] MEDS: SODIUM CHLORIDE 0.9% 1,000 ML IV SCH ×2 (01:34→09:46)
--- NOTE | 2022-09-29 02:51 | PN ---
PROGRESS NOTE HISTORY OF PRESENT ILLNESS: A 57-year-old white female. She her breathing. Steroids were stopped due to hyperglycemia. She was placed some Mucinex, Tessalon Perles, cough medication, her home medicines plus Accu-Cheks. She is still wheezing, has . She is much better. She will go home in the morning. OBJECTIVE: LUNGS: Show scattered rhonchi or wheeze. CARDIOVASCULAR: S1, S2. PSYCH: Fair mood and affect. NEUROLOGIC: Alert and oriented x3. HEMATOLOGY: Negative Homans. PLAN: The patient will be discharged home in the morning. Follow up as an outpatient. Home on steroids, antibiotics, updraft, inhalers, Symbicort, and Mucinex. Continue Levaquin and steroid taper. Prognosis is guarded. MMODL / IJN: [id number] /
[2022-09-29 06:30] LABS: Glucose,Whole Blood 299 mg/dL (70-110)
[2022-09-29] MEDS: BENZONATATE 100 MG CAP PO PRN (06:55)
[2022-09-29] MEDS: INSULIN ASPART (NovoLOG) 100 UNIT/ML VIAL SQ SCH (07:35)
[2022-09-29 08:44] VITALS: BP 120/77; PULSE 96; RESP 18; TEMP 98
[2022-09-29] MEDS: ENOXAPARIN 40 MG/0.4 ML SYRINGE SQ SCH (09:09)
[2022-09-29] MEDS: guaiFENesin 600 MG TABLET.ER PO SCH (09:09)
[2022-09-29] MEDS: TRIAMCINOLONE 0.1% CREAM 80 GM TUBE TOPICAL SCH (09:10)
[2022-09-29] MEDS: IPRATROPIUM-ALBUTEROL 3 ML NEB INHALATION SCH (09:15)
[2022-09-29] MEDS: INSULN ASP PRT/INSULIN ASPART 100 UNIT/ML 10 ML VIAL SQ SCH (09:44)
== END 2022-09-29 10:00 | disposition home or self-care (01) | DRG 689 ==
LOC: EC 13:01 → 6NMEDSUR 17:36 → OBSVTOIN 09-24 10:23 → 6NMEDSUR 09-24 23:13
PROVIDERS: ADMIT Family Medicine; ATTEND Family Medicine
DX: N30.00 Acute cystitis without hematuria (principal); J18.9 Pneumonia, unspecified organism; J44.0 Chronic obstructive pulmonary disease with (acute) lower respiratory infection; J45.901 Unspecified asthma with (acute) exacerbation; Z20.822 Contact with and (suspected) exposure to COVID-19; B95.1 Streptococcus, group B, as the cause of diseases classified elsewhere; I10 Essential (primary) hypertension; K59.00 Constipation, unspecified; E78.5 Hyperlipidemia, unspecified; E86.0 Dehydration; E11.65 Type 2 diabetes mellitus with hyperglycemia; Z79.4 Long term (current) use of insulin; Z79.899 Other long term (current) drug therapy; Z88.0 Allergy status to penicillin; Z88.2 Allergy status to sulfonamides; Z88.1 Allergy status to other antibiotic agents; Z83.2 Family history of diseases of the blood and blood-forming organs and certain disorders involving the immune mechanism; Z88.8 Allergy status to other drugs, medicaments and biological substances; Z91.018 Allergy to other foods; Z90.49 Acquired absence of other specified parts of digestive tract
CPT/HCPCS: 36415; 71046; 71250; 80053; 81001; 82550; 83605; 83735; 84145; 84484; 85025; 86140; 87086; 87449; 87502; 87634; 87635; 93005; 94640; 96361; 96372; 96374; 99285

== ENCOUNTER → 2022-10-16 | Outpatient (CLI) | payer OTHER ==
--- NOTE | 2022-10-16 15:40 | XR ---
EXAMINATION TYPE: XR facial bones complete DATE OF EXAM: 10/16/2022 COMPARISON: NONE HISTORY: 57-year-old female S09.93XA, facial trauma TECHNIQUE: 3 views FINDINGS: Orbits appear symmetrical and intact. Slight asymmetric opacity along the inferior aspect o f the right maxillary sinus. Frontal, sphenoid, and ethmoid sinuses appear clear. Dental amalgam is n oted. Mastoid air cells appear pneumatized. No depressed or angulated nasal bone fracture seen. The m andible appears intact. IMPRESSION: No acute facial bone fracture is radiographically apparent. If persistent concern, CT facial bones ca n be considered. There may be some mild asymmetric right-sided chronic maxillary sinus disease.
== END | disposition home or self-care (01) ==
LOC: RADXRMAIN 12:36
PROVIDERS: ATTEND Family Medicine
DX: S09.93XA Unspecified injury of face, initial encounter (principal); J32.9 Chronic sinusitis, unspecified
CPT/HCPCS: 70150

== ENCOUNTER → 2023-03-13 | Outpatient (CLI) | payer OTHER ==
--- NOTE | 2023-03-13 10:45 | XR ---
EXAMINATION TYPE: XR chest 2V DATE OF EXAM: 03/13/2023 COMPARISON: Chest x-ray September 20, 2022. Chest CT September 23, 2022. HISTORY: Chest pain. TECHNIQUE: Frontal and lateral views of the chest are obtained. FINDINGS: There is no focal air space opacity, pleural effusion, or pneumothorax seen. The cardiac silhouette size is stable and within normal limits. The osseous structures are intact. Cholecystect taiwo clips are redemonstrated. IMPRESSION: No acute cardiopulmonary process. No significant change from recent x-ray.
== END | disposition home or self-care (01) ==
LOC: RADXRMAIN 10:20
PROVIDERS: ATTEND Family Medicine
DX: R07.9 Chest pain, unspecified (principal)
CPT/HCPCS: 71046

== ENCOUNTER → 2023-05-07 | Outpatient (CLI) | payer OTHER ==
--- NOTE | 2023-05-07 18:18 | XR ---
EXAMINATION TYPE: XR elbow limited RT DATE OF EXAM: 05/07/2023 COMPARISON: NONE HISTORY: [id number] female S5 9.901, right elbow trauma, lateral pain. TECHNIQUE: 2 views FINDINGS: No elbow joint effusion. Bony olecranon spur. No acute fracture, subluxation, or dislocatio n seen. IMPRESSION: 2 views without acute osseous abnormality seen.
== END | disposition home or self-care (01) ==
LOC: RADXRMAIN 10:52
PROVIDERS: ATTEND Family Medicine
DX: M25.521 Pain in right elbow (principal)

== ENCOUNTER 2023-06-01 14:00 | Inpatient (IN) | payer OTHER ==
[2023-06-01] MEDS ORDERED: VANCOMYCIN IV PER PHARMACY 1 EACH MISC MISCELLANE PRN (14:38)
--- NOTE | 2023-06-01 14:43 | ED ---
General Adult HPI - General Chief complaint: Skin/Abscess/Foreign Body Stated complaint: Breast Infection Time Seen by Provider: 06/01/23 14:21 Source: patient Mode of arrival: ambulatory Limitations: no limitations - History of Present Illness Initial comments: This is a 58-year-old female with a past medical history including diabetes presents emergency department from her primary care physician for a right breast abscess. The patient stated that she went swimming in the [place] and noted that she had bumps on her breasts last Thursday. The patient has been seen by her primary care physician on Thursday and was given a dose of antibiotics for the week however did not have any improvement and was seen today in the office and was told to come to the emergency department for a evaluation and admission. The patient did state that she had some mild fevers and chills and stated that she continued significant swelling of her right breast and tenderness. The patient denied any other acute pain or complaints at this time. - Related Data Home Medications Medication Instructions Recorded Confirmed Insulin NPL/Insulin Lispro 45 unit SQ BID 09/20/22 06/01/23 [humaLOG MIX 75-25 VIAL] Ciprofloxacin HCl [Cipro] 500 mg PO BID 06/01/23 06/01/23 INSULIN ASPART (NovoLOG) [NovoLOG 10 unit SQ AC-TID 06/01/23 06/01/23 (formulary)] Allergies Allergy/AdvReac Type Severity Reaction Status Date / Time erythromycin base Allergy Rash/Hives Verified 06/01/23 14:52 gemifloxacin [From Factive] Allergy Anaphylaxis Verified 06/01/23 14:52 Influenza Virus Vaccines Allergy Nausea & Verified 06/01/23 14:52 Vomiting & Diarrhea Penicillins Allergy Rash/Hives Verified 06/01/23 14:52 prednisone Allergy Rash/Hives Verified 06/01/23 14:52 Sulfa (Sulfonamide Allergy Rash/Hives Verified 06/01/23 14:52 Antibiotics) pine nuts AdvReac Anaphylaxis Uncoded 06/01/23 14:52 Review of Systems ROS Statement: Those systems with pertinent positive or pertinent negative responses have been documented in the HPI. ROS Other: All systems not noted in ROS Statement are negative. Past Medical History Past Medical History: Diabetes Mellitus, Hyperlipidemia, Hypertension Additional Past Medical History / Comment(s): vomiting after eating, constipation, History of Any Multi-Drug Resistant Organisms: None Reported Past Surgical History: Appendectomy, Cholecystectomy Additional Past Surgical History / Comment(s): cysts removed from ovaries Past Anesthesia/Blood Transfusion Reactions: Motion Sickness, Postoperative Nausea & Vomiting (PONV) Past Psychological History: No Psychological Hx Reported Smoking Status: Never smoker Past Alcohol Use History: None Reported Past Drug Use History: None Reported - Past Family History Sister(s) Family Medical History: Deep Vein Thrombosis (DVT) General Exam Limitations: no limitations General appearance: alert, in no apparent distress Head exam: Present: atraumatic, normocephalic, normal inspection Eye exam: Present: normal appearance, PERRL Pupils: Present: normal accommodation ENT exam: Present: normal exam, normal oropharynx, mucous membranes moist Neck exam: Present: normal inspection, full ROM Respiratory exam: Present: normal lung sounds bilaterally, other (Breast exam was performed with a microarray analyst present. There was a large breast abscess of the right breast involving the entirety of the breast. Purulent drainage noted on the under side of the breast) Cardiovascular Exam: Present: regular rate, normal rhythm, normal heart sounds GI/Abdominal exam: Present: soft, normal bowel sounds Extremities exam: Present: normal inspection, full ROM Back exam: Present: normal inspection, full ROM Neurological exam: Present: alert, oriented X3, CN II-XII intact Psychiatric exam: Present: normal affect, normal mood Skin exam: Present: warm, dry Course Vital Signs 06/01/23 06/01/23 06/01/23 14:06 15:36 16:30 Temperature 98.9 F 98.1 F Pulse Rate 117 H 101 H Pulse Rate [ 70 Right] Respiratory 16 18 20 Rate Blood Pressure 128/79 138/81 Blood Pressure 163/94 [Right Arm] O2 Sat by Pulse 96 99 96 Oximetry EKG Findings - EKG Comments: EKG Findings:: An EKG was obtained and was interpreted by myself showing a rate of 106, [place] interval 128, QRS duration of 90 and QTC of 392. This EKG showed sinus tachycardia without any ST segment elevation or depression noted. Medical Decision Making - Medical Decision Making Was pt. sent in by a medical professional or institution (, PA, [facility], urgent care, hospital, or long term...) When possible be specific @ -No Did you speak to anyone other than the patient for history (EMS, parent, family, police, friend...)? What history was obtained from this source @ -No Did you review nursing and triage notes (agree or disagree)? Why? @ -I reviewed and agree with nursing and triage notes Were old charts reviewed (outside hosp., previous admission, EMS record, old EKG, old radiological studies, urgent care reports/EKG's, long term records)? Report findings @ -No old charts were reviewed Differential Diagnosis (chest pain, altered mental status, abdominal pain women, abdominal pain men, vaginal bleeding, weakness, fever, dyspnea, syncope, headache, dizziness, GI bleed, back pain, seizure, CVA, palpatations, mental health)? @ -Breast abscess, cellulitis, abscess EKG interpreted by me (3pts min.). @ -As above X-rays interpreted by me (1pt min.). @ -None done CT interpreted by me (1pt min.). @ -None done U/S interpreted by me (1pt. min.). @ -None done What testing was considered but not performed or refused? (CT, X-rays, U/S, labs)? Why? @ -In ultrasound was not ordered at this time as the patient had an obvious breast abscess that was draining on the lower side of the breast. What meds were considered but not given or refused? Why? @ -None Did you discuss the management of the patient with other professionals ( professionals i.e. , PA, [employer], lab, RT, psych nurse, rn social work, advertising project manager, teacher, special technical operations officer, manager of case)? Give summary @ -Yes, the admitting physician was contacted regarding patient's admission. Was smoking cessation discussed for >3mins.? @ -No Was critical care preformed (if so, how long)? @ -No Were there social determinants of health that impacted care today? How? (Ho melessness, low income, unemployed, alcoholism, drug addiction, transportation, low edu. Level, literacy, decrease access to med. care, half-way, rehab)? @ -No Was there de-escalation of care discussed even if they declined (Discuss DNR or withdrawal of care, Hospice)? DNR status @ -No What co-morbidities impacted this encounter? (DM, HTN, Smoking, COPD, CAD, Cancer, CVA, ARF, Chemo, Hep., AIDS, mental health diagnosis, sleep apnea, morbid obesity)? @ -Diabetes Was patient admitted / discharged? Hospital course, mention meds given and route, prescriptions, significant lab abnormalities, going to OR and other pertinent info. @ -The patient was seen and evaluated emergency department. Physical exam, the patient was resting in bed without any acute distress. Vital signs admission were stable. The patient did have some mild tachycardia however. Due to the na ture the patient's physical exam findings of a significant breast abscess with drainage noted on the lower aspect of the breast in failed outpatient management, the patient will be admitted for further workup and evaluation. The patient did undergo sepsis protocol but was not septic at this time. The patient received vancomycin as well as blood cultures. The patient's primary care physician was contacted and accepted the patient for admission. The breast surgeon was also placed and consul at this time. The patient understood the plan and was agreeable. The patient was admitted in stable condition. Undiagnosed new problem with uncertain prognosis? @ -No Drug Therapy requiring intensive monitoring for toxicity (Heparin, Nitro, Ins ulin, Cardizem)? @ -No Were any procedures done? @ -No Diagnosis/symptom? @ -Right breast abscess Acute, or Chronic, or Acute on Chronic? @ -Acute Uncomplicated (without systemic symptoms) or Complicated (systemic symptoms)? @ -Uncomplicated Side effects of treatment? @ -No Exacerbation, Progression, or Severe Exacerbation? @ -No Poses a threat to life or bodily function? How? (Chest pain, [place], [place], pneumonia, PE, COPD, DKA, ARF, appy, cholecystitis, CVA, Diverticulitis, Homicidal, Suicidal, threat to staff... and all critical care pts) @ -No - Lab Data Result diagrams: 06/01/23 14:53 06/01/23 14:53 Disposition Clinical Impression: Breast abscess Disposition: ADMITTED IP TO THIS [facility] Condition: Stable Is patient prescribed a controlled substance at d/c from ED?: No Time of Disposition: 14:30 Decision to Admit Reason: Admit from [facility] Decision Date: 06/01/23 Decision Time: 14:30
[2023-06-01] MEDS ORDERED: VANCOMYCIN 1,250 MG in SODIUM CHLORIDE 0.9% 250 ML IVPB STA (14:46)
[2023-06-01 15:10] LABS: Basophils # (A) 0.1 k/uL (0-0.2); Basophils % (A) 1 %; Eosinophils # (A) 0.2 k/uL (0-0.7); Eosinophils % (A) 2 %; HCT 40.7 % (34.0-46.0); Lymphocytes # (A) 2.1 k/uL (1.0-4.8); Lymphocytes % (A) 21 %; MCH 28.9 pg (25.0-35.0); MCHC 34.5 g/dL (31.0-37.0); MCV 83.5 fL (80.0-100.0); Mean Platelet Volume 7.3; Monocytes # (A) 0.6 k/uL (0-1.0); Monocytes % (A) 6 %; Neutrophils % (A) 69 %; Platelet Count 317 k/uL (150-450); RBC 4.87 m/uL (3.80-5.40); RDW 12.9 % (11.5-15.5); WBC 10.1 k/uL (3.8-10.6)
[2023-06-01] MEDS: SODIUM CHLORIDE 0.9% 500 ML 500 ML IV SCH ×4 (15:13→20:38)
[2023-06-01 15:26] LABS: ALT 23 U/L (4-34); AST 24 U/L (14-36); African American GFR (CKD) >90 (>60 ml/min/1.73 sqM); Alkaline Phosphatase 122 U/L (38-126); Anion Gap 13 mmol/L; Blood Urea Nitrogen 16 mg/dL (7-17); Calcium 9.2 mg/dL (8.4-10.2); Carbon Dioxide 23 mmol/L (22-30); Chloride 96 mmol/L (98-107); Glucose 369 mg/dL (74-99); Non-African American GFR(CKD) >90 (>60 ml/min/1.73 sqM); Potassium 4.2 mmol/L (3.5-5.1); Sodium 132 mmol/L (137-145); Total Bilirubin 0.8 mg/dL (0.2-1.3); Total Protein 7.2 g/dL (6.3-8.2)
[2023-06-01 15:29] LABS: INR 0.9 (<1.2); Prothrombin Time 10.1 sec (9.0-12.0)
[2023-06-01 15:52] LABS: Partial Thromboplastin Time 21.3 sec (22.0-30.0)
[2023-06-01] MEDS ORDERED: diphenhydrAMINE 50 MG/ML 1 ML VIAL IVP STA (16:50)
[2023-06-01] MEDS ORDERED: diphenhydrAMINE 50 MG/ML 1 ML VIAL ONE (16:51)
[2023-06-01 17:25] LABS: Glucose,Whole Blood 294 mg/dL (70-110)
[2023-06-01] MEDS: INSULIN ASPART (NovoLOG) 100 UNIT/ML VIAL SQ SCH (17:40)
[2023-06-01 20:02] LABS: Glucose,Whole Blood 321 mg/dL (70-110)
[2023-06-01] MEDS: DOXYCYCLINE 100 MG in SODIUM CHLORIDE 0.9% 100 ML IVPB SCH (20:37)
[2023-06-01] MEDS: INSULN ASP PRT/INSULIN ASPART 100 UNIT/ML 10 ML VIAL SQ SCH (20:38)
[2023-06-01] MEDS: SODIUM CHLORIDE 0.9% 1,000 ML IV SCH (20:38)
[2023-06-01] MEDS: IPRATROPIUM-ALBUTEROL 3 ML NEB INHALATION SCH (20:52)
[2023-06-01] MEDS: VANCOMYCIN 1,250 MG in SODIUM CHLORIDE 0.9% 250 ML IVPB SCH (22:06)
--- NOTE | 2023-06-02 02:05 | HP ---
HISTORY AND PHYSICAL HISTORY OF PRESENT ILLNESS: This is a 58-year-old white female who was admitted for severe outpatient failure, cellulitis of the right breast with severe abscess and covering the most of the breast, which is red, swollen, and painful. The patient's pain level is 10/10, failed outpatient treatments with Cipro. admitted, started on IV antibiotics with Infectious Disease. Surgical consult for right breast abscess and covering the whole . She is an insulin-dependent diabetic with pulse 101 to 117, temperature 98, blood pressure 130s to 160s over 70s to 90s, 96% on room air. White count was 10, hemoglobin is 14.0, sodium 132, potassium 4.2, creatinine 0.4, sugars 369. PHYSICAL EXAMINATION: BREASTS: Right breast is red, swollen with a black eschar in the inferior right breast. CARDIOVASCULAR: S1, S2. LUNGS: Clear. GI: Soft. HEMATOLOGY: Negative for Homans. ASSESSMENT: Severe abscess, cellulitis of the right breast, failed outpatient treatment. IV antibiotics. Infectious Disease. Surgical consult. Continue with current treatments. Medicines were reviewed. Continue Accu-Cheks per protocol for diabetes. PROGNOSIS: Guarded, wait for surgery and Infectious Disease. MMODL / IJN: [id number] /
[2023-06-02 06:59] LABS: African American GFR (CKD) >90 (>60 ml/min/1.73 sqM); Non-African American GFR(CKD) >90 (>60 ml/min/1.73 sqM)
[2023-06-02 07:33] LABS: Glucose,Whole Blood 337 mg/dL (70-110)
[2023-06-02] MEDS: DOXYCYCLINE 100 MG in SODIUM CHLORIDE 0.9% 100 ML IVPB SCH ×2 (08:04→21:29)
[2023-06-02] MEDS: INSULN ASP PRT/INSULIN ASPART 100 UNIT/ML 10 ML VIAL SQ SCH ×2 (08:04→21:30)
[2023-06-02] MEDS: INSULIN ASPART (NovoLOG) 100 UNIT/ML VIAL SQ SCH ×3 (08:04→17:46)
[2023-06-02] MEDS: SODIUM CHLORIDE 0.9% 1,000 ML IV SCH (08:05)
[2023-06-02] MEDS: IPRATROPIUM-ALBUTEROL 3 ML NEB INHALATION SCH ×4 (08:42→21:11)
[2023-06-02] MEDS: VANCOMYCIN 1,250 MG in SODIUM CHLORIDE 0.9% 250 ML IVPB SCH ×2 (10:57→23:46)
--- NOTE | 2023-06-02 11:53 | P.GSHP ---
History of Present Illness H&P Date: 06/02/23 Chief Complaint: abcess right breast Christin is a 58-year-old diabetic female who presented to the emergency department from her primary care physician's office with a swelling in her right breast. The patient stated that she had gone swimming unrelated noted approxi mately 3 hours later a fullness in her right breast. This was on Thursday. The patient was seen by her primary care doctor Thursday given a dose of antibiotics however without improvement she was sent to the emergency department and admitted. The patient has a culture which shows presumptive staph aureus. The patient is not a any other lumps masses or nodules. She has no swelling anyplace else. She is not complaining of pain anyplace else. She did have some fevers to 102 prior to admission but has since been afebrile. Medical history: Diabetes Hyperlipidemia Hypertension Surgical history: Appendectomy Cholecystectomy Cyst removed from ovaries Social history: Nicotine: Negative Alcohol: Negative Drugs: Negative - Constitutional Constitutional: Denies chills, Denies fever - EENT Eyes: denies blurred vision, denies pain - Breasts Breasts: bilateral: as per HPI - Cardiovascular Cardiovascular: Reports as per HPI - Respiratory Respiratory: Reports as per HPI - Gastrointestinal Gastrointestinal: Reports as per HPI - Integumentary Integumentary: Reports as per HPI - Psychiatric Psychiatric: Reports as per HPI - Allergic/Immunologic Allergic/Immunologic: Reports as per HPI Past Medical History Past Medical History: Diabetes Mellitus, Hyperlipidemia, Hypertension Additional Past Medical History / Comment(s): vomiting after eating, constipation, History of Any Multi-Drug Resistant Organisms: None Reported Past Surgical History: Appendectomy, Cholecystectomy Additional Past Surgical History / Comment(s): cysts removed from ovaries Past Anesthesia/Blood Transfusion Reactions: Motion Sickness, Postoperative Nausea & Vomiting (PONV) Past Psychological History: No Psychological Hx Reported Smoking Status: Never smoker Past Alcohol Use History: None Reported Past Drug Use History: None Reported - Past Family History Sister(s) Family Medical History: Deep Vein Thrombosis (DVT) Medications and Allergies Home Medications Medication Instructions Recorded Confirmed Type Insulin NPL/Insulin Lispro 45 unit SQ BID 09/20/22 06/01/23 History [humaLOG MIX 75-25 VIAL] Ciprofloxacin HCl [Cipro] 500 mg PO BID 06/01/23 06/01/23 History INSULIN ASPART (NovoLOG) [NovoLOG 10 unit SQ AC-TID 06/01/23 06/01/23 History (formulary)] Allergies Allergy/AdvReac Type Severity Reaction Status Date / Time erythromycin base Allergy Rash/Hives Verified 06/01/23 14:52 gemifloxacin [From Factive] Allergy Anaphylaxis Verified 06/01/23 14:52 Influenza Virus Vaccines Allergy Nausea & Verified 06/01/23 14:52 Vomiting & Diarrhea Penicillins Allergy Rash/Hives Verified 06/01/23 14:52 prednisone Allergy Rash/Hives Verified 06/01/23 14:52 Sulfa (Sulfonamide Allergy Rash/Hives Verified 06/01/23 14:52 Antibiotics) pine nuts AdvReac Anaphylaxis Uncoded 06/01/23 14:52 Surgical - Exam Vital Signs Temp Pulse Resp BP Pulse Ox 98.9 F 117 H 16 128/79 96 06/01/23 14:06 06/01/23 14:06 06/01/23 14:06 06/01/23 14:06 06/01/23 14:06 - General no distress - Eyes normal ocular movement - Neck trachea midline - Respiratory normal respiratory effort, clear to auscultation - Cardiovascular Heart Sounds: normal: S1, S2 - Abdomen Abdomen: soft, non tender, no guarding, no rigid, no rebound - Integumentary Swelling inferior aspect of right breast with erythema and fluctuance consistent with abscess minimal drainage from the midportion of this area - Psychiatric oriented to time, oriented to person, oriented to place, speech is normal, memory intact Breast examination: Right breast: Erythema inferior aspect of breast Examination fluctuance inferior aspect of breast no dominant masses or nodules of concern Right axilla: No adenopathy of concern Left breast: Multiple positional exam no dominant masses or nodules of concern Left axilla: No adenopathy of concern Results - Labs 06/01/23 14:53 06/02/23 05:48 Abnormal Lab Results - Last 24 Hours (Table) 06/01/23 06/01/23 06/01/23 Range/Units 14:53 14:53 17:13 APTT 21.3 L (22.0-30.0) sec Sodium 132 L (137-145) mmol/L Chloride 96 L (98-107) mmol/L Creatinine 0.48 L (0.52-1.04) mg/dL Glucose 369 H (74-99) mg/dL POC Glucose (mg/dL) 294 H (70-110) mg/dL 06/01/23 06/02/23 06/02/23 Range/Units 20:01 05:48 07:31 APTT (22.0-30.0) sec Sodium (137-145) mmol/L Chloride (98-107) mmol/L Creatinine 0.51 L (0.52-1.04) mg/dL Glucose (74-99) mg/dL POC Glucose (mg/dL) 321 H 337 H (70-110) mg/dL Microbiology - Last 24 Hours (Table) 06/01/23 14:53 Gram Stain - Preliminary Breast - Right Wound Culture - Preliminary Presumptive Staph aureus Diabetes panel 06/01/23 06/02/23 Range/Units 14:53 05:48 Sodium 132 L (137-145) mmol/L Potassium 4.2 (3.5-5.1) mmol/L Chloride 96 L (98-107) mmol/L Carbon Dioxide 23 (22-30) mmol/L BUN 16 (7-17) mg/dL Creatinine 0.48 L 0.51 L (0.52-1.04) mg/dL Glucose 369 H (74-99) mg/dL Calcium 9.2 (8.4-10.2) mg/dL AST 24 (14-36) U/L ALT 23 (4-34) U/L Alkaline Phosphatase 122 (38-126) U/L Total Protein 7.2 (6.3-8.2) g/dL Albumin 4.0 (3.5-5.0) g/dL Calcium panel 06/01/23 Range/Units 14:53 Calcium 9.2 (8.4-10.2) mg/dL Albumin 4.0 (3.5-5.0) g/dL Pituitary panel 06/01/23 06/02/23 Range/Units 14:53 05:48 Sodium 132 L (137-145) mmol/L Potassium 4.2 (3.5-5.1) mmol/L Chloride 96 L (98-107) mmol/L Carbon Dioxide 23 (22-30) mmol/L BUN 16 (7-17) mg/dL Creatinine 0.48 L 0.51 L (0.52-1.04) mg/dL Glucose 369 H (74-99) mg/dL Calcium 9.2 (8.4-10.2) mg/dL Adrenal panel 06/01/23 06/02/23 Range/Units 14:53 05:48 Sodium 132 L (137-145) mmol/L Potassium 4.2 (3.5-5.1) mmol/L Chloride 96 L (98-107) mmol/L Carbon Dioxide 23 (22-30) mmol/L BUN 16 (7-17) mg/dL Creatinine 0.48 L 0.51 L (0.52-1.04) mg/dL Glucose 369 H (74-99) mg/dL Calcium 9.2 (8.4-10.2) mg/dL Total Bilirubin 0.8 (0.2-1.3) mg/dL AST 24 (14-36) U/L ALT 23 (4-34) U/L Alkaline Phosphatase 122 (38-126) U/L Total Protein 7.2 (6.3-8.2) g/dL Albumin 4.0 (3.5-5.0) g/dL Assessment and Plan Assessment: Impression: Abscess right breast Plan: Ultrasound right breast IV antibiotics Consider ID consult Probable I&D in the operating room Risk and benefits of ID discussed with the patient. Risks include but are not limited to bleeding, infection, reaction to the anesthetic. The patient understands and wishes to proceed. CC: Dr. Thompson
[2023-06-02] MEDS: ACETAMINOPHEN TAB 325 MG TAB PO PRN ×2 (11:55→19:38)
--- NOTE | 2023-06-02 12:54 | USB ---
Reason for Exam: Clinical finding. Risk Values: Mary 5 year model risk: 0.9%. NCI Lifetime model risk: 5.0%. Technique: Method: Targeted. Findings: The whole breast of the right breast, the axilla of the right breast and the retroareolar of the right breast were scanned. There is extensive edema throughout the right breast. At the 6:00 location 6 cm from the nipple there is a new rounded collection noted measuring 3.1 x 0.7 cm compatible with an abscess. At the right 9:00 position 5 cm from the nipple there is a smaller 1.1 cm abscess seen. No solid masses are detected. Overall Assessment: Suspicious, BI-RAD 4 Management: Aspiration of the right breast. A clinical breast exam by your physician is recommended on an annual basis and results should be correlated with mammographic findings. This exam should not preclude additional follow-up of suspicious palpable abnormalities. Results were given to the patient verbally at the time of exam. Electronically signed and approved by: Helder Mercer M.D. Radiologis
[2023-06-02 13:10] LABS: Glucose,Whole Blood 250 mg/dL (70-110)
--- NOTE | 2023-06-02 13:26 | P.PN ---
Progress Note - Text Progress Note Date: 06/02/23 The patient had an ultrasound of her right breast. This showed 2 areas of abscess/phlegmon. After review with radiology this although difficult potentially doing this percutaneously and she has been scheduled for an attempted percutaneous drainage. If this is not successful then drainage in the operating room with unresectable recommended.
[2023-06-02 17:11] LABS: Glucose,Whole Blood 275 mg/dL (70-110)
[2023-06-02 21:00] LABS: Glucose,Whole Blood 280 mg/dL (70-110)
--- NOTE | 2023-06-02 22:18 | P.CONS ---
History of Present Illness - Reason for Consult Consult date: 06/02/23 - History of Present Illness Patient is a 58-year-old female with a past medical history of again for diabetes mellitus hypertension hyperlipidemia presenting to the hospital with right breast pain swelling and redness that has been going on for more than a week. The patient has been evaluated by her primary care physician and has been treated with a course of oral antibiotic however the patient did not have a ny improvement other noticed to have increasing pain swelling redness to the right breast area patient describes the pain to be sharp in nature almost 10 or 10 in severity with some improvement with the pain medication with associated swelling redness but no significant drainage patient on presentation to the hospital was afebrile and no fever have recorded subsequently patient is normal white count creatinine was normal liver labs are normal local cultures obtained currently growing Staph aureus blood culture. Currently pending patient was started on vancomycin yesterday however the patient did have some itching associated with it which has been discontinued patient has been switched over to daptomycin infectious was consulted for further management of antibiotic therapy, patient been evaluated by general surgery planning for drainage of this abscess at the time of evaluation significant mount of purulent material came out which has been cultured again Past Medical History Past Medical History: Diabetes Mellitus, Hyperlipidemia, Hypertension Additional Past Medical History / Comment(s): vomiting after eating, cons tipation, History of Any Multi-Drug Resistant Organisms: None Reported Past Surgical History: Appendectomy, Cholecystectomy Additional Past Surgical History / Comment(s): cysts removed from ovaries Past Anesthesia/Blood Transfusion Reactions: Motion Sickness, Postoperative Nausea & Vomiting (PONV) Past Psychological History: No Psychological Hx Reported Smoking Status: Never smoker Past Alcohol Use History: None Reported Past Drug Use History: None Reported - Past Family History Sister(s) Family Medical History: Deep Vein Thrombosis (DVT) Medications and Allergies Home Medications Medication Instructions Recorded Confirmed Type Insulin NPL/Insulin Lispro 45 unit SQ BID 09/20/22 06/01/23 History [humaLOG MIX 75-25 VIAL] Ciprofloxacin HCl [Cipro] 500 mg PO BID 06/01/23 06/01/23 History INSULIN ASPART (NovoLOG) [NovoLOG 10 unit SQ AC-TID 06/01/23 06/01/23 History (formulary)] Allergies Allergy/AdvReac Type Severity Reaction Status Date / Time erythromycin base Allergy Rash/Hives Verified 06/01/23 14:52 gemifloxacin [From Factive] Allergy Anaphylaxis Verified 06/01/23 14:52 Influenza Virus Vaccines Allergy Nausea & Verified 06/01/23 14:52 Vomiting & Diarrhea Penicillins Allergy Rash/Hives Verified 06/01/23 14:52 prednisone Allergy Rash/Hives Verified 06/01/23 14:52 Sulfa (Sulfonamide Allergy Rash/Hives Verified 06/01/23 14:52 Antibiotics) pine nuts AdvReac Anaphylaxis Uncoded 06/01/23 14:52 Physical Exam Vitals: Vital Signs Temp Pulse Pulse Resp BP BP Pulse Ox 06/02/23 08:55 96 06/02/23 08:42 92 96 06/02/23 07:35 98.5 F 88 20 125/70 95 06/02/23 01:16 98.5 F 87 16 117/76 96 06/01/23 20:00 98.9 F 113 H 18 98/65 94 L 06/01/23 16:56 98.5 F 142 H 20 140/79 96 06/01/23 16:30 98.1 F 70 20 163/94 96 06/01/23 15:36 101 H 18 138/81 99 06/01/23 14:06 98.9 F 117 H 16 128/79 96 Intake and Output 06/01/23 06/02/23 06/02/23 22:59 06:59 14:59 Intake Total 540 1480 Balance 540 1480 Intake: Intake, IV Titration 1000 Amount Doxycycline 100 mg In 100 Sodium Chloride 0.9% 100 ml @ 100 mls/hr IVPB Q12HR [facility] Rx#:[id number] Sodium Chloride 0.9% 1, 900 000 ml @ 75 mls/hr IV . [id number] [facility] Rx#:[id number] Oral 540 480 Other: # Voids 1 1 Weight 64.864 kg Results CBC & Chem 7: 06/01/23 14:53 06/02/23 05:48 Labs: Abnormal Lab Results - Last 24 Hours (Table) 06/01/23 06/01/23 06/01/23 Range/Units 14:53 14:53 17:13 APTT 21.3 L (22.0-30.0) sec Sodium 132 L (137-145) mmol/L Chloride 96 L (98-107) mmol/L Creatinine 0.48 L (0.52-1.04) mg/dL Glucose 369 H (74-99) mg/dL POC Glucose (mg/dL) 294 H (70-110) mg/dL 06/01/23 06/02/23 06/02/23 Range/Units 20:01 05:48 07:31 APTT (22.0-30.0) sec Sodium (137-145) mmol/L Chloride (98-107) mmol/L Creatinine 0.51 L (0.52-1.04) mg/dL Glucose (74-99) mg/dL POC Glucose (mg/dL) 321 H 337 H (70-110) mg/dL Microbiology - Last 24 Hours (Table) 06/01/23 14:53 Gram Stain - Preliminary Breast - Right Wound Culture - Preliminary Presumptive Staph aureus Assessment and Plan Plan: 1patient was in the hospital right breast abscess and cellulitis failing outpatient or antibiotic therapy likely from gram-positive skin roland such as MRSA 2-patient with multiple antibiotic allergies that would limit the number of antibiotics safe to use 3-await surgical drainage and deep cultures 4-daptomycin 4 mg/kg daily while awaiting further work-up and cultures to finalize We will follow on clinical condition and cultures to further adjust medication if needed Thank you for this consultation we will follow the patient along with you Dictation was produced using [employer] dictation software. please excuse any grammatical, word or spelling errors. Time with Patient: Greater than 30
[2023-06-02] MEDS ORDERED: ONDANSETRON 4 MG/2 ML VIAL IVP ONE (22:47)
[2023-06-02] MEDS: LACTATED RINGERS 1,000 ML IV SCH (22:51)
--- NOTE | 2023-06-03 00:56 | PN ---
PROGRESS NOTE SUBJECTIVE: A 58-year-old white female remains on IV doxycycline for abscess. OBJECTIVE: CARDIOVASCULAR: S1, S2. LUNGS: Transmitted upper sounds. HEMATOLOGY: Negative Homans. PSYCHIATRIC: Fair mood and affect. NEUROLOGIC: Alert and oriented x3. BREASTS: Right breast is red and swollen. She is status post incision and drainage in the radiology department with large amount of abscess drainage. PLAN: Remains on broad-spectrum doxycycline. Accu-Chek protocol. Prognosis guarded. Follow up in next 24 to 48 hours. MMODL / IJN: [id number] /
[2023-06-03] MEDS ORDERED: DAPTOmycin 500 MG in SODIUM CHLORIDE 0.9% 50 ML IVPB SCH (01:00)
[2023-06-03] MEDS: SODIUM CHLORIDE 0.9% 1,000 ML IV SCH ×2 (01:53→07:56)
[2023-06-03] MEDS: ACETAMINOPHEN TAB 325 MG TAB PO PRN ×2 (03:51→16:32)
[2023-06-03 07:33] LABS: African American GFR (CKD) >90 (>60 ml/min/1.73 sqM); Non-African American GFR(CKD) >90 (>60 ml/min/1.73 sqM)
[2023-06-03 07:43] LABS: Glucose,Whole Blood 164 mg/dL (70-110)
[2023-06-03] MEDS: INSULIN ASPART (NovoLOG) 100 UNIT/ML VIAL SQ SCH ×3 (07:46→17:54)
[2023-06-03] MEDS: INSULN ASP PRT/INSULIN ASPART 100 UNIT/ML 10 ML VIAL SQ SCH ×2 (07:46→20:59)
[2023-06-03] MEDS: DOXYCYCLINE 100 MG in SODIUM CHLORIDE 0.9% 100 ML IVPB SCH (07:56)
[2023-06-03] MEDS: IPRATROPIUM-ALBUTEROL 3 ML NEB INHALATION SCH ×4 (08:20→20:19)
[2023-06-03] MEDS ORDERED: IV FLUID CONTINUATION 800 ML IV ONE (08:43)
[2023-06-03] MEDS ORDERED: ONDANSETRON 4 MG/2 ML VIAL IVP ONE (08:53)
[2023-06-03] MEDS ORDERED: PROPOFOL 10 MG/ML 20 ML VIAL IV ONE (09:11)
[2023-06-03] MEDS ORDERED: fentaNYL (PF) 50 MCG/ML 2 ML AMP ONE (09:11)
[2023-06-03] MEDS ORDERED: LIDOCAINE 2% INJ 20 MG/ML (2 ML VIAL) ONE (09:11)
[2023-06-03] MEDS ORDERED: SUCCINYLCHOLINE CHLORIDE 200 MG/10 ML VIAL IV ONE (09:11)
[2023-06-03] MEDS ORDERED: MIDAZOLAM 2 MG/2 ML VIAL ONE (09:11)
--- NOTE | 2023-06-03 09:22 | P.PN ---
Subjective Progress Note Date: 06/03/23 Principal diagnosis: Right breast abscess The patient is a 58-year-old white female admitted with a right breast abscess. Ultrasound-guided aspiration of the abscess was performed yesterday, however there remains fluctuance today with continued erythema. After discussion with the patient it was felt that the best course of action would be drainage in the operating room. Objective - Vital Signs Vital signs: Vital Signs Temp 98.2 F 06/03/23 07:27 Pulse 90 06/03/23 08:29 Resp 16 06/03/23 08:29 BP 164/80 06/03/23 08:29 Pulse Ox 94 L 06/03/23 08:29 FiO2 Intake & Output 06/02/23 06/03/23 06/03/23 18:59 06:59 18:59 Intake Total 200 100 Balance 200 100 Intake: IV 100 Oral 200 Other: Voiding Method Toilet # Voids 2 - Constitutional General appearance: Present: cooperative - EENT Eyes: Present: EOMI ENT: Present: hearing grossly normal - Neck Neck: Present: normal ROM - Respiratory Respiratory: bilateral: CTA - Cardiovascular Heart sounds: normal: S1, S2 - Integumentary Integumentary Comment(s): Erythema inferior aspect of right breast with fluctuance and some drainage from the ultrasound-guided aspiration area. It appears that there is residual fluid and somewhat thick and it is felt that the best way for resolution will be incision and drainage in the operating room. - Musculoskeletal Musculoskeletal: Present: gait normal - Psychiatric Psychiatric: Present: A&O x's 3, appropriate affect, intact judgment & insight - Labs CBC & Chem 7: 06/01/23 14:53 06/03/23 06:44 Labs: Abnormal Lab Results - Last 24 Hours (Table) 06/02/23 06/02/23 06/02/23 Range/Units 13:08 17:09 20:58 Creatinine (0.52-1.04) mg/dL POC Glucose (mg/dL) 250 H 275 H 280 H (70-110) mg/dL 06/03/23 06/03/23 Range/Units 06:44 07:35 Creatinine 0.48 L (0.52-1.04) mg/dL POC Glucose (mg/dL) 164 H (70-110) mg/dL Microbiology - Last 24 Hours (Table) 06/01/23 14:53 Gram Stain - Final Breast - Right Wound Culture - Final Staphylococcus aureus 06/01/23 14:39 Blood Culture - Preliminary Blood 06/01/23 14:54 Blood Culture - Preliminary Blood Assessment and Plan Assessment: Impression: Abscess right breast Ultrasound aspiration right breast yesterday without complete resolution Patient is presently on daptomycin she is ALLERGIC to penicillin and did not tolerate vancomycin Plan: IV antibiotics Appreciate ID consult I&D in the operating room Risk and benefits of ID discussed with the patient. Risks include but are not limited to bleeding, infection, reaction to the anesthetic. The patient understands and wishes to proceed. CC: Dr. Thompson
--- NOTE | 2023-06-03 09:44 | P.PCN ---
Date of Procedure: 06/03/23 Preoperative Diagnosis: Right breast abscess Postoperative Diagnosis: Same Procedure(s) Performed: Incision and drainage right breast abscess Anesthesia: ZHANG Surgeon: Brianda Montgomery Estimated Blood Loss (ml): 5 IV fluids (ml): 500 Pathology: none sent (cultures aerobic and anerobic sent) Condition: stable Disposition: floor Indications for Procedure: Right breast abscess/failed attempted ultrasound-guided aspiration Operative Findings: Loculated right breast abscess Description of Procedure: The patient was brought to the operating room and following induction of anesthesia the right breast was prepped and draped in a sterile fashion. In the inferior aspect of the breast was ready area of fluctuation was present. Incision was made at this site. Upon making the incision serial very purulent fluid was obtained. Cultures aerobic and anaerobic were obtained. Digital evaluation of the cavity revealed multiple loculations which were broken down using blunt dissection. Following this the wound was well irrigated using a liter of normal saline. Following this the wound was packed using iodoform gauze. The patient tolerated procedure in stable condition. Specimens were sent for culture.
[2023-06-03] MEDS: HYDROmorphone 0.5 MG/0.5 ML SYRINGE IVP PRN (11:44)
[2023-06-03 12:37] LABS: Glucose,Whole Blood 226 mg/dL (70-110)
[2023-06-03 17:25] LABS: Glucose,Whole Blood 163 mg/dL (70-110)
[2023-06-03] MEDS ORDERED: ONDANSETRON 4 MG/2 ML VIAL IVP PRN (18:10)
[2023-06-03 20:15] LABS: Glucose,Whole Blood 237 mg/dL (70-110)
[2023-06-03] MEDS: FLUCONAZOLE IN NACL,ISO-OSM 100 MG in SALINE 1 50ML.BAG IVPB SCH (20:59)
[2023-06-03] MEDS: LACTATED RINGERS 1,000 ML IV SCH (21:03)
[2023-06-04] MEDS: ACETAMINOPHEN TAB 325 MG TAB PO PRN ×3 (01:08→17:14)
[2023-06-04] MEDS: SODIUM CHLORIDE 0.9% 1,000 ML IV SCH ×2 (01:10→12:48)
[2023-06-04] MEDS: IPRATROPIUM-ALBUTEROL 3 ML NEB INHALATION SCH ×4 (07:27→20:54)
[2023-06-04 07:31] LABS: Glucose,Whole Blood 122 mg/dL (70-110)
[2023-06-04 07:41] LABS: ALT 18 U/L (4-34); AST 20 U/L (14-36); African American GFR (CKD) >90 (>60 ml/min/1.73 sqM); Albumin 3.1 g/dL (3.5-5.0); Albumin/Globulin Ratio 1.2; Alkaline Phosphatase 94 U/L (38-126); Anion Gap 6 mmol/L; Blood Urea Nitrogen 7 mg/dL (7-17); Calcium 8.3 mg/dL (8.4-10.2); Carbon Dioxide 27 mmol/L (22-30); Chloride 106 mmol/L (98-107); Globulin 2.5 g/dL; Glucose 104 mg/dL (74-99); Non-African American GFR(CKD) >90 (>60 ml/min/1.73 sqM); Potassium 3.9 mmol/L (3.5-5.1); Sodium 139 mmol/L (137-145); Total Bilirubin 0.3 mg/dL (0.2-1.3); Total Protein 5.6 g/dL (6.3-8.2)
[2023-06-04] MEDS: INSULIN ASPART (NovoLOG) 100 UNIT/ML VIAL SQ SCH ×3 (07:41→18:13)
[2023-06-04] MEDS: INSULN ASP PRT/INSULIN ASPART 100 UNIT/ML 10 ML VIAL SQ SCH ×2 (07:41→20:48)
[2023-06-04] MEDS ORDERED: HYDROcodone/APAP 5-325MG 1 EACH TAB PO PRN (08:16)
[2023-06-04] MEDS: HYDROmorphone 0.5 MG/0.5 ML SYRINGE IVP PRN (08:28)
[2023-06-04] MEDS: FLUCONAZOLE IN NACL,ISO-OSM 100 MG in SALINE 1 50ML.BAG IVPB SCH (08:29)
--- NOTE | 2023-06-04 08:45 | P.PN ---
Subjective Progress Note Date: 06/04/23 Principal diagnosis: Right breast abscess POD #1 incision and drainage right breast abscess The patient is a 58-year-old white female admitted with a right breast abscess. The patient underwent an I&D postop day #1. The patient is doing well at this time. Cultures are positive for staph aureus. Objective - Vital Signs Vital signs: Vital Signs Temp 99.0 F 06/04/23 07:28 Pulse 90 06/04/23 07:38 Resp 16 06/04/23 07:28 BP 138/84 06/04/23 07:28 Pulse Ox 96 06/04/23 07:28 FiO2 Intake & Output 06/03/23 06/04/23 06/04/23 18:59 06:59 18:59 Intake Total 600 100 Output Total 5 Balance 595 100 Weight 64.864 kg Intake: IV 600 Intake, IV Titration 100 Amount Fluconazole in NaCl,Iso- 50 Osm 100 mg In Saline 1 50ml.bag @ 50 mls/hr IVPB DAILY [facility] Rx#:[id number] ceFAZolin 2 gm In Sodium 50 Chloride 0.9% 50 ml @ 100 mls/hr IVPB Q8HR [facility] Rx# :[id number] Output: Estimated Blood Loss 5 Other: Voiding Method Toilet # Voids 1 - Constitutional General appearance: Present: cooperative - EENT Eyes: Present: EOMI ENT: Present: hearing grossly normal - Neck Neck: Present: normal ROM - Respiratory Respiratory: bilateral: CTA - Cardiovascular Rhythm: regular Heart sounds: normal: S1, S2 - Integumentary Integumentary Comment(s): The patient has decreased erythema on the right breast, the packing is to be changed - Labs CBC & Chem 7: 06/01/23 14:53 06/04/23 06:31 Labs: Abnormal Lab Results - Last 24 Hours (Table) 06/03/23 06/03/23 06/03/23 Range/Units 12:27 17:24 20:13 Creatinine (0.52-1.04) mg/dL Glucose (74-99) mg/dL POC Glucose (mg/dL) 226 H 163 H 237 H (70-110) mg/dL Calcium (8.4-10.2) mg/dL Total Protein (6.3-8.2) g/dL Albumin (3.5-5.0) g/dL 06/04/23 06/04/23 Range/Units 06:31 07:30 Creatinine 0.50 L (0.52-1.04) mg/dL Glucose 104 H (74-99) mg/dL POC Glucose (mg/dL) 122 H (70-110) mg/dL Calcium 8.3 L (8.4-10.2) mg/dL Total Protein 5.6 L (6.3-8.2) g/dL Albumin 3.1 L (3.5-5.0) g/dL Microbiology - Last 24 Hours (Table) 06/03/23 09:30 Gram Stain - Preliminary Breast - Right 06/03/23 09:30 Gram Stain - Preliminary Breast - Right 06/02/23 14:38 Gram Stain - Preliminary Breast - Right Wound Culture - Preliminary Presumptive Staph aureus 06/02/23 11:42 Gram Stain - Preliminary Breast - Right Wound Culture - Preliminary Presumptive Staph aureus 06/01/23 14:39 Blood Culture - Preliminary Blood 06/01/23 14:54 Blood Culture - Preliminary Blood 06/01/23 14:53 Gram Stain - Final Breast - Right Wound Culture - Final Staphylococcus aureus Assessment and Plan Assessment: Impression: Abscess right breast Ultrasound aspiration right breast yesterday without complete resolution Patient is presently on Kefzol and fluconazole Plan: IV antibiotics Change packing daily CC: Dr. Thompson
[2023-06-04 10:54] LABS: Basophils # (A) 0.04 X 10*3/uL (0.00-0.10); Basophils % (A) 0.5 %; Eosinophils # (A) 0.25 X 10*3/uL (0.04-0.35); Eosinophils % (A) 3.1 %; HCT 35.9 % (37.2-46.3); Lymphocytes # (A) 1.81 X 10*3/uL (0.90-5.00); Lymphocytes % (A) 22.6 %; MCH 28.1 pg (27.0-32.0); MCHC 33.4 d/dL (32.0-37.0); MCV 84.1 FL (80.0-97.0); Mean Platelet Volume 9.5 FL (9.5-12.2); Monocytes # (A) 0.56 X 10*3/uL (0.20-1.00); NRBC Per 100 WBC 0 X 10*3/uL (0.00-0.01); Neutrophils # (A) 5.32 X 10*3/uL (1.80-7.70); Neutrophils % (A) 66.3 %; Platelet Count 354 X 10*3/uL (140-440); RBC 4.27 X 10*6/uL (4.10-5.20); RDW 12.9 % (11.5-14.5); WBC 8.02 X 10*3/uL (4.50-10.00)
[2023-06-04 12:35] LABS: Glucose,Whole Blood 187 mg/dL (70-110)
[2023-06-04 17:15] LABS: Glucose,Whole Blood 237 mg/dL (70-110)
[2023-06-04 20:18] LABS: Glucose,Whole Blood 282 mg/dL (70-110)
[2023-06-04] MEDS: HYDROcodone/APAP 5-325MG 1 EACH TAB PO PRN (20:47)
[2023-06-04] MEDS: LACTATED RINGERS 1,000 ML IV SCH (22:47)
--- NOTE | 2023-06-05 00:49 | PN ---
PROGRESS NOTE SUBJECTIVE: This 58-year-old white female, diabetic type 2, on insulin at home. She has a breast infection cellulitis for which she had open surgery after aspiration. She looks like she is growing Staph. Dr. Currie wants to do IV Rocephin at home once a day. Come to the hospital once a day for IV Rocephin shots. is planned for a week and possibly go to oral antibiotics. Otherwise, she is taking minimal pain after surgery. Surgical incisions will be packed every day. She has a home nurse set up to do that at home. OBJECTIVE: CARDIOVASCULAR: S1, S2. LUNGS: Clear. GI: Soft. HEMATOLOGY: Negative for Homans. PSYCH: Fair mood and affect. VITAL SIGN: Reviewed. Diabetic breast infections, cellulitis skin, abscess right breast, insulin-dependent diabetes mellitus. Continue with IV antibiotics for a week and then go to oral antibiotics at home. Packing every day with a home nurse and follow up soon. MMODL / IJN: [id number] /
[2023-06-05 01:44] VITALS: RESP 16
[2023-06-05] MEDS: SODIUM CHLORIDE 0.9% 1,000 ML IV SCH ×2 (01:45→01:48)
[2023-06-05] MEDS: HYDROcodone/APAP 5-325MG 1 EACH TAB PO PRN (01:50)
[2023-06-05 07:30] LABS: Glucose,Whole Blood 189 mg/dL (70-110)
--- NOTE | 2023-06-05 07:46 | P.PN ---
Subjective Progress Note Date: 06/03/23 Principal diagnosis: Right breast abscess Patient is a 58-year old female presented to the hospital with the right breast pain swelling redness patient has been diagnosed with a right breast abscess, the patient status post incision and drainage of this abscess by surgery morning of 06/03/2023. On today's evaluation that is 06/03/2023 patient remains to be afebrile patient is currently breathing comfortably has been complaining of some excruciating pain to the right breast area with no radiation no nausea vomiting abdominal pain or diarrhea. Patient did have a creatinine 0.48 no CBC was done today right breast cultures are growing MSSA blood cultures so far negative Objective - Vital Signs Vital signs: Vital Signs Temp 97.3 F L 06/03/23 09:58 Pulse 85 06/03/23 10:32 Resp 16 06/03/23 10:32 BP 128/69 06/03/23 10:32 Pulse Ox 95 06/03/23 10:32 FiO2 Intake & Output 06/02/23 06/03/23 06/03/23 18:59 06:59 18:59 Intake Total 200 600 Output Total 5 Balance 200 595 Weight 64.864 kg Intake: IV 600 Oral 200 Output: Estimated Blood Loss 5 Other: Voiding Method Toilet # Voids 2 - Exam GENERAL DESCRIPTION: Middle-age female lying in bed in no distress RESPIRATORY SYSTEM: Unlabored breathing , decreased breath sounds at bases HEART: S1 S2 regular rate and rhythm ,no loud murmurs ABDOMEN: Soft , no tenderness Right breast currently dressed in OR dressing - Labs CBC & Chem 7: 06/04/23 06:31 06/04/23 06:31 Labs: Abnormal Lab Results - Last 24 Hours (Table) 06/02/23 06/02/23 06/02/23 Range/Units 13:08 17:09 20:58 Creatinine (0.52-1.04) mg/dL POC Glucose (mg/dL) 250 H 275 H 280 H (70-110) mg/dL 06/03/23 06/03/23 06/03/23 Range/Units 06:44 07:35 12:27 Creatinine 0.48 L (0.52-1.04) mg/dL POC Glucose (mg/dL) 164 H 226 H (70-110) mg/dL Microbiology - Last 24 Hours (Table) 06/01/23 14:53 Gram Stain - Final Breast - Right Wound Culture - Final Staphylococcus aureus 06/01/23 14:39 Blood Culture - Preliminary Blood 06/01/23 14:54 Blood Culture - Preliminary Blood Assessment and Plan (1) MSSA (methicillin susceptible Staphylococcus aureus) Current Visit: Yes Status: Acute Code(s): A49.01 - METHICILLIN SUSCEP STAPH INFECTION, UNSP SITE SNOMED Code(s): 308663931 (2) Allergy to multiple antibiotics Current Visit: Yes Status: Acute Code(s): Z88.1 - ALLERGY STATUS TO OTHER ANTIBIOTIC AGENTS SNOMED Code(s): 418141905 (3) Breast abscess Current Visit: Yes Status: Acute Code(s): N61.1 - ABSCESS OF THE BREAST AND NIPPLE SNOMED Code(s): 19127107 Plan: 1patient was in the hospital right breast abscess and cellulitis failing outpatient or antibiotic therapy likely from gram-positive skin roland such as MRSA 2-patient with multiple antibiotic allergies that would limit the number of antibiotics safe to use 3-Patient is s/p surgical drainage of this abscess and deep cultures are c urrently pending superficial culture currently growing MSSA. 4we will discontinue daptomycin and start the patient on cefazolin 2 g every 8 hours and monitor clinical course closely Dictation was produced using [employer] dictation software. please excuse any grammatical, word or spelling errors. Time with Patient: Less than 30
--- NOTE | 2023-06-05 07:48 | P.PN ---
Subjective Progress Note Date: 06/04/23 Principal diagnosis: Right breast abscess Patient is a 58-year old female presented to the hospital with the right breast pain swelling redness patient has been diagnosed with a right breast abscess, the patient status post incision and drainage of this abscess by surgery morning of 06/03/2023. On today's evaluation that is 06/04/2023 the patient remains to be afebrile p atient pain to the right breast controlled with the pain medication patient has been complaining of nausea and did have an episode of vomiting no diarrhea. Patient did have a white count of 8.0, the patient creatinine 0.50 OR cultures also growing presumptive Staph aureus Objective - Vital Signs Vital signs: Vital Signs Temp 97.8 F 06/04/23 12:31 Pulse 90 06/04/23 12:31 Resp 16 06/04/23 12:31 BP 127/73 06/04/23 12:31 Pulse Ox 96 06/04/23 12:31 FiO2 Intake & Output 06/03/23 06/04/23 06/04/23 18:59 06:59 18:59 Intake Total 600 100 Output Total 5 Balance 595 100 Weight 64.864 kg Intake: IV 600 Intake, IV Titration 100 Amount Fluconazole in NaCl,Iso- 50 Osm 100 mg In Saline 1 50ml.bag @ 50 mls/hr IVPB DAILY [facility] Rx#:[id number] ceFAZolin 2 gm In Sodium 50 Chloride 0.9% 50 ml @ 100 mls/hr IVPB Q8HR [facility] Rx# :[id number] Output: Estimated Blood Loss 5 Other: Voiding Method Toilet # Voids 1 - Exam GENERAL DESCRIPTION: Middle-age female lying in bed in no distress RESPIRATORY SYSTEM: Unlabored breathing , decreased breath sounds at bases HEART: S1 S2 regular rate and rhythm ,no loud murmurs ABDOMEN: Soft , no tenderness Right breast dressing has just been changed by the surgeon per the nursing staff overall swelling redness has decreased - Labs CBC & Chem 7: 06/04/23 06:31 06/04/23 06:31 Labs: Abnormal Lab Results - Last 24 Hours (Table) 06/03/23 06/03/23 06/04/23 Range/Units 17:24 20:13 06:31 Hct (37.2-46.3) % Creatinine 0.50 L (0.52-1.04) mg/dL Glucose 104 H (74-99) mg/dL POC Glucose (mg/dL) 163 H 237 H (70-110) mg/dL Calcium 8.3 L (8.4-10.2) mg/dL Total Protein 5.6 L (6.3-8.2) g/dL Albumin 3.1 L (3.5-5.0) g/dL 06/04/23 06/04/23 06/04/23 Range/Units 06:31 07:30 12:34 Hct 35.9 L (37.2-46.3) % Creatinine (0.52-1.04) mg/dL Glucose (74-99) mg/dL POC Glucose (mg/dL) 122 H 187 H (70-110) mg/dL Calcium (8.4-10.2) mg/dL Total Protein (6.3-8.2) g/dL Albumin (3.5-5.0) g/dL Microbiology - Last 24 Hours (Table) 06/03/23 09:30 Gram Stain - Preliminary Breast - Right 06/03/23 09:30 Gram Stain - Preliminary Breast - Right 06/02/23 14:38 Gram Stain - Preliminary Breast - Right Wound Culture - Preliminary Presumptive Staph aureus 06/02/23 11:42 Gram Stain - Preliminary Breast - Right Wound Culture - Preliminary Presumptive Staph aureus 06/01/23 14:39 Blood Culture - Preliminary Blood 06/01/23 14:54 Blood Culture - Preliminary Blood 06/01/23 14:53 Gram Stain - Final Breast - Right Wound Culture - Final Staphylococcus aureus Assessment and Plan (1) Allergy to multiple antibiotics Current Visit: Yes Status: Acute Code(s): Z88.1 - ALLERGY STATUS TO OTHER ANTIBIOTIC AGENTS SNOMED Code(s): 625632491 (2) Breast abscess Current Visit: Yes Status: Acute Code(s): N61.1 - ABSCESS OF THE BREAST AND NIPPLE SNOMED Code(s): 15577067 (3) MSSA (methicillin susceptible Staphylococcus aureus) Current Visit: Yes Status: Acute Code(s): A49.01 - METHICILLIN SUSCEP STAPH INFECTION, UNSP SITE SNOMED Code(s): 982956226 Plan: 1patient was in the hospital right breast abscess and cellulitis failing outpatient or antibiotic therapy likely from gram-positive skin roland such as MRSA 2-patient with multiple antibiotic allergies that would limit the number of antibiotics safe to use 3-Patient is s/p surgical drainage of this abscess and deep cultures are currently pending superficial culture currently growing MSSA. 4patient will continue with the cefazolin we will reevaluate the wound tomorrow may benefit from a short course of IV antibiotic on discharge this was explained to the patient question concern answered Dictation was produced using [employer] dictation software. please excuse any grammatical, word or spelling errors. Time with Patient: Less than 30
[2023-06-05] MEDS: INSULIN ASPART (NovoLOG) 100 UNIT/ML VIAL SQ SCH ×2 (08:25→12:55)
[2023-06-05] MEDS: INSULN ASP PRT/INSULIN ASPART 100 UNIT/ML 10 ML VIAL SQ SCH (08:25)
[2023-06-05 08:26] LABS: Basophils # (A) 0.04 X 10*3/uL (0.00-0.10); Basophils % (A) 0.5 %; Eosinophils # (A) 0.22 X 10*3/uL (0.04-0.35); HCT 34.1 % (37.2-46.3); HGB 11.5 d/dL (12.0-15.0); Lymphocytes # (A) 1.97 X 10*3/uL (0.90-5.00); Lymphocytes % (A) 26.8 %; MCH 28.1 pg (27.0-32.0); MCHC 33.7 d/dL (32.0-37.0); MCV 83.4 FL (80.0-97.0); Mean Platelet Volume 9.4 FL (9.5-12.2); Monocytes # (A) 0.58 X 10*3/uL (0.20-1.00); Monocytes % (A) 7.9 %; NRBC Per 100 WBC 0 X 10*3/uL (0.00-0.01); Neutrophils # (A) 4.49 X 10*3/uL (1.80-7.70); Neutrophils % (A) 61.3 %; Platelet Count 336 X 10*3/uL (140-440); RBC 4.09 X 10*6/uL (4.10-5.20); RDW 12.7 % (11.5-14.5); WBC 7.34 X 10*3/uL (4.50-10.00)
[2023-06-05 08:39] LABS: ALT 12 U/L (8-44); AST 14 U/L (13-35); Albumin 3.5 d/dL (3.8-4.9); Albumin/Globulin Ratio 1.67 Ratio (1.60-3.17); Alkaline Phosphatase 91 U/L (41-126); BUN/Creat Ratio 13.17 Ratio (12.00-20.00); Blood Urea Nitrogen 7.9 mg/dL (9.0-27.0); Calcium 8.7 mg/dL (8.7-10.3); Carbon Dioxide 25.3 mmol/L (21.6-31.8); Chloride 104 mmol/L (96-109); Globulin 2.1 d/dL (1.6-3.3); Glucose 172 mg/dL (70-110); Potassium 3.8 mmol/L (3.5-5.5); Sodium 139 mmol/L (135-145); Total Bilirubin <0.2 mg/dL (0.3-1.2); Total Protein 5.6 d/dL (6.2-8.2)
--- NOTE | 2023-06-05 08:45 | P.PN ---
Subjective Progress Note Date: 06/05/23 Principal diagnosis: Right breast abscess POD #2 incision and drainage right breast abscess The patient is a 58-year-old white female admitted with a right breast abscess. The patient underwent an I&D postop day #2. The patient is doing well at this time. Cultures are positive for staph aureus. Presently being followed by infectious disease and receiving IV antibiotic therapy with cefazolin. Clinically she is doing well with decreased pain. Objective - Vital Signs Vital signs: Vital Signs Temp 98.2 F 06/05/23 07:28 Pulse 93 06/05/23 07:28 Resp 16 06/05/23 07:28 BP 154/82 06/05/23 07:28 Pulse Ox 96 06/05/23 07:28 FiO2 Intake & Output 06/04/23 06/05/23 06/05/23 18:59 06:59 18:59 Intake Total 1330 Balance 1330 Intake: Intake, IV Titration 850 Amount Sodium Chloride 0.9% 1, 750 000 ml @ 75 mls/hr IV . [id number] [facility] Rx#:[id number] ceFAZolin 2 gm In Sodium 100 Chloride 0.9% 50 ml @ 100 mls/hr IVPB Q8HR [facility] Rx# :[id number] Oral 480 Other: # Voids 1 3 - Constitutional General appearance: Present: cooperative - EENT Eyes: Present: EOMI ENT: Present: hearing grossly normal - Neck Neck: Present: normal ROM - Respiratory Respiratory: bilateral: CTA - Cardiovascular Heart sounds: normal: S1, S2 - Integumentary Integumentary Comment(s): Right breast I&D site is clean and dry, packing removed, decreased erythema of the breast The patient wishes to shower in packing will be replaced following her showering - Labs CBC & Chem 7: 06/05/23 06:04 06/05/23 06:04 Labs: Abnormal Lab Results - Last 24 Hours (Table) 06/04/23 06/04/23 06/04/23 Range/Units 06:31 12:34 17:13 RBC (4.10-5.20) X 10*6/uL Hgb (12.0-15.0) d/dL Hct 35.9 L (37.2-46.3) % MPV (9.5-12.2) FL BUN (9.0-27.0) mg/dL Glucose (70-110) mg/dL POC Glucose (mg/dL) 187 H 237 H (70-110) mg/dL Total Bilirubin (0.3-1.2) mg/dL Total Protein (6.2-8.2) d/dL Albumin (3.8-4.9) d/dL 06/04/23 06/05/23 06/05/23 Range/Units 20:17 06:04 06:04 RBC 4.09 L (4.10-5.20) X 10*6/uL Hgb 11.5 L (12.0-15.0) d/dL Hct 34.1 L (37.2-46.3) % MPV 9.4 L (9.5-12.2) FL BUN 7.9 L (9.0-27.0) mg/dL Glucose 172 H (70-110) mg/dL POC Glucose (mg/dL) 282 H (70-110) mg/dL Total Bilirubin <0.2 L (0.3-1.2) mg/dL Total Protein 5.6 L (6.2-8.2) d/dL Albumin 3.5 L (3.8-4.9) d/dL 06/05/23 Range/Units 07:28 RBC (4.10-5.20) X 10*6/uL Hgb (12.0-15.0) d/dL Hct (37.2-46.3) % MPV (9.5-12.2) FL BUN (9.0-27.0) mg/dL Glucose (70-110) mg/dL POC Glucose (mg/dL) 189 H (70-110) mg/dL Total Bilirubin (0.3-1.2) mg/dL Total Protein (6.2-8.2) d/dL Albumin (3.8-4.9) d/dL Microbiology - Last 24 Hours (Table) 06/02/23 14:38 Gram Stain - Final Breast - Right Wound Culture - Final Staphylococcus aureus 06/02/23 11:42 Anaerobic Culture - Preliminary Breast Fluid - Right 06/02/23 14:38 Anaerobic Culture - Preliminary Breast - Right 06/02/23 11:42 Gram Stain - Final Breast - Right Wound Culture - Final Staphylococcus aureus 06/01/23 14:39 Blood Culture - Preliminary Blood 06/01/23 14:54 Blood Culture - Preliminary Blood 06/03/23 09:30 Gram Stain - Preliminary Breast - Right Wound Culture - Preliminary Presumptive Staph aureus 06/03/23 09:30 Gram Stain - Preliminary Breast - Right Wound Culture - Preliminary Presumptive Staph aureus Assessment and Plan Assessment: Impression: Abscess right breast Attempt at ultrasound aspiration on successful/I&D in the operating room Patient is presently on IV antibiotic therapy as per infectious disease Plan: IV antibiotics as per infectious disease Change packing daily The patient was okay for discharge from a surgical standpoint when okay with infectious disease, the patient will have home health care for packing changes I will be gone for 3 weeks. The patient has been signed out to Dr. Wheeler, she will follow with him until I return. I discussed the case with his nurse practitioner as well. CC: Dr. Thompson
[2023-06-05] MEDS: IPRATROPIUM-ALBUTEROL 3 ML NEB INHALATION SCH ×2 (08:55→12:09)
[2023-06-05] MEDS: FLUCONAZOLE IN NACL,ISO-OSM 100 MG in SALINE 1 50ML.BAG IVPB SCH (11:08)
[2023-06-05 12:22] LABS: Glucose,Whole Blood 178 mg/dL (70-110)
[2023-06-05 13:18] VITALS: BP 130/76; PULSE 96; TEMP 96.9
--- NOTE | 2023-06-05 20:28 | P.DS ---
Providers Date of admission: 06/01/23 14:38 Expected date of discharge: 06/05/23 Attending physician: Dallas Thomspon Consults: 06/01/23 14:38 Consult Physician Routine Consulting Provider: Brianda Montgomery Consult Reason/Comments: Right breast abscess, failed op Do you want consulting provider notified?: Yes, Notify in am 06/01/23 17:03 Consult Physician Urgent Consulting Provider: Lyndsay Currie Consult Reason/Comments: Right breast abscess Do you want consulting provider notified?: Yes 06/02/23 13:02 Consult Physician Stat Consulting Provider: Helder Mercer Consult Reason/Comments: drainage of R breast Do you want consulting provider notified?: Already Contacted Primary care physician: Dallas Thompson [facility] Course: Presenting complaint: Breast abscess 06/05/2023: I'm round for Dr. Dallas Thompson.. Patient doing well. Pain well controlled. Getting dressing changes. Up and about. No fever no chills. Home antibiotics ABH by Dr. Simmons from [place]. PICC line in place. Patient will follow up with Dr. Rivers upon discharge as Dr. Arnulfo mccoy will be out of town. Discussed with patient. Questions answered. On exam: . 9 6.9, 96, 16, 1:30/76, 100% room air Gen.: Sitting up. Comfortable. Lungs: Clear Cardiovascular: First seconds are normal, no edema INVESTIGATIONS, reviewed in the clinical context: White count 7.3 hemoglobin 11.5 platelets 336 potassium 3.8 creatinine 0.6 Assessment plan: -Right breast abscess, POD date 2 with I&D. Cultures positive for MSSA. Local wound care. Patient to follow with Dr. Rivers and Dr. Arnulfo escalera. Home IV ceftriaxone 2 g daily for 8 doses -Diabetes mellitus type 2, chronically insulin Resume home dose of insulin Disposition: Home Plan - Discharge Summary Discharge Rx Participant: No New Discharge Prescriptions: New cefTRIAXone [Rocephin] 2,000 mg IVP Q24HR #8 each Continue Insulin NPL/Insulin Lispro [humaLOG MIX 75-25 VIAL] 45 unit SQ BID INSULIN ASPART (NovoLOG) [NovoLOG (formulary)] 10 unit SQ AC-TID Discontinued Ciprofloxacin HCl [Cipro] 500 mg PO BID Discharge Medication List Insulin NPL/Insulin Lispro [humaLOG MIX 75-25 VIAL] 45 unit SQ BID 09/20/22 [History] INSULIN ASPART (NovoLOG) [NovoLOG (formulary)] 10 unit SQ AC-TID 06/01/23 [History] cefTRIAXone [Rocephin] 2,000 mg IVP Q24HR #8 each 06/05/23 [Rx] Follow up Appointment(s)/Referral(s): Dallas Thompson MD [Primary Care Provider] - 06/10/23 10:45 am [facility], [NON-STAFF] - 1 Week [facility] [NON-STAFF] - 1 Week Lyndsay Currie MD [STAFF PHYSICIAN] - 06/10/23 2:15 pm Brandon Rivers MD [STAFF PHYSICIAN] - 06/11/23 4:00 pm Activity/Diet/Wound Care/Special Instructions: Iodoform packing to wound with 4x4 gauze, and ABD Discharge Disposition: HOME WITH HOME HEALTH SERVICES
== END 2023-06-05 14:00 | disposition home health service (06) | DRG 385 ==
LOC: EC 14:00 → 5NMEDONC 14:38
PROVIDERS: ADMIT Family Medicine; ATTEND Family Medicine
PROC: 0H95XZX Drainage of Chest Skin, External Approach, Diagnostic (ICD-10-PCS; principal; 2023-06-01)
PROC: 0H9T0ZZ Drainage of Right Breast, Open Approach (ICD-10-PCS; 2023-06-01)
PROC: 05HB33Z Insertion of Infusion Device into Right Basilic Vein, Percutaneous Approach (ICD-10-PCS; 2023-06-05)
DX: N61.1 Abscess of the breast and nipple (principal); B95.61 Methicillin susceptible Staphylococcus aureus infection as the cause of diseases classified elsewhere; R00.0 Tachycardia, unspecified; N61.0 Mastitis without abscess; I10 Essential (primary) hypertension; E78.5 Hyperlipidemia, unspecified; Z79.4 Long term (current) use of insulin; Z88.7 Allergy status to serum and vaccine; Z88.1 Allergy status to other antibiotic agents; Z88.8 Allergy status to other drugs, medicaments and biological substances; Z88.0 Allergy status to penicillin; Z90.49 Acquired absence of other specified parts of digestive tract; Z88.2 Allergy status to sulfonamides; Z91.018 Allergy to other foods; Z79.899 Other long term (current) drug therapy
CPT/HCPCS: 36410; 76937; 80053; 82565; 83605; 85025; 85610; 85730; 87040; 87070; 87075; 87077; 87186; 87205; 93005; 94640; 94760; 96365; 99284

== ENCOUNTER → 2023-06-02 | Day surgery (SDC) | payer OTHER ==
--- NOTE | 2023-06-17 10:01 | USB ---
Risk Values: Mary 5 year model risk: 0.9%. NCI Lifetime model risk: 5.0%. Pathology Description: Location: 6 o'clock. The ultrasound guided cyst aspiration procedure was explained to the patient. The risks, benefits, alternatives were discussed. An informed consent was then obtained. The patient was placed in supine positioning for imaging and for the procedure. The overlying skin was prepped with betadine and sterilely draped in usual sterile fashion. 10 ml 1% lidocaine was used as anesthetic into the skin and deeper breast tissue up to area of concern in the right 6:00 o'clock breast, 6 cm from nipple. Under ultrasound guidance, an 18-gauge needle was advanced into the collection and aspiration yielded 13 mL of turbid bloody fluid. The fluid was labeled and sent for laboratory analysis. Good hemostasis was obtained with direct pressure. Initial report indicated a possible second abscess at the right 9:00 position however at real-time imaging this was felt to reflect an enlarged lymph node and drainage was not attempted. The patient tolerated the procedure well without any immediate complication. The patient was discharged to home in stable condition. Impression: Successful abscess drainage. Follow-up ultrasound in 4-6 months is advised. Pathology Results: Result: Benign, Inflammation. RIGHT BREAST, ULTRASOUND GUIDED ASPIRATION: Abundant acute and chronic inflammation with peripheral blood, compatible with abscess (see note). Non-diagnostic for cytologic evidence of malignancy within current specimen. Notes Clinical correlation with microbiology studies is suggested. Assessment is somewhat limited due to obscuring acute inflammation. If there is clinical concern for a malignant lesion, a core tissue biopsy can be performed, if clinically indicated. Overall Assessment: Benign Management: Diagnostic Breast Ultrasound of the right breast in 6 months. Electronically signed and approved by: Helder Mercer M.D. Radiologis
== END ==
LOC: RADUSWWP 13:43
PROVIDERS: ATTEND Radiology Diagnostic Radiology
DX: N61.1 Abscess of the breast and nipple (principal)
CPT/HCPCS: 76942; 88173; 88305

== ENCOUNTER 2023-06-08 16:30 | Emergency (ER) | payer OTHER ==
[2023-06-08 16:34] VITALS: BP 153/92; PULSE 96; RESP 18; TEMP 98.2
--- NOTE | 2023-06-08 16:43 | ED ---
Skin/Abscess/FB HPI - General Chief complaint: Skin/Abscess/Foreign Body Stated complaint: Dressing Change on R Breast Time Seen by Provider: 06/08/23 16:39 Source: patient, RN notes reviewed Mode of arrival: ambulatory Limitations: no limitations - History of Present Illness Initial comments: Patient had a procedure done on her right breast for an abscess by Dr. Resendiz call on the and then she ended up having an ultrasound guided drainage as well. Patient had the wound packed with Aquacel. Patient was to have a dressing change but has no home care. Here for dressing change. States she is feeling well. No fever or chills. He is on antibiotics. Patient has upcoming appointment with Dr. Padron on . Patient essentially showing up to get the packing changed and replaced. No headache, no fever or chills, no changes in vision or hearing, no sore throat or difficulty with speech, no neck pain, no chest pain or shortness of breath, no abdominal pain, no nausea or vomiting, no changes in urination or bowel movements, no numbness or tingling, no extremity pain, no skin rashes or lesions. Past medical, surgical, social, and family history reviewed. - Related Data Home Medications Medication Instructions Recorded Confirmed Insulin NPL/Insulin Lispro 45 unit SQ BID 09/20/22 06/03/23 [humaLOG MIX 75-25 VIAL] INSULIN ASPART (NovoLOG) [NovoLOG 10 unit SQ AC-TID 06/01/23 06/03/23 (formulary)] Previous Rx's Medication Instructions Recorded cefTRIAXone [Rocephin] 2,000 mg IVP Q24HR #8 each 06/05/23 Allergies Allergy/AdvReac Type Severity Reaction Status Date / Time erythromycin base Allergy Rash/Hives Verified 06/08/23 16:34 gemifloxacin [From Factive] Allergy Anaphylaxis Verified 06/08/23 16:34 Influenza Virus Vaccines Allergy Nausea & Verified 06/08/23 16:34 Vomiting & Diarrhea Penicillins Allergy Rash/Hives Verified 06/08/23 16:34 prednisone Allergy Rash/Hives Verified 06/08/23 16:34 Sulfa (Sulfonamide Allergy Rash/Hives Verified 06/08/23 16:34 Antibiotics) vancomycin AdvReac Unknown Verified 06/08/23 16:34 pine nuts AdvReac Anaphylaxis Uncoded 06/08/23 16:34 Review of Systems ROS Statement: Those systems with pertinent positive or pertinent negative responses have been documented in the HPI. ROS Other: All systems not noted in ROS Statement are negative. Past Medical History Past Medical History: Diabetes Mellitus, Hyperlipidemia, Hypertension Additional Past Medical History / Comment(s): vomiting after eating, constipation, History of Any Multi-Drug Resistant Organisms: None Reported Past Surgical History: Appendectomy, Cholecystectomy Additional Past Surgical History / Comment(s): cysts removed from ovaries Past Anesthesia/Blood Transfusion Reactions: Motion Sickness, Postoperative Nausea & Vomiting (PONV) Past Psychological History: No Psychological Hx Reported Smoking Status: Never smoker Past Alcohol Use History: None Reported Past Drug Use History: None Reported - Past Family History Sister(s) Family Medical History: Deep Vein Thrombosis (DVT) General Exam - General Exam Comments Initial Comments: This does not appear to be ill or toxic. Vital signs reviewed. Refill less than 2 seconds. No distress. Limitations: no limitations General appearance: alert, in no apparent distress Head exam: Present: atraumatic, normocephalic, normal inspection Eye exam: Present: normal appearance, PERRL, EOMI. Absent: scleral icterus, conjunctival injection, periorbital swelling ENT exam: Present: normal exam, mucous membranes moist Neck exam: Present: normal inspection, full ROM. Absent: tenderness, meningismus, lymphadenopathy Respiratory exam: Present: normal lung sounds bilaterally. Absent: respiratory distress, wheezes, rales, rhonchi, stridor Cardiovascular Exam: Present: regular rate, normal rhythm, normal heart sounds. Absent: systolic murmur, diastolic murmur, rubs, gallop, clicks GI/Abdominal exam: Present: soft, normal bowel sounds. Absent: distended, tenderness, guarding, rebound, rigid Extremities exam: Present: normal inspection, full ROM, normal capillary refill. Absent: tenderness, pedal edema, joint swelling, calf tenderness Back exam: Present: normal inspection Neurological exam: Present: alert, oriented X3, CN II-XII intact Psychiatric exam: Present: normal affect, normal mood Skin exam: Present: warm, dry, normal color, other (Patient has appears to be healing adequately to the inferior aspect of the right breast.). Absent: rash Course Vital Signs 06/08/23 16:32 Temperature 98.2 F Pulse Rate 96 Respiratory 18 Rate Blood Pressure 153/92 O2 Sat by Pulse 98 Oximetry Medical Decision Making - Medical Decision Making Was pt. sent in by a medical professional or institution? @ Yes, Dr. Currie, infectious disease Did you speak to anyone other than the patient for history? @ -Friend Did you review nursing and triage notes? @ -Agree Were old charts reviewed? @ -Previous records reviewed. Wound culture reviewed. Staphylococcus aureus. Multiple drug sensitivities. Patient on ceftriaxone Differential Diagnosis? @ -Differential diagnosis includes but not limited to: Healing abscess, postsurgical infection, does not appear to be consistent with systemic infectious process. Patient appears to be well. Patient here for dressing change. Patient might have a very mild irritation from adhesive from the dressing. We'll try a different type of dressing. EKG interpreted by me (3pts min.)? @ -[none] X-rays interpreted by me (1pt min.)? @ -[none] CT interpreted by me (1pt min.)? @ -[none] U/S interpreted by me (1pt. min.)? @ -[none] What testing was considered but not performed? (CT, X-rays, U/S, labs)? Why? @ [CT, X-rays, U/S, labs? Why?] What meds were considered but not given? Why? @ -[none] Did you discuss the management of the patient with other professionals? @ -The case was discussed in detail with ED attending physician. Presentation, findings, treatment plan discussed in detail. Did you reconcile home meds? @ -[none] Was smoking cessation discussed for >3mins.? @ -[none] Was critical care preformed (if so, how long)? @ -[none] Were there social determinants of health that impacted care today? How? (Homelessness, low income, unemployed, alcoholism, drug addiction, transportation, low edu. Level, literacy, decrease access to med. care, skilled nursing, rehab)? @ -None Was there de-escalation of care discussed even if they declined? (Discuss DNR or withdrawal of care, Hospice)? @ -[Discuss DNR or withdrawal of care, Hospice?] What co-morbidities impacted this encounter? (DM, HTN, Smoking, COPD, CAD, Cancer, CVA, Hep., AIDS, mental health diagnosis, sleep apnea, morbid obesity)? @ -None Was patient admitted / discharged? @ -Stable, discharged Undiagnosed new problem with uncertain prognosis? @ -Wound check from a known diagnosis, patient looks well. Unlikely depose any threat to life or bodily function Drug Therapy requiring intensive monitoring for toxicity (Heparin, Nitro, Insulin, Cardizem)? @ -[none] Were any procedures done? @ -Wound care, assessment and repacking with Aquacel Diagnosis/symptom? @ -Abscess recheck, wound care with repacking Acute, or Chronic, or Acute on Chronic? @ -Acute Uncomplicated (without systemic symptoms) or Complicated (systemic symptoms)? @ -Uncomplicated Side effects of treatment? @ -[none] Exacerbation, Progression, or Severe Exacerbation] @ -[no] Poses a threat to life or bodily function? @ -[no] Patient was told to return to the ER for any signs or symptoms worsen. Told to return immediately if any other problems arise. All questions answered. Treatment plan discussed. Patient in agreement Every effort has been made to ensure accuracy of this dictation. However, due to the limitations of electronic medical records and dictation devices, errors in charting still occur. Disposition Clinical Impression: Visit for wound check, Henoch-Schonlein purpura, Dressing change or removal, surgical wound, Marsh-Ko syndrome Disposition: HOME SELF-CARE Condition: Good Instructions (If sedation given, give patient instructions): Abscess (ED) Additional Instructions: Follow-up with Dr. Rivers as planned. Any treatment as directed by your surgeon, Dr. Martín Martinez Follow-up with your regular physician as directed. Return to the ER immediately if any symptoms worsen, new symptoms arise, or any other problems develop. Is patient prescribed a controlled substance at d/c from ED?: No Referrals: Brandon Rivers MD [STAFF PHYSICIAN] - 06/11/23 Time of Disposition: 16:49
== END 2023-06-08 19:00 | disposition home or self-care (01) ==
LOC: EC 16:30
DX: Z48.00 Encounter for change or removal of nonsurgical wound dressing (principal); L51.1 Stevens-Johnson syndrome; D69.0 Allergic purpura; E11.9 Type 2 diabetes mellitus without complications; I10 Essential (primary) hypertension; Z79.4 Long term (current) use of insulin; Z88.6 Allergy status to analgesic agent; Z88.7 Allergy status to serum and vaccine; Z88.0 Allergy status to penicillin; Z88.2 Allergy status to sulfonamides; Z91.018 Allergy to other foods; Z88.8 Allergy status to other drugs, medicaments and biological substances
CPT/HCPCS: 99283

== ENCOUNTER → 2023-09-08 | Outpatient (CLI) | payer OTHER ==
--- NOTE | 2023-09-08 09:13 | CT ---
EXAMINATION TYPE: CT thoracic spine wo con DATE OF EXAM: 09/08/2023 COMPARISON: None HISTORY: thoracic neuritis CT DLP: 952 mGycm Automated exposure control for dose reduction was used. Unenhanced CT of the thoracic spine was perfo rmed from T1 through T12-L1. Bone and soft tissue window settings are submitted. FINDINGS: Thoracic segments are intact. There is no evidence for fracture or osseous lesion. No evidence of par aspinal mass. Mild scattered degenerative disc space narrowing with minimal ventral spondylosis. Ther e is no evidence for disc herniation or central stenosis. Visualized portions of the lungs appear to be grossly clear. IMPRESSION: VERY MILD SCATTERED DEGENERATIVE CHANGES NOTED. NO EVIDENCE FOR HERNIATION OR CENTRAL STENOSIS.
== END | disposition home or self-care (01) ==
LOC: RADCTMAIN 08:39
PROVIDERS: ATTEND Family Medicine
DX: M47.24 Other spondylosis with radiculopathy, thoracic region (principal)
CPT/HCPCS: 72128

== ENCOUNTER 2024-02-19 18:11 | Inpatient (IN) | payer OTHER ==
--- NOTE | 2024-02-19 18:43 | ED ---
Skin/Abscess/FB HPI - General Source: RN notes reviewed <Cintia Medellin - Last Filed: 02/19/24 18:38> <Quinn Azevedo - Last Filed: 02/20/24 17:13> - General Stated complaint: swollen Lymph nodes Time Seen by Provider: 02/19/24 18:30 - History of Present Illness Initial comments: 58-year-old female presenting with bump on back of head x 3 days. Denies trauma or injury but states there is a red bump that is growing in size on the occipital portion of the scalp. She is also now complaining of pain and swollen lymph nodes in the neck. She has never had this before (Cintia Medellin) 58-year-old female presenting with chief complaint of painful bumps to the scalp and enlarging lymph nodes to the neck. Patient has been following with her PCP Dr. Thompson in regards to painful bumps to the scalp which at times expressed discharge. She has been treated with doxycycline and Flagyl, symptoms have not improved. Patient is also not complaining of neck stiffness, she has pain particularly with extension. She has enlarged lymph nodes to the cervical region, particularly in the posterior cervical region. She was sent by her PCP Dr. Thompson for admission and IV antibiotics. (Quinn Azevedo) - Related Data Home Medications Medication Instructions Recorded Confirmed Insulin NPL/Insulin Lispro 60 unit SQ BID 09/20/22 02/20/24 [humaLOG MIX 75-25 VIAL] Albuterol Sulfate/Budesonide 2 puff INHALATION RT-Q4H PRN 02/20/24 02/20/24 [Airsupra 90-80 Mcg Inhaler] Atorvastatin [Lipitor] 20 mg PO HS 02/20/24 02/20/24 Azelastine HCl [Optivar 0.05% 1 drop BOTH EYES BID PRN 02/20/24 02/20/24 Ophth Soln] Doxycycline Hyclate 100 mg PO BID 02/20/24 02/20/24 Ezetimibe [Zetia] 10 mg PO HS 02/20/24 02/20/24 Fexofenadine HCl [Paola Allergy] 180 mg PO HS 02/20/24 02/20/24 Fluconazole [Diflucan] 150 mg PO DIRECTED 02/20/24 02/20/24 Ipratropium-Albuterol Nebulize 3 ml INHALATION RT-BID 02/20/24 02/20/24 [Duoneb 0.5 mg-3 mg/3 ml Soln] Montelukast Sodium 10 mg PO HS 02/20/24 02/20/24 Omeprazole [PriLOSEC] 40 mg PO HS 02/20/24 02/20/24 metroNIDAZOLE [Flagyl] 500 mg PO TID 02/20/24 02/20/24 Allergies Allergy/AdvReac Type Severity Reaction Status Date / Time erythromycin base Allergy Rash/Hives Verified 02/20/24 10:48 gemifloxacin [From Factive] Allergy Anaphylaxis Verified 02/20/24 10:48 Influenza Virus Vaccines Allergy Nausea & Verified 02/20/24 10:48 Vomiting & Diarrhea Penicillins Allergy Rash/Hives Verified 02/20/24 10:48 prednisone Allergy Rash/Hives Verified 02/20/24 10:48 Sulfa (Sulfonamide Allergy Rash/Hives Verified 02/20/24 10:48 Antibiotics) vancomycin AdvReac Unknown Verified 02/20/24 10:48 pine nuts AdvReac Anaphylaxis Uncoded 02/20/24 10:48 Review of Systems ROS Other: All systems not noted in ROS Statement are negative. <Cintia Medellin - Last Filed: 02/19/24 18:38> ROS Other: All systems not noted in ROS Statement are negative. <Quinn Azevedo - Last Filed: 02/20/24 17:13> ROS Statement: Those systems with pertinent positive or pertinent negative responses have been documented in the HPI. Past Medical History Past Medical History: Diabetes Mellitus, Hyperlipidemia, Hypertension Additional Past Medical History / Comment(s): vomiting after eating, constipation, History of Any Multi-Drug Resistant Organisms: None Reported Past Surgical History: Appendectomy, Cholecystectomy Additional Past Surgical History / Comment(s): cysts removed from ovaries Past Anesthesia/Blood Transfusion Reactions: Motion Sickness, Postoperative Nausea & Vomiting (PONV) Past Psychological History: No Psychological Hx Reported Smoking Status: Never smoker Past Alcohol Use History: None Reported Past Drug Use History: None Reported - Past Family History Sister(s) Family Medical History: Deep Vein Thrombosis (DVT) <Cintia Medellin - Last Filed: 02/19/24 18:38> General Exam <Cintia Medellin - Last Filed: 02/19/24 18:38> Limitations: no limitations General appearance: alert, in no apparent distress Head exam: Present: atraumatic, other (Patient has an abscess to the scalp in the occipital region, there are 2 older scabs to the scalp as well where patient had previous abscesses) Eye exam: Present: normal appearance, EOMI Neck exam: Present: normal inspection, tenderness, lymphadenopathy. Absent: meningismus Respiratory exam: Present: normal lung sounds bilaterally. Absent: respiratory distress, wheezes, rales, rhonchi, stridor Cardiovascular Exam: Present: normal rhythm, tachycardia, normal heart sounds. Absent: systolic murmur, diastolic murmur, rubs, gallop, clicks Neurological exam: Present: alert, oriented X3 Psychiatric exam: Present: normal affect, normal mood Skin exam: Present: warm, dry <Quinn Azevedo - Last Filed: 02/20/24 17:13> - General Exam Comments Initial Comments: Visual Physical Exam Vital signs reviewed General: Well-appearing, nontoxic, no acute distress. Head: Normocephalic, atraumatic Eyes: PERRLA, EOMI ENT: Airway patent Chest: Nonlabored breathing Skin: No visual rash, normal skin tone Neuro: Alert and oriented 3 Musculoskeletal: No gross abnormalities (Cintia Medellin) Course Vital Signs 02/19/24 02/19/24 02/20/24 18:43 23:51 04:17 Temperature 98.4 F 97.3 F L 97.8 F Pulse Rate 121 H 108 H 107 H Pulse Rate [ Pulse Oximetery ] Respiratory 18 16 15 Rate Blood Pressure 124/84 125/85 112/64 Blood Pressure [Right Arm] O2 Sat by Pulse 97 96 95 Oximetry 02/20/24 02/20/24 06:29 07:00 Temperature 97.8 F Pulse Rate 97 Pulse Rate [ 111 H Pulse Oximetery ] Respiratory 13 17 Rate Blood Pressure Blood Pressure 122/77 [Right Arm] O2 Sat by Pulse 96 96 Oximetry Medical Decision Making <Cintia Medellin - Last Filed: 02/19/24 18:38> - Lab Data Result diagrams: 02/19/24 20:08 02/19/24 20:08 <Quinn Azevedo - Last Filed: 02/20/24 17:13> - Medical Decision Making I completed the quick note portion of this chart signed Cintia Medellin PA-C (Cintia Medellin) Was pt. sent in by a medical professional or institution ([facility]HEL Garcia, ABE TEACHER, urgent care, hospital, or penitentiary...) When possible be specific @ -PCP Did you speak to anyone other than the patient for history (EMS, parent, family, police, friend...)? What history was obtained from this source @ -No Did you review nursing and triage notes (agree or disagree)? Why? @ -I reviewed and agree with nursing and triage notes Were old charts reviewed (outside hosp., previous admission, EMS record, old EKG, old radiological studies, urgent care reports/EKG's, penitentiary records)? Report findings @ -Patient did have an outpatient CT of the soft tissue neck today, however the report is not back yet Differential Diagnosis (chest pain, altered mental status, abdominal pain women, abdominal pain men, vaginal bleeding, weakness, fever, dyspnea, syncope, headache, dizziness, GI bleed, back pain, seizure, CVA, palpatations, mental health, musculoskeletal)? @ -Differential includes infectious process, malignancy, autoimmune cause, this is not an all-inclusive list EKG interpreted by me (3pts min.). @ -As above X-rays interpreted by me (1pt min.). @ -Chest x-ray shows chronic changes no acute process seen CT interpreted by me (1pt min.). @ -None done U/S interpreted by me (1pt. min.). @ -None done What testing was considered but not performed or refused? (CT, X-rays, U/S, labs)? Why? @ -None What meds were considered but not given or refused? Why? @ -None Did you discuss the management of the patient with other professionals (gautam smart i.e. RACHEL Garcia, ABE TEACHER, lab, RT, psych nurse, social work case manager, colon and rectal surgeon, teacher, combat information center officer, registered nurse hh case manager)? Give summary @ -I spoke with Dr. Thompson who requested that the patient be admitted on IV antibiotics with Dr. Currie on consult Was smoking cessation discussed for >3mins.? @ -No Was critical care preformed (if so, how long)? @ -No Were there social determinants of health that impacted care today? How? (Homelessness, low income, unemployed, alcoholism, drug addiction, transportatio n, low edu. Level, literacy, decrease access to med. care, long term, rehab)? @ -No Was there de-escalation of care discussed even if they declined (Discuss DNR or withdrawal of care, Hospice)? DNR status @ -No What co-morbidities impacted this encounter? (DM, HTN, Smoking, COPD, CAD, Cancer, CVA, ARF, Chemo, Hep., AIDS, mental health diagnosis, sleep apnea, morbid obesity)? @ -Diabetes, hypertension, hyperlipidemia Was patient admitted / discharged? Hospital course, mention meds given and route, prescriptions, significant lab abnormalities, going to OR and other pertinent info. @ -58-year-old female presenting with chief complaint of abscesses to the scalp and worsening lymphadenopathy to the neck. Workup is initiated by triage. WBC 11.4.1, neutrophils 7.8 x-ray shows no acute process. Spoke with the patient's PCP Dr. Thompson who states that the patient has already been on doxycycline and Flagyl without improvement, he request that she be admitted on IV antibiotics with infectious disease on consult. Patient is agreeable with this plan. I discussed this case with my attending Dr. Cerda Undiagnosed new problem with uncertain prognosis? @ -No Drug Therapy requiring intensive monitoring for toxicity (Heparin, Nitro, Insulin, Cardizem)? @ -No Were any procedures done? @ -No Diagnosis/symptom? @ -Cellulitis, cervical lymphadenopathy Acute, or Chronic, or Acute on Chronic? @ -Acute Uncomplicated (without systemic symptoms) or Complicated (systemic symptoms)? @ -Complicated Side effects of treatment? @ -No Exacerbation, Progression, or Severe Exacerbation? @ -No Poses a threat to life or bodily function? How? (Chest pain, [place], ND, pneumonia, PE, COPD, DKA, ARF, appy, cholecystitis, CVA, Diverticulitis, Homicidal, Suicidal, threat to staff... and all critical care pts) @ -Potentially (Quinn Azevedo) - Lab Data Lab Results 02/19/24 02/19/24 Range/Units 20:08 20:08 WBC 11.4 H (3.8-10.6) k/uL RBC 5.79 H (3.80-5.40) m/uL Hgb 16.1 H (11.4-16.0) gm/dL Hct 49.9 H (34.0-46.0) % MCV 86.2 (80.0-100.0) fL MCH 27.9 (25.0-35.0) pg MCHC 32.4 (31.0-37.0) g/dL RDW 12.5 (11.5-15.5) % Plt Count 351 (150-450) k/uL MPV 7.3 Neutrophils % 69 % Lymphocytes % 23 % Monocytes % 4 % Eosinophils % 2 % Basophils % 1 % Neutrophils # 7.8 H (1.3-7.7) k/uL Lymphocytes # 2.6 (1.0-4.8) k/uL Monocytes # 0.5 (0-1.0) k/uL Eosinophils # 0.2 (0-0.7) k/uL Basophils # 0.1 (0-0.2) k/uL Sodium 135 L (137-145) mmol/L Potassium 4.3 (3.5-5.1) mmol/L Chloride 100 (98-107) mmol/L Carbon Dioxide 26 (22-30) mmol/L Anion Gap 9 mmol/L BUN 16 (7-17) mg/dL Creatinine 0.56 (0.52-1.04) mg/dL Est GFR (CKD-EPI)AfAm >90 (>60 ml/min/1.73 sqM) Est GFR (CKD-EPI)NonAf >90 (>60 ml/min/1.73 sqM) Glucose 303 H (74-99) mg/dL Calcium 9.5 (8.4-10.2) mg/dL Disposition <Cintia Medellin - Last Filed: 02/19/24 18:38> Time of Disposition: 22:10 <Quinn Azevedo - Last Filed: 02/20/24 17:13> Clinical Impression: Cellulitis, Cervical lymphadenopathy Disposition: ADMITTED IP TO THIS [facility] Condition: Fair
[2024-02-19 20:36] LABS: Basophils # (A) 0.1 k/uL (0-0.2); Basophils % (A) 1 %; Eosinophils # (A) 0.2 k/uL (0-0.7); Eosinophils % (A) 2 %; HCT 49.9 % (34.0-46.0); HGB 16.1 gm/dL (11.4-16.0); Lymphocytes # (A) 2.6 k/uL (1.0-4.8); Lymphocytes % (A) 23 %; MCH 27.9 pg (25.0-35.0); MCHC 32.4 g/dL (31.0-37.0); MCV 86.2 fL (80.0-100.0); Mean Platelet Volume 7.3; Monocytes # (A) 0.5 k/uL (0-1.0); Monocytes % (A) 4 %; Neutrophils # (A) 7.8 k/uL (1.3-7.7); Neutrophils % (A) 69 %; Platelet Count 351 k/uL (150-450); RBC 5.79 m/uL (3.80-5.40); RDW 12.5 % (11.5-15.5); WBC 11.4 k/uL (3.8-10.6)
[2024-02-19 20:44] LABS: African American GFR (CKD) >90 (>60 ml/min/1.73 sqM); Anion Gap 9 mmol/L; Blood Urea Nitrogen 16 mg/dL (7-17); Calcium 9.5 mg/dL (8.4-10.2); Carbon Dioxide 26 mmol/L (22-30); Chloride 100 mmol/L (98-107); Glucose 303 mg/dL (74-99); Non-African American GFR(CKD) >90 (>60 ml/min/1.73 sqM); Potassium 4.3 mmol/L (3.5-5.1); Sodium 135 mmol/L (137-145)
[2024-02-19] MEDS ORDERED: NALOXONE 0.4 MG/ML 1 ML VIAL IV PRN (22:06)
[2024-02-19 22:24] LABS: Glucose,Whole Blood 338 mg/dL (70-110)
[2024-02-19] MEDS ORDERED: DEXTROSE 50% SYRINGE 50 ML IVP PRN ×2 (23:20)
[2024-02-19] MEDS: CLINDAMYCIN 600 MG in DEXTROSE 5% IN WATER 50 ML IVPB ONE (23:55)
[2024-02-20 00:06] LABS: Glucose,Whole Blood 313 mg/dL (70-110)
[2024-02-20 09:22] LABS: Glucose,Whole Blood 535 mg/dL (70-110)
[2024-02-20 09:22] LABS: Glucose,Whole Blood 468 mg/dL (70-110)
[2024-02-20] MEDS: INSULIN ASPART (NovoLOG) 100 UNIT/ML VIAL SQ SCH ×2 (09:26→11:51)
[2024-02-20] MEDS: INSULIN ASPART (NovoLOG) 100 UNIT/ML VIAL SQ ONE (09:58)
[2024-02-20] MEDS: IBUPROFEN 400 MG TAB PO PRN (09:58)
[2024-02-20] MEDS ORDERED: KETOTIFEN 0.025% OPHTH DROPS 5 ML BTL BOTH EYES PRN (11:02)
[2024-02-20 11:05] LABS: Glucose,Whole Blood 425 mg/dL (70-110)
[2024-02-20] MEDS ORDERED: DEXTROSE 50% SYRINGE 50 ML IVP PRN ×2 (11:46)
[2024-02-20] MEDS ORDERED: CLINDAMYCIN 600 MG in DEXTROSE 5% IN WATER 50 ML IVPB SCH (12:00)
[2024-02-20] MEDS ORDERED: CLINDAMYCIN 150 MG/ML 4 ML VIAL IM SCH (12:00)
[2024-02-20] MEDS: ERTAPENEM 1 GM in SODIUM CHLORIDE 0.9% 50 ML IVPB SCH (13:18)
--- NOTE | 2024-02-20 14:08 | XR ---
EXAMINATION TYPE: XR chest 2V DATE OF EXAM: 02/20/2024 COMPARISON: 03/13/2023 HISTORY: 58-year-old female with shortest of breath, dyspnea TECHNIQUE: Frontal and lateral views FINDINGS: Heart normal size. Aorta and pulmonary vasculature within normal limits. Mild interstitial prominence is unchanged. No consolidation or pleural effusion. IMPRESSION: Chronic changes. No acute process seen.
[2024-02-20 17:25] LABS: Glucose,Whole Blood 390 mg/dL (70-110)
[2024-02-20] MEDS: INSULN ASP PRT/INSULIN ASPART 100 UNIT/ML 10 ML VIAL SQ SCH (17:50)
[2024-02-20] MEDS: IPRATROPIUM-ALBUTEROL 3 ML NEB INHALATION SCH (20:31)
[2024-02-20 20:55] LABS: Glucose,Whole Blood 278 mg/dL (70-110)
[2024-02-20] MEDS: LORATADINE 10 MG TAB PO SCH (21:14)
[2024-02-20] MEDS: ATORVASTATIN 20 MG TAB PO SCH (21:14)
[2024-02-20] MEDS: EZETIMIBE 10 MG TAB PO SCH (21:14)
[2024-02-20] MEDS: PANTOPRAZOLE 40 MG TABLET PO SCH (21:14)
[2024-02-20] MEDS: MONTELUKAST 10 MG TAB PO SCH (21:14)
[2024-02-20] MEDS: HYDROCORTISONE 1% CREAM 30 GM TUBE TOPICAL PRN (21:32)
[2024-02-21] MEDS: ACETAMINOPHEN TAB 325 MG TAB PO PRN (01:16)
[2024-02-21 06:14] LABS: Glucose,Whole Blood 353 mg/dL (70-110)
--- NOTE | 2024-02-21 09:51 | CA ---
Transthoracic Echo Report Name: Christin Hunter Age: 58 Gender: F : 1965 Exam Date: 02/20/2024 17:01 Exam Location: [facility] Ht (in): 59 Wt (lb): 147 Ordering Physician: Dallas Thompson MD Attending/Referring Phys: Paper Guillotine Operator Rere Villarreal RDCS Procedure CPT: Indications: dyspnea Cardiac Hx: Technical Quality: Good Contrast 1: Total Dose (mL): Contrast 2: Total Dose (mL): MEASUREMENTS (Male / Female) Normal Values 2D ECHO LV Diastolic Diameter PLAX 4.2 cm 4.2 - 5.9 / 3.9 - 5.3 cm LV Systolic Diameter PLAX 2.7 cm IVS Diastolic Thickness 0.7 cm 0.6 - 1.0 / 0.6 - 0.9 cm LVPW Diastolic Thickness 0.7 cm 0.6 - 1.0 / 0.6 - 0.9 cm LV Relative Wall Thickness 0.3 RV Internal Dim ED PLAX 2.5 cm LVOT Diameter 1.9 cm LV Diastolic Volume MOD BP 80.5 cm??? 67 - 155 / 56 - 104 cm??? LV Systolic Volume MOD BP 37.2 cm??? 22 - 58 / 19 - 49 cm??? LV Ejection Fraction MOD BP 53.8 % >= 55 % LV Cardiac Index MOD BP 2432.1 cm???/min???m??? LV Diastolic Volume MOD 4C 82.7 cm??? LV Systolic Volume MOD 4C 39.2 cm??? LV Ejection Fraction MOD 4C 52.6 % LV Cardiac Index MOD 4C 2445.8 cm???/min???m??? LV Diastolic Length 4C 7.3 cm LV Systolic Length 4C 6.0 cm LV Diastolic Volume MOD 2C 78.5 cm??? LV Systolic Volume MOD 2C 35.3 cm??? LV Ejection Fraction MOD 2C 55.0 % LV Cardiac Index MOD 2C 2423.1 cm???/min???m??? LV Diastolic Length 2C 7.3 cm LV Systolic Length 2C 5.9 cm LA Volume 31.4 cm??? 18 - 58 / 22 - 52 cm??? LA Volume Index 18.6 cm???/m??? 16 - 28 cm???/m??? DOPPLER AV Peak Velocity 109.7 cm/s AV Peak Gradient 4.8 mmHg AV Mean Velocity 71.8 cm/s AV Mean Gradient 2.4 mmHg AV Velocity Time Integral 20.2 cm LVOT Peak Velocity 98.4 cm/s LVOT Peak Gradient 3.9 mmHg LVOT Velocity Time Integral 17.2 cm LVOT Stroke Volume 47.2 cm??? LVOT Stroke Volume Index 29.2 ml/m??? LVOT Cardiac Index 2651.8 cm???/min???m??? AV Area Cont Eq vti 2.3 cm??? AV Area Cont Eq pk 2.5 cm??? MV Area PHT 5.3 cm??? Mitral E Point Velocity 59.4 cm/s Mitral A Point Velocity 91.6 cm/s Mitral E to A Ratio 0.6 MV Deceleration Time 143.9 ms PV Peak Velocity 116.9 cm/s PV Peak Gradient 5.5 mmHg FINDINGS Left Ventricle Left ventricular ejection fraction is estimated at 50-55 %. Mildly decreased left ventricular ejection fraction. Left ventricular cavity size normal. Left ventricular wall thickness normal. No obvious regional wall motion abnormalities. Grade 1 diastolic dysfunction. Right Ventricle Normal right ventricular size and function. Unable to estimate the right ventricular systolic pressure. Right Atrium Normal right atrial size. Left Atrium Normal left atrial size. Mitral Valve Structurally normal mitral valve. No evidence for mitral valve prolapse. No mitral stenosis. No mitral regurgitation. Aortic Valve Trileaflet aortic valve. No aortic valve stenosis or regurgitation. Tricuspid Valve Structurally normal tricuspid valve. No tricuspid stenosis. Trace tricuspid regurgitation. Pulmonic Valve Structurally normal pulmonic valve. No pulmonic stenosis. No pulmonic regurgitation. Pericardium No pericardial effusion. Aorta Normal size aortic root and proximal ascending aorta. CONCLUSIONS Normal LV function Previewed by: Dr. Javad Powell MD (Electronically Signed) Final Date: 21 February 2024 09:50
--- NOTE | 2024-02-21 10:34 | P.CONS ---
History of Present Illness - Reason for Consult Consult date: 02/20/24 - History of Present Illness Patient is a 58-year-old female with a past medical history significant for diabetes mellitus hypertension hyperlipidemia presenting to the hospital for evaluation of bump on the back of the head that has been getting worse for the last 3 days patient denies any history of any trauma noticed to have a progressive worsening of swelling and pain to the bumps in the back area patient describes the pain to be sharp 7-8 out of 10 without any radiation with associated swelling but no drainage patient also complaining of some swelling to the neck area patient has been treated with doxycycline and Flagyl without any improvement for the patient was advised to go to the hospital on presentation to the hospital patient was afebrile and no fever have been recorded subsequently patient was not tachycardic hypotensive or hypoxic patient did have white count of 11.4 with a left shift creatinine 0.56 patient did have a chest x-ray no acute process patient was started on Invanz infectious he was consulted for further management of antibiotic therapy Past Medical History Past Medical History: Diabetes Mellitus, Hyperlipidemia, Hypertension Additional Past Medical History / Comment(s): vomiting after eating, constipati on, History of Any Multi-Drug Resistant Organisms: None Reported Past Surgical History: Appendectomy, Cholecystectomy Additional Past Surgical History / Comment(s): cysts removed from ovaries Past Anesthesia/Blood Transfusion Reactions: Motion Sickness, Postoperative Nausea & Vomiting (PONV) Past Psychological History: No Psychological Hx Reported Smoking Status: Never smoker Past Alcohol Use History: None Reported Past Drug Use History: None Reported - Past Family History Sister(s) Family Medical History: Deep Vein Thrombosis (DVT) Medications and Allergies Home Medications Medication Instructions Recorded Confirmed Type Insulin NPL/Insulin Lispro 60 unit SQ BID 09/20/22 02/20/24 History [humaLOG MIX 75-25 VIAL] Albuterol Sulfate/Budesonide 2 puff INHALATION RT-Q4H PRN 02/20/24 02/20/24 History [Airsupra 90-80 Mcg Inhaler] Atorvastatin [Lipitor] 20 mg PO HS 02/20/24 02/20/24 History Azelastine HCl [Optivar 0.05% 1 drop BOTH EYES BID PRN 02/20/24 02/20/24 History Ophth Soln] Doxycycline Hyclate 100 mg PO BID 02/20/24 02/20/24 History Ezetimibe [Zetia] 10 mg PO HS 02/20/24 02/20/24 History Fexofenadine HCl [Paola Allergy] 180 mg PO HS 02/20/24 02/20/24 History Fluconazole [Diflucan] 150 mg PO DIRECTED 02/20/24 02/20/24 History Ipratropium-Albuterol Nebulize 3 ml INHALATION RT-BID 02/20/24 02/20/24 History [Duoneb 0.5 mg-3 mg/3 ml Soln] Montelukast Sodium 10 mg PO HS 02/20/24 02/20/24 History Omeprazole [PriLOSEC] 40 mg PO HS 02/20/24 02/20/24 History metroNIDAZOLE [Flagyl] 500 mg PO TID 02/20/24 02/20/24 History Allergies Allergy/AdvReac Type Severity Reaction Status Date / Time erythromycin base Allergy Rash/Hives Verified 02/20/24 10:48 gemifloxacin [From Factive] Allergy Anaphylaxis Verified 02/20/24 10:48 Influenza Virus Vaccines Allergy Nausea & Verified 02/20/24 10:48 Vomiting & Diarrhea Penicillins Allergy Rash/Hives Verified 02/20/24 10:48 prednisone Allergy Rash/Hives Verified 02/20/24 10:48 Sulfa (Sulfonamide Allergy Rash/Hives Verified 02/20/24 10:48 Antibiotics) vancomycin AdvReac Unknown Verified 02/20/24 10:48 pine nuts AdvReac Anaphylaxis Uncoded 02/20/24 10:48 Physical Exam Vitals: Vital Signs Temp Pulse Pulse Resp BP BP Pulse Ox 02/20/24 07:00 97.8 F 111 H 17 122/77 96 02/20/24 06:29 97 13 96 02/20/24 04:17 97.8 F 107 H 15 112/64 95 02/19/24 23:51 97.3 F L 108 H 16 125/85 96 02/19/24 18:43 98.4 F 121 H 18 124/84 97 Intake and Output 02/19/24 02/20/24 02/20/24 22:59 06:59 14:59 Other: Weight 66.678 kg Results CBC & Chem 7: 02/19/24 20:08 02/19/24 20:08 Labs: Abnormal Lab Results - Last 24 Hours (Table) 02/19/24 02/19/24 02/19/24 Range/Units 20:08 20:08 22:22 WBC 11.4 H (3.8-10.6) k/uL RBC 5.79 H (3.80-5.40) m/uL Hgb 16.1 H (11.4-16.0) gm/dL Hct 49.9 H (34.0-46.0) % Neutrophils # 7.8 H (1.3-7.7) k/uL Sodium 135 L (137-145) mmol/L Glucose 303 H (74-99) mg/dL POC Glucose (mg/dL) 338 H (70-110) mg/dL 02/20/24 02/20/24 02/20/24 Range/Units 00:04 09:19 09:20 WBC (3.8-10.6) k/uL RBC (3.80-5.40) m/uL Hgb (11.4-16.0) gm/dL Hct (34.0-46.0) % Neutrophils # (1.3-7.7) k/uL Sodium (137-145) mmol/L Glucose (74-99) mg/dL POC Glucose (mg/dL) 313 H 535 H 468 H (70-110) mg/dL Assessment and Plan Plan: 1patient presented hospital with a painful bumps to the back of the head representing folliculitis with secondary cellulitis and likely from gram- positive skin roland such as Staph aureus could be MRSA versus MSSA 2-patient with multiple antibiotic ALLERGIES that would limit the number of antibiotic safe to use 3-nursing staff has been advised to obtain culture if the area started to drain 4-discontinue Invanz 5-start daptomycin 4 mg/kg daily while waiting for the workup to be completed We will follow on clinical condition and cultures to further adjust medication if needed Thank you for this consultation we will follow the patient along with you Dictation was produced using [employer] dictation software. please excuse any grammatical, word or spelling errors. Time with Patient: Greater than 30
[2024-02-21] MEDS: SODIUM CHLORIDE 0.9% 1,000 ML IV SCH (11:50)
[2024-02-21] MEDS: KETOROLAC 15 MG/ML 1 ML VIAL IVP PRN (11:50)
[2024-02-21 11:54] LABS: Glucose,Whole Blood 280 mg/dL (70-110)
[2024-02-21 13:44] LABS: ALT 28 U/L (4-34); AST 27 U/L (14-36); African American GFR (CKD) >90 (>60 ml/min/1.73 sqM); Albumin 3.1 g/dL (3.5-5.0); Albumin/Globulin Ratio 1.3; Alkaline Phosphatase 120 U/L (38-126); Anion Gap 8 mmol/L; Blood Urea Nitrogen 18 mg/dL (7-17); Calcium 8.7 mg/dL (8.4-10.2); Carbon Dioxide 24 mmol/L (22-30); Chloride 103 mmol/L (98-107); Globulin 2.4 g/dL; Glucose 279 mg/dL (74-99); Non-African American GFR(CKD) >90 (>60 ml/min/1.73 sqM); Potassium 4.3 mmol/L (3.5-5.1); Sodium 135 mmol/L (137-145); Total Bilirubin 0.3 mg/dL (0.2-1.3); Total Protein 5.5 g/dL (6.3-8.2)
--- NOTE | 2024-02-21 13:44 | HP ---
HISTORY AND PHYSICAL Seen her yesterday. She was admitted for severe like abscess on the posterior scalp that has failed outpatient treatment. She also has severe adenopathy in her back of her neck and nuchal rigidity that came up over just 1 day, where she could barely move her neck. She has severe swelling to the lymph nodes, at which time sepsis and severe infection in her scalp moving to and out her neck area. She was admitted for acute probably sepsis. PAST MEDICAL HISTORY: Diabetes mellitus, hypertension, dyslipidemia. SURGERIES: Colonoscopy, adenoidectomy, motion sickness, postoperative nausea and vomiting. SOCIAL HISTORY: Does not smoke. Does not drink. FAMILY HISTORY: Sister with DVTs. HOME MEDICATIONS: She is on, 1. Humalog 75/25, 60 units b.i.d. 2. Albuterol p.r.n. 3. Lipitor 20 daily. 4. bilaterally. 5. Doxycycline 100 b.i.d. 6. Zetia 10 daily. 7. Paola 180 daily. 8. Diflucan 150 p.r.n. 9. DuoNeb b.i.d. 10.Singulair 10 daily. 11.Prilosec 40 daily. 12.Flagyl 50 t.i.d. PHYSICAL EXAMINATION: VITAL SIGNS: Temp 97-98, pulse 97 to 120s, respiratory rate 16-18, blood pressure 110 to 120s over 60s to 80s, O2 96-97. Her hemoglobin is 6.1, hematocrit 49.4, white count 11.4. Sodium 135, platelets 303. Sugars 300 to 400s. INTEGUMENT: She has posterior scalp large scabbed area about a nickel size with swelling in the posterior scalp. She also has atypical rash to her lower legs that comes and goes. Possibly some vasculitis of unclear etiology. ENT: Shows posterior neck adenopathy from her entire neck on both sides with nuchal rigidity. CARDIOVASCULAR: S1, S2. LUNGS: Decreased breath sounds. HEMATOLOGIC: 2+ edema. Dr. Currie ordered IV Ancef, which was started yesterday. Prognosis is guarded. Continue current treatment. Please see further orders. Accu-Chek protocol. IV antibiotics per Dr. Currie, and we will wait for further recommendations from him. MMODL / IJN: [id number] /
[2024-02-21 13:53] LABS: Basophils # (A) 0.1 k/uL (0-0.2); Basophils % (A) 1 %; Eosinophils # (A) 0.3 k/uL (0-0.7); Eosinophils % (A) 4 %; HCT 41.6 % (34.0-46.0); HGB 13.7 gm/dL (11.4-16.0); Lymphocytes # (A) 1.9 k/uL (1.0-4.8); Lymphocytes % (A) 26 %; MCH 28.2 pg (25.0-35.0); MCV 85.6 fL (80.0-100.0); Mean Platelet Volume 7.7; Monocytes # (A) 0.4 k/uL (0-1.0); Monocytes % (A) 5 %; Neutrophils # (A) 4.4 k/uL (1.3-7.7); Neutrophils % (A) 63 %; Platelet Count 282 k/uL (150-450); RBC 4.86 m/uL (3.80-5.40); RDW 12.7 % (11.5-15.5); WBC 7.1 k/uL (3.8-10.6)
--- NOTE | 2024-02-21 15:22 | CT ---
EXAMINATION TYPE: CT soft tissue neck w con CT DLP: 343.8 mGycm, Automated exposure control for dose reduction was used. DATE OF EXAM: 02/21/2024 3:08 PM COMPARISON: Nonenhanced 02/19/2024 CT.. CLINICAL INDICATION:Female, 58 years old with history of nasopharyngeal mass, nasopharyngeal mass, sc anned as a without contrast yesterday TECHNIQUE: Standard enhanced CT of the neck. Axial sections with coronal and sagittal reformats were obtained. Contrast used:100 ml mL of Isovue 300 with IV Contrast, (None if empty) Oral contrast used: (None if empty) FINDINGS: Brain: Visualized portions are grossly unremarkable. Orbits: Unremarkable Sinuses: Grossly unremarkable. Spaces of the neck: Asymmetric fullness within the right tongue base mucosa compared to the left most prominent on series 5 image 41. The left submandibular gland is not definitively visualized. The rig ht submandibular gland appears within normal limits. The soft palate and adenoids appear relatively w ithin normal limits and symmetric. Musculoskeletal: No acute osseous pathology. Lymph nodes: Multiple nonenlarged lymph nodes are seen along both anterior chains of the neck. Vascular structures: Visualized major arteries are patent without evidence of aneurysm. Thoracic Inlet/airway: Airway is patent. The lung apices are clear. Soft tissues/Thyroid: Thyroid and remainder of the soft tissues are unremarkable. Other: none. IMPRESSION 1. Asymmetric fullness within the right tongue base mucosa compared to the left. Direct visualizatio n recommended to rule out underlying malignancy. No enlarged lymph nodes by CT criteria in the neck. 2. The previous prominent adenoidal and soft palate soft tissues aren't particularly abnormal. No en hancing masses definitively visualized.
--- NOTE | 2024-02-21 16:54 | P.PN ---
Subjective Progress Note Date: 02/21/24 Principal diagnosis: Reason for follow-up is scalp area folliculitis/cellulitis Patient is a 58-year-old female with a past medical history significant for diabetes mellitus hypertension hyperlipidemia presenting to the hospital for evaluation of bump on the back of the head that has been getting worse for the last 3 days, patient be diagnosed with scalp area follicu litis/abscess failing outpatient therapy. On today's evaluation that is 02/21/2024, patient has been afebrile, patient is breathing comfortably and is currently on room air, patient denies having any significant cough no chest pain shortness of breath, patient denies nausea vomiting or diarrhea and no abdominal pain, still complaining of discomfort to the scalp area but no worsening and no drainage. The patient white count is 7.1, creatinine 0.51 blood culture pending Objective - Vital Signs Vital signs: Vital Signs Temp 97.7 F 02/21/24 07:00 Pulse 92 02/21/24 09:23 Resp 15 02/21/24 07:00 BP 122/76 02/21/24 07:00 Pulse Ox 97 02/21/24 07:00 FiO2 Intake & Output 02/20/24 02/21/24 02/21/24 18:59 06:59 18:59 Weight 66.678 kg Other: # Voids 4 1 # Bowel Movements 0 - Exam GENERAL DESCRIPTION: Middle-aged female lying in bed in no distress scalp: With an area of folliculitis minimal redness no drainage RESPIRATORY SYSTEM: Unlabored breathing , decreased breath sounds at bases HEART: S1 S2 regular rate and rhythm , ABDOMEN: Soft , no tenderness EXTREMITIES: No edema feet - Labs CBC & Chem 7: 02/21/24 12:48 02/21/24 12:48 Labs: Abnormal Lab Results - Last 24 Hours (Table) 02/20/24 02/20/24 02/21/24 Range/Units 17:24 20:54 04:03 POC Glucose (mg/dL) 390 H 278 H (70-110) mg/dL Hemoglobin A1c 15.2 H (<=6.0) % 02/21/24 02/21/24 Range/Units 06:13 11:48 POC Glucose (mg/dL) 353 H 280 H (70-110) mg/dL Hemoglobin A1c (<=6.0) % Assessment and Plan (1) Folliculitis Current Visit: Yes Status: Acute Code(s): L73.9 - FOLLICULAR DISORDER, UNSPECIFIED SNOMED Code(s): 44006567 (2) Cellulitis of scalp Current Visit: Yes Status: Acute Code(s): L03.811 - CELLULITIS OF HEAD [ANY PART, EXCEPT FACE] SNOMED Code(s): 34022235 (3) Allergy to multiple antibiotics Current Visit: No Status: Acute Code(s): Z88.1 - ALLERGY STATUS TO OTHER ANTIBIOTIC AGENTS SNOMED Code(s): 267526257 Plan: 1patient presented hospital with a painful bumps to the back of the head representing folliculitis with secondary cellulitis and likely from gram- positive skin roland such as Staph aureus could be MRSA versus MSSA 2-patient with multiple antibiotic ALLERGIES that would limit the number of antibiotic safe to use 3-nursing staff has been advised to obtain culture if the area started to drain 4-patient to continue with daptomycin 4 mg/kg daily while waiting for the workup to be completed Dictation was produced using [employer] dictation software. please excuse any grammatical, word or spelling errors. Time with Patient: Less than 30
[2024-02-21 17:11] LABS: Glucose,Whole Blood 321 mg/dL (70-110)
[2024-02-21 20:09] LABS: Glucose,Whole Blood 382 mg/dL (70-110)
[2024-02-21] MEDS: PIOGLITAZONE 15 MG TAB PO SCH (22:01)
[2024-02-22 05:36] LABS: Glucose,Whole Blood 333 mg/dL (70-110)
[2024-02-22 10:31] LABS: Basophils # (A) 0.06 X 10*3/uL (0.00-0.10); Eosinophils # (A) 0.32 X 10*3/uL (0.04-0.35); Eosinophils % (A) 5.2 %; HCT 40.4 % (37.2-46.3); HGB 13.3 g/dL (12.0-15.0); Lymphocytes # (A) 1.74 X 10*3/uL (0.90-5.00); Lymphocytes % (A) 28.5 %; MCH 28.3 pg (27.0-32.0); MCHC 32.9 g/dL (32.0-37.0); Mean Platelet Volume 9.9 FL (9.5-12.2); Monocytes # (A) 0.41 X 10*3/uL (0.20-1.00); Monocytes % (A) 6.7 %; NRBC Per 100 WBC 0 X 10*3/uL (0.00-0.01); Neutrophils # (A) 3.55 X 10*3/uL (1.80-7.70); Neutrophils % (A) 58.1 %; Platelet Count 319 X 10*3/uL (140-440); RDW 12.2 % (11.5-14.5); WBC 6.11 X 10*3/uL (4.50-10.00)
[2024-02-22 10:36] LABS: ALT 27 U/L (8-44); AST 21 U/L (13-35); Albumin 3.5 g/dL (3.8-4.9); Albumin/Globulin Ratio 1.84 Ratio (1.60-3.17); Alkaline Phosphatase 121 U/L (41-126); BUN/Creat Ratio 19.43 Ratio (12.00-20.00); Blood Urea Nitrogen 13.6 mg/dL (9.0-27.0); Calcium 8.9 mg/dL (8.7-10.3); Carbon Dioxide 23.9 mmol/L (21.6-31.8); Chloride 105 mmol/L (96-109); Globulin 1.9 g/dL (1.6-3.3); Glucose 348 mg/dL (70-110); Potassium 4.6 mmol/L (3.5-5.5); Sodium 139 mmol/L (135-145); Total Bilirubin <0.2 mg/dL (0.3-1.2); Total Protein 5.4 g/dL (6.2-8.2)
--- NOTE | 2024-02-22 10:43 | PN ---
PROGRESS NOTE A 58-year-old white female with cough, congestion, shortness of breath. Soft tissues of the neck nares obstructing the airway. ENT is consulted. Repeat CT scan with contrast was ordered, which showed some deviation to the right, for which ENT has been consulted. She is admitted with severe cellulitis of the scalp into her neck, which is improving with IV daptomycin. OBJECTIVE: VITAL SIGNS: Temp 98.1, pulse 90-92, respiratory rate 16-18, blood pressure 111/68, O2 sat 95 on room air. CARDIOVASCULAR: S1, S2. LUNGS: Transmitted upper sounds. PSYCH: Fair mood and affect. INTEGUMENT: Posterior mid occipital area has 2 cm x 1 cm x 0.5 cm deep swelling and severe tenderness lesion, but her neck is less swollen and less tender. Able to move it a little bit more today. Continue with daptomycin per Dr. Currie. HEMATOLOGY: Negative Homans. She has a typical rash in her lower legs that comes and goes. Possible vasculitis. She wears a sleep apnea machine at night, some breathing treatment done today. She is on current medicines. She is on IV daptomycin for this severe infection, which is improving. PROGNOSIS: Guarded. Wait for ENT consultation. Continue daptomycin for couple days. MMODL / IJN: [id number] /
[2024-02-22 11:23] LABS: Glucose,Whole Blood 330 mg/dL (70-110)
--- NOTE | 2024-02-22 12:48 | P.PN ---
Subjective Progress Note Date: 02/22/24 Principal diagnosis: Reason for follow-up is scalp area folliculitis/cellulitis Patient is a 58-year-old female with a past medical history significant for diabetes mellitus hypertension hyperlipidemia presenting to the hospital for evaluation of bump on the back of the head that has been getting worse for the last 3 days, patient be diagnosed with scalp area follicu litis/abscess failing outpatient therapy. On today's evaluation that is 02/22/2024,the patient denies any fever or any chills, patient is breathing comfortably on room air, the patient denies chest pain shortness of breath and no significant cough, patient denies abdominal pain, no nausea vomiting or diarrhea, patient mention there was some drainage from the scalp area which has been cultured by the nursing staff overall pain has decreased in intensity. Patient white count 6.11, creatinine 0.7 Objective - Vital Signs Vital signs: Vital Signs Temp 98 F 02/22/24 07:00 Pulse 88 02/22/24 08:29 Resp 16 02/22/24 07:00 BP 139/74 02/22/24 07:00 Pulse Ox 96 02/22/24 07:00 FiO2 Intake & Output 02/21/24 02/22/24 02/22/24 18:59 06:59 18:59 Intake Total 118 Balance 118 Intake: Oral 118 Other: Voiding Method Toilet # Voids 5 2 # Bowel Movements 0 - Exam GENERAL DESCRIPTION: Middle-aged female lying in bed in no distress scalp: With an area of folliculitis minimal redness no drainage RESPIRATORY SYSTEM: Unlabored breathing , decreased breath sounds at bases HEART: S1 S2 regular rate and rhythm , ABDOMEN: Soft , no tenderness EXTREMITIES: No edema feet - Labs CBC & Chem 7: 02/22/24 07:03 02/22/24 07:03 Labs: Abnormal Lab Results - Last 24 Hours (Table) 02/21/24 02/21/24 02/21/24 Range/Units 12:48 17:09 20:07 Sodium 135 L (137-145) mmol/L BUN 18 H (7-17) mg/dL Creatinine 0.51 L (0.52-1.04) mg/dL Glucose 279 H (74-99) mg/dL POC Glucose (mg/dL) 321 H 382 H (70-110) mg/dL Total Bilirubin (0.3-1.2) mg/dL Total Protein 5.5 L (6.3-8.2) g/dL Albumin 3.1 L (3.5-5.0) g/dL 02/22/24 02/22/24 02/22/24 Range/Units 05:35 07:03 11:16 Sodium (137-145) mmol/L BUN (7-17) mg/dL Creatinine (0.52-1.04) mg/dL Glucose 348 H (74-99) mg/dL POC Glucose (mg/dL) 333 H 330 H (70-110) mg/dL Total Bilirubin <0.2 L (0.3-1.2) mg/dL Total Protein 5.4 L (6.3-8.2) g/dL Albumin 3.5 L (3.5-5.0) g/dL Microbiology - Last 24 Hours (Table) 02/19/24 23:45 Blood Culture - Preliminary Blood 02/19/24 23:30 Blood Culture - Preliminary Blood Assessment and Plan (1) Folliculitis Current Visit: Yes Status: Acute Code(s): L73.9 - FOLLICULAR DISORDER, UNSPECIFIED SNOMED Code(s): 77883056 (2) Cellulitis of scalp Current Visit: Yes Status: Acute Code(s): L03.811 - CELLULITIS OF HEAD [ANY PART, EXCEPT FACE] SNOMED Code(s): 33822515 (3) Allergy to multiple antibiotics Current Visit: No Status: Acute Code(s): Z88.1 - ALLERGY STATUS TO OTHER ANTIBIOTIC AGENTS SNOMED Code(s): 138421254 Plan: 1patient presented hospital with a painful bumps to the back of the head representing folliculitis with secondary cellulitis and likely from gram- positive skin roland such as Staph aureus could be MRSA versus MSSA 2-patient with multiple antibiotic ALLERGIES that would limit the number of an tibiotic safe to use 3-patient did have cultures obtained from the affected area which will be follo wed 4-patient to continue with daptomycin while waiting for the culture to finalize to determine discharge antibiotics Dictation was produced using [employer] dictation software. please excuse any gramma tical, word or spelling errors. Time with Patient: Less than 30
[2024-02-22 13:24] LABS: Glucose,Whole Blood 244 mg/dL (70-110)
[2024-02-22 15:20] VITALS: BMI 29.7
[2024-02-22 17:10] LABS: Glucose,Whole Blood 388 mg/dL (70-110)
[2024-02-22 20:14] LABS: Glucose,Whole Blood 284 mg/dL (70-110)
--- NOTE | 2024-02-22 23:41 | PN ---
PROGRESS NOTE SUBJECTIVE: This is a 58-year-old white female, came in with staph infection in her neck, . She has improved since she has been on daptomycin on outpatient treatment. White count 6.11, creatinine 0.7, sodium 1. OBJECTIVE: VITAL SIGNS: Blood pressure 139/74, respiratory rate 16, pulse 88, temperature 98.8, and O2 96. HEENT: Normocephalic, atraumatic. CARDIOVASCULAR: S1, S2. RESPIRATORY: Unlabored breathing, decreased breath sounds. ABDOMEN: Soft, nontender. EXTREMITIES: No edema. White count 6.1, hemoglobin was 13.3, sodium 139, potassium 4.6, BUN is 18, creatinine 0.51. Sugars 279, glucose is low at 300. She has folliculitis, cellulitis of the scalp, culture is pending. Multiple antibiotic allergies. Waiting for culture. Continue with daptomycin. Continue with sugar control. CAT scan shows some swelling of her tonsils for which another CAT scan was done. Possibly get ENT to see her for tonsillar adenopathy which was severe on CAT scan. Please see further orders. MMODL / IJN: [id number] /
[2024-02-23 06:12] LABS: Glucose,Whole Blood 257 mg/dL (70-110)
[2024-02-23 12:07] LABS: Glucose,Whole Blood 232 mg/dL (70-110)
[2024-02-23 17:15] LABS: Glucose,Whole Blood 276 mg/dL (70-110)
[2024-02-23 20:31] LABS: Glucose,Whole Blood 162 mg/dL (70-110)
[2024-02-24 06:13] LABS: Glucose,Whole Blood 199 mg/dL (70-110)
--- NOTE | 2024-02-24 10:57 | P.GSCN ---
History of Present Illness Consult date: 02/24/24 History of present illness: CHIEF COMPLAINT: Bump on the back of her head HISTORY OF PRESENT ILLNESS: This is a 58-year-old female who presented to the hospital with complaints of bump on the back of her head x 1 week. Patient reports it has been draining. She has a known history of diabetes. She reports her hemoglobin A1c is at 15. Patient denies any fever chills or sweats. She denies any history of MRSA. Currently on IV antibiotics. PAST MEDICAL HISTORY: Diabetes Mellitus, Hyperlipidemia, Hypertension PAST SURGICAL HISTORY: Appendectomy, Cholecystectomy MEDICATIONS: See below ALLERGIES: See below SOCIAL HISTORY: No illicit drug use. REVIEW OF SYSTEMS: CONSTITUTIONAL: Denies fever or chills. HEENT: Denies blurred vision, vision changes, or eye pain. Denies hemoptysis CARDIOVASCULAR: Denies chest pain or pressure. RESPIRATORY: No shortness of breath. GASTROINTESTINAL: See HPI for pertinent findings HEMATOLOGIC: Denies bleeding disorders. GENITOURINARY: Denies any blood in urine or increased urinary frequency. SKIN: Denies pruitis. Denies rash. PHYSICAL EXAM: VITAL SIGNS: Reviewed GENERAL: Well-developed in no acute distress. HEENT: Posterior scalp about a 2 cm circular abscess. There is area of induration and fluctuance. Purulent drainage able to be expressed. ABDOMEN: Soft. Nondistended. Nontender NEUROLOGIC: Alert and oriented. Cranial nerves II through XII grossly intact. LABORATORY DATA: WBC 6.11 Hgb 13.3 platelets 319 Sodium is 139 potassium is 4.6 creatinine 0.7 Glucose 199 Hemoglobin A1c 15.2 IMAGING: CT scan of the neck reported asymmetric fullness within the right tongue base compared to the left. Direct visualization to rule out underlying malignancy. No enlarged lymph nodes by CT criteria of the neck. The previous prominent adenoidal and soft palate tissues are not particularly abnormal. No enhancing masses visualized. ASSESSMENT: 1. Posterior scalp abscess with fluctuance and drainage 2. Uncontrolled diabetes mellitus PLAN: -Patient scheduled for incision and drainage of posterior scalp abscess at bedside today with Dr. Rivers -Continue antibiotics per infectious disease -Recommend blood sugar control Physician Insurance Billing Specialist note has been reviewed by physician. Signing provider agrees with the documented findings, assessment, and plan of care. Past Medical History Past Medical History: Diabetes Mellitus, Hyperlipidemia, Hypertension Additional Past Medical History / Comment(s): vomiting after eating, cons tipation, History of Any Multi-Drug Resistant Organisms: None Reported Past Surgical History: Appendectomy, Cholecystectomy Additional Past Surgical History / Comment(s): cysts removed from ovaries Past Anesthesia/Blood Transfusion Reactions: Motion Sickness, Postoperative Nausea & Vomiting (PONV) Past Psychological History: No Psychological Hx Reported Smoking Status: Never smoker Past Alcohol Use History: None Reported Past Drug Use History: None Reported - Past Family History Sister(s) Family Medical History: Deep Vein Thrombosis (DVT) Medications and Allergies Home Medications Medication Instructions Recorded Confirmed Type Insulin NPL/Insulin Lispro 60 unit SQ BID 09/20/22 02/20/24 History [humaLOG MIX 75-25 VIAL] Albuterol Sulfate/Budesonide 2 puff INHALATION RT-Q4H PRN 02/20/24 02/20/24 History [Airsupra 90-80 Mcg Inhaler] Atorvastatin [Lipitor] 20 mg PO HS 02/20/24 02/20/24 History Azelastine HCl [Optivar 0.05% 1 drop BOTH EYES BID PRN 02/20/24 02/20/24 History Ophth Soln] Doxycycline Hyclate 100 mg PO BID 02/20/24 02/20/24 History Ezetimibe [Zetia] 10 mg PO HS 02/20/24 02/20/24 History Fexofenadine HCl [Paola Allergy] 180 mg PO HS 02/20/24 02/20/24 History Fluconazole [Diflucan] 150 mg PO DIRECTED 02/20/24 02/20/24 History Ipratropium-Albuterol Nebulize 3 ml INHALATION RT-BID 02/20/24 02/20/24 History [Duoneb 0.5 mg-3 mg/3 ml Soln] Montelukast Sodium 10 mg PO HS 02/20/24 02/20/24 History Omeprazole [PriLOSEC] 40 mg PO HS 02/20/24 02/20/24 History metroNIDAZOLE [Flagyl] 500 mg PO TID 02/20/24 02/20/24 History Allergies Allergy/AdvReac Type Severity Reaction Status Date / Time erythromycin base Allergy Rash/Hives Verified 02/20/24 10:48 gemifloxacin [From Factive] Allergy Anaphylaxis Verified 02/20/24 10:48 Influenza Virus Vaccines Allergy Nausea & Verified 02/20/24 10:48 Vomiting & Diarrhea Penicillins Allergy Rash/Hives Verified 02/20/24 10:48 prednisone Allergy Rash/Hives Verified 02/20/24 10:48 Sulfa (Sulfonamide Allergy Rash/Hives Verified 02/20/24 10:48 Antibiotics) vancomycin AdvReac Unknown Verified 02/20/24 10:48 pine nuts AdvReac Anaphylaxis Uncoded 02/20/24 10:48 Surgical - Exam Vital Signs Temp Pulse Resp BP Pulse Ox 98.4 F 121 H 18 124/84 97 02/19/24 18:43 02/19/24 18:43 02/19/24 18:43 02/19/24 18:43 02/19/24 18:43 Results - Labs 02/22/24 07:03 02/22/24 07:03 Abnormal Lab Results - Last 24 Hours (Table) 02/23/24 02/23/24 02/23/24 Range/Units 12:03 17:14 20:29 POC Glucose (mg/dL) 232 H 276 H 162 H (70-110) mg/dL 02/24/24 Range/Units 06:12 POC Glucose (mg/dL) 199 H (70-110) mg/dL Microbiology - Last 24 Hours (Table) 02/21/24 21:30 Gram Stain - Final Head Wound Culture - Final Staphylococcus aureus 02/19/24 23:45 Blood Culture - Preliminary Blood 02/19/24 23:30 Blood Culture - Preliminary Blood
[2024-02-24 12:27] LABS: Glucose,Whole Blood 245 mg/dL (70-110)
--- NOTE | 2024-02-24 13:32 | PN ---
PROGRESS NOTE SUBJECTIVE: This is a 58-year-old white female with cellulitis of her head. She has Staph aureus sensitive to oral medicine, Keflex, which was sent home on per Dr. Currie's recommendations. She is waiting for I and D by Dr. Rivers this afternoon prior to going home. OBJECTIVE: VITAL SIGNS: Temperature 98 , blood pressure 130s to 140s over 80s, O2 96 on room air. CARDIOVASCULAR: S1, S2. LUNGS: Transmitted upper sounds. NECK: Supple with no mass. Decreased swelling. She has a large posterior occiput scalp lesion about 2 cm x 1 cm x 0.5 cm incision. Incision and drainage is being done. Prognosis guarded. Continue current treatments. Please see further orders. MMODL / IJN: [id number] /
[2024-02-24 17:32] LABS: Glucose,Whole Blood 295 mg/dL (70-110)
--- NOTE | 2024-02-24 20:04 | CDI ---
Documentation Clarification Form Date: 02/24/2024 07:45:20 PM From: Yohana Tomlinson RN, CCDS Phone: [phone] Admit Date: 02/19/2024 10:09:00 PM Patient Name: Christin Hunter Visit Number: [id number] Discharge Date: ATTENTION: The Clinical Documentation Specialists (CDI) and [facility] Coding Staff appreciate your assistance in clarifying documentation. Please respond to the clarification below the line at the bottom and electronically sign. The CDI & [facility] Coding staff will review the response and follow-up if needed. Please note: Queries are made part of the Legal Health Record. If you have any questions, please contact the author of this message via ITS. Dr. Dallas Thompson Sepsis is documented in the H/P which may lack sufficient clinical evidence/support in the medical record. Additional clarification is requested. History/Risk Factors: Diabetes Mellitus, Hyperlipidemia, Hypertension Clinical Indicators: 58-year-old female presenting with bump on back of head x 3 days. She denies any trauma. She has an abscess to the scalp in the occipital region. She has been treated with doxycycline and Flagyl without any improvement. 02/18 VS: 124/84 121 18 97% RA 02/18 Labs: 11.4 Neutrophils 7.8, Cr 0.56 Treatment: Invanz 1 GM IVPB 02/19-02/19 Daptomycin 4 MG/DG Daily 02/19-02/22 Kefzol 2 GM IVPB IVPB Q 8 HRS .9 NS IV@ 75 MLS/HR Please clarify if Sepsis is a valid diagnosis? [ ] Yes, Sepsis is present as evidence by (additional clinical support): [ ] No, Sepsis is ruled out [ ] Other (please specify diagnosis) [ ] Unable to determine (Template Last Revised: December 2020) MTDD
[2024-02-24] MEDS: ATORVASTATIN 40 MG TAB PO SCH (20:10)
--- NOTE | 2024-02-24 20:23 | CDI ---
Documentation Clarification Form Date: 02/24/2024 08:05:39 PM From: Yohana Tomlinson RN, CCDS Phone: [phone] Admit Date: 02/19/2024 10:09:00 PM Patient Name: Christin Hunter Visit Number: [id number] Discharge Date: ATTENTION: The Clinical Documentation Specialists (CDI) and [facility] Coding Staff appreciate your assistance in clarifying documentation. Please respond to the clarification below the line at the bottom and electronically sign. The CDI & [facility] Coding staff will review the response and follow-up if needed. Please note: Queries are made part of the Legal Health Record. If you have any questions, please contact the author of this message via ITS. Dr. Lyndsay Currie Cellulitis is documented in the ID consult on 02/18 and subsequent progress. Additional clarification regarding the type of cellulitis is requested. History/risk factors: Diabetes Mellitus, Hyperlipidemia, Hypertension Clinical Indicators: 58-year-old female present to ED with worsening of swelling and pain to the bumps in the back neck area. Threated outpatient with doxycycline and Flagyl without improvement. Wound culture Staphylococcus aureus Blood culture (02/19/24) pending Glucose 02/18: 303, Glucose 02/19 425, 390, 278 02/20 Hemoglobin A1c 15.2 Treatment: Invanz 1 GM IVPB 02/19-02/19 Daptomycin 4 MG/DG Daily 02/19-02/22 Kefzol 2 GM IVPB IVPB Q 8 HRS .9 NS IV@ 75 MLS/HR Please clarify the etiology of the cellulitis, if known: [ ] Cellulitis is a diabetic skin complication. [ ] Cellulitis is not a diabetic skin complication. [ ] Other, please specify: [ ] Unable to determine. (Template Last Revised: October 2022) MTDD
[2024-02-24 20:41] LABS: Glucose,Whole Blood 251 mg/dL (70-110)
--- NOTE | 2024-02-24 20:45 | CDI ---
Documentation Clarification Form Date: 02/24/2024 08:44:21 PM From: Yohana Tomlinson RN, CCDS Phone: [phone] Admit Date: 02/19/2024 10:09:00 PM Patient Name: Christin Hunter Visit Number: [id number] Discharge Date: ATTENTION: The Clinical Documentation Specialists (CDI) and [facility] Coding Staff appreciate your assistance in clarifying documentation. Please respond to the clarification below the line at the bottom and electronically sign. The CDI & [facility] Coding staff will review the response and follow-up if needed. Please note: Queries are made part of the Legal Health Record. If you have any questions, please contact the author of this message via ITS. Dr. Dallas Thompson Uncontrolled Diabetes Mellitus documented in the progress note on 02/24/24. Additional specificity regarding the diabetes diagnosis is requested. History/Risk Factors: Diabetes Mellitus, Hyperlipidemia, Hypertension Clinical Indicators: 58-year-old female present to ED with worsening of swelling and pain to the bumps in the back neck area. Threated outpatient with doxycycline and Flagyl without improvement. Glucose 02/18: 303, Glucose 02/19 425, 390, 278 02/20 Hemoglobin A1c 15.2 Treatment Novolog SQ ACHS 02/19-02/23 Novolog MIx 70-30 60 unit SQ AC-BID 02/19-02/23 .9 NS @75 MLS/HR 02/20-02/23 Please clarify the type of diabetes, if known: [ ] Diabetes Type 2 with Uncontrolled Hyperglycemia, POA [ ] Other, please specify [ ] Unable to Determine (Template Last Revised: December 2020) MTDD
[2024-02-25 06:26] LABS: Glucose,Whole Blood 282 mg/dL (70-110)
[2024-02-25 08:37] VITALS: BP 150/81; RESP 17; TEMP 98
[2024-02-25 09:23] VITALS: PULSE 89
--- NOTE | 2024-02-25 11:05 | P.PN ---
Subjective Progress Note Date: 02/25/24 CHIEF COMPLAINT: Posterior scalp abscess HISTORY OF PRESENT ILLNESS: Patient is status post I&D of posterior head abscess yesterday at the bedside. Patient reports that this morning there is been no further drainage. She does report still having some pain. But does feel ready for discharge. Afebrile. Glucose 282 culture growing MSSA PHYSICAL EXAM: VITAL SIGNS: Reviewed. GENERAL: Well-developed in no acute distress. HEENT: Posterior scalp abscess. Mild tenderness with palpation there is some mild fluctuance. No drainage noted at this time. ASSESSMENT: 1. Posterior scalp abscess status post bedside incision and drainage of abscess by Dr. Rivers 2. Uncontrolled diabetes mellitus PLAN: -Patient can be discharged from surgical standpoint -Discharge antibiotics per infectious disease -Recommend patient continues to take daily showers and apply warm compresses to the abscess to keep to help promote further drainage. -Recommend better glucose control Physician Brush Clearer Surveying note has been reviewed by physician. Signing provider agrees with the documented findings, assessment, and plan of care. Objective - Vital Signs Vital signs: Vital Signs Temp 98 F 02/25/24 07:53 Pulse 89 02/25/24 08:57 Resp 17 02/25/24 07:53 BP 150/81 02/25/24 07:53 Pulse Ox 97 02/25/24 07:53 FiO2 Intake & Output 02/24/24 02/25/24 02/25/24 18:59 06:59 18:59 Intake Total 358 240 Balance 358 240 Intake: Oral 358 240 Other: Voiding Method Toilet # Voids 2 - Labs CBC & Chem 7: 02/22/24 07:03 02/22/24 07:03 Labs: Abnormal Lab Results - Last 24 Hours (Table) 02/24/24 02/24/24 02/24/24 Range/Units 12:26 17:30 20:39 POC Glucose (mg/dL) 245 H 295 H 251 H (70-110) mg/dL 02/25/24 Range/Units 06:25 POC Glucose (mg/dL) 282 H (70-110) mg/dL Microbiology - Last 24 Hours (Table) 02/21/24 21:30 Anaerobic Culture - Preliminary Head 02/21/24 21:30 Gram Stain - Final Head Wound Culture - Final Staphylococcus aureus
--- NOTE | 2024-02-25 21:30 | PN ---
PROGRESS NOTE Type 2 diabetes mellitus, uncontrolled hyperglycemia present on admission secondary to severe scalp cellulitis and abscess. MMODL / IJN: [id number] /
--- NOTE | 2024-02-25 22:10 | PN ---
PROGRESS NOTE ADDENDUM: Systemic inflammatory response syndrome. No sepsis. MMODL / IJN: [id number] /
== END 2024-02-25 11:34 | disposition home or self-care (01) | DRG 420 ==
LOC: SUPCPDRO 18:11 → EC 18:11 → 6NMEDSUR 22:08 → OBSVTOIN 22:09 → 6NMEDSUR 23:47
PROVIDERS: ADMIT Family Medicine; ATTEND Family Medicine
DX: E11.628 Type 2 diabetes mellitus with other skin complications (principal); R65.10 Systemic inflammatory response syndrome (SIRS) of non-infectious origin without acute organ dysfunction; E11.65 Type 2 diabetes mellitus with hyperglycemia; Z79.4 Long term (current) use of insulin; B95.61 Methicillin susceptible Staphylococcus aureus infection as the cause of diseases classified elsewhere; L03.811 Cellulitis of head [any part, except face]; L02.811 Cutaneous abscess of head [any part, except face]; E78.5 Hyperlipidemia, unspecified; I10 Essential (primary) hypertension; R59.0 Localized enlarged lymph nodes; Z79.899 Other long term (current) drug therapy; Z88.1 Allergy status to other antibiotic agents; Z88.7 Allergy status to serum and vaccine; Z88.0 Allergy status to penicillin; Z88.8 Allergy status to other drugs, medicaments and biological substances; Z88.2 Allergy status to sulfonamides; Z91.018 Allergy to other foods; Z87.891 Personal history of nicotine dependence
CPT/HCPCS: 36415; 70491; 71046; 80048; 80053; 83036; 84484; 85025; 85379; 87040; 87070; 87075; 87077; 87186; 87205; 93306; 94640; 96365; 99285

== ENCOUNTER → 2024-02-19 | Outpatient (CLI) | payer OTHER ==
--- NOTE | 2024-02-20 06:04 | CT ---
EXAMINATION TYPE: CT soft tissue neck wo con CT DLP: 320.80 mGycm, Automated exposure control for dose reduction was used. DATE OF EXAM: 02/19/2024 6:37 PM COMPARISON: None. CLINICAL INDICATION:Female, 58 years old with history of R59.9 ENLARGED LYMPH NODES, UNSPECIFIED; PHH , TECHNIQUE: Noncontrast CT of the neck was performed, with multiplanar reformats generated. Contrast used: None. Oral contrast used: None. FINDINGS: CT examination of the neck is limited without IV contrast. Inferior head: Visualized portions of the base of the brain are grossly unremarkable. Orbits are unre markable. Sinuses appear clear as seen. No appreciable mastoid opacification. On the first few images of the study, there appears to be a small raised portion of the skin over the occiput just left of midline with some stranding of the underlying subcutaneous fat and mild edema w hich could correlate to the reported sore reported by the patient. Image 78 series 3 for reference. N o focal fluid collection or underlying abnormality of the skull is seen. Neck soft tissues, pharyngeal mucosal space: There are prominent adenoidal and soft palate soft tissu es, which touch and appear to very nearly occlude the airway at the nasopharyngeal/oropharyngeal junc tion. There is also mild irregular thickening of the lingual tonsils which may be reactive. Continuin g inferiorly, the valleculae and epiglottis appear within normal limits. Oropharynx is patent. Hypoph arynx and larynx appear patent. The visualized trachea is patent. Parapharyngeal fat is preserved. Lymph nodes: Multiple nonenlarged nonnecrotic lymph nodes are seen along both anterior chains of the neck. Vascular structures: Aortic arch shows mild atherosclerotic calcification. Carotid arteries are not a ppreciably calcified. Thoracic Inlet/airway: Airway is patent. The lung apices are clear. A few nonenlarged mediastinal nod es are seen. Thyroid/salivary glands: Thyroid appears unremarkable. Left submandibular gland appears absent. The p arotids have a roughly symmetric appearance without acute finding. Musculoskeletal: No acute osseous anomalies are seen. Osseous structures show minimal degenerative ch anges of the cervical spine without evidence of fracture or listhesis. There is mild straightening of the normal cervical lordosis which can be due to pain, spasm, and/or positioning. Other: None significant. IMPRESSION: 1. Limited unenhanced CT of the neck. 2. Inflammatory findings in the left occipital soft tissues likely correlate to the reported sore re ported by the patient. No focal fluid collection or underlying abnormality of the skull is seen. 3. Multiple nonenlarged nonnecrotic lymph nodes in the bilateral neck, likely reactive. 4. Prominent adenoidal and soft palate soft tissues, which touch and appear to very nearly occlude t he airway at the nasopharyngeal/oropharyngeal junction. Airway is otherwise patent.
== END | disposition home or self-care (01) ==
LOC: RADCTMAIN 17:21
PROVIDERS: ATTEND Family Medicine
DX: R59.9 Enlarged lymph nodes, unspecified (principal)
CPT/HCPCS: 70490

== ENCOUNTER → 2024-08-17 | Outpatient (CLI) | payer BC ==
--- NOTE | 2024-08-17 10:02 | XR ---
EXAMINATION TYPE: XR chest 2V DATE OF EXAM: 08/17/2024 COMPARISON: 02/20/2024 HISTORY: Shortness of breath TECHNIQUE: Frontal and lateral views of the chest are obtained. FINDINGS: Scattered senescent parenchymal changes noted. Hyperinflation compatible with COPD. No evidence for infiltrate. No evidence for atelectasis. Heart size is stable. Mediastinal structures are stable and grossly unremarkable. No evidence for hilar prominence. Degenerative changes dorsal spine. IMPRESSION: 1. No evidence for acute pulmonary disease. [facility], , 08/17/2024 9:59 AM
== END | disposition home or self-care (01) ==
LOC: RADXRMAIN 09:34
PROVIDERS: ATTEND Family Medicine
DX: R07.9 Chest pain, unspecified (principal)
CPT/HCPCS: 71046

== ENCOUNTER 2024-08-31 09:39 | Inpatient (IN) | payer BC, OTHER ==
[2024-08-31 10:24] LABS: Glucose,Whole Blood 431 mg/dL (70-110)
[2024-08-31] MEDS: SODIUM CHLORIDE 0.9% 2,000 ML IV STA (10:28)
[2024-08-31] MEDS: ACETAMINOPHEN TAB 325 MG TAB PO STA (10:31)
[2024-08-31 10:40] LABS: Appearance,Urine Clear (Clear); Bilirubin,Urine Negative (Negative); Blood,Urine Trace (Negative); Color,Urine Colorless; Glucose,Urine (UA) 4+ (Negative); HCT 37.5 % (34.0-46.0); Leukocyte Esterase,Urine Negative (Negative); MCV 88.8 fL (80.0-100.0); Mucus,Urine Rare /hpf; Nitrite,Urine Negative (Negative); Protein,Urine 1+ (Negative); RBC 4.23 m/uL (3.80-5.40); RBC,Urine 1 /hpf (0-5); Specific Gravity,Urine 1.031 (1.001-1.035); Squamous Epithelial Cell,Urine <1 /hpf (0-4); Urobilinogen,Urine <2.0 mg/dL (<2.0); WBC 6.8 k/uL (3.8-10.6); WBC,Urine 2 /hpf (0-5)
[2024-08-31 10:41] LABS: Basophils % (A) 1 %; Eosinophils # (A) 0.1 k/uL (0-0.7); Eosinophils % (A) 2 %; Lymphocytes # (A) 2.1 k/uL (1.0-4.8); Lymphocytes % (A) 31 %; Mean Platelet Volume 7.8; Monocytes # (A) 0.3 k/uL (0-1.0); Monocytes % (A) 5 %; Neutrophils # (A) 4.1 k/uL (1.3-7.7); Neutrophils % (A) 60 %; Platelet Count 285 k/uL (150-450); RDW 13.2 % (11.5-15.5)
[2024-08-31 10:50] LABS: Chloride 99 mmol/L (98-107); MCH 28.2 pg (25.0-35.0); MCHC 31.9 g/dL (31.0-37.0); Potassium 4.5 mmol/L (3.5-5.1); Sodium 126 mmol/L (137-145)
[2024-08-31 11:33] LABS: African American GFR (CKD) >90 (>60 ml/min/1.73 sqM); Anion Gap 18 mmol/L; Non-African American GFR(CKD) >90 (>60 ml/min/1.73 sqM)
[2024-08-31 11:37] LABS: Blood Urea Nitrogen 14 mg/dL (7-17); Calcium 9.4 mg/dL (8.4-10.2); Glucose 419 mg/dL (74-99); Total Protein 6.7 g/dL (6.3-8.2)
[2024-08-31 11:38] LABS: ALT 45 U/L (4-34); AST 27 U/L (14-36); Albumin 4.1 g/dL (3.5-5.0); Alkaline Phosphatase 124 U/L (38-126); Total Bilirubin 0.4 mg/dL (0.2-1.3)
[2024-08-31 11:39] LABS: Carbon Dioxide 9 mmol/L (22-30)
[2024-08-31 11:58] LABS: VBG PH 7.17 (7.31-7.41)
[2024-08-31 12:03] LABS: Ketones,Urine 3+ (Negative)
--- NOTE | 2024-08-31 12:07 | ED ---
Abdominal Pain HPI - General Chief Complaint: Abdominal Pain Stated Complaint: UTI, High blood sugar Time Seen by Provider: 08/31/24 10:04 Source: patient, RN notes reviewed Mode of arrival: ambulatory Limitations: no limitations - History of Present Illness Initial Comments: 59-year-old female presents emergency department chief complaint of a possible UTI, hyperglycemia. Patient states that blood sugar has been between 4 and 600. Patient states that she was able to get abdominal today with drinking fluids. Patient states she is on insulin. Patient admits to urinary frequency and dysuria. Patient states she just feels weak, rundown feeling she has any chest pain or shortness of breath no headache or dizziness. - Related Data Home Medications Medication Instructions Recorded Confirmed Budesonide/Glycopyr/Formoterol 2 puff INHALATION RT-BID 08/31/24 08/31/24 [Breztri Aerosphere Inhaler] Ciprofloxacin HCl [Cipro] 500 mg PO BID 08/31/24 08/31/24 Fluconazole [Diflucan] 150 mg PO DAILY 08/31/24 08/31/24 Insulin Glargine [Lantus Vial] 30 unit SQ DAILY 08/31/24 08/31/24 Insulin NPH Human Isophane 10 units SQ AC-TID 08/31/24 08/31/24 [NovoLIN N Flexpen] Omeprazole 20 mg PO DAILY 08/31/24 08/31/24 Allergies Allergy/AdvReac Type Severity Reaction Status Date / Time erythromycin base Allergy Rash/Hives Verified 08/31/24 12:46 gemifloxacin [From Factive] Allergy Anaphylaxis Verified 08/31/24 12:46 Influenza Virus Vaccines Allergy Nausea & Verified 08/31/24 12:46 Vomiting & Diarrhea nitrofurantoin Allergy Anaphylaxis Verified 08/31/24 12:46 [From Macrobid] Penicillins Allergy Rash/Hives Verified 08/31/24 12:46 prednisone Allergy Rash/Hives Verified 08/31/24 12:46 Sulfa (Sulfonamide Allergy Rash/Hives Verified 08/31/24 12:46 Antibiotics) vancomycin AdvReac Unknown Verified 08/31/24 12:46 pine nuts AdvReac Anaphylaxis Uncoded 08/31/24 12:46 Review of Systems ROS Statement: Those systems with pertinent positive or pertinent negative responses have been documented in the HPI. ROS Other: All systems not noted in ROS Statement are negative. Past Medical History Past Medical History: Diabetes Mellitus, Hyperlipidemia, Hypertension Additional Past Medical History / Comment(s): vomiting after eating, constipation, History of Any Multi-Drug Resistant Organisms: None Reported Past Surgical History: Appendectomy, Cholecystectomy Additional Past Surgical History / Comment(s): cysts removed from ovaries Past Anesthesia/Blood Transfusion Reactions: Motion Sickness, Postoperative Nausea & Vomiting (PONV) Past Psychological History: No Psychological Hx Reported Smoking Status: Never smoker Past Alcohol Use History: None Reported Past Drug Use History: None Reported - Past Family History Sister(s) Family Medical History: Deep Vein Thrombosis (DVT) General Exam Limitations: no limitations General appearance: alert, in no apparent distress Head exam: Present: atraumatic, normocephalic, normal inspection Eye exam: Present: normal appearance, PERRL, EOMI. Absent: scleral icterus, conjunctival injection, periorbital swelling ENT exam: Present: normal exam, normal oropharynx, mucous membranes moist Neck exam: Present: normal inspection, full ROM. Absent: tenderness, meningismus, lymphadenopathy Respiratory exam: Present: normal lung sounds bilaterally. Absent: respiratory distress, wheezes, rales, rhonchi, stridor Cardiovascular Exam: Present: normal rhythm, tachycardia, normal heart sounds. Absent: systolic murmur, diastolic murmur, rubs, gallop, clicks GI/Abdominal exam: Present: soft, normal bowel sounds. Absent: distended, tenderness, guarding, rebound, rigid Back exam: Absent: CVA tenderness (R), CVA tenderness (L) Neurological exam: Present: alert, oriented X3 Course Vital Signs 08/31/24 08/31/24 08/31/24 09:56 10:37 11:35 Temperature 98.2 F 98.3 F Pulse Rate 113 H 105 H 103 H Respiratory 18 18 16 Rate Blood Pressure 139/78 145/88 142/82 O2 Sat by Pulse 94 L 97 98 Oximetry 08/31/24 08/31/24 08/31/24 12:19 13:30 14:25 Temperature Pulse Rate 96 92 96 Respiratory 16 18 18 Rate Blood Pressure 148/91 147/79 140/90 O2 Sat by Pulse 79 L 98 96 Oximetry 08/31/24 15:15 Temperature 98.0 F Pulse Rate 100 Respiratory 18 Rate Blood Pressure 130/77 O2 Sat by Pulse 95 Oximetry Medical Decision Making - Medical Decision Making Was pt. sent in by a medical professional or institution ([facility]ACHEL Garcia, [employer], urgent care, hospital, or residential...) When possible be specific @ -No Did you speak to anyone other than the patient for history (EMS, parent, family, police, friend...)? What history was obtained from this source @ -No Did you review nursing and triage notes (agree or disagree)? Why? @ -I reviewed and agree with nursing and triage notes Were old charts reviewed (outside hosp., previous admission, EMS record, old EKG, old radiological studies, urgent care reports/EKG's, residential records)? Report findings @ -No old charts were reviewed Differential Diagnosis (chest pain, altered mental status, abdominal pain women, abdominal pain men, vaginal bleeding, weakness, fever, dyspnea, syncope, headache, dizziness, GI bleed, back pain, seizure, CVA, palpatations, mental health, musculoskeletal)? @ -Hyperglycemia, UTI, DKA, HHS, nausea vomiting EKG interpreted by me (3pts min.). @ -none X-rays interpreted by me (1pt min.). @ -None done CT interpreted by me (1pt min.). @ -None done U/S interpreted by me (1pt. min.). @ -None done What testing was considered but not performed or refused? (CT, X-rays, U/S, labs)? Why? @ -None What meds were considered but not given or refused? Why? @ -None Did you discuss the management of the patient with other professionals (professionals i.e. , RACHEL, [employer], lab, RT, psych nurse, clinical social work aide, manager real estate, teacher, loan officer assistant, case loader operator)? Give summary @ -Dr. Thompson for admission. Also recommended IV antibiotics Was smoking cessation discussed for >3mins.? @ -No Was critical care preformed (if so, how long)? @ -[35 minutes Were there social determinants of health that impacted care today? How? (Homelessness, low income, unemployed, alcoholism, drug addiction, transportation, low edu. Level, literacy, decrease access to med. care, prison, rehab)? @ -No Was there de-escalation of care discussed even if they declined (Discuss DNR or withdrawal of care, Hospice)? DNR status @ -No What co-morbidities impacted this encounter? (DM, HTN, Smoking, COPD, CAD, Cancer, CVA, ARF, Chemo, Hep., AIDS, mental health diagnosis, sleep apnea, morbid obesity)? @ -Diabetes Was patient admitted / discharged? Hospital course, mention meds given and route, prescriptions, significant lab abnormalities, going to OR and other pertinent info. @ -Admitted patient's found to be in DKA. Patient started fluid bolus, insulin drip, repeat electrolytes, patient started on antibiotics for recent UTI, patient agrees with plan of admission. Undiagnosed new problem with uncertain prognosis? @ -No Drug Therapy requiring intensive monitoring for toxicity (Heparin, Nitro, Insulin, Cardizem)? @ -No Were any procedures done? @ -No Diagnosis/symptom? @ -DKA, UTI Acute, or Chronic, or Acute on Chronic? @ -Acute Uncomplicated (without systemic symptoms) or Complicated (systemic symptoms)? @ -complicated Side effects of treatment? @ -No Exacerbation, Progression, or Severe Exacerbation? @ -No Poses a threat to life or bodily function? How? (Chest pain, [place], [place], pneumonia, PE, COPD, DKA, ARF, appy, cholecystitis, CVA, Diverticulitis, Homicidal, Suicidal, threat to staff... and all critical care pts) @ -yes DKA - Lab Data Result diagrams: 08/31/24 10:25 08/31/24 10:25 Lab Results 08/31/24 08/31/24 08/31/24 Range/Units 10:18 10:25 10:25 WBC 6.8 (3.8-10.6) k/uL RBC 4.23 (3.80-5.40) m/uL Hgb 12.0 (11.4-16.0) gm/dL Hct 37.5 (34.0-46.0) % MCV 88.8 (80.0-100.0) fL MCH 28.2 (25.0-35.0) pg MCHC 31.9 (31.0-37.0) g/dL RDW 13.2 (11.5-15.5) % Plt Count 285 (150-450) k/uL MPV 7.8 Neutrophils % 60 % Lymphocytes % 31 % Monocytes % 5 % Eosinophils % 2 % Basophils % 1 % Neutrophils # 4.1 (1.3-7.7) k/uL Lymphocytes # 2.1 (1.0-4.8) k/uL Monocytes # 0.3 (0-1.0) k/uL Eosinophils # 0.1 (0-0.7) k/uL Basophils # 0.0 (0-0.2) k/uL VBG pH (7.31-7.41) VBG pCO2 (37-51) mmHg VBG HCO3 (24-28) mmol/L Sodium (137-145) mmol/L Potassium (3.5-5.1) mmol/L Chloride (98-107) mmol/L Carbon Dioxide (22-30) mmol/L Anion Gap mmol/L BUN (7-17) mg/dL Creatinine (0.52-1.04) mg/dL Est GFR (CKD-EPI)AfAm (>60 ml/min/1.73 sqM) Est GFR (CKD-EPI)NonAf (>60 ml/min/1.73 sqM) Glucose (74-99) mg/dL POC Glucose (mg/dL) 431 H (70-110) mg/dL POC Glu Service Station Attendant ID Rebeca Valdez Plasma Lactic Acid Jameel (0.7-2.0) mmol/L Calcium (8.4-10.2) mg/dL Total Bilirubin (0.2-1.3) mg/dL AST (14-36) U/L ALT (4-34) U/L Alkaline Phosphatase (38-126) U/L Total Protein (6.3-8.2) g/dL Albumin (3.5-5.0) g/dL Lipase Urine Color Colorless Urine Appearance Clear (Clear) Urine pH 5.0 (5.0-8.0) Ur Specific [place] 1.031 (1.001-1.035) Urine Protein 1+ H (Negative) Urine Glucose (UA) 4+ H (Negative) Urine Ketones 3+ H (Negative) Urine Blood Trace H (Negative) Urine Nitrite Negative (Negative) Urine Bilirubin Negative (Negative) Urine Urobilinogen <2.0 (<2.0) mg/dL Ur Leukocyte Esterase Negative (Negative) Urine RBC 1 (0-5) /hpf Urine WBC 2 (0-5) /hpf Ur Squamous Epith Cells <1 (0-4) /hpf Urine Mucus Rare H (None) /hpf 11/06/24 11/06/24 11/06/24 Range/Units 10:25 10:25 11:45 WBC (3.8-10.6) k/uL RBC (3.80-5.40) m/uL Hgb (11.4-16.0) gm/dL Hct (34.0-46.0) % MCV (80.0-100.0) fL MCH (25.0-35.0) pg MCHC (31.0-37.0) g/dL RDW (11.5-15.5) % Plt Count (150-450) k/uL MPV Neutrophils % % Lymphocytes % % Monocytes % % Eosinophils % % Basophils % % Neutrophils # (1.3-7.7) k/uL Lymphocytes # (1.0-4.8) k/uL Monocytes # (0-1.0) k/uL Eosinophils # (0-0.7) k/uL Basophils # (0-0.2) k/uL VBG pH 7.17 L* (7.31-7.41) VBG pCO2 40 (37-51) mmHg VBG HCO3 15 L (24-28) mmol/L Sodium 126 L (137-145) mmol/L Potassium 4.5 (3.5-5.1) mmol/L Chloride 99 (98-107) mmol/L Carbon Dioxide 9 L* (22-30) mmol/L Anion Gap 18 mmol/L BUN 14 (7-17) mg/dL Creatinine 0.62 (0.52-1.04) mg/dL Est GFR (CKD-EPI)AfAm >90 (>60 ml/min/1.73 sqM) Est GFR (CKD-EPI)NonAf >90 (>60 ml/min/1.73 sqM) Glucose 419 H (74-99) mg/dL POC Glucose (mg/dL) (70-110) mg/dL POC Glu Service Station Attendant ID Plasma Lactic Acid Jameel 1.0 (0.7-2.0) mmol/L Calcium 9.4 (8.4-10.2) mg/dL Total Bilirubin 0.4 (0.2-1.3) mg/dL AST 27 (14-36) U/L ALT 45 H (4-34) U/L Alkaline Phosphatase 124 (38-126) U/L Total Protein 6.7 (6.3-8.2) g/dL Albumin 4.1 (3.5-5.0) g/dL Lipase Cancelled Urine Color Urine Appearance (Clear) Urine pH (5.0-8.0) Ur Specific [place] (1.001-1.035) Urine Protein (Negative) Urine Glucose (UA) (Negative) Urine Ketones (Negative) Urine Blood (Negative) Urine Nitrite (Negative) Urine Bilirubin (Negative) Urine Urobilinogen (<2.0) mg/dL Ur Leukocyte Esterase (Negative) Urine RBC (0-5) /hpf Urine WBC (0-5) /hpf Ur Squamous Epith Cells (0-4) /hpf Urine Mucus (None) /hpf Critical Care Time Critical Care Time: Yes Total Critical Care Time: 35 Disposition Clinical Impression: DKA (diabetic ketoacidosis) Disposition: ADMITTED IP TO THIS [facility] Condition: Fair Time of Disposition: 12:24
[2024-08-31 13:01] LABS: Glucose,Whole Blood 268 mg/dL (70-110)
[2024-08-31] MEDS: D5-0.45% NACL WITH KCL 20MEQ/L 1,000 ML IV SCH (13:26)
[2024-08-31] MEDS: INSULIN REGULAR 100 UNIT in SODIUM CHLORIDE 0.9% 100 ML IV SCH (13:26)
[2024-08-31] MEDS: SODIUM CHLORIDE 0.9% 1,000 ML IV SCH (13:40)
[2024-08-31 14:23] LABS: Glucose,Whole Blood 274 mg/dL (70-110)
[2024-08-31 15:19] LABS: Glucose,Whole Blood 219 mg/dL (70-110)
[2024-08-31 16:29] LABS: Glucose,Whole Blood 173 mg/dL (70-110)
[2024-08-31 16:54] LABS: Chloride 108 mmol/L (98-107); Potassium 3.6 mmol/L (3.5-5.1); Sodium 132 mmol/L (137-145)
[2024-08-31 17:09] LABS: Glucose,Whole Blood 164 mg/dL (70-110)
[2024-08-31 17:23] LABS: African American GFR (CKD) >90 (>60 ml/min/1.73 sqM); Anion Gap 12 mmol/L; Non-African American GFR(CKD) >90 (>60 ml/min/1.73 sqM)
[2024-08-31 17:27] LABS: Carbon Dioxide 12 mmol/L (22-30); Glucose 170 mg/dL (74-99)
[2024-08-31 17:28] LABS: Blood Urea Nitrogen 8 mg/dL (7-17); Phosphorus 3.2 mg/dL (2.5-4.5)
[2024-08-31 18:08] LABS: Glucose,Whole Blood 145 mg/dL (70-110)
[2024-08-31 19:04] LABS: Glucose,Whole Blood 150 mg/dL (70-110)
[2024-08-31 19:58] LABS: Glucose,Whole Blood 157 mg/dL (70-110)
[2024-08-31 20:16] LABS: Basophils # (A) 0.1 k/uL (0-0.2); Basophils % (A) 1 %; Eosinophils # (A) 0.2 k/uL (0-0.7); Eosinophils % (A) 3 %; HCT 34.6 % (34.0-46.0); Lymphocytes # (A) 2.4 k/uL (1.0-4.8); Lymphocytes % (A) 36 %; MCV 88.7 fL (80.0-100.0); Mean Platelet Volume 7.5; Monocytes # (A) 0.3 k/uL (0-1.0); Monocytes % (A) 4 %; Neutrophils # (A) 3.6 k/uL (1.3-7.7); Neutrophils % (A) 54 %; Platelet Count 264 k/uL (150-450); RDW 13.3 % (11.5-15.5); WBC 6.7 k/uL (3.8-10.6)
[2024-08-31 20:22] LABS: MCHC 31.8 g/dL (31.0-37.0)
[2024-08-31 20:23] LABS: Chloride 108 mmol/L (98-107); MCH 28.1 pg (25.0-35.0); Potassium 3.7 mmol/L (3.5-5.1); Sodium 130 mmol/L (137-145)
[2024-08-31] MEDS: ACETAMINOPHEN TAB 325 MG TAB PO PRN (21:07)
[2024-08-31 21:17] LABS: African American GFR (CKD) >90 (>60 ml/min/1.73 sqM); Anion Gap 14 mmol/L; Non-African American GFR(CKD) >90 (>60 ml/min/1.73 sqM)
[2024-08-31 21:19] LABS: Carbon Dioxide 8 mmol/L (22-30); Glucose 165 mg/dL (74-99)
[2024-08-31 21:20] LABS: AST 25 U/L (14-36); Blood Urea Nitrogen 7 mg/dL (7-17); Calcium 7.7 mg/dL (8.4-10.2); Phosphorus 3.5 mg/dL (2.5-4.5); Total Bilirubin 0.3 mg/dL (0.2-1.3); Total Protein 5.6 g/dL (6.3-8.2)
[2024-08-31 21:21] LABS: ALT 34 U/L (4-34); Alkaline Phosphatase 101 U/L (38-126)
[2024-08-31 21:37] LABS: Glucose,Whole Blood 192 mg/dL (70-110)
[2024-08-31] MEDS: IPRATROPIUM-ALBUTEROL 3 ML NEB INHALATION SCH (21:47)
[2024-08-31 22:37] LABS: Glucose,Whole Blood 217 mg/dL (70-110)
[2024-08-31 23:42] LABS: Glucose,Whole Blood 241 mg/dL (70-110)
[2024-09-01 00:05] LABS: Basophils % (A) 1 %; Eosinophils # (A) 0.2 k/uL (0-0.7); Eosinophils % (A) 3 %; HCT 33.5 % (34.0-46.0); Lymphocytes # (A) 2.1 k/uL (1.0-4.8); Lymphocytes % (A) 33 %; Monocytes # (A) 0.3 k/uL (0-1.0); Monocytes % (A) 5 %; Neutrophils # (A) 3.7 k/uL (1.3-7.7); Neutrophils % (A) 57 %; Platelet Count 245 k/uL (150-450); RBC 3.76 m/uL (3.80-5.40); RDW 13.6 % (11.5-15.5); WBC 6.4 k/uL (3.8-10.6)
[2024-09-01 00:08] LABS: HGB 10.9 gm/dL (11.4-16.0); MCH 28.7 pg (25.0-35.0); MCHC 32.4 g/dL (31.0-37.0)
[2024-09-01 00:32] LABS: Chloride 110 mmol/L (98-107); Potassium 3.8 mmol/L (3.5-5.1); Sodium 127 mmol/L (137-145)
[2024-09-01 00:42] LABS: ABG HCO3 12 mmol/L (21-25); ABG PCO2 27 mmHg (35-45); ABG PH 7.25 (7.35-7.45); ABG PO2 97 mmHg (83-108); ABG TCO2 13 mmol/L (19-24); Allen Test Performed? Yes
[2024-09-01 00:45] LABS: Glucose,Whole Blood 243 mg/dL (70-110)
[2024-09-01 00:48] LABS: ABG Base Excess -13.9 mmol/L
[2024-09-01 00:57] LABS: African American GFR (CKD) >90 (>60 ml/min/1.73 sqM); Anion Gap 8 mmol/L; Non-African American GFR(CKD) >90 (>60 ml/min/1.73 sqM)
[2024-09-01 00:59] LABS: Blood Urea Nitrogen 6 mg/dL (7-17); Carbon Dioxide 9 mmol/L (22-30); Glucose 245 mg/dL (74-99)
[2024-09-01 01:00] LABS: ALT 33 U/L (4-34); AST 26 U/L (14-36); Albumin 2.8 g/dL (3.5-5.0); Alkaline Phosphatase 96 U/L (38-126); Calcium 7.7 mg/dL (8.4-10.2); Total Bilirubin 0.3 mg/dL (0.2-1.3); Total Protein 5.3 g/dL (6.3-8.2)
[2024-09-01 01:47] LABS: Glucose,Whole Blood 279 mg/dL (70-110)
[2024-09-01 02:32] LABS: Glucose,Whole Blood 261 mg/dL (70-110)
[2024-09-01 03:37] LABS: Glucose,Whole Blood 254 mg/dL (70-110)
[2024-09-01 04:32] LABS: Glucose,Whole Blood 230 mg/dL (70-110)
[2024-09-01 04:54] LABS: Sodium 131 mmol/L (137-145)
[2024-09-01 04:55] LABS: African American GFR (CKD) >90 (>60 ml/min/1.73 sqM); Anion Gap 10 mmol/L; Chloride 112 mmol/L (98-107); Non-African American GFR(CKD) >90 (>60 ml/min/1.73 sqM); Potassium 4.2 mmol/L (3.5-5.1)
[2024-09-01 04:56] LABS: Glucose 261 mg/dL (74-99)
[2024-09-01 04:57] LABS: Blood Urea Nitrogen 5 mg/dL (7-17); Carbon Dioxide 9 mmol/L (22-30); Phosphorus 3.2 mg/dL (2.5-4.5)
[2024-09-01] MEDS: PANTOPRAZOLE 40 MG TABLET PO SCH (05:30)
[2024-09-01 05:33] LABS: Glucose,Whole Blood 223 mg/dL (70-110)
[2024-09-01 06:37] LABS: Glucose,Whole Blood 215 mg/dL (70-110)
[2024-09-01 07:34] LABS: Glucose,Whole Blood 194 mg/dL (70-110)
[2024-09-01 08:35] LABS: Glucose,Whole Blood 169 mg/dL (70-110)
[2024-09-01] MEDS: FLUCONAZOLE 150 MG TAB PO SCH (08:50)
[2024-09-01 09:26] LABS: African American GFR (CKD) >90 (>60 ml/min/1.73 sqM); Blood Urea Nitrogen 3 mg/dL (7-17); Calcium 7.3 mg/dL (8.4-10.2); Chloride 113 mmol/L (98-107); Glucose 163 mg/dL (74-99); Non-African American GFR(CKD) >90 (>60 ml/min/1.73 sqM); Potassium 4.1 mmol/L (3.5-5.1); Sodium 131 mmol/L (137-145)
[2024-09-01 09:30] LABS: Carbon Dioxide <5 mmol/L (22-30)
[2024-09-01 09:36] LABS: Phosphorus 3.1 mg/dL (2.5-4.5)
[2024-09-01 09:53] LABS: Glucose,Whole Blood 208 mg/dL (70-110)
[2024-09-01 10:36] LABS: Glucose,Whole Blood 223 mg/dL (70-110)
--- NOTE | 2024-09-01 10:57 | P.CNPUL ---
History of Present Illness Consult date: 09/01/24 Reason for consult: cough, other Chief complaint: Abdominal pain and high sugar History of present illness: 59-year-old female with type 2 diabetes mellitus, patient presented to the emergency department and admitted with ongoing symptoms of abdominal discomfort and high sugars lately patient's sugars are running between 406 100. Patient has been compliant with insulin with long and short acting but however she has suffered COVID infection few weeks ago for which she was on steroids followed by another bout of respiratory tract infection and was placed on another course of steroids along with antibiotics. Patient lately having dysuria and increased frequency feeling generalized weakness and feeling rundown however on specific questioning denies any loss of consciousness hemiparesis, some nauseous feeling was present but is resolved now patient is feeling hungry. Denies any cough, fever, denies any dizziness headache. Currently on insulin drip along with D5, DuoNeb, potassium replacement as per protocol, Diflucan. Her labs are CBC mild anemia is present otherwise unremarkable arterial blood gas pH is 7.25 pCO2 27 bicarb of 12 total CO2 23. Chemistry significant for sodium 132 potassium 3.6 CO2 of 12 anion gap of 12 however CO2 fell down less than 5 BUN/creatinine within normal limit glucose remains elevated 23 Past medical history significant for recent COVID infection followed by another upper respiratory and lower respiratory infection, diabetes mellitus with hyperglycemia, GERD. Patient takes 30 units of Lantus and 10 units of short acting 3 times a day Review of Systems All systems: negative Past Medical History Past Medical History: Diabetes Mellitus, Hyperlipidemia, Hypertension Additional Past Medical History / Comment(s): vomiting after eating, constipation, History of Any Multi-Drug Resistant Organisms: None Reported Past Surgical History: Appendectomy, Cholecystectomy Additional Past Surgical History / Comment(s): cysts removed from ovaries Past Anesthesia/Blood Transfusion Reactions: Motion Sickness, Postoperative Nausea & Vomiting (PONV) Past Psychological History: No Psychological Hx Reported Smoking Status: Never smoker Past Alcohol Use History: None Reported Additional Past Alcohol Use History / Comment(s): quit smoking 30 yrs ago, smoked for 2-3 yrs Past Drug Use History: None Reported - Past Family History Sister(s) Family Medical History: Deep Vein Thrombosis (DVT) Medications and Allergies Home Medications Medication Instructions Recorded Confirmed Type Budesonide/Glycopyr/Formoterol 2 puff INHALATION RT-BID 08/31/24 08/31/24 History [Breztri Aerosphere Inhaler] Ciprofloxacin HCl [Cipro] 500 mg PO BID 08/31/24 08/31/24 History Fluconazole [Diflucan] 150 mg PO DAILY 08/31/24 08/31/24 History Insulin Glargine [Lantus Vial] 30 unit SQ DAILY 08/31/24 08/31/24 History Insulin NPH Human Isophane 10 units SQ AC-TID 08/31/24 08/31/24 History [NovoLIN N Flexpen] Omeprazole 20 mg PO DAILY 08/31/24 08/31/24 History Allergies Allergy/AdvReac Type Severity Reaction Status Date / Time erythromycin base Allergy Rash/Hives Verified 08/31/24 12:46 gemifloxacin [From Factive] Allergy Anaphylaxis Verified 08/31/24 12:46 Influenza Virus Vaccines Allergy Nausea & Verified 08/31/24 12:46 Vomiting & Diarrhea nitrofurantoin Allergy Anaphylaxis Verified 08/31/24 12:46 [From Macrobid] Penicillins Allergy Rash/Hives Verified 08/31/24 12:46 prednisone Allergy Rash/Hives Verified 08/31/24 12:46 Sulfa (Sulfonamide Allergy Rash/Hives Verified 08/31/24 12:46 Antibiotics) vancomycin AdvReac Unknown Verified 08/31/24 12:46 pine nuts AdvReac Anaphylaxis Uncoded 08/31/24 12:46 Physical Exam Vitals: Vital Signs Temp Pulse Pulse Pulse Resp BP BP 09/01/24 08:41 101 H 16 118/69 09/01/24 08:34 92 09/01/24 08:27 90 09/01/24 08:00 92 18 09/01/24 07:00 97.9 F 90 18 115/60 09/01/24 04:12 09/01/24 04:00 93 16 127/69 09/01/24 00:55 09/01/24 00:00 99 16 115/69 08/31/24 22:03 92 08/31/24 21:49 94 08/31/24 20:15 98.4 F 100 16 125/74 08/31/24 18:26 98.1 F 100 16 132/73 08/31/24 18:08 98.3 F 102 H 18 122/69 08/31/24 17:15 100 18 132/76 08/31/24 16:27 99.5 F 98 16 175/73 08/31/24 15:15 98.0 F 100 18 130/77 08/31/24 14:25 96 18 140/90 08/31/24 13:30 92 18 147/79 08/31/24 12:19 96 16 148/91 08/31/24 11:35 103 H 16 142/82 Pulse Ox FiO2 09/01/24 08:41 95 09/01/24 08:34 09/01/24 08:27 09/01/24 08:00 09/01/24 07:00 96 09/01/24 04:12 21 09/01/24 04:00 98 09/01/24 00:55 21 09/01/24 00:00 95 08/31/24 22:03 08/31/24 21:49 08/31/24 20:15 96 08/31/24 18:26 97 08/31/24 18:08 95 08/31/24 17:15 95 08/31/24 16:27 99 08/31/24 15:15 95 08/31/24 14:25 96 08/31/24 13:30 98 08/31/24 12:19 79 L 08/31/24 11:35 98 Intake and Output 08/31/24 09/01/24 09/01/24 22:59 06:59 14:59 Intake Total 17.599 11.191 10 Balance 17.599 11.191 10 Intake: IV 10 Invasive Line 1 10 Intake, IV Titration 17.599 11.191 Amount Insulin Regular 100 unit 17.599 11.191 In Sodium Chloride 0.9% 100 ml @ 0.05 UNITS/KG/HR 3.207 mls/hr IV .Q24H [facility] Rx#:[id number] Other: Voiding Method Toilet # Voids 2 Weight 63.503 kg 64.3 kg - Constitutional General appearance: average body habitus, cooperative, disheveled, no acute distress - EENT Eyes: EOMI, PERRLA Ears: bilateral: normal - Neck Neck: normal ROM Carotids: bilateral: upstroke normal - Respiratory Respiratory: bilateral: CTA - Cardiovascular Rhythm: regular Heart sounds: normal: S1, S2 - Gastrointestinal General gastrointestinal: normal bowel sounds - Integumentary Integumentary: decreased turgor - Neurologic Neurologic: CNII-XII intact - Musculoskeletal Musculoskeletal: gait normal, generalized weakness, strength equal bilaterally - Psychiatric Psychiatric: A&O x's 3, appropriate affect, intact judgment & insight Results - Laboratory Findings CBC and BMP: 08/31/24 23:42 09/01/24 08:47 ABG ABG pH 7.25 (7.35-7.45) L 09/01/24 00:16 ABG pCO2 27 mmHg (35-45) L 09/01/24 00:16 ABG pO2 97 mmHg (83-108) 09/01/24 00:16 ABG O2 Saturation 100.0 % (94-97) H 09/01/24 00:16 Abnormal lab findings: Abnormal Labs 08/31/24 08/31/24 08/31/24 10:18 10:25 10:25 RBC Hgb Hct ABG pH ABG pCO2 ABG HCO3 ABG Total CO2 ABG O2 Saturation VBG pH VBG HCO3 Hemoglobin Sodium 126 L Chloride Carbon Dioxide 9 L* BUN Creatinine Glucose 419 H POC Glucose (mg/dL) 431 H Calcium ALT 45 H Total Protein Albumin Urine Protein 1+ H Urine Glucose (UA) 4+ H Urine Ketones 3+ H Urine Blood Trace H Urine Mucus Rare H 08/31/24 08/31/24 08/31/24 11:45 12:59 14:21 RBC Hgb Hct ABG pH ABG pCO2 ABG HCO3 ABG Total CO2 ABG O2 Saturation VBG pH 7.17 L* VBG HCO3 15 L Hemoglobin Sodium Chloride Carbon Dioxide BUN Creatinine Glucose POC Glucose (mg/dL) 268 H 274 H Calcium ALT Total Protein Albumin Urine Protein Urine Glucose (UA) Urine Ketones Urine Blood Urine Mucus 08/31/24 08/31/24 08/31/24 15:16 16:13 16:27 RBC Hgb Hct ABG pH ABG pCO2 ABG HCO3 ABG Total CO2 ABG O2 Saturation VBG pH VBG HCO3 Hemoglobin Sodium 132 L Chloride 108 H Carbon Dioxide 12 L BUN Creatinine 0.47 L Glucose 170 H POC Glucose (mg/dL) 219 H 173 H Calcium ALT Total Protein Albumin Urine Protein Urine Glucose (UA) Urine Ketones Urine Blood Urine Mucus 08/31/24 08/31/24 08/31/24 17:08 18:06 19:03 RBC Hgb Hct ABG pH ABG pCO2 ABG HCO3 ABG Total CO2 ABG O2 Saturation VBG pH VBG HCO3 Hemoglobin Sodium Chloride Carbon Dioxide BUN Creatinine Glucose POC Glucose (mg/dL) 164 H 145 H 150 H Calcium ALT Total Protein Albumin Urine Protein Urine Glucose (UA) Urine Ketones Urine Blood Urine Mucus 08/31/24 08/31/24 08/31/24 19:56 20:00 20:00 RBC Hgb 11.0 L Hct ABG pH ABG pCO2 ABG HCO3 ABG Total CO2 ABG O2 Saturation VBG pH VBG HCO3 Hemoglobin Sodium 130 L Chloride 108 H Carbon Dioxide 8 L* BUN Creatinine 0.43 L Glucose 165 H POC Glucose (mg/dL) 157 H Calcium 7.7 L ALT Total Protein 5.6 L Albumin 3.0 L Urine Protein Urine Glucose (UA) Urine Ketones Urine Blood Urine Mucus 08/31/24 08/31/24 08/31/24 21:36 22:36 23:40 RBC Hgb Hct ABG pH ABG pCO2 ABG HCO3 ABG Total CO2 ABG O2 Saturation VBG pH VBG HCO3 Hemoglobin Sodium Chloride Carbon Dioxide BUN Creatinine Glucose POC Glucose (mg/dL) 192 H 217 H 241 H Calcium ALT Total Protein Albumin Urine Protein Urine Glucose (UA) Urine Ketones Urine Blood Urine Mucus 08/31/24 08/31/24 09/01/24 23:42 23:42 00:16 RBC 3.76 L Hgb 10.9 L Hct 33.5 L ABG pH 7.25 L ABG pCO2 27 L ABG HCO3 12 L ABG Total CO2 13 L ABG O2 Saturation 100.0 H VBG pH VBG HCO3 Hemoglobin 10.1 L Sodium 127 L Chloride 110 H Carbon Dioxide 9 L* BUN 6 L Creatinine 0.48 L Glucose 245 H POC Glucose (mg/dL) Calcium 7.7 L ALT Total Protein 5.3 L Albumin 2.8 L Urine Protein Urine Glucose (UA) Urine Ketones Urine Blood Urine Mucus 09/01/24 09/01/24 09/01/24 00:43 01:45 02:31 RBC Hgb Hct ABG pH ABG pCO2 ABG HCO3 ABG Total CO2 ABG O2 Saturation VBG pH VBG HCO3 Hemoglobin Sodium Chloride Carbon Dioxide BUN Creatinine Glucose POC Glucose (mg/dL) 243 H 279 H 261 H Calcium ALT Total Protein Albumin Urine Protein Urine Glucose (UA) Urine Ketones Urine Blood Urine Mucus 09/01/24 09/01/2424 03:36 03:57 04:31 RBC Hgb Hct ABG pH ABG pCO2 ABG HCO3 ABG Total CO2 ABG O2 Saturation VBG pH VBG HCO3 Hemoglobin Sodium 131 L Chloride 112 H Carbon Dioxide 9 L* BUN 5 L Creatinine 0.48 L Glucose 261 H POC Glucose (mg/dL) 254 H 230 H Calcium 8.0 L ALT Total Protein Albumin Urine Protein Urine Glucose (UA) Urine Ketones Urine Blood Urine Mucus 09/01/24 09/01/24 09/01/24 05:32 06:36 07:32 RBC Hgb Hct ABG pH ABG pCO2 ABG HCO3 ABG Total CO2 ABG O2 Saturation VBG pH VBG HCO3 Hemoglobin Sodium Chloride Carbon Dioxide BUN Creatinine Glucose POC Glucose (mg/dL) 223 H 215 H 194 H Calcium ALT Total Protein Albumin Urine Protein Urine Glucose (UA) Urine Ketones Urine Blood Urine Mucus 09/01/24 09/01/24 09/01/24 08:33 08:47 09:49 RBC Hgb Hct ABG pH ABG pCO2 ABG HCO3 ABG Total CO2 ABG O2 Saturation VBG pH VBG HCO3 Hemoglobin Sodium 131 L Chloride 113 H Carbon Dioxide <5 L* BUN 3 L Creatinine 0.38 L Glucose 163 H POC Glucose (mg/dL) 169 H 208 H Calcium 7.3 L ALT Total Protein Albumin Urine Protein Urine Glucose (UA) Urine Ketones Urine Blood Urine Mucus 09/01/24 10:32 RBC Hgb Hct ABG pH ABG pCO2 ABG HCO3 ABG Total CO2 ABG O2 Saturation VBG pH VBG HCO3 Hemoglobin Sodium Chloride Carbon Dioxide BUN Creatinine Glucose POC Glucose (mg/dL) 223 H Calcium ALT Total Protein Albumin Urine Protein Urine Glucose (UA) Urine Ketones Urine Blood Urine Mucus Assessment and Plan Assessment: Diabetic ketoacidosis Starvation ketosis Uncontrolled diabetes and hyperglycemia Nonanion gap DKA Plan: Noted that patient is on D5 along with insulin dose which needs to be escalated to 1 unit/h Add bicarb, fluids can be D5 with bicarb 50 cc an hour to 100 cc an hour to keep sugars over 100 Patient can be initiated on 1600-calorie diet Time with Patient: Greater than 30
[2024-09-01] MEDS: SODIUM BICARB 8.4% 50 ML SYR (1 MEQ/ML) IV STA (10:59)
[2024-09-01] MEDS: DEXTROSE 5% IN WATER 1,000 ML with SODIUM BICARB (1 MEQ/ML) 150 ML IV SCH (11:21)
[2024-09-01 11:49] LABS: Glucose,Whole Blood 209 mg/dL (70-110)
[2024-09-01 12:56] LABS: Glucose,Whole Blood 209 mg/dL (70-110)
[2024-09-01 13:27] LABS: Glucose,Whole Blood 320 mg/dL (70-110)
[2024-09-01 13:31] LABS: Chloride 108 mmol/L (98-107); Potassium 3.3 mmol/L (3.5-5.1); Sodium 134 mmol/L (137-145)
[2024-09-01 13:54] LABS: African American GFR (CKD) >90 (>60 ml/min/1.73 sqM); Non-African American GFR(CKD) >90 (>60 ml/min/1.73 sqM)
[2024-09-01 13:58] LABS: Blood Urea Nitrogen 3 mg/dL (7-17); Carbon Dioxide 19 mmol/L (22-30); Glucose 211 mg/dL (74-99)
[2024-09-01 13:59] LABS: Anion Gap 7 mmol/L; Calcium 8.1 mg/dL (8.4-10.2)
[2024-09-01 14:31] LABS: Glucose,Whole Blood 321 mg/dL (70-110)
--- NOTE | 2024-09-01 14:48 | P.CNPUL ---
History of Present Illness Consult date: 09/01/24 Chief complaint: Severe metabolic acidosis History of present illness: On 09/01/2024, the patient was seen in consultation due to severe metabolic acidosis. I was asked to evaluate this patient for ICU transfer. The patient is known to me. The patient is known to have diabetes mellitus type 2 along with history of hypertension hyperlipidemia. The patient has been maintained on NPH insulin 10 units 3 times daily on outpatient basis and Lantus insulin 30 units on a daily basis. At time of admission, the patient had anion gap metabolic acidosis. The patient was treated on the floor with an insulin drip. Nevertheless, there has been significant drop in the patient's serum bicarbonate earlier this morning, her bicarb level was less than 5 and the patient had no significant anion gap. This was consistent with a non-anion gap metabolic acidosis. As such, there is a bicarb deficit. At the same time, the patient's serum acetone was positive. The patient was awake and alert and the patient was also ambulating. She denied having any other complaints. The blood gas from yesterday showed acidosis with a pH of 7.25 with a pCO2 of 27 and pO2 of 97. The white cell count of 6.4 with a hemoglobin 10.9 and a platelet count of 245. The patient accordingly was switched to a bicarb infusion, I gave her 2 doses of sodium bicarb 100 mEq total and The insulin drip at 3.7 units an hour. She has no specific complaints. No altered mentation. She remains on room air oxygen. Review of Systems Constitutional: Reports fatigue Eyes: denies as per HPI, denies blurred vision, denies bulging eye, denies decreased vision, denies diplopia, denies discharge, denies dry eye, denies irritation, denies itching, denies pain, denies photophobia, denies loss of peripheral vision, denies loss of vision, denies tunnel vision/blind spots Ears: deny: decreased hearing, ear discharge, earache, tinnitus Ears, nose, mouth and throat: Reports as per HPI Breasts: absent: as per HPI, change in shape, gynecomastia, masses, nipple discharge, pain, skin changes, swelling Cardiovascular: Reports as per HPI Respiratory: Reports as per HPI Gastrointestinal: Reports as per HPI Genitourinary: Reports as per HPI Menstruation: Reports as per HPI Musculoskeletal: Reports as per HPI Musculoskeletal: absent: ankle pain, ankle stiffness, ankle swelling, as per HPI, elbow pain, elbow stiffness, elbow swelling, foot pain, foot stiffness, foot swelling, hand pain, hand stiffness, hand swelling, hip pain, hip stiffness, hip swelling, knee pain, knee stiffness, knee swelling, shoulder pain, shoulder stiffness, shoulder swelling, wrist pain, wrist stiffness, wrist swelling Integumentary: Reports as per HPI Neurological: Reports as per HPI Psychiatric: Reports as per HPI Endocrine: Reports as per HPI Hematologic/Lymphatic: Reports as per HPI Allergic/Immunologic: Reports as per HPI Past Medical History Past Medical History: Diabetes Mellitus, Hyperlipidemia, Hypertension Additional Past Medical History / Comment(s): vomiting after eating, constipation, History of Any Multi-Drug Resistant Organisms: None Reported Past Surgical History: Appendectomy, Cholecystectomy Additional Past Surgical History / Comment(s): cysts removed from ovaries Past Anesthesia/Blood Transfusion Reactions: Motion Sickness, Postoperative Nausea & Vomiting (PONV) Past Psychological History: No Psychological Hx Reported Smoking Status: Never smoker Past Alcohol Use History: None Reported Additional Past Alcohol Use History / Comment(s): quit smoking 30 yrs ago, smoked for 2-3 yrs Past Drug Use History: None Reported - Past Family History Sister(s) Family Medical History: Deep Vein Thrombosis (DVT) Medications and Allergies Home Medications Medication Instructions Recorded Confirmed Type Budesonide/Glycopyr/Formoterol 2 puff INHALATION RT-BID 08/31/24 08/31/24 History [Breztri Aerosphere Inhaler] Ciprofloxacin HCl [Cipro] 500 mg PO BID 08/31/24 08/31/24 History Fluconazole [Diflucan] 150 mg PO DAILY 08/31/24 08/31/24 History Insulin Glargine [Lantus Vial] 30 unit SQ DAILY 08/31/24 08/31/24 History Insulin NPH Human Isophane 10 units SQ AC-TID 08/31/24 08/31/24 History [NovoLIN N Flexpen] Omeprazole 20 mg PO DAILY 08/31/24 08/31/24 History Allergies Allergy/AdvReac Type Severity Reaction Status Date / Time erythromycin base Allergy Rash/Hives Verified 08/31/24 12:46 gemifloxacin [From Factive] Allergy Anaphylaxis Verified 08/31/24 12:46 Influenza Virus Vaccines Allergy Nausea & Verified 08/31/24 12:46 Vomiting & Diarrhea nitrofurantoin Allergy Anaphylaxis Verified 08/31/24 12:46 [From Macrobid] Penicillins Allergy Rash/Hives Verified 08/31/24 12:46 prednisone Allergy Rash/Hives Verified 08/31/24 12:46 Sulfa (Sulfonamide Allergy Rash/Hives Verified 08/31/24 12:46 Antibiotics) vancomycin AdvReac Unknown Verified 08/31/24 12:46 pine nuts AdvReac Anaphylaxis Uncoded 08/31/24 12:46 Physical Exam Vitals: Vital Signs Temp Pulse Pulse Pulse Resp BP BP 09/01/24 11:51 92 09/01/24 11:45 94 09/01/24 11:06 94 16 154/74 09/01/24 11:00 97.7 F 97 20 152/77 09/01/24 08:41 101 H 16 118/69 09/01/24 08:34 92 09/01/24 08:27 90 09/01/24 08:00 92 18 09/01/24 07:00 97.9 F 90 18 115/60 09/01/24 04:12 09/01/24 04:00 93 16 127/69 09/01/24 00:55 09/01/24 00:00 99 16 115/69 08/31/24 22:03 92 08/31/24 21:49 94 08/31/24 20:15 98.4 F 100 16 125/74 08/31/24 18:26 98.1 F 100 16 132/73 08/31/24 18:08 98.3 F 102 H 18 122/69 08/31/24 17:15 100 18 132/76 08/31/24 16:27 99.5 F 98 16 175/73 08/31/24 15:15 98.0 F 100 18 130/77 Pulse Ox FiO2 09/01/24 11:51 09/01/24 11:45 09/01/24 11:06 96 09/01/24 11:00 99 09/01/24 08:41 95 09/01/24 08:34 09/01/24 08:27 09/01/24 08:00 09/01/24 07:00 96 09/01/24 04:12 21 09/01/24 04:00 98 09/01/24 00:55 21 09/01/24 00:00 95 08/31/24 22:03 08/31/24 21:49 08/31/24 20:15 96 08/31/24 18:26 97 08/31/24 18:08 95 08/31/24 17:15 95 08/31/24 16:27 99 08/31/24 15:15 95 Intake and Output 08/31/24 09/01/24 09/01/24 22:59 06:59 14:59 Intake Total 17.599 11.191 290.914 Balance 17.599 11.191 290.914 Intake: IV 10 Invasive Line 1 10 Intake, IV Titration 17.599 11.191 44.914 Amount Insulin Regular 100 unit 17.599 11.191 44.914 In Sodium Chloride 0.9% 100 ml @ 0.05 UNITS/KG/HR 3.207 mls/hr IV .Q24H [facility] Rx#:[id number] Oral 236 Other: Voiding Method Toilet # Voids 2 2 # Bowel Movements 0 Weight 63.503 kg 64.3 kg The patient appeared well nourished and normally developed. Vital signs as documented. Head exam is unremarkable. No scleral icterus or corneal arcus noted. Neck is without jugular venous distension, thyromegaly, or carotid bruits. Carotid upstrokes are brisk bilaterally. Lungs are clear to auscultation and percussion. Cardiac exam reveals the PMI to be normally sized and situated. Rhythm is regular. First and second heart sounds normal. No murmurs, rubs or gallops. Abdominal exam reveals normal bowel sounds, no masses, no organomegaly and no aortic enlargement. Extremities are nonedematous and both femoral and pedal pulses are normal. Examination of the skin revealed no evidence of significant rashes, suspicious appearing nevi or other concerning lesions. Neurologically, the patient is awake and alert and the patient does not have any focal neurological deficit. Cranial nerves are essentially intact. Results - Laboratory Findings CBC and BMP: 08/31/24 23:42 09/01/24 12:25 ABG ABG pH 7.25 (7.35-7.45) L 09/01/24 00:16 ABG pCO2 27 mmHg (35-45) L 09/01/24 00:16 ABG pO2 97 mmHg (83-108) 09/01/24 00:16 ABG O2 Saturation 100.0 % (94-97) H 09/01/24 00:16 Abnormal lab findings: Abnormal Labs 08/31/24 08/31/24 08/31/24 10:18 10:25 10:25 RBC Hgb Hct ABG pH ABG pCO2 ABG HCO3 ABG Total CO2 ABG O2 Saturation VBG pH VBG HCO3 Hemoglobin Sodium 126 L Potassium Chloride Carbon Dioxide 9 L* BUN Creatinine Glucose 419 H POC Glucose (mg/dL) 431 H Hemoglobin A1c Calcium ALT 45 H Total Protein Albumin Urine Protein 1+ H Urine Glucose (UA) 4+ H Urine Ketones 3+ H Urine Blood Trace H Urine Mucus Rare H 08/31/24 08/31/24 08/31/24 11:45 12:59 14:21 RBC Hgb Hct ABG pH ABG pCO2 ABG HCO3 ABG Total CO2 ABG O2 Saturation VBG pH 7.17 L* VBG HCO3 15 L Hemoglobin Sodium Potassium Chloride Carbon Dioxide BUN Creatinine Glucose POC Glucose (mg/dL) 268 H 274 H Hemoglobin A1c Calcium ALT Total Protein Albumin Urine Protein Urine Glucose (UA) Urine Ketones Urine Blood Urine Mucus 08/31/24 08/31/24 08/31/24 15:16 16:13 16:27 RBC Hgb Hct ABG pH ABG pCO2 ABG HCO3 ABG Total CO2 ABG O2 Saturation VBG pH VBG HCO3 Hemoglobin Sodium 132 L Potassium Chloride 108 H Carbon Dioxide 12 L BUN Creatinine 0.47 L Glucose 170 H POC Glucose (mg/dL) 219 H 173 H Hemoglobin A1c Calcium ALT Total Protein Albumin Urine Protein Urine Glucose (UA) Urine Ketones Urine Blood Urine Mucus 08/31/24 08/31/24 08/31/24 17:08 18:06 19:03 RBC Hgb Hct ABG pH ABG pCO2 ABG HCO3 ABG Total CO2 ABG O2 Saturation VBG pH VBG HCO3 Hemoglobin Sodium Potassium Chloride Carbon Dioxide BUN Creatinine Glucose POC Glucose (mg/dL) 164 H 145 H 150 H Hemoglobin A1c Calcium ALT Total Protein Albumin Urine Protein Urine Glucose (UA) Urine Ketones Urine Blood Urine Mucus 08/31/24 08/31/24 08/31/24 19:56 20:00 20:00 RBC Hgb 11.0 L Hct ABG pH ABG pCO2 ABG HCO3 ABG Total CO2 ABG O2 Saturation VBG pH VBG HCO3 Hemoglobin Sodium 130 L Potassium Chloride 108 H Carbon Dioxide 8 L* BUN Creatinine 0.43 L Glucose 165 H POC Glucose (mg/dL) 157 H Hemoglobin A1c Calcium 7.7 L ALT Total Protein 5.6 L Albumin 3.0 L Urine Protein Urine Glucose (UA) Urine Ketones Urine Blood Urine Mucus 08/31/24 08/31/24 08/31/24 21:36 22:36 23:40 RBC Hgb Hct ABG pH ABG pCO2 ABG HCO3 ABG Total CO2 ABG O2 Saturation VBG pH VBG HCO3 Hemoglobin Sodium Potassium Chloride Carbon Dioxide BUN Creatinine Glucose POC Glucose (mg/dL) 192 H 217 H 241 H Hemoglobin A1c Calcium ALT Total Protein Albumin Urine Protein Urine Glucose (UA) Urine Ketones Urine Blood Urine Mucus 08/31/24 08/31/24 09/01/24 23:42 23:42 00:16 RBC 3.76 L Hgb 10.9 L Hct 33.5 L ABG pH 7.25 L ABG pCO2 27 L ABG HCO3 12 L ABG Total CO2 13 L ABG O2 Saturation 100.0 H VBG pH VBG HCO3 Hemoglobin 10.1 L Sodium 127 L Potassium Chloride 110 H Carbon Dioxide 9 L* BUN 6 L Creatinine 0.48 L Glucose 245 H POC Glucose (mg/dL) Hemoglobin A1c Calcium 7.7 L ALT Total Protein 5.3 L Albumin 2.8 L Urine Protein Urine Glucose (UA) Urine Ketones Urine Blood Urine Mucus 09/01/24 09/01/24 09/01/24 00:43 01:45 02:31 RBC Hgb Hct ABG pH ABG pCO2 ABG HCO3 ABG Total CO2 ABG O2 Saturation VBG pH VBG HCO3 Hemoglobin Sodium Potassium Chloride Carbon Dioxide BUN Creatinine Glucose POC Glucose (mg/dL) 243 H 279 H 261 H Hemoglobin A1c Calcium ALT Total Protein Albumin Urine Protein Urine Glucose (UA) Urine Ketones Urine Blood Urine Mucus 09/01/24 09/01/24 09/01/24 03:36 03:57 03:57 RBC Hgb Hct ABG pH ABG pCO2 ABG HCO3 ABG Total CO2 ABG O2 Saturation VBG pH VBG HCO3 Hemoglobin Sodium 131 L Potassium Chloride 112 H Carbon Dioxide 9 L* BUN 5 L Creatinine 0.48 L Glucose 261 H POC Glucose (mg/dL) 254 H Hemoglobin A1c 13.7 H Calcium 8.0 L ALT Total Protein Albumin Urine Protein Urine Glucose (UA) Urine Ketones Urine Blood Urine Mucus 09/01/24 09/01/24 09/01/24 04:31 05:32 06:36 RBC Hgb Hct ABG pH ABG pCO2 ABG HCO3 ABG Total CO2 ABG O2 Saturation VBG pH VBG HCO3 Hemoglobin Sodium Potassium Chloride Carbon Dioxide BUN Creatinine Glucose POC Glucose (mg/dL) 230 H 223 H 215 H Hemoglobin A1c Calcium ALT Total Protein Albumin Urine Protein Urine Glucose (UA) Urine Ketones Urine Blood Urine Mucus 09/01/24 09/01/24 09/01/24 07:32 08:33 08:47 RBC Hgb Hct ABG pH ABG pCO2 ABG HCO3 ABG Total CO2 ABG O2 Saturation VBG pH VBG HCO3 Hemoglobin Sodium 131 L Potassium Chloride 113 H Carbon Dioxide <5 L* BUN 3 L Creatinine 0.38 L Glucose 163 H POC Glucose (mg/dL) 194 H 169 H Hemoglobin A1c Calcium 7.3 L ALT Total Protein Albumin Urine Protein Urine Glucose (UA) Urine Ketones Urine Blood Urine Mucus 09/01/24 09/01/24 09/01/24 09:49 10:32 11:47 RBC Hgb Hct ABG pH ABG pCO2 ABG HCO3 ABG Total CO2 ABG O2 Saturation VBG pH VBG HCO3 Hemoglobin Sodium Potassium Chloride Carbon Dioxide BUN Creatinine Glucose POC Glucose (mg/dL) 208 H 223 H 209 H Hemoglobin A1c Calcium ALT Total Protein Albumin Urine Protein Urine Glucose (UA) Urine Ketones Urine Blood Urine Mucus 09/01/24 09/01/24 09/01/24 12:25 12:54 13:26 RBC Hgb Hct ABG pH ABG pCO2 ABG HCO3 ABG Total CO2 ABG O2 Saturation VBG pH VBG HCO3 Hemoglobin Sodium 134 L Potassium 3.3 L Chloride 108 H Carbon Dioxide 19 L BUN 3 L Creatinine 0.44 L Glucose 211 H POC Glucose (mg/dL) 209 H 320 H Hemoglobin A1c Calcium 8.1 L ALT Total Protein Albumin Urine Protein Urine Glucose (UA) Urine Ketones Urine Blood Urine Mucus 09/01/24 14:30 RBC Hgb Hct ABG pH ABG pCO2 ABG HCO3 ABG Total CO2 ABG O2 Saturation VBG pH VBG HCO3 Hemoglobin Sodium Potassium Chloride Carbon Dioxide BUN Creatinine Glucose POC Glucose (mg/dL) 321 H Hemoglobin A1c Calcium ALT Total Protein Albumin Urine Protein Urine Glucose (UA) Urine Ketones Urine Blood Urine Mucus Assessment and Plan Plan: Diabetes mellitus type 2 with poor blood sugar control on outpatient basis. No indication for DKA. Despite presence of some serum acetone, the patient does not have any significant anion gap metabolic acidosis and her metabolic acidosis of a non anion gap metabolic acidosis and the patient has a significant bicarb deficits. No altered mentation. Hemodynamically stable. She is ambulating. No altered mentation. None anion gap metabolic acidosis Hypertension Hyperlipidemia Plan This patient has a bicarb deficit that is to be replaced. A total of 100 mEq of sodium bicarb was given IV push and the patient will be kept on a bicarb drip f or the next 24 hours. Will continue to drip for now titrated blood sugar control. The patient should be able to transition to long-acting insulin within the next 2 to 4 hours. Will continue monitoring electrolytes. No need for ICU transfer at this point in time. Will continue to follow.
[2024-09-01] MEDS ORDERED: Potassium Replacement Protocol 1 EACH MISC MISCELLANE PRN (14:50)
[2024-09-01] MEDS: POTASSIUM CHLORIDE ER 20 MEQ TAB.ER PO SCH (15:16)
[2024-09-01 15:36] LABS: Glucose,Whole Blood 309 mg/dL (70-110)
[2024-09-01 16:32] LABS: Glucose,Whole Blood 280 mg/dL (70-110)
[2024-09-01] MEDS: DEXTROSE 5% IN WATER 1,000 ML with SODIUM BICARB (1 MEQ/ML) 150 ML, POTASSIUM CHLORIDE ... IV SCH (16:59)
[2024-09-01 17:10] LABS: Chloride 103 mmol/L (98-107); Potassium 3.2 mmol/L (3.5-5.1); Sodium 130 mmol/L (137-145)
[2024-09-01 17:33] LABS: Glucose,Whole Blood 288 mg/dL (70-110)
[2024-09-01] MEDS: NYSTATIN 100,000 UNIT/ML SUSP 500,000 UNIT/5 ML CUP PO SCH (17:52)
[2024-09-01 17:59] LABS: African American GFR (CKD) >90 (>60 ml/min/1.73 sqM); Anion Gap 6 mmol/L; Blood Urea Nitrogen 3 mg/dL (7-17); Calcium 7.9 mg/dL (8.4-10.2); Carbon Dioxide 21 mmol/L (22-30); Glucose 280 mg/dL (74-99); Non-African American GFR(CKD) >90 (>60 ml/min/1.73 sqM)
[2024-09-01 18:46] LABS: Glucose,Whole Blood 331 mg/dL (70-110)
[2024-09-01 19:27] LABS: Glucose,Whole Blood 339 mg/dL (70-110)
[2024-09-01] MEDS: INSULIN DETEMIR (LEVEMIR) 100 UNIT/ML SYR SQ SCH (20:21)
[2024-09-01] MEDS: INSULIN ASPART (NovoLOG) 100 UNIT/ML VIAL SQ SCH (20:22)
[2024-09-01 21:32] LABS: Glucose,Whole Blood 312 mg/dL (70-110)
[2024-09-01 22:31] LABS: Chloride 104 mmol/L (98-107); Potassium 4.1 mmol/L (3.5-5.1); Sodium 130 mmol/L (137-145)
[2024-09-01 22:32] LABS: African American GFR (CKD) >90 (>60 ml/min/1.73 sqM); Anion Gap 2 mmol/L; Blood Urea Nitrogen 6 mg/dL (7-17); Carbon Dioxide 24 mmol/L (22-30); Non-African American GFR(CKD) >90 (>60 ml/min/1.73 sqM)
[2024-09-02 06:04] LABS: Glucose,Whole Blood 284 mg/dL (70-110)
[2024-09-02 07:44] LABS: Basophils % (A) 1 %; Eosinophils # (A) 0.1 k/uL (0-0.7); Eosinophils % (A) 2 %; HCT 33.8 % (34.0-46.0); Lymphocytes # (A) 1.5 k/uL (1.0-4.8); Lymphocytes % (A) 29 %; MCV 88.2 fL (80.0-100.0); Mean Platelet Volume 7.6; Monocytes # (A) 0.2 k/uL (0-1.0); Monocytes % (A) 5 %; Neutrophils # (A) 3.2 k/uL (1.3-7.7); Neutrophils % (A) 62 %; Platelet Count 259 k/uL (150-450); RBC 3.84 m/uL (3.80-5.40); RDW 13.5 % (11.5-15.5); WBC 5.2 k/uL (3.8-10.6)
[2024-09-02 07:54] LABS: HGB 10.9 gm/dL (11.4-16.0); MCH 28.3 pg (25.0-35.0); MCHC 32.3 g/dL (31.0-37.0)
[2024-09-02 08:11] LABS: ALT 34 U/L (4-34); AST 24 U/L (14-36); African American GFR (CKD) >90 (>60 ml/min/1.73 sqM); Albumin 2.8 g/dL (3.5-5.0); Alkaline Phosphatase 115 U/L (38-126); Anion Gap 13 mmol/L; Blood Urea Nitrogen 5 mg/dL (7-17); Calcium 7.7 mg/dL (8.4-10.2); Carbon Dioxide 17 mmol/L (22-30); Chloride 102 mmol/L (98-107); Glucose 280 mg/dL (74-99); Non-African American GFR(CKD) >90 (>60 ml/min/1.73 sqM); Potassium 4.4 mmol/L (3.5-5.1); Total Bilirubin 0.4 mg/dL (0.2-1.3); Total Protein 5.4 g/dL (6.3-8.2)
--- NOTE | 2024-09-02 08:12 | P.CONS ---
History of Present Illness - Reason for Consult Consult date: 09/01/24 UTI, thrush Requesting physician: Dallas Thompson - Chief Complaint Elevated blood sugar not feeling well x 2 days - History of Present Illness Patient is a 59-year-old female with a past medical history significant for diabetes mellitus hypertension hyperlipidemia presenting to the hospital for evaluation of elevated blood sugar and possible UTI apparently the patient noticed to have a blood sugar in the 600 and the patient was complaining of some epigastric discomfort specially with drinking fluids did have some nausea but no vomiting no chest pain shortness of breath or cough and denies high-grade fever on presentation the hospital the patient was afebrile and no fever have been recorded subsequently patient was tachycardic but not hypotensive or hypoxic and no need for supplemental oxygen patient did have a white count of 6.4 creatinine 0.48 liver isms are normal urine has been negative serum acetone was positive patient has been treated for DKA infectious was consulted for possible thrush and UTI Review of Systems Positive point and negatives has been mentioned in the HPI, complete review of systems was performed and all other systems are negative Past Medical History Past Medical History: Diabetes Mellitus, Hyperlipidemia, Hypertension Additional Past Medical History / Comment(s): vomiting after eating, constipation, History of Any Multi-Drug Resistant Organisms: None Reported Past Surgical History: Appendectomy, Cholecystectomy Additional Past Surgical History / Comment(s): cysts removed from ovaries Past Anesthesia/Blood Transfusion Reactions: Motion Sickness, Postoperative Nausea & Vomiting (PONV) Past Psychological History: No Psychological Hx Reported Smoking Status: Never smoker Past Alcohol Use History: None Reported Additional Past Alcohol Use History / Comment(s): quit smoking 30 yrs ago, smoked for 2-3 yrs Past Drug Use History: None Reported - Past Family History Sister(s) Family Medical History: Deep Vein Thrombosis (DVT) Medications and Allergies Home Medications Medication Instructions Recorded Confirmed Type Budesonide/Glycopyr/Formoterol 2 puff INHALATION RT-BID 08/31/24 08/31/24 History [Breztri Aerosphere Inhaler] Ciprofloxacin HCl [Cipro] 500 mg PO BID 08/31/24 08/31/24 History Fluconazole [Diflucan] 150 mg PO DAILY 08/31/24 08/31/24 History Insulin Glargine [Lantus Vial] 30 unit SQ DAILY 08/31/24 08/31/24 History Insulin NPH Human Isophane 10 units SQ AC-TID 08/31/24 08/31/24 History [NovoLIN N Flexpen] Omeprazole 20 mg PO DAILY 08/31/24 08/31/24 History Allergies Allergy/AdvReac Type Severity Reaction Status Date / Time erythromycin base Allergy Rash/Hives Verified 08/31/24 12:46 gemifloxacin [From Factive] Allergy Anaphylaxis Verified 08/31/24 12:46 Influenza Virus Vaccines Allergy Nausea & Verified 08/31/24 12:46 Vomiting & Diarrhea nitrofurantoin Allergy Anaphylaxis Verified 08/31/24 12:46 [From Macrobid] Penicillins Allergy Rash/Hives Verified 08/31/24 12:46 prednisone Allergy Rash/Hives Verified 08/31/24 12:46 Sulfa (Sulfonamide Allergy Rash/Hives Verified 08/31/24 12:46 Antibiotics) vancomycin AdvReac Unknown Verified 08/31/24 12:46 pine nuts AdvReac Anaphylaxis Uncoded 08/31/24 12:46 Physical Exam Vitals: Vital Signs Temp Pulse Pulse Pulse Resp BP BP 09/01/24 11:51 92 09/01/24 11:45 94 09/01/24 11:06 94 16 154/74 09/01/24 11:00 97.7 F 97 20 152/77 09/01/24 08:41 101 H 16 118/69 09/01/24 08:34 92 09/01/24 08:27 90 09/01/24 08:00 92 18 09/01/24 07:00 97.9 F 90 18 115/60 09/01/24 04:12 09/01/24 04:00 93 16 127/69 09/01/24 00:55 09/01/24 00:00 99 16 115/69 08/31/24 22:03 92 08/31/24 21:49 94 08/31/24 20:15 98.4 F 100 16 125/74 08/31/24 18:26 98.1 F 100 16 132/73 08/31/24 18:08 98.3 F 102 H 18 122/69 08/31/24 17:15 100 18 132/76 08/31/24 16:27 99.5 F 98 16 175/73 08/31/24 15:15 98.0 F 100 18 130/77 08/31/24 14:25 96 18 140/90 08/31/24 13:30 92 18 147/79 08/31/24 12:19 96 16 148/91 Pulse Ox FiO2 09/01/24 11:51 09/01/24 11:45 09/01/24 11:06 96 09/01/24 11:00 99 09/01/24 08:41 95 09/01/24 08:34 09/01/24 08:27 09/01/24 08:00 09/01/24 07:00 96 09/01/24 04:12 21 09/01/24 04:00 98 09/01/24 00:55 21 09/01/24 00:00 95 08/31/24 22:03 08/31/24 21:49 08/31/24 20:15 96 08/31/24 18:26 97 08/31/24 18:08 95 08/31/24 17:15 95 08/31/24 16:27 99 08/31/24 15:15 95 08/31/24 14:25 96 08/31/24 13:30 98 08/31/24 12:19 79 L Intake and Output 08/31/24 09/01/24 09/01/24 22:59 06:59 14:59 Intake Total 17.599 11.191 10 Balance 17.599 11.191 10 Intake: IV 10 Invasive Line 1 10 Intake, IV Titration 17.599 11.191 Amount Insulin Regular 100 unit 17.599 11.191 In Sodium Chloride 0.9% 100 ml @ 0.05 UNITS/KG/HR 3.207 mls/hr IV .Q24H COUNT INCLUDES THE [facility] Rx#:[id number] Other: Voiding Method Toilet # Voids 2 Weight 63.503 kg 64.3 kg GENERAL DESCRIPTION: Middle-aged female up in bed, no distress. No tachypnea or accessory muscle of respiration use. HEENT: Shows Pallor , no scleral icterus. Oral mucous membrane is dry. NECK: Trachea central, no thyromegaly. LUNGS: Unlabored breathing. Clear to auscultation anteriorly. No wheeze or crackle. HEART: S1, S2, regular rate and rhythm. No loud murmur ABDOMEN: Soft, no tenderness , guarding or rigidity, no organomegaly EXTREMITIES: No edema of feet. SKIN: No rash, no masses palpable. NEUROLOGICAL: The patient is awake, alert, oriented x3, mood and affect normal. Results CBC & Chem 7: 09/02/24 07:01 09/01/24 21:02 Labs: Abnormal Lab Results - Last 24 Hours (Table) 08/31/24 08/31/24 08/31/24 Range/Units 10:25 11:45 12:59 RBC (3.80-5.40) m/uL Hgb (11.4-16.0) gm/dL Hct (34.0-46.0) % ABG pH (7.35-7.45) ABG pCO2 (35-45) mmHg ABG HCO3 (21-25) mmol/L ABG Total CO2 (19-24) mmol/L ABG O2 Saturation (94-97) % VBG pH 7.17 L* (7.31-7.41) VBG HCO3 15 L (24-28) mmol/L Hemoglobin (11.4-16.0) gm/dL Sodium (137-145) mmol/L Chloride (98-107) mmol/L Carbon Dioxide (22-30) mmol/L BUN (7-17) mg/dL Creatinine (0.52-1.04) mg/dL Glucose (74-99) mg/dL POC Glucose (mg/dL) 268 H (70-110) mg/dL Hemoglobin A1c (<=6.0) % Calcium (8.4-10.2) mg/dL Total Protein (6.3-8.2) g/dL Albumin (3.5-5.0) g/dL Urine Protein 1+ H (Negative) Urine Glucose (UA) 4+ H (Negative) Urine Ketones 3+ H (Negative) Urine Blood Trace H (Negative) Urine Mucus Rare H (None) /hpf 08/31/24 08/31/24 08/31/24 Range/Units 14:21 15:16 16:13 RBC (3.80-5.40) m/uL Hgb (11.4-16.0) gm/dL Hct (34.0-46.0) % ABG pH (7.35-7.45) ABG pCO2 (35-45) mmHg ABG HCO3 (21-25) mmol/L ABG Total CO2 (19-24) mmol/L ABG O2 Saturation (94-97) % VBG pH (7.31-7.41) VBG HCO3 (24-28) mmol/L Hemoglobin (11.4-16.0) gm/dL Sodium 132 L (137-145) mmol/L Chloride 108 H (98-107) mmol/L Carbon Dioxide 12 L (22-30) mmol/L BUN (7-17) mg/dL Creatinine 0.47 L (0.52-1.04) mg/dL Glucose 170 H (74-99) mg/dL POC Glucose (mg/dL) 274 H 219 H (70-110) mg/dL Hemoglobin A1c (<=6.0) % Calcium (8.4-10.2) mg/dL Total Protein (6.3-8.2) g/dL Albumin (3.5-5.0) g/dL Urine Protein (Negative) Urine Glucose (UA) (Negative) Urine Ketones (Negative) Urine Blood (Negative) Urine Mucus (None) /hpf 08/31/24 08/31/24 08/31/24 Range/Units 16:27 17:08 18:06 RBC (3.80-5.40) m/uL Hgb (11.4-16.0) gm/dL Hct (34.0-46.0) % ABG pH (7.35-7.45) ABG pCO2 (35-45) mmHg ABG HCO3 (21-25) mmol/L ABG Total CO2 (19-24) mmol/L ABG O2 Saturation (94-97) % VBG pH (7.31-7.41) VBG HCO3 (24-28) mmol/L Hemoglobin (11.4-16.0) gm/dL Sodium (137-145) mmol/L Chloride (98-107) mmol/L Carbon Dioxide (22-30) mmol/L BUN (7-17) mg/dL Creatinine (0.52-1.04) mg/dL Glucose (74-99) mg/dL POC Glucose (mg/dL) 173 H 164 H 145 H (70-110) mg/dL Hemoglobin A1c (<=6.0) % Calcium (8.4-10.2) mg/dL Total Protein (6.3-8.2) g/dL Albumin (3.5-5.0) g/dL Urine Protein (Negative) Urine Glucose (UA) (Negative) Urine Ketones (Negative) Urine Blood (Negative) Urine Mucus (None) /hpf 08/31/24 08/31/24 08/31/24 Range/Units 19:03 19:56 20:00 RBC (3.80-5.40) m/uL Hgb (11.4-16.0) gm/dL Hct (34.0-46.0) % ABG pH (7.35-7.45) ABG pCO2 (35-45) mmHg ABG HCO3 (21-25) mmol/L ABG Total CO2 (19-24) mmol/L ABG O2 Saturation (94-97) % VBG pH (7.31-7.41) VBG HCO3 (24-28) mmol/L Hemoglobin (11.4-16.0) gm/dL Sodium 130 L (137-145) mmol/L Chloride 108 H (98-107) mmol/L Carbon Dioxide 8 L* (22-30) mmol/L BUN (7-17) mg/dL Creatinine 0.43 L (0.52-1.04) mg/dL Glucose 165 H (74-99) mg/dL POC Glucose (mg/dL) 150 H 157 H (70-110) mg/dL Hemoglobin A1c (<=6.0) % Calcium 7.7 L (8.4-10.2) mg/dL Total Protein 5.6 L (6.3-8.2) g/dL Albumin 3.0 L (3.5-5.0) g/dL Urine Protein (Negative) Urine Glucose (UA) (Negative) Urine Ketones (Negative) Urine Blood (Negative) Urine Mucus (None) /hpf 08/31/24 08/31/24 08/31/24 Range/Units 20:00 21:36 22:36 RBC (3.80-5.40) m/uL Hgb 11.0 L (11.4-16.0) gm/dL Hct (34.0-46.0) % ABG pH (7.35-7.45) ABG pCO2 (35-45) mmHg ABG HCO3 (21-25) mmol/L ABG Total CO2 (19-24) mmol/L ABG O2 Saturation (94-97) % VBG pH (7.31-7.41) VBG HCO3 (24-28) mmol/L Hemoglobin (11.4-16.0) gm/dL Sodium (137-145) mmol/L Chloride (98-107) mmol/L Carbon Dioxide (22-30) mmol/L BUN (7-17) mg/dL Creatinine (0.52-1.04) mg/dL Glucose (74-99) mg/dL POC Glucose (mg/dL) 192 H 217 H (70-110) mg/dL Hemoglobin A1c (<=6.0) % Calcium (8.4-10.2) mg/dL Total Protein (6.3-8.2) g/dL Albumin (3.5-5.0) g/dL Urine Protein (Negative) Urine Glucose (UA) (Negative) Urine Ketones (Negative) Urine Blood (Negative) Urine Mucus (None) /hpf 08/31/24 08/31/24 08/31/24 Range/Units 23:40 23:42 23:42 RBC 3.76 L (3.80-5.40) m/uL Hgb 10.9 L (11.4-16.0) gm/dL Hct 33.5 L (34.0-46.0) % ABG pH (7.35-7.45) ABG pCO2 (35-45) mmHg ABG HCO3 (21-25) mmol/L ABG Total CO2 (19-24) mmol/L ABG O2 Saturation (94-97) % VBG pH (7.31-7.41) VBG HCO3 (24-28) mmol/L Hemoglobin (11.4-16.0) gm/dL Sodium 127 L (137-145) mmol/L Chloride 110 H (98-107) mmol/L Carbon Dioxide 9 L* (22-30) mmol/L BUN 6 L (7-17) mg/dL Creatinine 0.48 L (0.52-1.04) mg/dL Glucose 245 H (74-99) mg/dL POC Glucose (mg/dL) 241 H (70-110) mg/dL Hemoglobin A1c (<=6.0) % Calcium 7.7 L (8.4-10.2) mg/dL Total Protein 5.3 L (6.3-8.2) g/dL Albumin 2.8 L (3.5-5.0) g/dL Urine Protein (Negative) Urine Glucose (UA) (Negative) Urine Ketones (Negative) Urine Blood (Negative) Urine Mucus (None) /hpf 09/01/24 09/01/24 09/01/24 Range/Units 00:16 00:43 01:45 RBC (3.80-5.40) m/uL Hgb (11.4-16.0) gm/dL Hct (34.0-46.0) % ABG pH 7.25 L (7.35-7.45) ABG pCO2 27 L (35-45) mmHg ABG HCO3 12 L (21-25) mmol/L ABG Total CO2 13 L (19-24) mmol/L ABG O2 Saturation 100.0 H (94-97) % VBG pH (7.31-7.41) VBG HCO3 (24-28) mmol/L Hemoglobin 10.1 L (11.4-16.0) gm/dL Sodium (137-145) mmol/L Chloride (98-107) mmol/L Carbon Dioxide (22-30) mmol/L BUN (7-17) mg/dL Creatinine (0.52-1.04) mg/dL Glucose (74-99) mg/dL POC Glucose (mg/dL) 243 H 279 H (70-110) mg/dL Hemoglobin A1c (<=6.0) % Calcium (8.4-10.2) mg/dL Total Protein (6.3-8.2) g/dL Albumin (3.5-5.0) g/dL Urine Protein (Negative) Urine Glucose (UA) (Negative) Urine Ketones (Negative) Urine Blood (Negative) Urine Mucus (None) /hpf 09/01/24 09/01/24 09/01/24 Range/Units 02:31 03:36 03:57 RBC (3.80-5.40) m/uL Hgb (11.4-16.0) gm/dL Hct (34.0-46.0) % ABG pH (7.35-7.45) ABG pCO2 (35-45) mmHg ABG HCO3 (21-25) mmol/L ABG Total CO2 (19-24) mmol/L ABG O2 Saturation (94-97) % VBG pH (7.31-7.41) VBG HCO3 (24-28) mmol/L Hemoglobin (11.4-16.0) gm/dL Sodium (137-145) mmol/L Chloride (98-107) mmol/L Carbon Dioxide (22-30) mmol/L BUN (7-17) mg/dL Creatinine (0.52-1.04) mg/dL Glucose (74-99) mg/dL POC Glucose (mg/dL) 261 H 254 H (70-110) mg/dL Hemoglobin A1c 13.7 H (<=6.0) % Calcium (8.4-10.2) mg/dL Total Protein (6.3-8.2) g/dL Albumin (3.5-5.0) g/dL Urine Protein (Negative) Urine Glucose (UA) (Negative) Urine Ketones (Negative) Urine Blood (Negative) Urine Mucus (None) /hpf 09/01/24 09/01/24 09/01/24 Range/Units 03:57 04:31 05:32 RBC (3.80-5.40) m/uL Hgb (11.4-16.0) gm/dL Hct (34.0-46.0) % ABG pH (7.35-7.45) ABG pCO2 (35-45) mmHg ABG HCO3 (21-25) mmol/L ABG Total CO2 (19-24) mmol/L ABG O2 Saturation (94-97) % VBG pH (7.31-7.41) VBG HCO3 (24-28) mmol/L Hemoglobin (11.4-16.0) gm/dL Sodium 131 L (137-145) mmol/L Chloride 112 H (98-107) mmol/L Carbon Dioxide 9 L* (22-30) mmol/L BUN 5 L (7-17) mg/dL Creatinine 0.48 L (0.52-1.04) mg/dL Glucose 261 H (74-99) mg/dL POC Glucose (mg/dL) 230 H 223 H (70-110) mg/dL Hemoglobin A1c (<=6.0) % Calcium 8.0 L (8.4-10.2) mg/dL Total Protein (6.3-8.2) g/dL Albumin (3.5-5.0) g/dL Urine Protein (Negative) Urine Glucose (UA) (Negative) Urine Ketones (Negative) Urine Blood (Negative) Urine Mucus (None) /hpf 09/01/24 09/01/24 09/01/24 Range/Units 06:36 07:32 08:33 RBC (3.80-5.40) m/uL Hgb (11.4-16.0) gm/dL Hct (34.0-46.0) % ABG pH (7.35-7.45) ABG pCO2 (35-45) mmHg ABG HCO3 (21-25) mmol/L ABG Total CO2 (19-24) mmol/L ABG O2 Saturation (94-97) % VBG pH (7.31-7.41) VBG HCO3 (24-28) mmol/L Hemoglobin (11.4-16.0) gm/dL Sodium (137-145) mmol/L Chloride (98-107) mmol/L Carbon Dioxide (22-30) mmol/L BUN (7-17) mg/dL Creatinine (0.52-1.04) mg/dL Glucose (74-99) mg/dL POC Glucose (mg/dL) 215 H 194 H 169 H (70-110) mg/dL Hemoglobin A1c (<=6.0) % Calcium (8.4-10.2) mg/dL Total Protein (6.3-8.2) g/dL Albumin (3.5-5.0) g/dL Urine Protein (Negative) Urine Glucose (UA) (Negative) Urine Ketones (Negative) Urine Blood (Negative) Urine Mucus (None) /hpf 09/01/24 09/01/24 09/01/24 Range/Units 08:47 09:49 10:32 RBC (3.80-5.40) m/uL Hgb (11.4-16.0) gm/dL Hct (34.0-46.0) % ABG pH (7.35-7.45) ABG pCO2 (35-45) mmHg ABG HCO3 (21-25) mmol/L ABG Total CO2 (19-24) mmol/L ABG O2 Saturation (94-97) % VBG pH (7.31-7.41) VBG HCO3 (24-28) mmol/L Hemoglobin (11.4-16.0) gm/dL Sodium 131 L (137-145) mmol/L Chloride 113 H (98-107) mmol/L Carbon Dioxide <5 L* (22-30) mmol/L BUN 3 L (7-17) mg/dL Creatinine 0.38 L (0.52-1.04) mg/dL Glucose 163 H (74-99) mg/dL POC Glucose (mg/dL) 208 H 223 H (70-110) mg/dL Hemoglobin A1c (<=6.0) % Calcium 7.3 L (8.4-10.2) mg/dL Total Protein (6.3-8.2) g/dL Albumin (3.5-5.0) g/dL Urine Protein (Negative) Urine Glucose (UA) (Negative) Urine Ketones (Negative) Urine Blood (Negative) Urine Mucus (None) /hpf 09/01/24 Range/Units 11:47 RBC (3.80-5.40) m/uL Hgb (11.4-16.0) gm/dL Hct (34.0-46.0) % ABG pH (7.35-7.45) ABG pCO2 (35-45) mmHg ABG HCO3 (21-25) mmol/L ABG Total CO2 (19-24) mmol/L ABG O2 Saturation (94-97) % VBG pH (7.31-7.41) VBG HCO3 (24-28) mmol/L Hemoglobin (11.4-16.0) gm/dL Sodium (137-145) mmol/L Chloride (98-107) mmol/L Carbon Dioxide (22-30) mmol/L BUN (7-17) mg/dL Creatinine (0.52-1.04) mg/dL Glucose (74-99) mg/dL POC Glucose (mg/dL) 209 H (70-110) mg/dL Hemoglobin A1c (<=6.0) % Calcium (8.4-10.2) mg/dL Total Protein (6.3-8.2) g/dL Albumin (3.5-5.0) g/dL Urine Protein (Negative) Urine Glucose (UA) (Negative) Urine Ketones (Negative) Urine Blood (Negative) Urine Mucus (None) /hpf Assessment and Plan (1) Thrush Current Visit: Yes Status: Acute Code(s): B37.0 - CANDIDAL STOMATITIS SNOMED Code(s): 67181473 Plan: 1patient presented to hospital with elevated blood sugar suddenly because discomfort nausea but no vomiting and this patient has been diagnosed with a diabetic acidosis patient not running any fever did not have any elevated white count urine has been negative lungs are clear to auscultation abdomen is soft with mild thrush 2-we will recommend nystatin swish and swallow and no need for Diflucan or systemic antibiotic therapy We will follow on clinical condition and cultures to further adjust medication if needed Thank you for this consultation we will follow the patient along with you Dictation was produced using [employer] dictation software. please excuse any grammatical, word or spelling errors. Time with Patient: Greater than 30
[2024-09-02 09:02] LABS: Sodium 132 mmol/L (137-145)
--- NOTE | 2024-09-02 09:30 | P.PN ---
Subjective Progress Note Date: 09/02/24 Principal diagnosis: Starvation ketosis Uncontrolled diabetes and hyperglycemia Nonanion gap DKA September 02, 2024, patient seen eval examined awake and alert sitting upright and then subsequently walking in the hallway, off of insulin drip, respiratory status stable on room air oxygen saturation mid 90s hemodynamic status stable, patient has been resumed on short acting and long-acting insulin along with ADA diet recommend to enforce 1600 santosh patient has been evaluated by web developer programmer for evaluation to transfer to ICU patient kept on the floor. Patient on long-acting 30 units along with sliding scale insulin labs reviewed to improved to 17, anion gap remains normal range. Would recommend short acting insulin with meals on a regular basis, continue long-acting insulin and 1600-calorie ADA diet 59-year-old female with type 2 diabetes mellitus, patient presented to the emergency department and admitted with ongoing symptoms of abdominal discomfort and high sugars lately patient's sugars are running between 406 100. Patient has been compliant with insulin with long and short acting but however she has suffered COVID infection few weeks ago for which she was on steroids followed by another bout of respiratory tract infection and was placed on another course of steroids along with antibiotics. Patient lately having dysuria and increased frequency feeling generalized weakness and feeling rundown however on specific questioning denies any loss of consciousness hemiparesis, some nauseous feeling was present but is resolved now patient is feeling hungry. Denies any cough, fever, denies any dizziness headache. Currently on insulin drip along with D5, DuoNeb, potassium replacement as per protocol, Diflucan. Her labs are CBC mild anemia is present otherwise unremarkable arterial blood gas pH is 7.25 pCO2 27 bicarb of 12 total CO2 23. Chemistry significant for sodium 132 potassium 3.6 CO2 of 12 anion gap of 12 however CO2 fell down less than 5 BUN/creatinine within normal limit glucose remains elevated 23 Past medical history significant for recent COVID infection followed by another upper respiratory and lower respiratory infection, diabetes mellitus with hyperglycemia, GERD. Patient takes 30 units of Lantus and 10 units of short acting 3 times a day Objective - Vital Signs Vital signs: Vital Signs Temp 98.2 F 09/02/24 08:51 Pulse 93 09/02/24 09:01 Resp 16 09/02/24 08:51 BP 143/79 09/02/24 08:51 Pulse Ox 98 09/02/24 08:51 FiO2 21 09/01/24 04:12 Intake & Output 09/01/24 09/02/24 09/02/24 18:59 06:59 18:59 Intake Total 310.926 240 256 Balance 310.926 240 256 Weight 64.6 kg Intake: IV 10 20 Invasive Line 1 10 10 Invasive Line 2 10 Intake, IV Titration 64.926 Amount Insulin Regular 100 unit 64.926 In Sodium Chloride 0.9% 100 ml @ 0.05 UNITS/KG/HR 3.207 mls/hr IV .Q24H [facility] Rx#:[id number] Oral 236 240 236 Other: Voiding Method Toilet Toilet Toilet # Voids 3 1 # Bowel Movements 0 - Exam - Constitutional General appearance: average body habitus, cooperative, disheveled, no acute distress - EENT Eyes: EOMI, PERRLA Ears: bilateral: normal - Neck Neck: normal ROM Carotids: bilateral: upstroke normal - Respiratory Respiratory: bilateral: CTA - Cardiovascular Rhythm: regular Heart sounds: normal: S1, S2 - Gastrointestinal General gastrointestinal: normal bowel sounds - Integumentary Integumentary: decreased turgor - Neurologic Neurologic: CNII-XII intact - Musculoskeletal Musculoskeletal: gait normal, generalized weakness, strength equal bilaterally - Psychiatric Psychiatric: A&O x's 3, appropriate affect, intact judgment & insight - Labs CBC & Chem 7: 09/02/24 07:01 09/02/24 07:01 Labs: Abnormal Lab Results - Last 24 Hours (Table) 09/01/24 09/01/24 09/01/24 Range/Units 03:57 08:47 09:49 Hgb (11.4-16.0) gm/dL Hct (34.0-46.0) % Sodium 131 L (137-145) mmol/L Potassium (3.5-5.1) mmol/L Chloride 113 H (98-107) mmol/L Carbon Dioxide <5 L* (22-30) mmol/L BUN 3 L (7-17) mg/dL Creatinine 0.38 L (0.52-1.04) mg/dL Glucose 163 H (74-99) mg/dL POC Glucose (mg/dL) 208 H (70-110) mg/dL Hemoglobin A1c 13.7 H (<=6.0) % Calcium 7.3 L (8.4-10.2) mg/dL Total Protein (6.3-8.2) g/dL Albumin (3.5-5.0) g/dL 09/01/24 09/01/24 09/01/24 Range/Units 10:32 11:47 12:25 Hgb (11.4-16.0) gm/dL Hct (34.0-46.0) % Sodium 134 L (137-145) mmol/L Potassium 3.3 L (3.5-5.1) mmol/L Chloride 108 H (98-107) mmol/L Carbon Dioxide 19 L (22-30) mmol/L BUN 3 L (7-17) mg/dL Creatinine 0.44 L (0.52-1.04) mg/dL Glucose 211 H (74-99) mg/dL POC Glucose (mg/dL) 223 H 209 H (70-110) mg/dL Hemoglobin A1c (<=6.0) % Calcium 8.1 L (8.4-10.2) mg/dL Total Protein (6.3-8.2) g/dL Albumin (3.5-5.0) g/dL 09/01/24 09/01/24 09/01/24 Range/Units 12:54 13:26 14:30 Hgb (11.4-16.0) gm/dL Hct (34.0-46.0) % Sodium (137-145) mmol/L Potassium (3.5-5.1) mmol/L Chloride (98-107) mmol/L Carbon Dioxide (22-30) mmol/L BUN (7-17) mg/dL Creatinine (0.52-1.04) mg/dL Glucose (74-99) mg/dL POC Glucose (mg/dL) 209 H 320 H 321 H (70-110) mg/dL Hemoglobin A1c (<=6.0) % Calcium (8.4-10.2) mg/dL Total Protein (6.3-8.2) g/dL Albumin (3.5-5.0) g/dL 09/01/24 09/01/24 09/01/24 Range/Units 15:34 16:26 16:41 Hgb (11.4-16.0) gm/dL Hct (34.0-46.0) % Sodium 130 L (137-145) mmol/L Potassium 3.2 L (3.5-5.1) mmol/L Chloride (98-107) mmol/L Carbon Dioxide 21 L (22-30) mmol/L BUN 3 L (7-17) mg/dL Creatinine 0.49 L (0.52-1.04) mg/dL Glucose 280 H (74-99) mg/dL POC Glucose (mg/dL) 309 H 280 H (70-110) mg/dL Hemoglobin A1c (<=6.0) % Calcium 7.9 L (8.4-10.2) mg/dL Total Protein (6.3-8.2) g/dL Albumin (3.5-5.0) g/dL 09/01/24 09/01/24 09/01/24 Range/Units 17:28 18:44 19:25 Hgb (11.4-16.0) gm/dL Hct (34.0-46.0) % Sodium (137-145) mmol/L Potassium (3.5-5.1) mmol/L Chloride (98-107) mmol/L Carbon Dioxide (22-30) mmol/L BUN (7-17) mg/dL Creatinine (0.52-1.04) mg/dL Glucose (74-99) mg/dL POC Glucose (mg/dL) 288 H 331 H 339 H (70-110) mg/dL Hemoglobin A1c (<=6.0) % Calcium (8.4-10.2) mg/dL Total Protein (6.3-8.2) g/dL Albumin (3.5-5.0) g/dL 09/01/24 09/01/24 09/02/24 Range/Units 21:02 21:30 06:02 Hgb (11.4-16.0) gm/dL Hct (34.0-46.0) % Sodium 130 L (137-145) mmol/L Potassium (3.5-5.1) mmol/L Chloride (98-107) mmol/L Carbon Dioxide (22-30) mmol/L BUN 6 L (7-17) mg/dL Creatinine 0.46 L (0.52-1.04) mg/dL Glucose (74-99) mg/dL POC Glucose (mg/dL) 312 H 284 H (70-110) mg/dL Hemoglobin A1c (<=6.0) % Calcium 8.0 L (8.4-10.2) mg/dL Total Protein (6.3-8.2) g/dL Albumin (3.5-5.0) g/dL 09/02/24 09/02/24 Range/Units 07:01 07:01 Hgb 10.9 L (11.4-16.0) gm/dL Hct 33.8 L (34.0-46.0) % Sodium 132 L (137-145) mmol/L Potassium (3.5-5.1) mmol/L Chloride (98-107) mmol/L Carbon Dioxide 17 L (22-30) mmol/L BUN 5 L (7-17) mg/dL Creatinine 0.44 L (0.52-1.04) mg/dL Glucose 280 H (74-99) mg/dL POC Glucose (mg/dL) (70-110) mg/dL Hemoglobin A1c (<=6.0) % Calcium 7.7 L (8.4-10.2) mg/dL Total Protein 5.4 L (6.3-8.2) g/dL Albumin 2.8 L (3.5-5.0) g/dL Microbiology - Last 24 Hours (Table) 08/31/24 19:03 Urine Culture - Final Urine,Voided Assessment and Plan Assessment: None anion gap diabetic ketoacidosis Starvation ketosis Uncontrolled diabetes and hyperglycemia COPD not in exacerbation Oral thrush GERD Disordered breathing and sleep apnea Plan: Monitor observe off of insulin drip and D5 Recommend escalation of long-acting insulin from 30 units to 40 and maintenance short acting with meals Maintain on 1600-calorie diet Continue as needed bronchodilator Nystatin swish and swallow PPI for PUD/GERD Study as outpatient Will be available as needed arise, follow-up as outpatient Time with Patient: Greater than 30
[2024-09-02 11:15] LABS: Glucose,Whole Blood 445 mg/dL (70-110)
[2024-09-02] MEDS: SODIUM BICARBONATE TAB 650 MG TAB PO SCH (12:23)
[2024-09-02] MEDS: INSULIN NPH 100 UNIT/ML 10 ML VIAL SQ SCH (12:35)
--- NOTE | 2024-09-02 13:10 | P.PN ---
Subjective Progress Note Date: 09/02/24 Principal diagnosis: Reason for follow-up is thrush Patient is a 59-year-old female with a past medical history significant for diabetes mellitus hypertension hyperlipidemia presenting to the hospital for evaluation of elevated blood sugar and possible UTI has been sheba gnosed and been treated for DKA and is a question of possible thrush. On today's evaluation that is 09/02/2024, Patient is afebrile patient is currently on room air and denies having any shortness of breath, the patient denies any chest pain or cough, the patient denies any nausea vomiting did not h ave any abdominal pain and no diarrhea. The patient white count is 5.2, creatinine 0.44 Objective - Vital Signs Vital signs: Vital Signs Temp 98.2 F 09/02/24 11:01 Pulse 101 H 09/02/24 11:01 Resp 18 09/02/24 11:01 BP 142/79 09/02/24 11:01 Pulse Ox 96 09/02/24 11:01 FiO2 21 09/01/24 04:12 Intake & Output 09/01/24 09/02/24 09/02/24 18:59 06:59 18:59 Intake Total 310.926 240 256 Balance 310.926 240 256 Weight 64.6 kg Intake: IV 10 20 Invasive Line 1 10 10 Invasive Line 2 10 Intake, IV Titration 64.926 Amount Insulin Regular 100 unit 64.926 In Sodium Chloride 0.9% 100 ml @ 0.05 UNITS/KG/HR 3.207 mls/hr IV .Q24H [facility] Rx#:[id number] Oral 236 240 236 Other: Voiding Method Toilet Toilet Toilet # Voids 3 1 # Bowel Movements 0 - Exam GENERAL DESCRIPTION: Middle-age female up in bed in no distress RESPIRATORY SYSTEM: Unlabored breathing , decreased breath sounds at bases HEART: S1 S2 regular rate and rhythm , ABDOMEN: Soft , no tenderness EXTREMITIES: No edema feet - Labs CBC & Chem 7: 09/02/24 07:01 09/02/24 07:01 Labs: Abnormal Lab Results - Last 24 Hours (Table) 09/01/24 09/01/24 09/01/24 Range/Units 12:25 12:54 13:26 Hgb (11.4-16.0) gm/dL Hct (34.0-46.0) % Sodium 134 L (137-145) mmol/L Potassium 3.3 L (3.5-5.1) mmol/L Chloride 108 H (98-107) mmol/L Carbon Dioxide 19 L (22-30) mmol/L BUN 3 L (7-17) mg/dL Creatinine 0.44 L (0.52-1.04) mg/dL Glucose 211 H (74-99) mg/dL POC Glucose (mg/dL) 209 H 320 H (70-110) mg/dL Calcium 8.1 L (8.4-10.2) mg/dL Total Protein (6.3-8.2) g/dL Albumin (3.5-5.0) g/dL 09/01/24 09/01/24 09/01/24 Range/Units 14:30 15:34 16:26 Hgb (11.4-16.0) gm/dL Hct (34.0-46.0) % Sodium (137-145) mmol/L Potassium (3.5-5.1) mmol/L Chloride (98-107) mmol/L Carbon Dioxide (22-30) mmol/L BUN (7-17) mg/dL Creatinine (0.52-1.04) mg/dL Glucose (74-99) mg/dL POC Glucose (mg/dL) 321 H 309 H 280 H (70-110) mg/dL Calcium (8.4-10.2) mg/dL Total Protein (6.3-8.2) g/dL Albumin (3.5-5.0) g/dL 09/01/24 09/01/24 09/01/24 Range/Units 16:41 17:28 18:44 Hgb (11.4-16.0) gm/dL Hct (34.0-46.0) % Sodium 130 L (137-145) mmol/L Potassium 3.2 L (3.5-5.1) mmol/L Chloride (98-107) mmol/L Carbon Dioxide 21 L (22-30) mmol/L BUN 3 L (7-17) mg/dL Creatinine 0.49 L (0.52-1.04) mg/dL Glucose 280 H (74-99) mg/dL POC Glucose (mg/dL) 288 H 331 H (70-110) mg/dL Calcium 7.9 L (8.4-10.2) mg/dL Total Protein (6.3-8.2) g/dL Albumin (3.5-5.0) g/dL 09/01/24 09/01/24 09/01/24 Range/Units 19:25 21:02 21:30 Hgb (11.4-16.0) gm/dL Hct (34.0-46.0) % Sodium 130 L (137-145) mmol/L Potassium (3.5-5.1) mmol/L Chloride (98-107) mmol/L Carbon Dioxide (22-30) mmol/L BUN 6 L (7-17) mg/dL Creatinine 0.46 L (0.52-1.04) mg/dL Glucose (74-99) mg/dL POC Glucose (mg/dL) 339 H 312 H (70-110) mg/dL Calcium 8.0 L (8.4-10.2) mg/dL Total Protein (6.3-8.2) g/dL Albumin (3.5-5.0) g/dL 09/02/24 09/02/24 09/02/24 Range/Units 06:02 07:01 07:01 Hgb 10.9 L (11.4-16.0) gm/dL Hct 33.8 L (34.0-46.0) % Sodium 132 L (137-145) mmol/L Potassium (3.5-5.1) mmol/L Chloride (98-107) mmol/L Carbon Dioxide 17 L (22-30) mmol/L BUN 5 L (7-17) mg/dL Creatinine 0.44 L (0.52-1.04) mg/dL Glucose 280 H (74-99) mg/dL POC Glucose (mg/dL) 284 H (70-110) mg/dL Calcium 7.7 L (8.4-10.2) mg/dL Total Protein 5.4 L (6.3-8.2) g/dL Albumin 2.8 L (3.5-5.0) g/dL 09/02/24 Range/Units 11:12 Hgb (11.4-16.0) gm/dL Hct (34.0-46.0) % Sodium (137-145) mmol/L Potassium (3.5-5.1) mmol/L Chloride (98-107) mmol/L Carbon Dioxide (22-30) mmol/L BUN (7-17) mg/dL Creatinine (0.52-1.04) mg/dL Glucose (74-99) mg/dL POC Glucose (mg/dL) 445 H (70-110) mg/dL Calcium (8.4-10.2) mg/dL Total Protein (6.3-8.2) g/dL Albumin (3.5-5.0) g/dL Microbiology - Last 24 Hours (Table) 08/31/24 19:03 Urine Culture - Final Urine,Voided Assessment and Plan (1) Thrush Current Visit: Yes Status: Acute Code(s): B37.0 - CANDIDAL STOMATITIS SNOMED Code(s): 42866850 Plan: 1patient presented to hospital with elevated blood sugar suddenly because discomfort nausea but no vomiting and this patient has been diagnosed with a diabetic acidosis patient not running any fever did not have any elevated white count urine has been negative lungs are clear to auscultation abdomen is soft with mild thrush 2-patient to continue with nystatin swish and swallow and monitor clinical cour se closely Dictation was produced using [employer] dictation software. please excuse any grammatical, word or spelling errors. Time with Patient: Less than 30
[2024-09-02] MEDS: INSULIN DETEMIR (LEVEMIR) 100 UNIT/ML SYR SQ ONE (13:32)
--- NOTE | 2024-09-02 15:17 | P.PN ---
Subjective Progress Note Date: 09/02/24 On 09/01/2024, the patient was seen in consultation due to severe metabolic acidosis. I was asked to evaluate this patient for ICU transfer. The patient is known to me. The patient is known to have diabetes mellitus type 2 along with history of hypertension hyperlipidemia. The patient has been maintained on NPH insulin 10 units 3 times daily on outpatient basis and Lantus insulin 30 units on a daily basis. At time of admission, the patient had anion gap metabolic acidosis. The patient was treated on the floor with an insulin drip. Nevertheless, there has been significant drop in the patient's serum bicarbonate earlier this morning, her bicarb level was less than 5 and the patient had no significant anion gap. This was consistent with a non-anion gap metabolic acidosis. As such, there is a bicarb deficit. At the same time, the patient's serum acetone was positive. The patient was awake and alert and the patient was also ambulating. She denied having any other complaints. The blood gas from yesterday showed acidosis with a pH of 7.25 with a pCO2 of 27 and pO2 of 97. The white cell count of 6.4 with a hemoglobin 10.9 and a platelet count of 245. The patient accordingly was switched to a bicarb infusion, I gave her 2 doses of sodium bicarb 100 mEq total and The insulin drip at 3.7 units an hour. She has no specific complaints. No altered mentation. She remains on room air oxygen. On 09/02/2024, the patient is feeling well. Awake and alert and communicating. No new complaints. Blood sugars remain elevated. I took the patient off the bicarb drip yesterday and also discontinued insulin drip as the patient did not have any significant anion gap metabolic acidosis. Serum bicarb was up to 24 with a gap of 2. On today's evaluation, the blood sugar is still elevated and the patient serum bicarb is dropped down to 17 with a gap of 13. BUN is 5 with a creatinine of 0.44. She is tolerating diet. No nausea. No vomiting. No other complaints otherwise for now. Objective - Vital Signs Vital signs: Vital Signs Temp 98.2 F 09/02/24 11:01 Pulse 101 H 09/02/24 11:01 Resp 18 09/02/24 11:01 BP 142/79 09/02/24 11:01 Pulse Ox 96 09/02/24 11:01 FiO2 21 09/01/24 04:12 Intake & Output 09/01/24 09/02/24 09/02/24 18:59 06:59 18:59 Intake Total 310.926 240 256 Balance 310.926 240 256 Weight 64.6 kg Intake: IV 10 20 Invasive Line 1 10 10 Invasive Line 2 10 Intake, IV Titration 64.926 Amount Insulin Regular 100 unit 64.926 In Sodium Chloride 0.9% 100 ml @ 0.05 UNITS/KG/HR 3.207 mls/hr IV .Q24H [facility] Rx#:[id number] Oral 236 240 236 Other: Voiding Method Toilet Toilet Toilet # Voids 3 1 # Bowel Movements 0 - Exam The patient appeared well nourished and normally developed. Vital signs as documented. Head exam is unremarkable. No scleral icterus or corneal arcus noted. Neck is without jugular venous distension, thyromegaly, or carotid bruits. Carotid upstrokes are brisk bilaterally. Lungs are clear to auscultation and percussion. Cardiac exam reveals the PMI to be normally sized and situated. Rhythm is regular. First and second heart sounds normal. No murmurs, rubs or gallops. Abdominal exam reveals normal bowel sounds, no masses, no organomegaly and no aortic enlargement. Extremities are nonedematous and both femoral and pedal pulses are normal. Examination of the skin revealed no evidence of significant rashes, suspicious appearing nevi or other concerning lesions. Neurologically, the patient is awake and alert and the patient does not have any focal neurological deficit. Cranial nerves are essentially intact. - Labs CBC & Chem 7: 09/02/24 07:01 09/02/24 07:01 Labs: Abnormal Lab Results - Last 24 Hours (Table) 09/01/24 09/01/24 09/01/24 Range/Units 12:25 12:54 13:26 Hgb (11.4-16.0) gm/dL Hct (34.0-46.0) % Sodium 134 L (137-145) mmol/L Potassium 3.3 L (3.5-5.1) mmol/L Chloride 108 H (98-107) mmol/L Carbon Dioxide 19 L (22-30) mmol/L BUN 3 L (7-17) mg/dL Creatinine 0.44 L (0.52-1.04) mg/dL Glucose 211 H (74-99) mg/dL POC Glucose (mg/dL) 209 H 320 H (70-110) mg/dL Calcium 8.1 L (8.4-10.2) mg/dL Total Protein (6.3-8.2) g/dL Albumin (3.5-5.0) g/dL 09/01/24 09/01/24 09/01/24 Range/Units 14:30 15:34 16:26 Hgb (11.4-16.0) gm/dL Hct (34.0-46.0) % Sodium (137-145) mmol/L Potassium (3.5-5.1) mmol/L Chloride (98-107) mmol/L Carbon Dioxide (22-30) mmol/L BUN (7-17) mg/dL Creatinine (0.52-1.04) mg/dL Glucose (74-99) mg/dL POC Glucose (mg/dL) 321 H 309 H 280 H (70-110) mg/dL Calcium (8.4-10.2) mg/dL Total Protein (6.3-8.2) g/dL Albumin (3.5-5.0) g/dL 09/01/24 09/01/24 09/01/24 Range/Units 16:41 17:28 18:44 Hgb (11.4-16.0) gm/dL Hct (34.0-46.0) % Sodium 130 L (137-145) mmol/L Potassium 3.2 L (3.5-5.1) mmol/L Chloride (98-107) mmol/L Carbon Dioxide 21 L (22-30) mmol/L BUN 3 L (7-17) mg/dL Creatinine 0.49 L (0.52-1.04) mg/dL Glucose 280 H (74-99) mg/dL POC Glucose (mg/dL) 288 H 331 H (70-110) mg/dL Calcium 7.9 L (8.4-10.2) mg/dL Total Protein (6.3-8.2) g/dL Albumin (3.5-5.0) g/dL 09/01/24 09/01/24 09/01/24 Range/Units 19:25 21:02 21:30 Hgb (11.4-16.0) gm/dL Hct (34.0-46.0) % Sodium 130 L (137-145) mmol/L Potassium (3.5-5.1) mmol/L Chloride (98-107) mmol/L Carbon Dioxide (22-30) mmol/L BUN 6 L (7-17) mg/dL Creatinine 0.46 L (0.52-1.04) mg/dL Glucose (74-99) mg/dL POC Glucose (mg/dL) 339 H 312 H (70-110) mg/dL Calcium 8.0 L (8.4-10.2) mg/dL Total Protein (6.3-8.2) g/dL Albumin (3.5-5.0) g/dL 09/02/24 09/02/24 09/02/24 Range/Units 06:02 07:01 07:01 Hgb 10.9 L (11.4-16.0) gm/dL Hct 33.8 L (34.0-46.0) % Sodium 132 L (137-145) mmol/L Potassium (3.5-5.1) mmol/L Chloride (98-107) mmol/L Carbon Dioxide 17 L (22-30) mmol/L BUN 5 L (7-17) mg/dL Creatinine 0.44 L (0.52-1.04) mg/dL Glucose 280 H (74-99) mg/dL POC Glucose (mg/dL) 284 H (70-110) mg/dL Calcium 7.7 L (8.4-10.2) mg/dL Total Protein 5.4 L (6.3-8.2) g/dL Albumin 2.8 L (3.5-5.0) g/dL 09/02/24 Range/Units 11:12 Hgb (11.4-16.0) gm/dL Hct (34.0-46.0) % Sodium (137-145) mmol/L Potassium (3.5-5.1) mmol/L Chloride (98-107) mmol/L Carbon Dioxide (22-30) mmol/L BUN (7-17) mg/dL Creatinine (0.52-1.04) mg/dL Glucose (74-99) mg/dL POC Glucose (mg/dL) 445 H (70-110) mg/dL Calcium (8.4-10.2) mg/dL Total Protein (6.3-8.2) g/dL Albumin (3.5-5.0) g/dL Microbiology - Last 24 Hours (Table) 08/31/24 19:03 Urine Culture - Final Urine,Voided Assessment and Plan Plan: Diabetes mellitus type 2 with poor blood sugar control on outpatient basis. No indication for DKA. Despite presence of some serum acetone, the patient does not have any significant anion gap metabolic acidosis and her metabolic acidosis of a non anion gap metabolic acidosis and the patient has a significant bicarb deficits. No altered mentation. Hemodynamically stable. She is ambulating. No altered mentation. None anion gap metabolic acidosis Hypertension Hyperlipidemia Plan I am going to increase the Levemir dose up to 40 units at bedtime and the patient will be given an additional 10 units of Levemir right now. Restart NPH 10 units 3 times a day with meal along with a sign scale coverage Start the patient on oral bicarb 650 mg twice a day Repeat another set of electrolytes at around 4 PM Monitor blood sugars We will continue to follow.
[2024-09-02 15:21] VITALS: BMI 28.8
[2024-09-02 16:09] LABS: Glucose,Whole Blood 333 mg/dL (70-110)
[2024-09-02 19:54] LABS: Glucose,Whole Blood 283 mg/dL (70-110)
[2024-09-02] MEDS: INSULIN DETEMIR (LEVEMIR) 100 UNIT/ML SYR SQ SCH (21:34)
[2024-09-03 05:58] LABS: Glucose,Whole Blood 305 mg/dL (70-110)
[2024-09-03 09:39] LABS: Chloride 102 mmol/L (98-107); Potassium 4.6 mmol/L (3.5-5.1); Sodium 130 mmol/L (137-145)
[2024-09-03 10:26] LABS: African American GFR (CKD) >90 (>60 ml/min/1.73 sqM); Anion Gap 4 mmol/L; Glucose 311 mg/dL (74-99); Non-African American GFR(CKD) >90 (>60 ml/min/1.73 sqM)
[2024-09-03 10:27] LABS: Blood Urea Nitrogen 12 mg/dL (7-17); Calcium 9.1 mg/dL (8.4-10.2); Carbon Dioxide 24 mmol/L (22-30)
--- NOTE | 2024-09-03 11:03 | PN ---
PROGRESS NOTE DATE OF SERVICE: 09/02/2024 SUBJECTIVE: Came in with diabetic ketoacidosis. She has starvation ketoacidosis, uncontrolled diabetes mellitus, hyperglycemia, non-anion gap DKA. She remains on Lantus. She is improving continuously. Her latest ABG is pH 7.25, pCO2 is 27, bicarb of 12, CO2 of 23, sodium 132, potassium 3.0, and anion gap of 12. She remains on DKA protocol, bicarb drip. OBJECTIVE: VITAL SIGNS: Temperature 98.2, pulse 93, respiratory rate 16 to 18, blood pressure is 140s over 70s, pulse ox 98%, and FiO2 of 21. CARDIOVASCULAR: S1 and S2. LUNGS: Clear. GI: Soft. HEMATOLOGY: Negative Homans. PSYCH: Fair mood and affect. ASSESSMENT: Diabetic ketoacidosis, acute on chronic anemia, hyponatremia due to starvation ketosis, chronic dehydration. Prognosis is guarded. Continue on insulin drip, bicarb drip at this time for another day or 2. MMODL / IJN: [id number] /
[2024-09-03 11:15] LABS: Glucose,Whole Blood 260 mg/dL (70-110)
--- NOTE | 2024-09-03 11:35 | HP ---
HISTORY AND PHYSICAL HISTORY OF PRESENT ILLNESS: This is a 59-year-old white female, who came in with diabetic ketoacidosis. Glucose had been between 400 and 600. She has severe abdominal pain, nausea, vomiting. She has not missed any of her insulin at home. She was treated for possible UTI, urinary frequency. No shortness of breath. She has sleep apnea at home. She has lack of sleep at home. She has many risk factors. HOME MEDICATIONS: 1. Diflucan 150 daily. 2. Cipro 500 b.i.d. 3. Breztri 2 puffs b.i.d. 4. Lantus 30 units subcu daily. 5. Omeprazole 20 daily. ALLERGIES: Vancomycin, sulfa, nitrofurantoin. PAST SURGICAL HISTORY: Appendectomy, cholecystectomy. PAST MEDICAL HISTORY: Insulin-dependent diabetes mellitus, hypertension, dyslipidemia. FAMILY HISTORY: Sister with DVT. Mother with heart disease, COPD. PHYSICAL EXAMINATION: VITAL SIGNS: Temp 98.2, pulse 103 to 113, respiratory rate 16 to 18, blood pressure is 130s to 140s over 70s to 80s, O2 of 94% to 98%. CARDIOVASCULAR: S1, S2. LUNGS: Transmitted upper sounds. ABDOMEN: Soft, nontender. HEMATOLOGY: Negative Homans. PSYCH: Fair mood and affect. HEENT: Pupils equal, round, reactive. LABORATORY DATA: White count 6.3, hemoglobin is 12.0, sodium 126, potassium 4.5, CO2 is 9, platelets 119. ASSESSMENT AND PLAN: She has acute diabetic ketoacidosis. She has obstructive sleep apnea. She has asthma, COPD, allergic rhinitis. Prognosis guarded. Ambulate as tolerated. Stay on DKA protocol. Add bicarb due to low pH. Continue on insulin drip until the CO2 gets elevated as well as the pH. Prognosis guarded. Ambulate as tolerated. Look for source of infection. MMODL / IJN: [id number] /
--- NOTE | 2024-09-03 13:43 | CT ---
EXAMINATION TYPE: CT chest abdomen wo con DATE OF EXAM: 09/03/2024 COMPARISON: CT chest dated 09/23/2022. CT abdomen and pelvis 8 01/21/2018 CLINICAL INDICATION: Female, 59 years old with history of dyspnea/abd pain; PHH, Dyspnea, abdominal p ain CT DLP: 411.2 mGycm Automated exposure control for dose reduction was used. Findings: CT chest: In the right upper lobe, there is a new 11 mm groundglass opacity in the subpleural parenchymal lung. There is an adjacent 5.4 mm nodule. The left lung is clear. There is no pleural effusion or pneumothorax. There is no mediastinal, hilar or axillary adenopathy. The great vessels of the chest are normal. The osseous structures are intact. CT ABDOMEN: There is surgical absence of the gallbladder. There is no organomegaly involving the liver, pancreas, spleen or adrenal glands. There is no renal calcification or hydronephrosis. The caliber of the abdominal aorta is normal. The bowel loops normal in caliber and there is no dilatation or obstruction. No inflammatory changes are identified in the bowel wall and mesentery. There is no free intraperitoneal air or fluid. The osseous structures are intact. IMPRESSION: 1. Small right upper lobe subpleural parenchymal groundglass opacity and adjacent 5 mm nodule. Could represent an acute infectious process and short-term follow-up is recommended. 2. No acute changes within the abdomen. [facility], , 09/03/2024 1:41 PM
--- NOTE | 2024-09-03 13:56 | P.PN ---
Subjective Progress Note Date: 09/03/24 Principal diagnosis: Reason for follow-up is thrush Patient is a 59-year-old female with a past medical history significant for diabetes mellitus hypertension hyperlipidemia presenting to the hospital for evaluation of elevated blood sugar and possible UTI has been sheba gnosed and been treated for DKA and is a question of possible thrush. On today's evaluation that is 09/03/2024, patient has been afebrile, patient is breathing comfortably and is currently on room air, patient denies having any significant cough no chest pain, patient denies nausea vomiting or diarrhea and no abdominal pain. Patient did have a creatinine 0.40 urine culture have been negative Objective - Vital Signs Vital signs: Vital Signs Temp 98.5 F 09/03/24 08:04 Pulse 92 09/03/24 12:55 Resp 16 09/03/24 11:31 BP 139/82 09/03/24 11:31 Pulse Ox 99 09/03/24 11:31 FiO2 21 09/01/24 04:12 Intake & Output 09/02/24 09/03/24 09/03/24 18:59 06:59 18:59 Intake Total 598 600 Balance 598 600 Weight 64.6 kg 65.5 kg Intake: IV 20 Invasive Line 1 10 Invasive Line 2 10 Oral 578 600 Other: Voiding Method Toilet Toilet Toilet # Voids 4 2 - Exam GENERAL DESCRIPTION: Middle-age female up in bed in no distress RESPIRATORY SYSTEM: Unlabored breathing , decreased breath sounds at bases HEART: S1 S2 regular rate and rhythm , ABDOMEN: Soft , no tenderness EXTREMITIES: No edema feet - Labs CBC & Chem 7: 09/02/24 07:01 09/03/24 09:02 Labs: Abnormal Lab Results - Last 24 Hours (Table) 09/02/24 09/02/24 09/03/24 Range/Units 16:07 19:53 05:56 Sodium (137-145) mmol/L Creatinine (0.52-1.04) mg/dL Glucose (74-99) mg/dL POC Glucose (mg/dL) 333 H 283 H 305 H (70-110) mg/dL 09/03/24 09/03/24 Range/Units 09:02 11:13 Sodium 130 L (137-145) mmol/L Creatinine 0.40 L (0.52-1.04) mg/dL Glucose 311 H (74-99) mg/dL POC Glucose (mg/dL) 260 H (70-110) mg/dL Microbiology - Last 24 Hours (Table) 08/31/24 19:03 Urine Culture - Final Urine,Voided Assessment and Plan (1) Thrush Current Visit: Yes Status: Acute Code(s): B37.0 - CANDIDAL STOMATITIS SNOMED Code(s): 10459171 Plan: 1patient presented to hospital with elevated blood sugar suddenly because discomfort nausea but no vomiting and this patient has been diagnosed with a diabetic acidosis patient not running any fever did not have any elevated white count urine has been negative lungs are clear to auscultation abdomen is soft with mild thrush 2-patient to continue with nystatin swish and swallow, plan is for 7-day course of medication on discharge Dictation was produced using [employer] dictation software. please excuse any grammatical, word or spelling errors. Time with Patient: Less than 30
--- NOTE | 2024-09-03 14:41 | P.PN ---
Subjective Progress Note Date: 09/03/24 On 09/01/2024, the patient was seen in consultation due to severe metabolic acidosis. I was asked to evaluate this patient for ICU transfer. The patient is known to me. The patient is known to have diabetes mellitus type 2 along with history of hypertension hyperlipidemia. The patient has been maintained on NPH insulin 10 units 3 times daily on outpatient basis and Lantus insulin 30 units on a daily basis. At time of admission, the patient had anion gap metabolic acidosis. The patient was treated on the floor with an insulin drip. Nevertheless, there has been significant drop in the patient's serum bicarbonate earlier this morning, her bicarb level was less than 5 and the patient had no significant anion gap. This was consistent with a non-anion gap metabolic acidosis. As such, there is a bicarb deficit. At the same time, the patient's serum acetone was positive. The patient was awake and alert and the patient was also ambulating. She denied having any other complaints. The blood gas from yesterday showed acidosis with a pH of 7.25 with a pCO2 of 27 and pO2 of 97. The white cell count of 6.4 with a hemoglobin 10.9 and a platelet count of 245. The patient accordingly was switched to a bicarb infusion, I gave her 2 doses of sodium bicarb 100 mEq total and The insulin drip at 3.7 units an hour. She has no specific complaints. No altered mentation. She remains on room air oxygen. On 09/02/2024, the patient is feeling well. Awake and alert and communicating. No new complaints. Blood sugars remain elevated. I took the patient off the bicarb drip yesterday and also discontinued insulin drip as the patient did not have any significant anion gap metabolic acidosis. Serum bicarb was up to 24 with a gap of 2. On today's evaluation, the blood sugar is still elevated and the patient serum bicarb is dropped down to 17 with a gap of 13. BUN is 5 with a creatinine of 0.44. She is tolerating diet. No nausea. No vomiting. No other complaints otherwise for now. 09/03/2024, the patient is being seen for a follow-up. The patient is currently on Levemir insulin 40 units daily and NPH insulin 10 units 3 times a day and sliding scale coverage. The serum bicarb is up to 24, BUN 12 with a creatinine of 0.4. Most recent blood sugars of 260. No complaints. Objective - Vital Signs Vital signs: Vital Signs Temp 98.5 F 09/03/24 08:04 Pulse 89 09/03/24 11:31 Resp 16 09/03/24 11:31 BP 139/82 09/03/24 11:31 Pulse Ox 99 09/03/24 11:31 FiO2 21 09/01/24 04:12 Intake & Output 09/02/24 09/03/24 09/03/24 18:59 06:59 18:59 Intake Total 598 480 Balance 598 480 Weight 64.6 kg 65.5 kg Intake: IV 20 Invasive Line 1 10 Invasive Line 2 10 Oral 578 480 Other: Voiding Method Toilet Toilet Toilet # Voids 4 2 - Exam The patient appeared well nourished and normally developed. Vital signs as documented. Head exam is unremarkable. No scleral icterus or corneal arcus noted. Neck is without jugular venous distension, thyromegaly, or carotid bruits. Carotid upstrokes are brisk bilaterally. Lungs are clear to auscultation and percussion. Cardiac exam reveals the PMI to be normally sized and situated. Rhythm is regular. First and second heart sounds normal. No murmurs, rubs or gallops. Abdominal exam reveals normal bowel sounds, no masses, no organomegaly and no aortic enlargement. Extremities are nonedematous and both femoral and pedal pulses are normal. Examination of the skin revealed no evidence of significant rashes, suspicious appearing nevi or other concerning lesions. Neurologically, the patient is awake and alert and the patient does not have any focal neurological deficit. Cranial nerves are essentially intact. - Labs CBC & Chem 7: 09/02/24 07:01 09/03/24 09:02 Labs: Abnormal Lab Results - Last 24 Hours (Table) 09/02/24 09/02/24 09/03/24 Range/Units 16:07 19:53 05:56 Sodium (137-145) mmol/L Creatinine (0.52-1.04) mg/dL Glucose (74-99) mg/dL POC Glucose (mg/dL) 333 H 283 H 305 H (70-110) mg/dL 09/03/24 09/03/24 Range/Units 09:02 11:13 Sodium 130 L (137-145) mmol/L Creatinine 0.40 L (0.52-1.04) mg/dL Glucose 311 H (74-99) mg/dL POC Glucose (mg/dL) 260 H (70-110) mg/dL Microbiology - Last 24 Hours (Table) 08/31/24 19:03 Urine Culture - Final Urine,Voided Assessment and Plan Plan: Diabetes mellitus type 2 with poor blood sugar control on outpatient basis. No indication for DKA. Despite presence of some serum acetone, the patient does not have any significant anion gap metabolic acidosis and her metabolic acidosis of a non anion gap metabolic acidosis and the patient has a significant bicarb deficits. No altered mentation. Hemodynamically stable. She is ambulating. No altered mentation. Serum bicarb is improved and normalized None anion gap metabolic acidosis Hypertension Hyperlipidemia Plan Continue Levemir dose up to 40 units at bedtime and the patient will be given an additional 10 units of NPH 3 times a day and a sliding scale coverage.. Continue NPH 10 units 3 times a day with meal along with a sign scale coverage Continue oral bicarb Monitor blood sugars We will continue to follow.
[2024-09-03 16:15] LABS: Glucose,Whole Blood 297 mg/dL (70-110)
[2024-09-03 20:22] LABS: Glucose,Whole Blood 374 mg/dL (70-110)
[2024-09-03 23:07] LABS: Glucose,Whole Blood 294 mg/dL (70-110)
[2024-09-04 01:31] LABS: Glucose,Whole Blood 228 mg/dL (70-110)
[2024-09-04 06:09] LABS: Glucose,Whole Blood 242 mg/dL (70-110)
--- NOTE | 2024-09-04 09:52 | P.PN ---
Subjective Progress Note Date: 09/04/24 Principal diagnosis: Starvation ketosis Uncontrolled diabetes and hyperglycemia Nonanion gap DKA September 04, 2024, patient seen eval examined during rounds labs reviewed medica tions reviewed care plan discussed with the patient at length patient is being monitored closely due to elevated blood pressure now sugars are slightly better rest still in mid 200 range, CO2 last chemistry done yesterday was 24, sugars in mid 200 range, blood pressure last checked 160/92, currently on sliding scale insulin, patient will benefit from MIGUEL inhibitor for blood pressure control September 02, 2024, patient seen eval examined awake and alert sitting upright and then subsequently walking in the hallway, off of insulin drip, respiratory status stable on room air oxygen saturation mid 90s hemodynamic status stable, patient has been resumed on short acting and long-acting insulin along with ADA diet recommend to enforce 1600 santosh patient has been evaluated by conical mixer for evaluation to transfer to ICU patient kept on the floor. Patient on long-acting 30 units along with sliding scale insulin labs reviewed to improved to 17, anion gap remains normal range. Would recommend short acting insulin with meals on a regular basis, continue long-acting insulin and 1600-calorie ADA diet 59-year-old female with type 2 diabetes mellitus, patient presented to the emergency department and admitted with ongoing symptoms of abdominal discomfort and high sugars lately patient's sugars are running between 406 100. Patient has been compliant with insulin with long and short acting but however she has suffered COVID infection few weeks ago for which she was on steroids followed by another bout of respiratory tract infection and was placed on another course of steroids along with antibiotics. Patient lately having dysuria and increased frequency feeling generalized weakness and feeling rundown however on specific questioning denies any loss of consciousness hemiparesis, some nauseous feeling was present but is resolved now patient is feeling hungry. Denies any cough, fever, denies any dizziness headache. Currently on insulin drip along with D5, DuoNeb, potassium replacement as per protocol, Diflucan. Her labs are CBC mild anemia is present otherwise unremarkable arterial blood gas pH is 7.25 pCO2 27 bicarb of 12 total CO2 23. Chemistry significant for sodium 132 potassium 3.6 CO2 of 12 anion gap of 12 however CO2 fell down less than 5 BUN/creatinine within normal limit glucose remains elevated 23 Past medical history significant for recent COVID infection followed by another upper respiratory and lower respiratory infection, diabetes mellitus with hyperglycemia, GERD. Patient takes 30 units of Lantus and 10 units of short acting 3 times a day Objective - Vital Signs Vital signs: Vital Signs Temp 98.4 F 09/04/24 07:27 Pulse 92 09/04/24 09:36 Resp 17 09/04/24 07:27 BP 160/92 09/04/24 07:27 Pulse Ox 96 09/04/24 07:27 FiO2 21 09/01/24 04:12 Intake & Output 09/03/24 09/04/24 09/04/24 18:59 06:59 18:59 Intake Total 600 400 Balance 600 400 Weight 64.7 kg Intake: Oral 600 400 Other: Voiding Method Toilet Toilet Toilet # Voids 2 2 - Exam - Constitutional General appearance: average body habitus, cooperative, disheveled, no acute distress - EENT Eyes: EOMI, PERRLA Ears: bilateral: normal - Neck Neck: normal ROM Carotids: bilateral: upstroke normal - Respiratory Respiratory: bilateral: CTA - Cardiovascular Rhythm: regular Heart sounds: normal: S1, S2 - Gastrointestinal General gastrointestinal: normal bowel sounds - Integumentary Integumentary: decreased turgor - Neurologic Neurologic: CNII-XII intact - Musculoskeletal Musculoskeletal: gait normal, generalized weakness, strength equal bilaterally - Psychiatric Psychiatric: A&O x's 3, appropriate affect, intact judgment & insight - Labs CBC & Chem 7: 09/02/24 07:01 09/03/24 09:02 Labs: Abnormal Lab Results - Last 24 Hours (Table) 09/03/24 09/03/24 09/03/24 Range/Units 09:02 11:13 16:13 Creatinine 0.40 L (0.52-1.04) mg/dL Glucose 311 H (74-99) mg/dL POC Glucose (mg/dL) 260 H 297 H (70-110) mg/dL 09/03/24 09/03/24 09/04/24 Range/Units 20:20 23:05 01:29 Creatinine (0.52-1.04) mg/dL Glucose (74-99) mg/dL POC Glucose (mg/dL) 374 H 294 H 228 H (70-110) mg/dL 09/04/24 Range/Units 06:08 Creatinine (0.52-1.04) mg/dL Glucose (74-99) mg/dL POC Glucose (mg/dL) 242 H (70-110) mg/dL Microbiology - Last 24 Hours (Table) 08/31/24 19:03 Urine Culture - Final Urine,Voided Kaitlin albicans Assessment and Plan Assessment: Uncontrolled hypertension None anion gap diabetic ketoacidosis, resolved Starvation ketosis, resolved Uncontrolled diabetes and hyperglycemia still COPD not in exacerbation Oral thrush GERD Disordered breathing and sleep apnea Plan: Consider patient started on MIGUEL inhibitor or ARB not only for diabetes but also for blood pressure control Monitor observe off of insulin drip and D5 Recommend escalation of long-acting insulin from 30 units to 40 and maintenance short acting with meals Maintain on 1600-calorie diet Continue as needed bronchodilator Nystatin swish and swallow PPI for PUD/GERD Study as outpatient follow-up as outpatient Time with Patient: Greater than 30
[2024-09-04] MEDS: LOSARTAN 50 MG TAB PO SCH (11:08)
[2024-09-04 11:13] LABS: Basophils # (A) 0.1 k/uL (0-0.2); Basophils % (A) 1 %; Eosinophils # (A) 0.1 k/uL (0-0.7); Eosinophils % (A) 2 %; Lymphocytes # (A) 1.6 k/uL (1.0-4.8); Lymphocytes % (A) 26 %; MCV 88.2 fL (80.0-100.0); Mean Platelet Volume 7.6; Monocytes # (A) 0.3 k/uL (0-1.0); Monocytes % (A) 4 %; Neutrophils # (A) 4.1 k/uL (1.3-7.7); Neutrophils % (A) 66 %; Platelet Count 272 k/uL (150-450); RDW 13.4 % (11.5-15.5); WBC 6.3 k/uL (3.8-10.6)
[2024-09-04 11:24] LABS: HGB 11.9 gm/dL (11.4-16.0)
[2024-09-04 11:25] LABS: MCH 28.1 pg (25.0-35.0)
[2024-09-04 11:29] LABS: Glucose,Whole Blood 384 mg/dL (70-110)
[2024-09-04 11:29] LABS: Glucose,Whole Blood 352 mg/dL (70-110)
[2024-09-04 11:32] LABS: Chloride 99 mmol/L (98-107); Potassium 4.5 mmol/L (3.5-5.1); Sodium 129 mmol/L (137-145)
--- NOTE | 2024-09-04 12:19 | P.PN ---
Subjective Progress Note Date: 09/04/24 On 09/01/2024, the patient was seen in consultation due to severe metabolic acidosis. I was asked to evaluate this patient for ICU transfer. The patient is known to me. The patient is known to have diabetes mellitus type 2 along with history of hypertension hyperlipidemia. The patient has been maintained on NPH insulin 10 units 3 times daily on outpatient basis and Lantus insulin 30 units on a daily basis. At time of admission, the patient had anion gap metabolic acidosis. The patient was treated on the floor with an insulin drip. Nevertheless, there has been significant drop in the patient's serum bicarbonate earlier this morning, her bicarb level was less than 5 and the patient had no significant anion gap. This was consistent with a non-anion gap metabolic acidosis. As such, there is a bicarb deficit. At the same time, the patient's serum acetone was positive. The patient was awake and alert and the patient was also ambulating. She denied having any other complaints. The blood gas from yesterday showed acidosis with a pH of 7.25 with a pCO2 of 27 and pO2 of 97. The white cell count of 6.4 with a hemoglobin 10.9 and a platelet count of 245. The patient accordingly was switched to a bicarb infusion, I gave her 2 doses of sodium bicarb 100 mEq total and The insulin drip at 3.7 units an hour. She has no specific complaints. No altered mentation. She remains on room air oxygen. On 09/02/2024, the patient is feeling well. Awake and alert and communicating. No new complaints. Blood sugars remain elevated. I took the patient off the bicarb drip yesterday and also discontinued insulin drip as the patient did not have any significant anion gap metabolic acidosis. Serum bicarb was up to 24 with a gap of 2. On today's evaluation, the blood sugar is still elevated and the patient serum bicarb is dropped down to 17 with a gap of 13. BUN is 5 with a creatinine of 0.44. She is tolerating diet. No nausea. No vomiting. No other complaints otherwise for now. 09/03/2024, the patient is being seen for a follow-up. The patient is currently on Levemir insulin 40 units daily and NPH insulin 10 units 3 times a day and sliding scale coverage. The serum bicarb is up to 24, BUN 12 with a creatinine of 0.4. Most recent blood sugars of 260. No complaints. On 09/04/2024, the patient is being seen for a follow-up. Doing well. No specific complaints. BP was noted to be slightly elevated and the patient will be started on losartan 50 mg p.o. daily. Remains on Levemir insulin 40 units daily and NPH 10 units with meals and she is also receiving a blood sugar coverage with sliding scale. Her WBC count is at 6.3, hemoglobin 11.9 and platelet count is at 272. Objective - Vital Signs Vital signs: Vital Signs Temp 98.4 F 09/04/24 07:27 Pulse 92 09/04/24 09:36 Resp 17 09/04/24 07:27 BP 160/92 09/04/24 07:27 Pulse Ox 96 09/04/24 07:27 FiO2 21 09/01/24 04:12 Intake & Output 09/03/24 09/04/24 09/04/24 18:59 06:59 18:59 Intake Total 600 400 Balance 600 400 Weight 64.7 kg Intake: Oral 600 400 Other: Voiding Method Toilet Toilet Toilet # Voids 2 2 - Exam The patient appeared well nourished and normally developed. Vital signs as documented. Head exam is unremarkable. No scleral icterus or corneal arcus noted. Neck is without jugular venous distension, thyromegaly, or carotid bruits. Carotid upstrokes are brisk bilaterally. Lungs are clear to auscultation and percussion. Cardiac exam reveals the PMI to be normally sized and situated. Rhythm is regular. First and second heart sounds normal. No murmurs, rubs or gallops. Abdominal exam reveals normal bowel sounds, no masses, no organomegaly and no aortic enlargement. Extremities are nonedematous and both femoral and pedal pulses are normal. Examination of the skin revealed no evidence of significant rashes, suspicious appearing nevi or other concerning lesions. Neurologically, the patient is awake and alert and the patient does not have any focal neurological deficit. Cranial nerves are essentially intact. - Labs CBC & Chem 7: 09/04/24 10:33 09/04/24 10:33 Labs: Abnormal Lab Results - Last 24 Hours (Table) 09/03/24 09/03/24 09/03/24 Range/Units 09:02 11:13 16:13 Creatinine 0.40 L (0.52-1.04) mg/dL Glucose 311 H (74-99) mg/dL POC Glucose (mg/dL) 260 H 297 H (70-110) mg/dL 09/03/24 09/03/24 09/04/24 Range/Units 20:20 23:05 01:29 Creatinine (0.52-1.04) mg/dL Glucose (74-99) mg/dL POC Glucose (mg/dL) 374 H 294 H 228 H (70-110) mg/dL 09/04/24 Range/Units 06:08 Creatinine (0.52-1.04) mg/dL Glucose (74-99) mg/dL POC Glucose (mg/dL) 242 H (70-110) mg/dL Microbiology - Last 24 Hours (Table) 08/31/24 19:03 Urine Culture - Final Urine,Voided Kaitlin albicans Assessment and Plan Plan: Diabetes mellitus type 2 with poor blood sugar control on outpatient basis. No indication for DKA. Despite presence of some serum acetone, the patient does not have any significant anion gap metabolic acidosis and her metabolic acidosis of a non anion gap metabolic acidosis and the patient has a significant bicarb deficits. No altered mentation. Hemodynamically stable. She is ambulating. No altered mentation. Serum bicarb is improved and normalized None anion gap metabolic acidosis, recovered Hypertension Hyperlipidemia Plan Add losartan 50 mg p.o. daily for a tighter blood pressure control Continue Levemir dose up to 40 units at bedtime and the patient will be given an additional 10 units of NPH 3 times a day and a sliding scale coverage.. The medically glucose to make further adjustments on the diabetes management Continue oral bicarb Monitor blood sugars We we will sign off the case.
[2024-09-04] MEDS: INSULIN ASPART (NovoLOG) 100 UNIT/ML VIAL SQ SCH (12:22)
[2024-09-04 12:39] LABS: African American GFR (CKD) >90 (>60 ml/min/1.73 sqM); Anion Gap 13 mmol/L; Non-African American GFR(CKD) >90 (>60 ml/min/1.73 sqM)
[2024-09-04 12:40] LABS: Blood Urea Nitrogen 14 mg/dL (7-17); Calcium 9.2 mg/dL (8.4-10.2); Carbon Dioxide 17 mmol/L (22-30); Glucose 359 mg/dL (74-99)
[2024-09-04 12:42] LABS: AST 43 U/L (14-36); Albumin 3.6 g/dL (3.5-5.0); Total Bilirubin 0.4 mg/dL (0.2-1.3); Total Protein 6.3 g/dL (6.3-8.2)
[2024-09-04 12:43] LABS: ALT 50 U/L (4-34); Alkaline Phosphatase 96 U/L (38-126)
[2024-09-04 13:43] LABS: Glucose,Whole Blood 352 mg/dL (70-110)
[2024-09-04 14:22] LABS: Glucose,Whole Blood 332 mg/dL (70-110)
--- NOTE | 2024-09-04 15:21 | P.PN ---
Subjective Progress Note Date: 09/04/24 Principal diagnosis: Reason for follow-up is thrush Patient is a 59-year-old female with a past medical history significant for diabetes mellitus hypertension hyperlipidemia presenting to the hospital for evaluation of elevated blood sugar and possible UTI has been sheba gnosed and been treated for DKA and is a question of possible thrush. On today's evaluation that is 09/04/2024, Patient is afebrile this morning patient denies having any chest pain shortness of breath or cough, the patient is currently on room air, patient denies any abdominal pain no diarrhea no n ausea no vomiting, has been concerned about her elevated blood sugar no other symptoms. The patient white count is 6.3 creatinine 0.41 UA was negative however culture is growing Kaitlin Objective - Vital Signs Vital signs: Vital Signs Temp 98.4 F 09/04/24 07:27 Pulse 88 09/04/24 12:29 Resp 17 09/04/24 11:07 BP 128/77 09/04/24 11:07 Pulse Ox 97 09/04/24 11:07 FiO2 21 09/01/24 04:12 Intake & Output 09/03/24 09/04/24 09/04/24 18:59 06:59 18:59 Intake Total 600 1840 Balance 600 1840 Weight 64.7 kg Intake: Oral 600 1840 Other: Voiding Method Toilet Toilet Toilet # Voids 2 2 2 - Exam GENERAL DESCRIPTION: Middle-age female up in bed in no distress RESPIRATORY SYSTEM: Unlabored breathing , decreased breath sounds at bases HEART: S1 S2 regular rate and rhythm , ABDOMEN: Soft , no tenderness EXTREMITIES: No edema feet - Labs CBC & Chem 7: 09/04/24 10:33 09/04/24 10:33 Labs: Abnormal Lab Results - Last 24 Hours (Table) 09/03/24 09/03/24 09/03/24 Range/Units 16:13 20:20 23:05 Sodium (137-145) mmol/L Carbon Dioxide (22-30) mmol/L Creatinine (0.52-1.04) mg/dL Glucose (74-99) mg/dL POC Glucose (mg/dL) 297 H 374 H 294 H (70-110) mg/dL AST (14-36) U/L ALT (4-34) U/L 09/04/24 09/04/2409/04/24 Range/Units 01:29 06:08 10:33 Sodium 129 L (137-145) mmol/L Carbon Dioxide 17 L (22-30) mmol/L Creatinine 0.41 L (0.52-1.04) mg/dL Glucose 359 H (74-99) mg/dL POC Glucose (mg/dL) 228 H 242 H (70-110) mg/dL AST 43 H (14-36) U/L ALT 50 H (4-34) U/L 09/04/24 09/04/24 09/04/24 Range/Units 11:26 11:28 13:41 Sodium (137-145) mmol/L Carbon Dioxide (22-30) mmol/L Creatinine (0.52-1.04) mg/dL Glucose (74-99) mg/dL POC Glucose (mg/dL) 384 H 352 H 352 H (70-110) mg/dL AST (14-36) U/L ALT (4-34) U/L 09/04/24 Range/Units 14:20 Sodium (137-145) mmol/L Carbon Dioxide (22-30) mmol/L Creatinine (0.52-1.04) mg/dL Glucose (74-99) mg/dL POC Glucose (mg/dL) 332 H (70-110) mg/dL AST (14-36) U/L ALT (4-34) U/L Microbiology - Last 24 Hours (Table) 08/31/24 19:03 Urine Culture - Final Urine,Voided Kaitlin albicans Assessment and Plan (1) Thrush Current Visit: Yes Status: Acute Code(s): B37.0 - CANDIDAL STOMATITIS SNOMED Code(s): 68222616 Plan: 1patient presented to hospital with elevated blood sugar suddenly because discomfort nausea but no vomiting and this patient has been diagnosed with a diabetic acidosis patient not running any fever did not have any elevated white count urine has been negative lungs are clear to auscultation abdomen is soft with mild thrush, did have a positive urine culture with Kaitlin however UA was negative and the patient has no symptoms 2-patient to continue with nystatin swish and swallow, no need for systemic antifungal therapy at this point Dictation was produced using [employer] dictation software. please excuse any grammatical, word or spelling errors. Time with Patient: Less than 30
[2024-09-04 16:13] LABS: Glucose,Whole Blood 286 mg/dL (70-110)
[2024-09-04 20:06] LABS: Glucose,Whole Blood 276 mg/dL (70-110)
[2024-09-04] MEDS: DOXYCYCLINE 100 MG CAP PO SCH (21:48)
[2024-09-05 00:47] LABS: Glucose,Whole Blood 258 mg/dL (70-110)
--- NOTE | 2024-09-05 05:12 | PN ---
PROGRESS NOTE SUBJECTIVE: In for diabetic ketoacidosis. 59-year-old white female, sitting up in bed. She says she is getting slowly better. OBJECTIVE: CARDIOVASCULAR: S1, S2. LUNGS: Transmitted upper sounds. VITAL SIGNS: Blood pressure is 128/77 today, improved from yesterday. She is 97 on room air, respiratory rate 16 to 18, pulse 80s to 90s. Blood pressure 139/82, FiO2 21, temp 98.5. HEMATOLOGY: Negative Homans. PSYCH: Fair mood and affect. LABORATORY DATA: Sodium is still low at 129. Sugars 200 to 300s. A new 11 mm ground-glass opacity in the subpleural lung and adjacent 5.4 mm nodule. Left lung is clear. CAT scan of the abdomen is normal. Suspect ground-glass opacity and 5 mm nodule, most likely pneumonia. She is treated with IV antibiotics for that. Continue current treatment. ASSESSMENT: She has thrush. She has pneumonia. Nystatin swish and swallow. IV antibiotics for pneumonia. Azithromycin, she is not allergic to, which apparently she has, possibly start Cipro or Levaquin. Prognosis is guarded. Ambulate as tolerated. Please see further orders. MMODL / IJN: [id number] /
[2024-09-05 06:41] LABS: Glucose,Whole Blood 276 mg/dL (70-110)
[2024-09-05 11:05] VITALS: RESP 16; TEMP 98.2
[2024-09-05 11:31] LABS: Glucose,Whole Blood 335 mg/dL (70-110)
--- NOTE | 2024-09-05 12:21 | P.PN ---
Subjective Progress Note Date: 09/05/24 Principal diagnosis: Reason for follow-up is thrush Patient is a 59-year-old female with a past medical history significant for diabetes mellitus hypertension hyperlipidemia presenting to the hospital for evaluation of elevated blood sugar and possible UTI has been sheba gnosed and been treated for DKA and is a question of possible thrush. On today's evaluation that is 09/05/2024,the patient denies any fever or any chills, patient is breathing comfortably on room air, the patient denies chest pain shortness of breath and no significant cough, patient denies abdominal pain, no nausea vomiting or diarrhea. No urinary symptoms feeling better wants to go home. No new lab has been obtained today Objective - Vital Signs Vital signs: Vital Signs Temp 98.2 F 09/05/24 08:00 Pulse 103 H 09/05/24 09:17 Resp 16 09/05/24 08:00 BP 116/70 09/05/24 08:00 Pulse Ox 94 L 09/05/24 08:00 FiO2 21 09/01/24 04:12 Intake & Output 09/04/24 09/05/24 09/05/24 18:59 06:59 18:59 Intake Total 1840 240 Balance 1840 240 Weight 64.8 kg Intake: Oral 1840 240 Other: Voiding Method Toilet Toilet Toilet # Voids 2 1 - Exam GENERAL DESCRIPTION: Middle-age female up in bed in no distress RESPIRATORY SYSTEM: Unlabored breathing , decreased breath sounds at bases HEART: S1 S2 regular rate and rhythm , ABDOMEN: Soft , no tenderness EXTREMITIES: No edema feet - Labs CBC & Chem 7: 09/04/24 10:33 09/04/24 10:33 Labs: Abnormal Lab Results - Last 24 Hours (Table) 09/04/24 09/04/24 09/04/24 Range/Units 10:33 13:41 14:20 Carbon Dioxide 17 L (22-30) mmol/L Creatinine 0.41 L (0.52-1.04) mg/dL Glucose 359 H (74-99) mg/dL POC Glucose (mg/dL) 352 H 332 H (70-110) mg/dL AST 43 H (14-36) U/L ALT 50 H (4-34) U/L 09/04/24 09/04/24 09/05/24 Range/Units 16:08 20:04 00:46 Carbon Dioxide (22-30) mmol/L Creatinine (0.52-1.04) mg/dL Glucose (74-99) mg/dL POC Glucose (mg/dL) 286 H 276 H 258 H (70-110) mg/dL AST (14-36) U/L ALT (4-34) U/L 09/05/24 09/05/24 Range/Units 06:39 11:29 Carbon Dioxide (22-30) mmol/L Creatinine (0.52-1.04) mg/dL Glucose (74-99) mg/dL POC Glucose (mg/dL) 276 H 335 H (70-110) mg/dL AST (14-36) U/L ALT (4-34) U/L Assessment and Plan (1) Thrush Current Visit: Yes Status: Acute Code(s): B37.0 - CANDIDAL STOMATITIS SNOMED Code(s): 56984945 Plan: 1patient presented to hospital with elevated blood sugar suddenly because discomfort nausea but no vomiting and this patient has been diagnosed with a diabetic acidosis patient not running any fever did not have any elevated white count urine has been negative lungs are clear to auscultation abdomen is soft with mild thrush, did have a positive urine culture with Kaitlin however UA was negative and the patient has no symptoms 2-patient is an improvement and will to continue with nystatin swish and swallow x 7 days on discharge Dictation was produced using [employer] dictation software. please excuse any grammatical, word or spelling errors. Time with Patient: Less than 30
[2024-09-05 12:55] VITALS: BP 133/82; PULSE 107
== END 2024-09-05 13:22 | disposition home or self-care (01) | DRG 637 ==
LOC: EC 09:39 → 3SCARD 12:22 → 3NCARDOBS 15:03 → 3SCARD 16:28
PROVIDERS: ADMIT Family Medicine; ATTEND Family Medicine
DX: E11.10 Type 2 diabetes mellitus with ketoacidosis without coma (principal); J18.9 Pneumonia, unspecified organism; B37.0 Candidal stomatitis; N39.0 Urinary tract infection, site not specified; E87.1 Hypo-osmolality and hyponatremia; J44.0 Chronic obstructive pulmonary disease with (acute) lower respiratory infection; I10 Essential (primary) hypertension; Z86.16 Personal history of COVID-19; E78.5 Hyperlipidemia, unspecified; D64.9 Anemia, unspecified; J44.9 Chronic obstructive pulmonary disease, unspecified; K21.9 Gastro-esophageal reflux disease without esophagitis; E86.0 Dehydration; G47.33 Obstructive sleep apnea (adult) (pediatric); J30.9 Allergic rhinitis, unspecified; Z79.4 Long term (current) use of insulin; Z79.899 Other long term (current) drug therapy; Z82.49 Family history of ischemic heart disease and other diseases of the circulatory system; Z88.1 Allergy status to other antibiotic agents; Z88.7 Allergy status to serum and vaccine; Z90.49 Acquired absence of other specified parts of digestive tract
CPT/HCPCS: 36415; 36600; 71250; 74150; 80048; 80051; 80053; 81001; 82009; 82565; 82803; 82805; 82947; 83036; 83605; 84100; 84520; 85025; 87086; 94640; 94660; 96361; 96365; 96366; 96368; 99285

== ENCOUNTER 2024-11-25 15:23 | Emergency (ER) | payer BC ==
[2024-11-25 15:28] VITALS: RESP 18; TEMP 98.1
[2024-11-25 15:56] LABS: Appearance,Urine Turbid (Clear); Bacteria,Urine Many /hpf; Bilirubin,Urine Negative (Negative); Blood,Urine Moderate (Negative); Color,Urine Light Yellow; Glucose,Urine (UA) 4+ (Negative); Leukocyte Esterase,Urine Large (Negative); Nitrite,Urine Negative (Negative); PH, Urine 5.5 (5.0-8.0); Protein,Urine 2+ (Negative); RBC,Urine 58 /hpf (0-5); Specific Gravity,Urine 1.023 (1.001-1.035); Urobilinogen,Urine <2.0 mg/dL (<2.0); WBC,Urine >182 /hpf (0-5)
[2024-11-25 16:02] LABS: Ketones,Urine 2+ (Negative)
--- NOTE | 2024-11-25 16:09 | ED ---
General Adult HPI - General Chief complaint: Urogenital Stated complaint: Poss UTI Time Seen by Provider: 11/25/24 15:45 Source: patient, RN notes reviewed Mode of arrival: ambulatory Limitations: no limitations - History of Present Illness Initial comments: Patient is a 59-year-old female present to the emergency department with concerns for urinary tract infection. Patient has been experiencing symptoms for around 2 weeks. Patient did try doxycycline and Diflucan by her primary care physician without improvement of symptoms. Patient has dysuria and frequency. Patient does have history of similar symptoms previously associated with urinary tract infection. - Related Data Home Medications Medication Instructions Recorded Confirmed Fluconazole [Diflucan] 150 mg PO DAILY 08/31/24 08/31/24 Insulin NPH Human Isophane 10 units SQ AC-TID 08/31/24 08/31/24 [NovoLIN N Flexpen] Omeprazole 20 mg PO DAILY 08/31/24 08/31/24 Previous Rx's Medication Instructions Recorded Acetaminophen Tab [Tylenol] 650 mg PO Q6HR PRN tab 09/05/24 Doxycycline [Vibramycin] 100 mg PO BID 10 Days #20 cap 09/05/24 INSULIN ASPART (NovoLOG) [NovoLOG 0 unit SQ ACHS each 09/05/24 (formulary)] INSULIN ASPART (NovoLOG) [NovoLOG 10 unit SQ AC-TID each 09/05/24 (formulary)] Insulin Detemir (Levemir) [Levemir] 40 unit SQ HS each 09/05/24 Ipratropium-Albuterol Nebulize 3 ml INHALATION RT-QID 30 Days 09/05/24 [Duoneb 0.5 mg-3 mg/3 ml Soln] #120 each Losartan [Cozaar] 50 mg PO DAILY 90 Days #90 tab 09/05/24 Nystatin 100,000 Unit/ml Susp 500,000 unit PO QID 20 Days #300 ml 09/05/24 [Mycostatin Oral Susp] Sodium Bicarbonate Tab 650 mg PO BID 90 Days #180 tab 09/05/24 Cephalexin [Keflex] 500 mg PO QID #40 cap 11/25/24 Allergies Allergy/AdvReac Type Severity Reaction Status Date / Time erythromycin base Allergy Rash/Hives Verified 11/25/24 15:25 gemifloxacin [From Factive] Allergy Anaphylaxis Verified 11/25/24 15:25 Influenza Virus Vaccines Allergy Nausea & Verified 11/25/24 15:25 Vomiting & Diarrhea nitrofurantoin Allergy Anaphylaxis Verified 11/25/24 15:25 [From Macrobid] Penicillins Allergy Rash/Hives Verified 11/25/24 15:25 prednisone Allergy Rash/Hives Verified 11/25/24 15:25 Sulfa (Sulfonamide Allergy Rash/Hives Verified 11/25/24 15:25 Antibiotics) vancomycin AdvReac Unknown Verified 11/25/24 15:25 pine nuts AdvReac Anaphylaxis Uncoded 11/25/24 15:25 Review of Systems ROS Statement: Those systems with pertinent positive or pertinent negative responses have been documented in the HPI. ROS Other: All systems not noted in ROS Statement are negative. Constitutional: Denies: fever Eyes: Denies: eye pain Respiratory: Denies: dyspnea Cardiovascular: Denies: chest pain, palpitations Gastrointestinal: Denies: abdominal pain Genitourinary: Reports: urgency, dysuria, frequency Musculoskeletal: Denies: back pain Past Medical History Past Medical History: Diabetes Mellitus, Hyperlipidemia, Hypertension Additional Past Medical History / Comment(s): vomiting after eating, constipation, History of Any Multi-Drug Resistant Organisms: None Reported Past Surgical History: Appendectomy, Cholecystectomy Additional Past Surgical History / Comment(s): cysts removed from ovaries Past Anesthesia/Blood Transfusion Reactions: Motion Sickness, Postoperative Nausea & Vomiting (PONV) Past Psychological History: No Psychological Hx Reported Smoking Status: Never smoker Past Alcohol Use History: None Reported Past Drug Use History: None Reported - Past Family History Sister(s) Family Medical History: Deep Vein Thrombosis (DVT) General Exam Limitations: no limitations General appearance: alert, in no apparent distress Head exam: Present: normocephalic Neck exam: Present: normal inspection Respiratory exam: Present: normal lung sounds bilaterally Cardiovascular Exam: Present: tachycardia GI/Abdominal exam: Present: soft. Absent: tenderness Extremities exam: Present: normal inspection. Absent: pedal edema, calf tenderness Neurological exam: Present: alert Skin exam: Present: normal color Course Vital Signs 11/25/24 11/25/24 15:25 16:08 Temperature 98.1 F Pulse Rate 123 H 117 H Respiratory 18 Rate Blood Pressure 130/72 O2 Sat by Pulse 99 Oximetry Medical Decision Making - Medical Decision Making Was pt. sent in by a medical professional or institution (, PA, BRAKE PRESS OPERATOR, urgent care, hospital, or skilled nursing...) When possible be specific @ -No Did you speak to anyone other than the patient for history (EMS, parent, family, police, friend...)? What history was obtained from this source @ -No Did you review nursing and triage notes (agree or disagree)? Why? @ -I reviewed and agree with nursing and triage notes Were old charts reviewed (outside hosp., previous admission, EMS record, old EKG, old radiological studies, urgent care reports/EKG's, skilled nursing records)? Report findings @ -No old charts were reviewed Differential Diagnosis (chest pain, altered mental status, abdominal pain women, abdominal pain men, vaginal bleeding, weakness, fever, dyspnea, syncope, headache, dizziness, GI bleed, back pain, seizure, CVA, palpatations, mental health, musculoskeletal)? @ -Differential Abdominal Pain Women: Appendicitis, Cholecystitis, diverticulosis, ischemic bowel, pancreatitis, h epatitis, UTI, gastroenteritis, AAA, incarcerated hernia, bowel obstruction, constipation, inflammatory bowel, hepatitis, peptic ulcer disease, splenic infarction, perforated viscus, vulvitis, ovarian torsion, PID, kidney stone, placenta abruption, this is not meant to be an all-inclusive list EKG interpreted by me (3pts min.). @ -As above X-rays interpreted by me (1pt min.). @ -None done CT interpreted by me (1pt min.). @ -None done U/S interpreted by me (1pt. min.). @ -None done What testing was considered but not performed or refused? (CT, X-rays, U/S, labs)? Why? @ -Considered and recommended to patient to have further testing regarding tachycardia. Patient states this is chronic for her and her doctor is aware of it and has had previous workup before. Patient refuses further evaluation or treatment for this. What meds were considered but not given or refused? Why? @ -None Did you discuss the management of the patient with other professionals (professionals i.e. , PA, BRAKE PRESS OPERATOR, lab, RT, psych nurse, public health social worker, music industry internship, teacher, logistics supply officer, pillowcase turner)? Give summary @ -No Was smoking cessation discussed for >3mins.? @ -No Was critical care preformed (if so, how long)? @ -No Were there social determinants of health that impacted care today? How? (Homelessness, low income, unemployed, alcoholism, drug addiction, transportation, low edu. Level, literacy, decrease access to med. care, residential, rehab)? @ -No Was there de-escalation of care discussed even if they declined (Discuss DNR or withdrawal of care, Hospice)? DNR status @ -Patient refuses workup or treatment for tachycardia What co-morbidities impacted this encounter? (DM, HTN, Smoking, COPD, CAD, Cancer, CVA, ARF, Chemo, Hep., AIDS, mental health diagnosis, sleep apnea, morbid obesity)? @ -None Was patient admitted / discharged? Hospital course, mention meds given and route, prescriptions, significant lab abnormalities, going to OR and other pertinent info. @ -Patient presents with urinary symptoms. Urinalysis concerning for urinary tract infection. Patient does have several allergies and will be started on cephalosporin after discussion with the patient. Patient will be discharged and follow-up with her doctor. Undiagnosed new problem with uncertain prognosis? @ -No Drug Therapy requiring intensive monitoring for toxicity (Heparin, Nitro, Insulin, Cardizem)? @ -No Were any procedures done? @ -No Diagnosis/symptom? @ -Urinary tract infection Acute, or Chronic, or Acute on Chronic? @ -Acute Uncomplicated (without systemic symptoms) or Complicated (systemic symptoms)? @ -Default Side effects of treatment? @ -No Exacerbation, Progression, or Severe Exacerbation? @ -No Poses a threat to life or bodily function? How? (Chest pain, [place], [place], pneumonia, PE, COPD, DKA, ARF, appy, cholecystitis, CVA, Diverticulitis, Homicidal, Suicidal, threat to staff... and all critical care pts) @ -No - Lab Data Lab Results 11/25/24 Range/Units 15:33 Urine Color Light Yellow Urine Appearance Turbid H (Clear) Urine pH 5.5 (5.0-8.0) Ur Specific [place] 1.023 (1.001-1.035) Urine Protein 2+ H (Negative) Urine Glucose (UA) 4+ H (Negative) Urine Ketones 2+ H (Negative) Urine Blood Moderate H (Negative) Urine Nitrite Negative (Negative) Urine Bilirubin Negative (Negative) Urine Urobilinogen <2.0 (<2.0) mg/dL Ur Leukocyte Esterase Large H (Negative) Urine RBC 58 H (0-5) /hpf Urine WBC >182 H (0-5) /hpf Urine WBC Clumps Many H (None) /hpf Urine Bacteria Many H (None) /hpf Disposition Clinical Impression: Urinary tract infection Disposition: HOME SELF-CARE Condition: Stable Instructions (If sedation given, give patient instructions): Urinary Tract Infection in Women (ED) Additional Instructions: Please do follow-up with your primary care physician beginning the week. Have your primary care physician review urine culture and ensure you are on appropriate antibiotics. Return for fevers, increased heart rate, vomiting, pain, worsening symptoms or other concerns. Prescriptions: Cephalexin [Keflex] 500 mg PO QID #40 cap Is patient prescribed a controlled substance at d/c from ED?: No Referrals: Dallas Thompson MD [Primary Care Provider] - 1-2 days Time of Disposition: 16:08
[2024-11-25] MEDS: cefTRIAXone IN SWFI 1,000 MG/10 ML SYRINGE IVP STA (16:40)
[2024-11-25] MEDS: ONDANSETRON 4 MG/2 ML VIAL IVP STA (16:44)
[2024-11-25 17:08] VITALS: BP 125/76; PULSE 110
== END 2024-11-25 17:08 | disposition home or self-care (01) ==
LOC: EC 15:23
DX: N39.0 Urinary tract infection, site not specified (principal); Z88.0 Allergy status to penicillin; Z88.2 Allergy status to sulfonamides; Z88.1 Allergy status to other antibiotic agents; Z88.7 Allergy status to serum and vaccine
CPT/HCPCS: 81001; 99283; 96374; 96375; J2405; J0696

== ENCOUNTER → 2024-12-20 | Outpatient (CLI) | payer BC ==
--- NOTE | 2024-12-20 09:09 | CT ---
EXAMINATION TYPE: CT lumbar spine wo con DATE OF EXAM: 12/20/2024 8:35 AM COMPARISON: None. CLINICAL INDICATION: Female, 59 years old with history of M54.16 RADICULOPATHY, LUMBAR REGION; PHH, b ack pain TECHNIQUE: Unenhanced CT of the lumbar spine was performed. Bone and soft tissue window settings are submitted as well as coronal and sagittal reconstructions. CT DLP: 879 mGycm Automated exposure control for dose reduction was used. FINDINGS: There are 5 lumbar-type vertebra. Alignment is satisfactory. Vertebral body heights are pre served. There is moderate disc space narrowing with vacuum disc phenomenon and moderate anterior and lateral spurring at the L5-S1 level. No large posterior disc herniation seen on sagittal images. Axial images at L3-L4 level show [id number] facet arthropathy bilaterally. Axial images at L4-L5 level mild broad disc bulge minimally effaces the anterior thecal sac and mild/ moderate facet arthropathy bilaterally. Axial images at the L5-S1 level show mild/moderate facet arthropathy bilaterally. There is a tiny donavon tral disc protrusion seen but spinal canal is preserved. Bilateral Neural foramina are grossly patent in the lumbar spine. [id number] peripheral calcified plaque in the infrarenal aorta is noted. A few reticular. There is mild to moderate colonic fecal prominence noted. Correlate for constipation. IMPRESSION: As above. No acute findings are seen. [facility], , 12/20/2024 9:06 AM
== END | disposition home or self-care (01) ==
LOC: RADCTMAIN 08:19
PROVIDERS: ATTEND Family Medicine
DX: M47.26 Other spondylosis with radiculopathy, lumbar region (principal)
CPT/HCPCS: 72131